=== PATIENT | female | born 1930 | race Caucasian/White ===

== ENCOUNTER 2018-07-26 16:47 | Emergency (ER) | payer MEDICARE ==
[2018-07-26 16:51] VITALS: BP 145/69; PULSE 66; RESP 18; TEMP 98.2
--- NOTE | 2018-07-26 17:13 | ED ---
General Adult HPI - General Chief complaint: ENT Stated complaint: Trouble Swallowing Time Seen by Provider: 07/26/18 16:50 Source: patient, RN notes reviewed Mode of arrival: ambulatory Limitations: no limitations - History of Present Illness Initial comments: This is an 88-year-old female presents emergency Department stating when she swallows she feels as though there is something in her throat however she is able to drink any without problem. Patient denies any pain. Patient states this is been ongoing a month. Patient states 2 days ago she did follow up with her doctor about this and he is looking into it. Patient states she came today because of continued to happen and she thought maybe we could do more of a workup. Patient denies any fever chills. Patient denies any chest pain difficulty breathing or shortness of breath. Patient denies any pain in the throat. Patient denies abdominal pain patient denies nausea vomiting diarrhea. Patient denies any back pain patient denies any recent injury or fall. Patient states that just seems a little harder to swallow maybe like it's dry. Patient states just sitting here and swallowing her saliva does not cause any discomfort. - Related Data Home Medications Medication Instructions Recorded Confirmed Atorvastatin [Lipitor] 20 mg PO DAILY 11/06/13 07/26/18 Levothyroxine Sodium [Synthroid] 50 mcg PO DAILY 07/26/18 07/26/18 Losartan [Cozaar] 50 mg PO DAILY 07/26/18 07/26/18 amLODIPine [Norvasc] 5 mg PO DAILY 07/26/18 07/26/18 Allergies Allergy/AdvReac Type Severity Reaction Status Date / Time Penicillins Allergy Rash/Hives Verified 07/26/18 16:56 Review of Systems ROS Statement: Those systems with pertinent positive or pertinent negative responses have been documented in the HPI. ROS Other: All systems not noted in ROS Statement are negative. Past Medical History Past Medical History: Diabetes Mellitus, Hyperlipidemia, Hypertension, Pulmonary Embolus (PE), Thyroid Disorder Additional Past Medical History / Comment(s): had a siezure in 2004, pt states her NA+ was to low History of Any Multi-Drug Resistant Organisms: MRSA Date of last positivie culture/infection: 02/21/2014 MDRO Source:: Face Past Surgical History: Bladder Surgery, Hysterectomy Past Anesthesia/Blood Transfusion Reactions: No Reported Reaction Past Psychological History: No Psychological Hx Reported Smoking Status: Never smoker Past Alcohol Use History: None Reported Past Drug Use History: None Reported General Exam - General Exam Comments Initial Comments: GENERAL: Patient is well-developed and well-nourished. Patient is nontoxic and well- hydrated and is in no acute distress. ENT: Neck is soft and supple. No significant lymphadenopathy is noted. Oropharynx is clear. Moist mucous membranes. Neck has full range of motion without eliciting any pain. EYES: The sclera were anicteric and conjunctiva were pink and moist. Extraocular movements were intact and pupils were equal round and reactive to light. Eyelids were unremarkable. PULMONARY: Unlabored respirations. Good breath sounds bilaterally. No audible rales rhonchi or wheezing was noted. CARDIOVASCULAR: There is a regular rate and rhythm without any murmurs gallops or rubs. ABDOMEN: Soft and nontender with normal bowel sounds. SKIN: Skin is clear with no lesions or rashes and otherwise unremarkable. NEUROLOGIC: Patient is alert and oriented x3. Cranial nerves II through XII are grossly intact. Motor and sensory are also intact. Normal speech, volume and content. Symmetrical smile. MUSCULOSKELETAL: Normal extremities with adequate strength and full range of motion. LYMPHATICS: No significant lymphadenopathy is noted PSYCHIATRIC: Normal psychiatric evaluation. Limitations: no limitations Course Vital Signs 07/26/18 16:48 Temperature 98.2 F Pulse Rate 66 Respiratory 18 Rate Blood Pressure 145/69 O2 Sat by Pulse 99 Oximetry Medical Decision Making - Medical Decision Making X-ray of the soft tissue show no acute abnormality. Strep was negative. Patient was drinking water when I went back into the room to give her her the results. - Lab Data Lab Results 07/26/18 Range/Units 17:10 Group A Strep Rapid Negative (Negative) Disposition Clinical Impression: Dysphagia Disposition: HOME SELF-CARE Condition: Good Instructions (If sedation given, give patient instructions): Dysphagia (ED) Is patient prescribed a controlled substance at d/c from ED?: No Referrals: Kamaljit Dalton MD [Primary Care Provider] - 1-2 days Time of Disposition: 18:23
--- NOTE | 2018-07-26 17:37 | XR ---
EXAMINATION TYPE: XR soft tissue neck DATE OF EXAM: 07/26/2018 COMPARISON: NONE HISTORY: Pain TECHNIQUE: 2 views of the soft tissues of the neck are submitted. FINDINGS: The airway is patent. Normal appearing epiglottis. Retropharyngeal soft tissues are withi n normal limits. No evidence for radiopaque foreign body. Degenerative changes cervical spine. IMPRESSION: Negative study
== END 2018-07-26 18:36 | disposition home or self-care (01) ==
LOC: EC 16:47
DX: R13.10 Dysphagia, unspecified (principal); E78.5 Hyperlipidemia, unspecified; I10 Essential (primary) hypertension; E07.9 Disorder of thyroid, unspecified; Z88.0 Allergy status to penicillin; Z79.890 Hormone replacement therapy; Z79.899 Other long term (current) drug therapy; Z86.14 Personal history of Methicillin resistant Staphylococcus aureus infection
CPT/HCPCS: 70360; 87081; 87430; 99284

== ENCOUNTER 2018-07-29 20:01 | Emergency (ER) | payer MEDICARE ==
--- NOTE | 2018-07-29 22:01 | ED ---
General Adult HPI - General Chief complaint: ENT Stated complaint: cannot swallow Time Seen by Provider: 07/29/18 21:06 Source: patient, family, RN notes reviewed, old records reviewed Mode of arrival: ambulatory Limitations: no limitations - History of Present Illness Initial comments: 88 female presented for evaluation of difficulty swallowing and concern for foreign body. Patient was seen emergency Department 3 days earlier with similar symptoms. She states she's had these symptoms for at least 3 weeks. She had PEs, ham, potatoes for dinner. She denies symptoms at the time my evaluation. She has been able to swallow liquids since the onset. She states a progressive worsening of symptoms with certain foods. Denies pain. Denies sore throat. Denies fever or chills. Denies chest pain or dyspnea. Denies abdominal pain. - Related Data Home Medications Medication Instructions Recorded Confirmed Atorvastatin [Lipitor] 20 mg PO DAILY 11/06/13 07/29/18 Levothyroxine Sodium [Synthroid] 50 mcg PO DAILY 07/26/18 07/29/18 Losartan [Cozaar] 50 mg PO DAILY 07/26/18 07/29/18 amLODIPine [Norvasc] 5 mg PO DAILY 07/26/18 07/29/18 Sertraline HCl [Zoloft] 25 mg PO DAILY 07/29/18 07/29/18 Allergies Allergy/AdvReac Type Severity Reaction Status Date / Time Penicillins Allergy Rash/Hives Verified 07/29/18 21:06 Review of Systems ROS Statement: Those systems with pertinent positive or pertinent negative responses have been documented in the HPI. ROS Other: All systems not noted in ROS Statement are negative. Past Medical History Past Medical History: Diabetes Mellitus, Hyperlipidemia, Hypertension, Pulmonary Embolus (PE), Thyroid Disorder Additional Past Medical History / Comment(s): had a siezure in 2004, pt states her NA+ was to low, dysphagia History of Any Multi-Drug Resistant Organisms: MRSA Date of last positivie culture/infection: 02/21/2014 MDRO Source:: Face Past Surgical History: Bladder Surgery, Hysterectomy Past Anesthesia/Blood Transfusion Reactions: No Reported Reaction Past Psychological History: No Psychological Hx Reported Smoking Status: Never smoker Past Alcohol Use History: None Reported Past Drug Use History: None Reported General Exam Limitations: no limitations General appearance: alert, in no apparent distress Head exam: Present: atraumatic, normocephalic Eye exam: Present: normal appearance, PERRL ENT exam: Present: normal oropharynx, mucous membranes moist Neck exam: Present: normal inspection. Absent: tenderness, thyromegaly Respiratory exam: Present: normal lung sounds bilaterally. Absent: respiratory distress, wheezes Cardiovascular Exam: Present: regular rate, normal rhythm GI/Abdominal exam: Present: soft. Absent: distended, tenderness, guarding Extremities exam: Present: normal inspection, normal capillary refill Neurological exam: Present: alert, oriented X3, CN II-XII intact. Absent: motor sensory deficit Psychiatric exam: Present: normal affect, normal mood Skin exam: Present: warm, dry, intact Course Vital Signs 07/29/18 20:42 Temperature 97.8 F Pulse Rate 69 Respiratory 18 Rate Blood Pressure 142/68 O2 Sat by Pulse 99 Oximetry Medical Decision Making - Medical Decision Making 88-year-old female presenting for evaluation of difficulty swallowing certain foods. Patient is tolerating oral liquids in the emergency Department. No complaints time my evaluation. Her symptoms have been progressive over several week. No associated symptoms. Patient appears well-hydrated. No other complaints. She is instructed on dysphagia diet, encouraged to maintain oral hydration, will follow-up with GI. Will return with worsening or changing symptoms Disposition Clinical Impression: Dysphagia Disposition: HOME SELF-CARE Condition: Good Instructions (If sedation given, give patient instructions): Dysphagia (ED) Is patient prescribed a controlled substance at d/c from ED?: No Referrals: Kamaljit Dalton MD [Primary Care Provider] - 1-2 days Kiki Corley MD [STAFF PHYSICIAN] - 1-2 days Time of Disposition: 22:00
[2018-07-29 22:15] VITALS: BP 131/75; PULSE 67; RESP 19; TEMP 98
== END 2018-07-29 22:09 | disposition home or self-care (01) ==
LOC: EC 20:01
DX: R13.10 Dysphagia, unspecified (principal); E78.5 Hyperlipidemia, unspecified; I10 Essential (primary) hypertension; E07.9 Disorder of thyroid, unspecified; Z88.0 Allergy status to penicillin; Z79.890 Hormone replacement therapy; Z79.899 Other long term (current) drug therapy; Z86.14 Personal history of Methicillin resistant Staphylococcus aureus infection; Z86.711 Personal history of pulmonary embolism
CPT/HCPCS: 99284

== ENCOUNTER 2018-08-12 08:36 | Inpatient (IN) | payer MEDICARE ==
--- NOTE | 2018-08-12 09:05 | ED ---
Psych HPI - General Chief Complaint: Psychiatric Symptoms Stated Complaint: throat problems/not eating Time Seen by Provider: 08/12/18 08:49 Source: patient, family, RN notes reviewed Mode of arrival: ambulatory Limitations: no limitations - History of Present Illness Initial Comments: This 88-year-old female presents emergency department with family concerned for her mental health. Patient's has been stating that she does not believe that she can keep living like this. Family states that her mental status is changing. That she has been declining, she's had altered mental status at this time. Patient states that she is constantly thirsty. Since March she's had worsening anxiety and depression. She was started on Zoloft which was making symptoms worse was discontinued she has not taken any medications the last week or so. Patient states that she is a dry mouth and throat and states that she has to drink water constant. She did have an EGD by Dr. García which shows evidence of gastritis and underlying infection was given multiple medications though she has not started these. Patient denies any chest pain or shortness of breath. Patient had no recent lab work. Patient is in no alcohol or drug abuse. She always has history of anxiety but is worsened and which daughter is very concerned of her symptoms at this time. - Related Data Home Medications Medication Instructions Recorded Confirmed Atorvastatin [Lipitor] 20 mg PO DAILY 11/06/13 08/12/18 Levothyroxine Sodium [Synthroid] 50 mcg PO DAILY 07/26/18 08/12/18 Losartan [Cozaar] 50 mg PO BID 07/26/18 08/12/18 amLODIPine [Norvasc] 5 mg PO DAILY 07/26/18 08/12/18 Aspirin EC [Ecotrin Low Dose] 81 mg PO DAILY 08/12/18 08/12/18 Famotidine [Pepcid] 20 mg PO BID 08/12/18 08/12/18 Mirtazapine [Remeron] 30 mg PO HS 08/12/18 08/12/18 Ranitidine HCl [Zantac] 150 mg PO BID 08/12/18 08/12/18 Tetracycline 250mg Cap 250 mg PO QID 08/12/18 08/12/18 metroNIDAZOLE [Flagyl] 250 mg PO QID 08/12/18 08/12/18 Allergies Allergy/AdvReac Type Severity Reaction Status Date / Time Penicillins Allergy Rash/Hives Verified 08/12/18 09:21 Review of Systems ROS Statement: Those systems with pertinent positive or pertinent negative responses have been documented in the HPI. ROS Other: All systems not noted in ROS Statement are negative. Past Medical History Past Medical History: Diabetes Mellitus, Hyperlipidemia, Hypertension, Pulmonary Embolus (PE), Thyroid Disorder Additional Past Medical History / Comment(s): had a siezure in 2004, pt states her NA+ was to low, dysphagia History of Any Multi-Drug Resistant Organisms: MRSA Date of last positivie culture/infection: 02/21/2014 MDRO Source:: Face Past Surgical History: Bladder Surgery, Hysterectomy Past Anesthesia/Blood Transfusion Reactions: No Reported Reaction Past Psychological History: Anxiety, Depression Smoking Status: Never smoker Past Alcohol Use History: None Reported Past Drug Use History: None Reported General Exam Limitations: no limitations General appearance: alert, in no apparent distress Head exam: Present: atraumatic, normocephalic, normal inspection Eye exam: Present: normal appearance, PERRL, EOMI. Absent: scleral icterus, conjunctival injection, periorbital swelling ENT exam: Present: normal exam, normal oropharynx, mucous membranes moist, TM's normal bilaterally Neck exam: Present: normal inspection, full ROM. Absent: tenderness, meningismus, lymphadenopathy Respiratory exam: Present: normal lung sounds bilaterally. Absent: respiratory distress, wheezes, rales, rhonchi, stridor Cardiovascular Exam: Present: regular rate, normal rhythm, normal heart sounds. Absent: systolic murmur, diastolic murmur, rubs, gallop, clicks GI/Abdominal exam: Present: soft, normal bowel sounds. Absent: distended, tende rness, guarding, rebound, rigid Neurological exam: Present: alert, oriented X3, CN II-XII intact Skin exam: Present: warm, dry, intact, normal color. Absent: rash Course Vital Signs 08/12/18 08:40 Temperature 98.7 F Pulse Rate 82 Respiratory 16 Rate Blood Pressure 118/70 O2 Sat by Pulse 97 Oximetry Medical Decision Making - Medical Decision Making A 8 show female presented for multiple complaints. She was medically evaluated, evaluate by EPS. They do not feel that she is to be inpatient for psychiatric needs though she has moderate hyponatremic, dehydrated, has underlying urinary tract infection with change in behavior. Patient will be admitted at this time. - Lab Data Result diagrams: 08/12/18 09:55 08/12/18 09:55 Lab Results 08/12/18 08/12/18 08/12/18 Range/Units 09:55 09:55 11:31 WBC 5.6 (3.8-10.6) k/uL RBC 4.68 (3.80-5.40) m/uL Hgb 13.6 (11.4-16.0) gm/dL Hct 39.2 (34.0-46.0) % MCV 83.8 (80.0-100.0) fL MCH 29.0 (25.0-35.0) pg MCHC 34.5 (31.0-37.0) g/dL RDW 12.9 (11.5-15.5) % Plt Count 278 (150-450) k/uL Neutrophils % 86 % Lymphocytes % 8 % Monocytes % 3 % Eosinophils % 1 % Basophils % 0 % Neutrophils # 4.9 (1.3-7.7) k/uL Lymphocytes # 0.4 L (1.0-4.8) k/uL Monocytes # 0.2 (0-1.0) k/uL Eosinophils # 0.1 (0-0.7) k/uL Basophils # 0.0 (0-0.2) k/uL Sodium 125 L (137-145) mmol/L Potassium 4.1 (3.5-5.1) mmol/L Chloride 88 L (98-107) mmol/L Carbon Dioxide 21 L (22-30) mmol/L Anion Gap 16 mmol/L BUN 12 (7-17) mg/dL Creatinine 0.60 (0.52-1.04) mg/dL Est GFR (CKD-EPI)AfAm >90 (>60 ml/min/1.73 sqM) Est GFR (CKD-EPI)NonAf 83 (>60 ml/min/1.73 sqM) Glucose 73 L (74-99) mg/dL POC Glucose (mg/dL) (75-99) mg/dL POC Glu [employer] Department Chair ID Calcium 9.7 (8.4-10.2) mg/dL Total Bilirubin 1.0 (0.2-1.3) mg/dL AST 31 (14-36) U/L ALT 27 (9-52) U/L Alkaline Phosphatase 78 (38-126) U/L Total Protein 7.1 (6.3-8.2) g/dL Albumin 4.5 (3.5-5.0) g/dL TSH 2.040 (0.465-4.680) mIU/L Urine Color Yellow Urine Appearance Clear (Clear) Urine pH 6.0 (5.0-8.0) Ur Specific [place] 1.008 (1.001-1.035) Urine Protein Trace H (Negative) Urine Glucose (UA) Negative (Negative) Urine Ketones 2+ H (Negative) Urine Blood Negative (Negative) Urine Nitrite Negative (Negative) Urine Bilirubin Negative (Negative) Urine Urobilinogen <2.0 (<2.0) mg/dL Ur Leukocyte Esterase Large H (Negative) Urine RBC 1 (0-5) /hpf Urine WBC 13 H (0-5) /hpf Ur Squamous Epith Cells 1 (0-4) /hpf Hyaline Casts 1 (0-2) /lpf Urine Mucus Rare H (None) /hpf Urine Opiates Screen Not Detected (NotDetected) Ur Oxycodone Screen Not Detected (NotDetected) Urine Methadone Screen Not Detected (NotDetected) Ur Propoxyphene Screen Not Detected (NotDetected) Ur Barbiturates Screen Not Detected (NotDetected) U Tricyclic Antidepress Not Detected (NotDetected) Ur Phencyclidine Scrn Not Detected (NotDetected) Ur Amphetamines Screen Not Detected (NotDetected) U Methamphetamines Scrn Not Detected (NotDetected) U Benzodiazepines Scrn Not Detected (NotDetected) Urine Cocaine Screen Not Detected (NotDetected) U Marijuana (THC) Screen Not Detected (NotDetected) Serum Alcohol <10 mg/dL 08/12/18 Range/Units 12:34 WBC (3.8-10.6) k/uL RBC (3.80-5.40) m/uL Hgb (11.4-16.0) gm/dL Hct (34.0-46.0) % MCV (80.0-100.0) fL MCH (25.0-35.0) pg MCHC (31.0-37.0) g/dL RDW (11.5-15.5) % Plt Count (150-450) k/uL Neutrophils % % Lymphocytes % % Monocytes % % Eosinophils % % Basophils % % Neutrophils # (1.3-7.7) k/uL Lymphocytes # (1.0-4.8) k/uL Monocytes # (0-1.0) k/uL Eosinophils # (0-0.7) k/uL Basophils # (0-0.2) k/uL Sodium (137-145) mmol/L Potassium (3.5-5.1) mmol/L Chloride (98-107) mmol/L Carbon Dioxide (22-30) mmol/L Anion Gap mmol/L BUN (7-17) mg/dL Creatinine (0.52-1.04) mg/dL Est GFR (CKD-EPI)AfAm (>60 ml/min/1.73 sqM) Est GFR (CKD-EPI)NonAf (>60 ml/min/1.73 sqM) Glucose (74-99) mg/dL POC Glucose (mg/dL) 136 H (75-99) mg/dL POC Glu [employer] Department Chair ID Nellie Regan Calcium (8.4-10.2) mg/dL Total Bilirubin (0.2-1.3) mg/dL AST (14-36) U/L ALT (9-52) U/L Alkaline Phosphatase (38-126) U/L Total Protein (6.3-8.2) g/dL Albumin (3.5-5.0) g/dL TSH (0.465-4.680) mIU/L Urine Color Urine Appearance (Clear) Urine pH (5.0-8.0) Ur Specific [place] (1.001-1.035) Urine Protein (Negative) Urine Glucose (UA) (Negative) Urine Ketones (Negative) Urine Blood (Negative) Urine Nitrite (Negative) Urine Bilirubin (Negative) Urine Urobilinogen (<2.0) mg/dL Ur Leukocyte Esterase (Negative) Urine RBC (0-5) /hpf Urine WBC (0-5) /hpf Ur Squamous Epith Cells (0-4) /hpf Hyaline Casts (0-2) /lpf Urine Mucus (None) /hpf Urine Opiates Screen (NotDetected) Ur Oxycodone Screen (NotDetected) Urine Methadone Screen (NotDetected) Ur Propoxyphene Screen (NotDetected) Ur Barbiturates Screen (NotDetected) U Tricyclic Antidepress (NotDetected) Ur Phencyclidine Scrn (NotDetected) Ur Amphetamines Screen (NotDetected) U Methamphetamines Scrn (NotDetected) U Benzodiazepines Scrn (NotDetected) Urine Cocaine Screen (NotDetected) U Marijuana (THC) Screen (NotDetected) Serum Alcohol mg/dL Disposition Clinical Impression: Acute anxiety, UTI (urinary tract infection), Mental status alteration, Hyponatremia, Dehydration Disposition: ADMITTED IP TO THIS HOSP Referrals: Kamaljit Dalton MD [Primary Care Provider] - 1-2 days
[2018-08-12 10:05] LABS: Basophils % (A) 0 %; Eosinophils # (A) 0.1 k/uL (0-0.7); Eosinophils % (A) 1 %; HCT 39.2 % (34.0-46.0); HGB 13.6 gm/dL (11.4-16.0); Lymphocytes # (A) 0.4 k/uL (1.0-4.8); Lymphocytes % (A) 8 %; MCHC 34.5 g/dL (31.0-37.0); MCV 83.8 fL (80.0-100.0); Mean Platelet Volume 6.2; Monocytes # (A) 0.2 k/uL (0-1.0); Monocytes % (A) 3 %; Neutrophils # (A) 4.9 k/uL (1.3-7.7); Neutrophils % (A) 86 %; Platelet Count 278 k/uL (150-450); RBC 4.68 m/uL (3.80-5.40); RDW 12.9 % (11.5-15.5); WBC 5.6 k/uL (3.8-10.6)
[2018-08-12 10:15] LABS: ALT 27 U/L (9-52); AST 31 U/L (14-36); Albumin 4.5 g/dL (3.5-5.0); Alcohol <10 mg/dL; Alkaline Phosphatase 78 U/L (38-126); Anion Gap 16 mmol/L; Blood Urea Nitrogen 12 mg/dL (7-17); Calcium 9.7 mg/dL (8.4-10.2); Carbon Dioxide 21 mmol/L (22-30); Chloride 88 mmol/L (98-107); Glucose 73 mg/dL (74-99); Potassium 4.1 mmol/L (3.5-5.1); Sodium 125 mmol/L (137-145); Total Protein 7.1 g/dL (6.3-8.2)
--- NOTE | 2018-08-12 10:33 | CT ---
EXAMINATION TYPE: CT brain wo con DATE OF EXAM: 08/12/2018 HISTORY: Change in behavior CT DLP: 1040.4 mGycm. Automated Exposure Control for Dose Reduction was Utilized. TECHNIQUE: CT scan of the head is performed without contrast. COMPARISON: CT brain 2006 FINDINGS: There is no acute intracranial hemorrhage or midline shift identified. There is diffuse v entricular and sulcal prominence consistent with diffuse age-related cerebral atrophy. There is low- attenuation in the periventricular white matter consistent with chronic small vessel ischemic change. The globes are intact and the visualized sinuses are clear. IMPRESSION: No acute intracranial hemorrhage or midline shift. There is [id number] diffuse ag e-related cerebral atrophy and mild chronic small vessel ischemic change redemonstrated.
[2018-08-12 11:42] LABS: Appearance,Urine Clear (Clear); Bilirubin,Urine Negative (Negative); Blood,Urine Negative (Negative); Color,Urine Yellow; Glucose,Urine (UA) Negative (Negative); Hyaline Casts,Urine 1 /lpf (0-2); Ketones,Urine 2+ (Negative); Leukocyte Esterase,Urine Large (Negative); Mucus,Urine Rare /hpf; Nitrite,Urine Negative (Negative); Protein,Urine Trace (Negative); RBC,Urine 1 /hpf (0-5); Specific Gravity,Urine 1.008 (1.001-1.035); Squamous Epithelial Cell,Urine 1 /hpf (0-4); Urobilinogen,Urine <2.0 mg/dL (<2.0)
[2018-08-12 11:50] LABS: Amphetamine Screen,Urine Not Detected (NotDetected); Barbiturate Screen,Urine Not Detected (NotDetected); Benzodiazepines Screen,Urine Not Detected (NotDetected); Cocaine Screen,Urine Not Detected (NotDetected); Methadone Screen, Urine Not Detected (NotDetected); Opiate Screen,Urine Not Detected (NotDetected); Oxycodone Screen, Urine Not Detected (NotDetected); Phencyclidine Screen,Urine Not Detected (NotDetected); Tricyclic Antidepressant,Urine Not Detected (NotDetected); Urn Cannabinoid Scrn Not Detected (NotDetected)
[2018-08-12] MEDS ORDERED: cefTRIAXone IN SWFI 1,000 MG/10 ML SYRINGE IVP STA (11:55)
[2018-08-12] MEDS ORDERED: SODIUM CHLORIDE 0.9% 1,000 ML IV ONE (11:55)
[2018-08-12 12:38] LABS: Glucose,Whole Blood 136 mg/dL (75-99)
[2018-08-12] MEDS ORDERED: LORazepam 2 MG/ML INJ IV PRN (14:09)
[2018-08-12] MEDS ORDERED: ONDANSETRON 4 MG/2 ML VIAL IVP PRN (14:09)
[2018-08-12] MEDS ORDERED: ACETAMINOPHEN TAB 325 MG TAB PO PRN (14:09)
[2018-08-12] MEDS ORDERED: NALOXONE 0.4 MG/ML 1 ML VIAL IV PRN (14:09)
[2018-08-12] MEDS: SODIUM CHLORIDE 0.9% 1,000 ML IV SCH (14:52)
[2018-08-12 16:03] VITALS: BMI 21.9
--- NOTE | 2018-08-12 18:25 | P.HPIM ---
History of Present Illness H&P Date: 08/12/18 This is 88 years old female patient of Dr. Ibrahim with past medical history of psychogenic polydipsia, multiple previous ER visit for difficulty swallowing. According to the daughter bedside patient had multiple ER visits for concern of not ABLE to swallow for the past few weeks. She has had a beta and swallow as well as endoscopy by Dr. John with no conclusive evidence of why patient has swallowing difficulties, CT soft tissue of the neck was negative for any abnormality. Patient was last seen on July 29 when she did have a hamburger without any difficulty for dinner. Patient is able to swallow liquid without any difficulty but has difficulty swallowing pills. According to the daughter bedside patient stopped eating since Sunday and is only drinking water. She started complaining of burning, frequent micturition with change in mental status yesterday. Patient was seen walking across the hallway acting agitated and anxious about how she will be the bills. She is unable to take care of herself including the daily functional activities likebathing or changing clothes. Since March vision or worsening anxiety and depression was started on Zoloft which patient stopped taking 2 weeks ago. She was also started on tetracycline, metronidazole and ranitidine for possible H. pylori infection but patient refuses to take these medication. Remeron was supposed to be started which patient refuses to take as she is concerned about swallowing difficulty. Right ovarian by ER suggestive temp of 98.7 pulse 82 respiratory rate 16 blood pressure 118/70. Labs evaluated suggested CBC with hemoglobin of 13.6, sodium 125, chloride 88, bicarbonate 21 glucose of 73 urinalysis suggest a WBC 13, leukocyte esterase large urine toxin was negative. CT head was negative for any stroke Review of Systems Constitutional: Denies chills, Denies fever, Denies lethargy, Denies malaise, endorses poor appetite, Denies weakness, Denies weight loss Eyes: denies decreased vision, denies diplopia, denies discharge, denies pain Ears: deny: decreased hearing Ears, nose, mouth and throat: Denies dental pain, Denies headache, Denies nasal discharge, Denies nose pain Cardiovascular: Denies chest pain, Denies decreased exercise tolerance, Denies edema, Denies high blood pressure, Denies irregular heart beat, Denies palpitations, Denies paroxysmal nocturnal dyspnea, Denies rapid heart beat, Denies shortness of breath Respiratory: Denies congestion, Denies cough, Denies cough with sputum, Denies dyspnea, Denies home oxygen, Denies wheezing Gastrointestinal: Denies abdominal pain, Denies change in bowel habits, Denies coffee ground emesis, Denies early satiety, Denies excessive gas, Denies heartburn, Denies hematemesis, Denies hematochezia, Denies loss of appetite, Denies nausea, Denies vomiting Genitourinary: Denies dysuria, Denies flank pain, Denies kidney stones, Denies menorrhagia, Denies urgency, Denies urinary frequency Musculoskeletal: Denies gait dysfunction, Denies limitation of motion, Denies morning stiffness, Denies muscle cramps Integumentary: Denies rash, Denies wounds, Denies brittle nails, Denies change in hair/nails, Denies darkening of skin Neurological: Denies balance difficulties, Denies change in speech, Denies double vision, Denies gait dysfunction, Denies loss of vision, Denies motor disturbance, Denies numbness, Denies paralysis, Denies paresthesias, Denies seizures Psychiatric: Endorses anxiety, endorses depression Endocrine: Denies excessive sweating, Denies excessive thirst, Denies high blood sugars, Denies palpitations Hematologic/Lymphatic: Denies easy bruising, Denies lymphadenopathy Past Medical History Past Medical History: Diabetes Mellitus, Hyperlipidemia, Hypertension, Pulmonary Embolus (PE), Thyroid Disorder Additional Past Medical History / Comment(s): had a siezure in 2004, pt states her NA+ was to low, dysphagia History of Any Multi-Drug Resistant Organisms: MRSA Date of last positivie culture/infection: 02/21/2014 MDRO Source:: Face Past Surgical History: Bladder Surgery, Hysterectomy Past Anesthesia/Blood Transfusion Reactions: No Reported Reaction Past Psychological History: Anxiety, Depression Smoking Status: Never smoker Past Alcohol Use History: None Reported Past Drug Use History: None Reported - Past Family History Father Family Medical History: CVA/TIA, Hypertension Additional Family Medical History / Comment(s): brain anyruisum Mother Family Medical History: Hypertension Medications and Allergies Home Medications Medication Instructions Recorded Confirmed Type Atorvastatin [Lipitor] 20 mg PO DAILY 11/06/13 08/12/18 History Levothyroxine Sodium [Synthroid] 50 mcg PO DAILY 07/26/18 08/12/18 History Losartan [Cozaar] 50 mg PO BID 07/26/18 08/12/18 History amLODIPine [Norvasc] 5 mg PO DAILY 07/26/18 08/12/18 History Aspirin EC [Ecotrin Low Dose] 81 mg PO DAILY 08/12/18 08/12/18 History Famotidine [Pepcid] 20 mg PO BID 08/12/18 08/12/18 History Mirtazapine [Remeron] 30 mg PO HS 08/12/18 08/12/18 History Ranitidine HCl [Zantac] 150 mg PO BID 08/12/18 08/12/18 History Tetracycline 250mg Cap 250 mg PO QID 08/12/18 08/12/18 History metroNIDAZOLE [Flagyl] 250 mg PO QID 08/12/18 08/12/18 History Allergies Allergy/AdvReac Type Severity Reaction Status Date / Time Penicillins Allergy Rash/Hives Verified 08/12/18 09:21 Physical Exam Vitals: Vital Signs Temp Pulse Pulse Resp BP BP Pulse Ox 08/12/18 15:17 98.5 F 65 12 143/67 99 08/12/18 14:58 97.8 F 08/12/18 14:21 60 18 152/58 98 08/12/18 08:40 98.7 F 82 16 118/70 97 Intake and Output 08/12/18 08/12/18 08/12/18 06:59 14:59 22:59 Other: Weight 47.627 kg - Constitutional General appearance: cooperative, in no acute distress, fragile cachectic appearing female - EENT Eyes: anicteric sclerae, PERRLA, normal appearance ENT: hearing grossly normal - Neck Neck: no lymphadenopathy, normal ROM, no other, no rigidity, no stridor, no thyromegaly - Respiratory Respiratory: bilateral: CTA, negative: diminished, dullness, rales, rhonchi - Cardiovascular Rhythm: regular Heart sounds: normal: S1, S2 Abnormal Heart Sounds: no systolic murmur, no diastolic murmur, no rub, no S3 Gallop, no S4 Gallop, no click, no other - Gastrointestinal General gastrointestinal: normal bowel sounds, soft - Integumentary Integumentary: no rash - Neurologic Neurologic: CNII-XII intact - Musculoskeletal Musculoskeletal: gait normal, strength equal bilaterally - Psychiatric Psychiatric: A&O x's 3, appropriate affect Results CBC & Chem 7: 08/12/18 09:55 08/12/18 09:55 Labs: Abnormal Lab Results - Last 24 Hours (Table) 08/12/18 08/12/18 08/12/18 Range/Units 09:55 09:55 11:31 Lymphocytes # 0.4 L (1.0-4.8) k/uL Sodium 125 L (137-145) mmol/L Chloride 88 L (98-107) mmol/L Carbon Dioxide 21 L (22-30) mmol/L Glucose 73 L (74-99) mg/dL POC Glucose (mg/dL) (75-99) mg/dL Urine Protein Trace H (Negative) Urine Ketones 2+ H (Negative) Ur Leukocyte Esterase Large H (Negative) Urine WBC 13 H (0-5) /hpf Urine Mucus Rare H (None) /hpf 08/12/18 Range/Units 12:34 Lymphocytes # (1.0-4.8) k/uL Sodium (137-145) mmol/L Chloride (98-107) mmol/L Carbon Dioxide (22-30) mmol/L Glucose (74-99) mg/dL POC Glucose (mg/dL) 136 H (75-99) mg/dL Urine Protein (Negative) Urine Ketones (Negative) Ur Leukocyte Esterase (Negative) Urine WBC (0-5) /hpf Urine Mucus (None) /hpf Thrombosis Risk Factor Assmnt - DVT/VTE Prophylaxis DVT/VTE Prophylaxis: Pharmacologic Prophylaxis ordered - Choose All That Apply Other Risk Factors: Yes Each Risk Factor Represents 3 Points: History of DVT/PE Other congenital or acquired thrombophilia - If yes, enter type in comment: No Thrombosis Risk Factor Assessment Total Risk Factor Score: 3 Thrombosis Risk Factor Assessment Level: Moderate Risk Assessment and Plan Plan: #1 altered mental status likely secondary to hyponatremia. Currently oriented 3. 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 Sodium, urine sodium, see Gray Terry, urine osmolarity ordered continue normal saline at 75 mL per hour #3Dysphagia with underlying workup negative. Modified barium swallow negative psych consult placed. It patient started on clear liquid diet if patient is unable to swallow will consult Dr. 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 Patient was initiated on metronidazole, ranitidine and tetracycline which patient refuses to take. #5 UTI continue Rocephin 1 g daily #6 anxiety Ativan 0.5 mg IV every 12 as needed #7 depression. Patient on Remeron 30 mg daily at bedtime as patient stopped taking Zoloft 2 weeks ago #8 hypothyroidism patient refuses Synthyroid 50 g by mouth daily currently on hold #9 history of hypertension continue Norvasc 5 mg by mouth daily #10 history of cardiac that is secondary to PE has IVC filter hold aspirin #11 hyperlipidemia Lipitor 20 mg by mouth daily on hold #12 history of carotid stenosis aspirin and hold CODE STATUS full code
[2018-08-12 19:16] LABS: ALT 20 U/L (9-52); AST 28 U/L (14-36); Albumin 3.5 g/dL (3.5-5.0); Alkaline Phosphatase 55 U/L (38-126); Anion Gap 10 mmol/L; Blood Urea Nitrogen 7 mg/dL (7-17); Carbon Dioxide 20 mmol/L (22-30); Chloride 97 mmol/L (98-107); Glucose 148 mg/dL (74-99); Potassium 3.6 mmol/L (3.5-5.1); Sodium 127 mmol/L (137-145); Total Bilirubin 0.7 mg/dL (0.2-1.3)
[2018-08-12] MEDS: FAMOTIDINE 20 MG TAB PO SCH (20:53)
[2018-08-12] MEDS: MIRTAZAPINE 15 MG TAB PO SCH (20:53)
[2018-08-13] MEDS: SODIUM CHLORIDE 0.9% 1,000 ML IV SCH ×2 (04:49→18:39)
[2018-08-13 08:45] LABS: Basophils % (A) 0 %; Eosinophils % (A) 0 %; HCT 36.3 % (34.0-46.0); HGB 12.1 gm/dL (11.4-16.0); Lymphocytes # (A) 0.5 k/uL (1.0-4.8); Lymphocytes % (A) 11 %; MCH 28.2 pg (25.0-35.0); MCHC 33.3 g/dL (31.0-37.0); MCV 84.8 fL (80.0-100.0); Mean Platelet Volume 6.2; Monocytes # (A) 0.2 k/uL (0-1.0); Monocytes % (A) 5 %; Neutrophils # (A) 3.7 k/uL (1.3-7.7); Neutrophils % (A) 82 %; Platelet Count 259 k/uL (150-450); RBC 4.28 m/uL (3.80-5.40); RDW 13.1 % (11.5-15.5); WBC 4.5 k/uL (3.8-10.6)
[2018-08-13 08:55] LABS: ALT 30 U/L (9-52); AST 29 U/L (14-36); Albumin 3.5 g/dL (3.5-5.0); Alkaline Phosphatase 60 U/L (38-126); Anion Gap 10 mmol/L; Blood Urea Nitrogen 3 mg/dL (7-17); Calcium 8.7 mg/dL (8.4-10.2); Carbon Dioxide 22 mmol/L (22-30); Chloride 98 mmol/L (98-107); Glucose 128 mg/dL (74-99); Sodium 130 mmol/L (137-145); Total Bilirubin 0.7 mg/dL (0.2-1.3)
[2018-08-13 09:06] LABS: Potassium 3.1 mmol/L (3.5-5.1)
[2018-08-13] MEDS: amLODIPine 5 MG TAB PO SCH (10:00)
[2018-08-13] MEDS: FAMOTIDINE 20 MG TAB PO SCH ×2 (10:00→21:27)
[2018-08-13] MEDS: POTASSIUM CHLORIDE ER 20 MEQ TAB.ER PO SCH ×2 (10:00→13:21)
--- NOTE | 2018-08-13 14:12 | P.PN ---
Subjective Progress Note Date: 08/13/18 This is 88 years old female patient of Dr. Dalton with past medical history of psychogenic polydipsia, multiple previous ER visit for difficulty swallowing. According to the daughter bedside patient had multiple ER visits for concern of not ABLE to swallow for the past few weeks. She has had a beta and swallow as well as endoscopy by Dr. John with no conclusive evidence of why patient has swallowing difficulties, CT soft tissue of the neck was negative for any abnormality. Patient was last seen on July 29 when she did have a hamburger without any difficulty for dinner. Patient is able to swallow liquid without any difficulty but has difficulty swallowing pills. According to the daughter bedside patient stopped eating since Sunday and is only drinking water. She started complaining of burning, frequent micturition with change in mental status yesterday. Patient was seen walking across the hallway acting agitated and anxious about how she will be the bills. She is unable to take care of herself including the daily functional activities likebathing or changing clothes. Since March vision or worsening anxiety and depression was started on Zoloft which patient stopped taking 2 weeks ago. She was also started on tetracycline, metronidazole and ranitidine for possible H. pylori infection but patient refuses to take these medication. Remeron was supposed to be started which patient refuses to take as she is concerned about swallowing difficulty. Right ovarian by ER suggestive temp of 98.7 pulse 82 respiratory rate 16 blood pressure 118/70. Labs evaluated suggested CBC with hemoglobin of 13.6, sodium 125, chloride 88, bicarbonate 21 glucose of 73 urinalysis suggest a WBC 13, leukocyte esterase large urine toxin was negative. CT head was negative for any stroke 08/13: Patient has been afebrile, heart rate in the 60s and 70s, blood pressure 155/74, pulse ox 90% on room air. Repeat lab work shows a normal CBC, sodium is up to 130, potassium 3.1, chloride 98, CO2 22, BUN 17 creatinine 0.37. Blood sugars 128. Urine osmolality is 247 and serum osmolality 269. Psychiatry is on consult. Urine culture is in progress. The patient refused to take Remeron last night. She did take her Norvasc and Pepcid this morning without any trouble. She did not eat any breakfast but she did drink orange juice and ensure. Last night she ate some ice cream, juice and soup. She complains of pain that started after she ate yesterday but it seems to be more hip related mo st likely secondary to osteoarthritis. Patient denies having any dizziness or lightheadedness. She has been up and ambulating. She states she sometimes has tinnitus. She denies any blurred vision. She states when she feels food getting caught it is in the throat area. His speech therapy and dietitian consults requested. Review of Systems Constitutional: Denies chills, Denies fever, Denies lethargy, Denies malaise, endorses poor appetite, Denies weakness, Denies weight loss Eyes: denies decreased vision, denies diplopia, denies discharge, denies pain Ears: deny: decreased hearing, reports tinnitus Ears, nose, mouth and throat: Denies dental pain, Denies headache, Denies nasal discharge, Denies nose pain Cardiovascular: Denies chest pain, Denies decreased exercise tolerance, Denies edema, Denies high blood pressure, Denies irregular heart beat, Denies pa lpitations, Denies paroxysmal nocturnal dyspnea, Denies rapid heart beat, Denies shortness of breath Respiratory: Denies congestion, Denies cough, Denies cough with sputum, Denies dyspnea, Denies home oxygen, Denies wheezing Gastrointestinal: Denies abdominal pain, Denies change in bowel habits, Denies coffee ground emesis, Denies early satiety, Denies excessive gas, Denies heartburn, Denies hematemesis, Denies hematochezia, Denies loss of appetite, Denies nausea, Denies vomiting Genitourinary: Denies dysuria, Denies flank pain, Denies kidney stones, Denies menorrhagia, Denies urgency, Denies urinary frequency Musculoskeletal: Denies gait dysfunction, Denies limitation of motion, Denies morning stiffness, Denies muscle cramps Integumentary: Denies rash, Denies wounds, Denies brittle nails, Denies change in hair/nails, Denies darkening of skin Neurological: Denies balance difficulties, Denies change in speech, Denies double vision, Denies gait dysfunction, Denies loss of vision, Denies motor disturbance, Denies numbness, Denies paralysis, Denies paresthesias, Denies seizures Psychiatric: Endorses anxiety, endorses depression Endocrine: Denies excessive sweating, Denies excessive thirst, Denies high blood sugars, Denies palpitations Hematologic/Lymphatic: Denies easy bruising, Denies lymphadenopathy Objective - Vital Signs Vital signs: Vital Signs Temp 98.8 F 08/13/18 07:22 Pulse 72 08/13/18 07:22 Resp 16 08/13/18 07:22 BP 155/74 08/13/18 07:22 Pulse Ox 98 08/13/18 07:22 Intake & Output 08/12/18 08/13/18 08/13/18 18:59 06:59 18:59 Weight 47.627 kg Other: Voiding Method Toilet Diaper # Voids 2 2 - Exam General appearance: cooperative, in no acute distress, fragile cachectic appearing female, daughter is at bedside. - EENT Eyes: anicteric sclerae, PERRLA, normal appearance ENT: hearing grossly normal - Neck Neck: no lymphadenopathy, normal ROM, no other, no rigidity, no stridor, no thyromegaly - Respiratory Respiratory: bilateral: CTA, negative: diminished, dullness, rales, rhonchi - Cardiovascular Rhythm: regular Heart sounds: normal: S1, S2 Abnormal Heart Sounds: no systolic murmur, no diastolic murmur, no rub, no S3 Gallop, no S4 Gallop, no click, no other - Gastrointestinal General gastrointestinal: normal bowel sounds, soft - Integumentary Integumentary: no rash - Neurologic Neurologic: CNII-XII intact - Musculoskeletal Musculoskeletal: gait normal, strength equal bilaterally - Psychiatric Psychiatric: A&O x's 3, appropriate affect - Labs CBC & Chem 7: 08/13/18 07:57 08/13/18 07:57 Labs: Abnormal Lab Results - Last 24 Hours (Table) 08/12/18 08/12/18 08/12/18 Range/Units 09:55 09:55 11:31 Lymphocytes # 0.4 L (1.0-4.8) k/uL Sodium 125 L (137-145) mmol/L Potassium (3.5-5.1) mmol/L Chloride 88 L (98-107) mmol/L Carbon Dioxide 21 L (22-30) mmol/L BUN (7-17) mg/dL Creatinine (0.52-1.04) mg/dL Glucose 73 L (74-99) mg/dL POC Glucose (mg/dL) (75-99) mg/dL Osmolality (280-301) mosm/kg Total Protein (6.3-8.2) g/dL Urine Protein Trace H (Negative) Urine Ketones 2+ H (Negative) Ur Leukocyte Esterase Large H (Negative) Urine WBC 13 H (0-5) /hpf Urine Mucus Rare H (None) /hpf 08/12/18 08/12/18 08/13/18 Range/Units 12:34 18:12 07:57 Lymphocytes # (1.0-4.8) k/uL Sodium 127 L 130 L (137-145) mmol/L Potassium 3.1 L (3.5-5.1) mmol/L Chloride 97 L (98-107) mmol/L Carbon Dioxide 20 L (22-30) mmol/L BUN 3 L (7-17) mg/dL Creatinine 0.40 L 0.37 L (0.52-1.04) mg/dL Glucose 148 H 128 H (74-99) mg/dL POC Glucose (mg/dL) 136 H (75-99) mg/dL Osmolality 269 L (280-301) mosm/kg Total Protein 6.0 L 6.0 L (6.3-8.2) g/dL Urine Protein (Negative) Urine Ketones (Negative) Ur Leukocyte Esterase (Negative) Urine WBC (0-5) /hpf Urine Mucus (None) /hpf 08/13/18 Range/Units 07:57 Lymphocytes # 0.5 L (1.0-4.8) k/uL Sodium (137-145) mmol/L Potassium (3.5-5.1) mmol/L Chloride (98-107) mmol/L Carbon Dioxide (22-30) mmol/L BUN (7-17) mg/dL Creatinine (0.52-1.04) mg/dL Glucose (74-99) mg/dL POC Glucose (mg/dL) (75-99) mg/dL Osmolality (280-301) mosm/kg Total Protein (6.3-8.2) g/dL Urine Protein (Negative) Urine Ketones (Negative) Ur Leukocyte Esterase (Negative) Urine WBC (0-5) /hpf Urine Mucus (None) /hpf Microbiology - Last 24 Hours (Table) 08/12/18 11:31 Urine Culture - Preliminary Urine,Voided Assessment and Plan Plan: #1 metabolic encephalopathy likely secondary to hyponatremia. Currently oriented 3. 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 Continue normal saline at 75 mL per hour. #3 Dysphagia with underlying workup negative. Modified barium swallow negative psych consult placed. It patient started on clear liquid diet if patient is unable to swallow will consult Dr. 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 Patient was initiated on metronidazole, ranitidine and tetracycline which patient refuses to take. These medications will be on hold. #5 UTI continue Rocephin 1 g daily #6 generalized anxiety disorder. Ativan 0.5 mg IV every 12 as needed #7 recurrent depression. 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 Samantha Griffith nurse practitioner acting as scribe for signing physician.
[2018-08-13] MEDS: MIRTAZAPINE 15 MG TAB PO SCH (21:27)
[2018-08-14] MEDS: FAMOTIDINE 20 MG TAB PO SCH ×2 (08:39→21:28)
[2018-08-14] MEDS: SODIUM CHLORIDE 0.9% 1,000 ML IV SCH (08:39)
[2018-08-14] MEDS: amLODIPine 5 MG TAB PO SCH (08:39)
[2018-08-14 09:53] LABS: Basophils % (A) 0 %; Eosinophils % (A) 1 %; HCT 37.3 % (34.0-46.0); HGB 12.6 gm/dL (11.4-16.0); Lymphocytes # (A) 0.6 k/uL (1.0-4.8); Lymphocytes % (A) 11 %; MCH 28.8 pg (25.0-35.0); MCHC 33.7 g/dL (31.0-37.0); MCV 85.5 fL (80.0-100.0); Mean Platelet Volume 6.3; Monocytes # (A) 0.3 k/uL (0-1.0); Monocytes % (A) 5 %; Neutrophils # (A) 4.4 k/uL (1.3-7.7); Neutrophils % (A) 82 %; Platelet Count 236 k/uL (150-450); RBC 4.37 m/uL (3.80-5.40); RDW 13.3 % (11.5-15.5); WBC 5.4 k/uL (3.8-10.6)
[2018-08-14 10:22] LABS: ALT 20 U/L (9-52); AST 30 U/L (14-36); Albumin 3.6 g/dL (3.5-5.0); Alkaline Phosphatase 71 U/L (38-126); Anion Gap 8 mmol/L; Blood Urea Nitrogen 2 mg/dL (7-17); Calcium 9.4 mg/dL (8.4-10.2); Carbon Dioxide 24 mmol/L (22-30); Chloride 95 mmol/L (98-107); Glucose 143 mg/dL (74-99); Potassium 3.2 mmol/L (3.5-5.1); Sodium 127 mmol/L (137-145); Total Bilirubin 0.6 mg/dL (0.2-1.3); Total Protein 6.1 g/dL (6.3-8.2)
[2018-08-14] MEDS ORDERED: FLUCONAZOLE 150 MG TAB PO STA (12:38)
[2018-08-14] MEDS: FUROSEMIDE 10 MG/ML 2 ML VIAL IV SCH (14:05)
--- NOTE | 2018-08-14 14:18 | P.CN ---
Psychiatric Consult - . Consult date: 08/14/18 Consult:: 08/14/18 10:08 Psychogenic dysphagia Assessment and Plan (1) Acute anxiety Narrative/Plan: This 88-year-old female presents emergency department with family concerned for her mental health. Patient's has been stating that she does not believe that she can keep living like this. Family states that her mental status is changing. That she has been declining, she's had altered mental status at this time. Patient states that she is constantly thirsty. Since March she's had worsening anxiety and depression. She was started on Zoloft which was making symptoms worse was discontinued she has not taken any medications the last week or so. Patient states that she is a dry mouth and throat and states that she has to drink water constant. She did have an EGD by Dr. García which shows evidence of gastritis and underlying infection was given multiple medications though she has not started these. Patient denies any chest pain or shortness of breath. Patient had no recent lab work. Patient is in no alcohol or drug abuse. She always has history of anxiety but is worsened and which daughter is very concerned of her symptoms at this time. - Related Data Home Medications Medication Instructions Recorded Confirmed Atorvastatin [Lipitor] 20 mg PO DAILY 11/06/13 08/12/18 Levothyroxine Sodium [Synthroid] 50 mcg PO DAILY 07/26/18 08/12/18 Losartan [Cozaar] 50 mg PO BID 07/26/18 08/12/18 amLODIPine [Norvasc] 5 mg PO DAILY 07/26/18 08/12/18 Aspirin EC [Ecotrin Low Dose] 81 mg PO DAILY 08/12/18 08/12/18 Famotidine [Pepcid] 20 mg PO BID 08/12/18 08/12/18 Mirtazapine [Remeron] 30 mg PO HS 08/12/18 08/12/18 Ranitidine HCl [Zantac] 150 mg PO BID 08/12/18 08/12/18 Tetracycline 250mg Cap 250 mg PO QID 08/12/18 08/12/18 metroNIDAZOLE [Flagyl] 250 mg PO QID 08/12/18 08/12/18 Allergies Allergy/AdvReac Type Severity Reaction Status Date / Time Penicillins Allergy Rash/Hives Verified 08/12/18 09:21 Past Medical History Past Medical History: Diabetes Mellitus, Hyperlipidemia, Hypertension, Pulmonary Embolus (PE), Thyroid Disorder Additional Past Medical History / Comment(s): had a siezure in 2004, pt states her NA+ was to low, dysphagia History of Any Multi-Drug Resistant Organisms: MRSA Date of last positivie culture/infection: 02/21/2014 MDRO Source:: Face Past Surgical History: Bladder Surgery, Hysterectomy Past Anesthesia/Blood Transfusion Reactions: No Reported Reaction Past Psychological History: Anxiety, Depression Smoking Status: Never smoker Past Alcohol Use History: None Reported Past Drug Use History: None Reported Mental Status Examination - General Appearance: casual, appears stated age Speech/Language: slow, mumbling, hesitant, halting, monotone, soft] Attitude/Behavior: [ guarded Mood: [euthymic, denies depressed,endorsees anxiety Affect: [full range mostly flat] Orientation: [not to time, person, place situation] Thought Content: [somatic delusions Risk Factors: [Denies suicidal (ideations, plan), and/or Homicidal (ideations, plan), other] Perception: [wnl, denies hallucinations (auditory, visual, tactile), other] Thought Processes: [ concrete Concentration/Attention Span: [ impaired] [Per observation and interview with the patient] Recent Memory: [impaired] [0 out of 3 in 3 minutes] Remote Memory: [ impaired] [past events, as related history] Intelligence: [below average] [based on history, based on vocabulary, syntax, grammar, and content] Judgement: [ poor] [per patient's behavior/history of present illness] Insight: [ poor] [understanding severity of illness/history of present illness] Psychiatric impression: 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 One-to-one observers her MRI she has at least 40% loss in cortical matter with collapse of the ventricles and temporoparietal region abnormality. 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 She is eating and swallowing now. When talking to the who had a recent emboli in his left eye is unable to drive and his right is completely open and nonfunctional this family is left with no unable to drive. This should be referral to social work to work with the daughter to assist her in placement other than their home. Thank you for this most interesting case and this is not a candidate for [address] [place] [address] Canelo Pichardo D.O. PhD Current Visit: Yes Status: Acute Priority: Low Code(s): F41.9 - ANXIETY DISORDER, UNSPECIFIED SNOMED Code(s): 23309515 Time with Patient: Greater than 30
--- NOTE | 2018-08-14 15:15 | P.PN ---
Subjective Progress Note Date: 08/14/18 This is 88 years old female patient of Dr. Dalton with past medical history of psychogenic polydipsia, multiple previous ER visit for difficulty swallowing. According to the daughter bedside patient had multiple ER visits for concern of not ABLE to swallow for the past few weeks. She has had a beta and swallow as well as endoscopy by Dr. John with no conclusive evidence of why patient has swallowing difficulties, CT soft tissue of the neck was negative for any abnormality. Patient was last seen on July 29 when she did have a hamburger without any difficulty for dinner. Patient is able to swallow liquid without any difficulty but has difficulty swallowing pills. According to the daughter bedside patient stopped eating since Sunday and is only drinking water. She started complaining of burning, frequent micturition with change in mental status yesterday. Patient was seen walking across the hallway acting agitated and anxious about how she will be the bills. She is unable to take care of herself including the daily functional activities likebathing or changing clothes. Since March vision or worsening anxiety and depression was started on Zoloft which patient stopped taking 2 weeks ago. She was also started on tetracycline, metronidazole and ranitidine for possible H. pylori infection but patient refuses to take these medication. Remeron was supposed to be started which patient refuses to take as she is concerned about swallowing difficulty. Right ovarian by ER suggestive temp of 98.7 pulse 82 respiratory rate 16 blood pressure 118/70. Labs evaluated suggested CBC with hemoglobin of 13.6, sodium 125, chloride 88, bicarbonate 21 glucose of 73 urinalysis suggest a WBC 13, leukocyte esterase large urine toxin was negative. CT head was negative for any stroke 08/13: Patient has been afebrile, heart rate in the 60s and 70s, blood pressure 155/74, pulse ox 90% on room air. Repeat lab work shows a normal CBC, sodium is up to 130, potassium 3.1, chloride 98, CO2 22, BUN 17 creatinine 0.37. Blood sugars 128. Urine osmolality is 247 and serum osmolality 269. Psychiatry is on consult. Urine culture is in progress. The patient refused to take Remeron last night. She did take her Norvasc and Pepcid this morning without any trouble. She did not eat any breakfast but she did drink orange juice and ensure. Last night she ate some ice cream, juice and soup. She complains of pain that started after she ate yesterday but it seems to be more hip related mo st likely secondary to osteoarthritis. Patient denies having any dizziness or lightheadedness. She has been up and ambulating. She states she sometimes has tinnitus. She denies any blurred vision. She states when she feels food getting caught it is in the throat area. His speech therapy and dietitian consults requested. 08/14: Urine culture was positive for contamination. We will plan to repeat urinalysis and urine culture. 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 Patient has been seen by psychiatry with recommendations for outpatient referral to [facility] psychology Department for neuropsych evaluation. plastics worker has provided information on assisted living. Patient has been very confused she does not understand her IV and IV fluid machine. She has been urinating frequently and complaining of burning. We will plan to monitor patient overnight and possible discharge by tomorrow. Review of Systems Constitutional: Denies chills, Denies fever, Denies lethargy, Denies malaise, endorses poor appetite, Denies weakness, Denies weight loss Eyes: denies decreased vision, denies diplopia, denies discharge, denies pain Ears: deny: decreased hearing, reports tinnitus Ears, nose, mouth and throat: Denies dental pain, Denies headache, Denies nasal discharge, Denies nose pain Cardiovascular: Denies chest pain, Denies decreased exercise tolerance, Denies edema, Denies high blood pressure, Denies irregular heart beat, Denies palpitations, Denies paroxysmal nocturnal dyspnea, Denies rapid heart beat, Denies shortness of breath Respiratory: Denies congestion, Denies cough, Denies cough with sputum, Denies dyspnea, Denies home oxygen, Denies wheezing Gastrointestinal: Denies abdominal pain, Denies change in bowel habits, Denies coffee ground emesis, Denies early satiety, Denies excessive gas, Denies heartburn, Denies hematemesis, Denies hematochezia, Denies loss of appetite, Denies nausea, Denies vomiting Genitourinary: Reports dysuria, Denies flank pain, Denies kidney stones, Denies menorrhagia, Denies urgency, reports urinary frequency Musculoskeletal: Denies gait dysfunction, Denies limitation of motion, Denies morning stiffness, Denies muscle cramps Integumentary: Denies rash, Denies wounds, Denies brittle nails, Denies change in hair/nails, Denies darkening of skin Neurological: Denies balance difficulties, Denies change in speech, Denies double vision, Denies gait dysfunction, Denies loss of vision, Denies motor disturbance, Denies numbness, Denies paralysis, Denies paresthesias, Denies seizures Psychiatric: Endorses anxiety, endorses depression. Patient is confused Endocrine: Denies excessive sweating, Denies excessive thirst, Denies high blood sugars, Denies palpitations Hematologic/Lymphatic: Denies easy bruising, Denies lymphadenopathy Objective - Vital Signs Vital signs: Vital Signs Temp 97.8 F 08/14/18 07:11 Pulse 68 08/14/18 08:41 Resp 16 08/14/18 08:41 BP 127/47 08/14/18 07:11 Pulse Ox 98 08/14/18 07:11 Intake & Output 08/13/18 08/14/18 08/14/18 18:59 06:59 18:59 Intake Total 540 1560 Balance 540 1560 Weight 47.627 kg Intake: Intake, IV Titration 600 Amount Sodium Chloride 0.9% 1, 600 000 ml @ 75 mls/hr IV . [id number] [facility] Rx#:[id number] Oral 540 960 Other: Voiding Method Diaper Toilet Toilet # Voids 6 1 - Exam General appearance: cooperative, in no acute distress, fragile cachectic appearing female, is at bedside. - EENT Eyes: anicteric sclerae, PERRLA, normal appearance ENT: hearing grossly normal - Neck Neck: no lymphadenopathy, normal ROM, no other, no rigidity, no stridor, no thyromegaly - Respiratory Respiratory: bilateral: CTA, negative: diminished, dullness, rales, rhonchi - Cardiovascular Rhythm: regular Heart sounds: normal: S1, S2 Abnormal Heart Sounds: no systolic murmur, no diastolic murmur, no rub, no S3 Gallop, no S4 Gallop, no click, no other - Gastrointestinal General gastrointestinal: normal bowel sounds, soft - Integumentary Integumentary: no rash - Neurologic Neurologic: CNII-XII intact - Musculoskeletal Musculoskeletal: gait normal, strength equal bilaterally - Psychiatric Psychiatric: A&O x's 1-2, appropriate affect - Labs CBC & Chem 7: 08/14/18 09:04 08/14/18 09:04 Labs: Abnormal Lab Results - Last 24 Hours (Table) 08/14/18 08/14/18 Range/Units 09:04 09:04 Lymphocytes # 0.6 L (1.0-4.8) k/uL Sodium 127 L (137-145) mmol/L Potassium 3.2 L (3.5-5.1) mmol/L Chloride 95 L (98-107) mmol/L BUN 2 L (7-17) mg/dL Creatinine 0.38 L (0.52-1.04) mg/dL Glucose 143 H (74-99) mg/dL Total Protein 6.1 L (6.3-8.2) g/dL Microbiology - Last 24 Hours (Table) 08/12/18 11:31 Urine Culture - Final Urine,Voided Strep agalactiae - (group b) Assessment and Plan Plan: #1 metabolic encephalopathy likely secondary to hyponatremia and underlying vascular dementia is suspected. 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 IV fluids discontinued and patient placed on Lasix 20 mg IV daily #3 Dysphagia with underlying workup negative. Modified barium swallow negative psych consult placed. It patient started on clear liquid diet if patient is unable to swallow will consult Dr. 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 Patient was initiated on metronidazole, ranitidine and tetracycline which patient refuses to take. These medications will be on hold. #5 UTI continue Rocephin 1 g daily #6 generalized anxiety disorder. Ativan 0.5 mg IV every 12 as needed #7 recurrent depression. 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 Impression and plan of care have been directed as dictated by the signing physician. Samantha Griffith nurse practitioner acting as scribe for signing physician.
[2018-08-14 19:10] LABS: Amorphous Sediment,Urine Rare /hpf; Appearance,Urine Clear (Clear); Bacteria,Urine Many /hpf; Bilirubin,Urine Negative (Negative); Blood,Urine Negative (Negative); Budding Yeast,Urine Rare /hpf; Color,Urine Light Yellow; Glucose,Urine (UA) Negative (Negative); Ketones,Urine Negative (Negative); Leukocyte Esterase,Urine Small (Negative); Mucus,Urine Occasional /hpf; Nitrite,Urine Negative (Negative); Protein,Urine Negative (Negative); RBC,Urine 1 /hpf (0-5); Specific Gravity,Urine 1.003 (1.001-1.035); Squamous Epithelial Cell,Urine 1 /hpf (0-4); Urobilinogen,Urine <2.0 mg/dL (<2.0)
[2018-08-14] MEDS: MIRTAZAPINE 15 MG TAB PO SCH (21:28)
[2018-08-15 09:20] LABS: Basophils % (A) 0 %; Eosinophils # (A) 0.1 k/uL (0-0.7); Eosinophils % (A) 1 %; HCT 41.5 % (34.0-46.0); HGB 14.1 gm/dL (11.4-16.0); Lymphocytes # (A) 0.7 k/uL (1.0-4.8); Lymphocytes % (A) 10 %; MCH 28.9 pg (25.0-35.0); Mean Platelet Volume 8.9; Monocytes # (A) 0.4 k/uL (0-1.0); Monocytes % (A) 6 %; Neutrophils # (A) 6.1 k/uL (1.3-7.7); Neutrophils % (A) 82 %; Platelet Count 131 k/uL (150-450); RBC 4.89 m/uL (3.80-5.40); RDW 14.2 % (11.5-15.5); WBC 7.5 k/uL (3.8-10.6)
[2018-08-15] MEDS: FUROSEMIDE 10 MG/ML 2 ML VIAL IV SCH (09:36)
[2018-08-15] MEDS: amLODIPine 5 MG TAB PO SCH (09:36)
[2018-08-15] MEDS: FAMOTIDINE 20 MG TAB PO SCH (09:36)
[2018-08-15 12:40] LABS: Calcium 9.9 mg/dL (8.4-10.2); Potassium 3.3 mmol/L (3.5-5.1); Total Bilirubin 0.6 mg/dL (0.2-1.3); Total Protein 6.6 g/dL (6.3-8.2)
[2018-08-15] MEDS ORDERED: POTASSIUM CHLORIDE ER 20 MEQ TAB.ER PO STA (13:57)
--- NOTE | 2018-08-15 13:59 | P.PN ---
Subjective Progress Note Date: 08/15/18 This is 88 years old female patient of Dr. Dalton with past medical history of psychogenic polydipsia, multiple previous ER visit for difficulty swallowing. According to the daughter bedside patient had multiple ER visits for concern of not ABLE to swallow for the past few weeks. She has had a beta and swallow as well as endoscopy by Dr. John with no conclusive evidence of why patient has swallowing difficulties, CT soft tissue of the neck was negative for any abnormality. Patient was last seen on July 29 when she did have a hamburger without any difficulty for dinner. Patient is able to swallow liquid without any difficulty but has difficulty swallowing pills. According to the daughter bedside patient stopped eating since Sunday and is only drinking water. She started complaining of burning, frequent micturition with change in mental status yesterday. Patient was seen walking across the hallway acting agitated and anxious about how she will be the bills. She is unable to take care of herself including the daily functional activities likebathing or changing clothes. Since March vision or worsening anxiety and depression was started on Zoloft which patient stopped taking 2 weeks ago. She was also started on tetracycline, metronidazole and ranitidine for possible H. pylori infection but patient refuses to take these medication. Remeron was supposed to be started which patient refuses to take as she is concerned about swallowing difficulty. Right ovarian by ER suggestive temp of 98.7 pulse 82 respiratory rate 16 blood pressure 118/70. Labs evaluated suggested CBC with hemoglobin of 13.6, sodium 125, chloride 88, bicarbonate 21 glucose of 73 urinalysis suggest a WBC 13, leukocyte esterase large urine toxin was negative. CT head was negative for any stroke 08/13: Patient has been afebrile, heart rate in the 60s and 70s, blood pressure 155/74, pulse ox 90% on room air. Repeat lab work shows a normal CBC, sodium is up to 130, potassium 3.1, chloride 98, CO2 22, BUN 17 creatinine 0.37. Blood sugars 128. Urine osmolality is 247 and serum osmolality 269. Psychiatry is on consult. Urine culture is in progress. The patient refused to take Remeron last night. She did take her Norvasc and Pepcid this morning without any trouble. She did not eat any breakfast but she did drink orange juice and ensure. Last night she ate some ice cream, juice and soup. She complains of pain that started after she ate yesterday but it seems to be more hip related mo st likely secondary to osteoarthritis. Patient denies having any dizziness or lightheadedness. She has been up and ambulating. She states she sometimes has tinnitus. She denies any blurred vision. She states when she feels food getting caught it is in the throat area. His speech therapy and dietitian consults requested. 08/14: Urine culture was positive for contamination. We will plan to repeat urinalysis and urine culture. 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 Patient has been seen by psychiatry with recommendations for outpatient referral to [facility] psychology Department for neuropsych evaluation. fat pressroom worker has provided information on assisted living. Patient has been very confused she does not understand her IV and IV fluid machine. She has been urinating frequently and complaining of burning. We will plan to monitor patient overnight and possible discharge by tomorrow. 08/15: Patient is seen eating lunch and has no difficulty swallowing or eating this meal. Her sister and her are at the bedside. Nursing sent a specimen for C. difficile toxin yesterday which came back negative. Repeat urinalysis showed leukoesterase small bacteria many. Repeat sodium is 133 and potassium 3.3, chloride 98 and CO2 24. Daughter has decided the patient will need to go to subacute rehab at [facility]. We will plan for discharge tomorrow. Potassium will be replaced. Review of Systems Constitutional: Denies chills, Denies fever, Denies lethargy, Denies malaise, denies poor appetite, Denies weakness, Denies weight loss Eyes: denies decreased vision, denies diplopia, denies discharge, denies pain Ears, nose, mouth and throat: Denies dental pain, Denies headache, Denies nasal discharge, Denies nose pain Cardiovascular: Denies chest pain, Denies decreased exercise tolerance, Denies edema, Denies rapid heart beat, Denies shortness of breath Respiratory: Denies congestion, Denies cough, Denies cough with sputum, Denies dyspnea, Denies home oxygen, Denies wheezing Gastrointestinal: Denies abdominal pain, Denies change in bowel habits, Denies coffee ground emesis, Denies early satiety, Denies excessive gas, Denies heartburn, Denies hematemesis, Denies hematochezia, Denies loss of appetite, Denies nausea, Denies vomiting Genitourinary: Reports dysuria, Denies flank pain, Denies kidney stones, Denies menorrhagia, Denies urgency, reports urinary frequency Musculoskeletal: Denies gait dysfunction, Denies limitation of motion, Denies morning stiffness, Denies muscle cramps Integumentary: Denies rash, Denies wounds, Denies brittle nails, Denies change in hair/nails, Denies darkening of skin Neurological: Denies balance difficulties, Denies change in speech, Denies double vision, Denies gait dysfunction, Denies loss of vision, Denies motor disturbance, Denies numbness, Denies paralysis, Denies paresthesias, Denies seizures Psychiatric: Endorses anxiety, endorses depression. Patient is confused Endocrine: Denies excessive sweating, Denies excessive thirst, Denies high blood sugars, Denies palpitations Hematologic/Lymphatic: Denies easy bruising, Denies lymphadenopathy Objective - Vital Signs Vital signs: Vital Signs Temp 97.7 F 08/15/18 07:00 Pulse 75 08/15/18 07:00 Resp 16 08/15/18 07:00 BP 122/75 08/15/18 07:00 Pulse Ox 99 08/15/18 07:00 Intake & Output 08/14/18 08/15/18 08/15/18 18:59 06:59 18:59 Intake Total 375 250 Output Total 300 Balance 375 -50 Intake: Intake, IV Titration 375 Amount Sodium Chloride 0.9% 1, 375 000 ml @ 75 mls/hr IV . [id number] [facility] Rx#:[id number] Oral 250 Output: Urine 300 Other: Voiding Method Toilet Toilet Incontinent Diaper # Voids 1 - Exam General appearance: cooperative, in no acute distress, fragile cachectic appearing female, is at bedside. Patient is eating lunch and has no difficulty swallowing. - EENT Eyes: anicteric sclerae, PERRLA, normal appearance ENT: hearing grossly normal - Neck Neck: no lymphadenopathy, normal ROM, no other, no rigidity, no stridor, no thyromegaly - Respiratory Respiratory: bilateral: CTA, negative: diminished, dullness, rales, rhonchi - Cardiovascular Rhythm: regular Heart sounds: normal: S1, S2 Abnormal Heart Sounds: no systolic murmur, no diastolic murmur, no rub, no S3 Gallop, no S4 Gallop, no click, no other - Gastrointestinal General gastrointestinal: normal bowel sounds, soft - Integumentary Integumentary: no rash - Neurologic Neurologic: CNII-XII intact - Musculoskeletal Musculoskeletal: gait normal, strength equal bilaterally - Psychiatric Psychiatric: A&O x's 1-2, appropriate affect - Labs CBC & Chem 7: 08/15/18 08:08 08/15/18 11:36 Labs: Abnormal Lab Results - Last 24 Hours (Table) 08/14/18 08/15/18 Range/Units 18:50 08:08 Plt Count 131 L (150-450) k/uL Lymphocytes # 0.7 L (1.0-4.8) k/uL Ur Leukocyte Esterase Small H (Negative) Amorphous Sediment Rare H (None) /hpf Urine Bacteria Many H (None) /hpf Urine Mucus Occasional H (None) /hpf Urine Yeast (Budding) Rare H (None) /hpf Assessment and Plan Plan: #1 metabolic encephalopathy likely secondary to hyponatremia and underlying vascular dementia is suspected. 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 IV fluids discontinued and patient placed on Lasix 20 mg IV daily #3 Dysphagia with underlying workup negative. Modified barium swallow negative psych consult placed. It patient started on clear liquid diet if patient is unable to swallow will consult Dr. 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 Patient was initiated on metronidazole, ranitidine and tetracycline which patient refuses to take. These medications will be on hold. #5 UTI continue Rocephin 1 g daily #6 generalized anxiety disorder. Ativan 0.5 mg IV every 12 as needed #7 recurrent depression. 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 tomorrow. Impression and plan of care have been directed as dictated by the signing physician. Samantha Griffith nurse practitioner acting as scribe for signing wilian lynch.
[2018-08-15] MEDS: MIRTAZAPINE 15 MG TAB PO SCH (20:32)
[2018-08-16] MEDS: amLODIPine 5 MG TAB PO SCH (07:40)
[2018-08-16] MEDS: FAMOTIDINE 20 MG TAB PO SCH (07:40)
[2018-08-16] MEDS: FUROSEMIDE 10 MG/ML 2 ML VIAL IV SCH (07:40)
[2018-08-16 09:27] LABS: Anion Gap 6 mmol/L; Blood Urea Nitrogen 18 mg/dL (7-17); Calcium 9.2 mg/dL (8.4-10.2); Carbon Dioxide 25 mmol/L (22-30); Chloride 102 mmol/L (98-107); Glucose 106 mg/dL (74-99); Potassium 3.4 mmol/L (3.5-5.1); Sodium 133 mmol/L (137-145)
--- NOTE | 2018-08-16 10:06 | P.DS ---
Providers Date of admission: 08/12/18 13:59 Expected date of discharge: 08/19/18 Attending physician: Nitza Priest MD Consults: 08/12/18 18:11 Consult Physician Routine Consulting Provider: Canelo Pichardo Consult Reason/Comments: functional dysphagia Do you want consulting provider notified?: Yes Primary care physician: [facility] Course: This is 88 years old female patient of Dr. Dalton with past medical history of psychogenic polydipsia, multiple previous ER visit for difficulty swallowing. According to the daughter bedside patient had multiple ER visits for concern of not ABLE to swallow for the past few weeks. She has had a beta and swallow as well as endoscopy by Dr. John with no conclusive evidence of why patient has swallowing difficulties, CT soft tissue of the neck was negative for any abnormality. Patient was last seen on July 29 when she did have a hamburger without any difficulty for dinner. Patient is able to swallow liquid without any difficulty but has difficulty swallowing pills. According to the daughter bedside patient stopped eating since Sunday and is only drinking water. She started complaining of burning, frequent micturition with change in mental status yesterday. Patient was seen walking across the hallway acting agitated and anxious about how she will be the bills. She is unable to take care of herself including the daily functional activities likebathing or changing clothes. Since March vision or worsening anxiety and depression was started on Zoloft which patient stopped taking 2 weeks ago. She was also started on tetracycline, metronidazole and ranitidine for possible H. pylori infection but patient refuses to take these medication. Remeron was supposed to be started which patient refuses to take as she is concerned about swallowing difficulty. Right ovarian by ER suggestive temp of 98.7 pulse 82 respiratory rate 16 blood pressure 118/70. Labs evaluated suggested CBC with hemoglobin of 13.6, sodium 125, chloride 88, bicarbonate 21 glucose of 73 urinalysis suggest a WBC 13, leukocyte esterase large urine toxin was negative. CT head was negative for any stroke 08/13: Patient has been afebrile, heart rate in the 60s and 70s, blood pressure 155/74, pulse ox 90% on room air. Repeat lab work shows a normal CBC, sodium is up to 130, potassium 3.1, chloride 98, CO2 22, BUN 17 creatinine 0.37. Blood sugars 128. Urine osmolality is 247 and serum osmolality 269. Psychiatry is on consult. Urine culture is in progress. The patient refused to take Remeron last night. She did take her Norvasc and Pepcid this morning without any trouble. She did not eat any breakfast but she did drink orange juice and ensure. Last night she ate some ice cream, juice and soup. She complains of pain that started after she ate yesterday but it seems to be more hip related most likely secondary to osteoarthritis. Patient denies having any dizziness or lightheadedness. She has been up and ambulating. She states she sometimes has tinnitus. She denies any blurred vision. She states when she feels food getting caught it is in the throat area. His speech therapy and dietitian consults requested. 08/14: Urine culture was positive for contamination. We will plan to repeat urinalysis and urine culture. 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 Patient has been seen by psychiatry with recommendations for outpatient referral to [facility] psychology Department for neuropsych evaluation. extrusion utility worker has provided information on assisted living. Patient has been very confused she does not understand her IV and IV fluid machine. She has been urinating frequently and complaining of burning. We will plan to monitor patient overnight and possible discharge by tomorrow. 08/15: Patient is seen eating lunch and has no difficulty swallowing or eating this meal. Her sister and her are at the bedside. Nursing sent a specimen for C. difficile toxin yesterday which came back negative. Repeat urinalysis showed leukoesterase small bacteria many. Repeat sodium is 133 and potassium 3.3, chloride 98 and CO2 24. Daughter has decided the patient will need to go to subacute rehab at [facility]. We will plan for discharge tomorrow. Potassium will be replaced. 08/16: Patient has been afebrile, blood pressure 136/74, pulse ox 96% on room air, heart rate in the 70s and 80s. Repeat lab work reveals sodium 133, potassium 3.4, chloride 102 and CO2 25. Potassium will be replaced. The patient apparently was active last night and would not stay in bed. A sitter was added in the evening which has been discontinued this morning. Her is at the bedside. Patient apparently was up in 8 breakfast this morn ing less than 50% but now is quite sleepy. We will discontinue Ativan which she received at 4 AM and Lasix will be discontinued. Family has made arrangements for patient to go to [facility] [place] and will plan for this to occur on Sunday. Patient will be monitored overnight and all arrangements will be made for tomorrow. She will be resumed back on Cozaar decreased to once daily, Flag yl, tetracycline. [facility] Outpatient psychiatric appointment can be made for neuropsychiatric evaluation through [phone] or toll free number of [phone]. 08/17: Patient is scheduled for EEG today. Patient continues to sleep and difficult to arouse. Patient was unable to answer questions due to sleepiness. Family is at the bedside and stated that she was awake this morning and was complaining of difficulty swallowing. She was able to drink an entire ensure and start on a second one. Patient also questioned where her was and if he is eating and of. We discontinued Remeron yesterday. Risperdal was started. Once the EEG is completed we will determine if the patient can be transferred to [facility]. 08/18: Patient is sitting up in bed alert and able to answer questions. Patient has unable to tolerate meals without any difficulty in swallowing. Patient did have a decrease in hemoglobin to 9.4. Gastroenterology consult was completed a nd was felt that the decrease is not related to GI. Occult stool ordered patient has not had a bowel movement to obtain. Patient is no history of falls of hip or back pain. Patient continues to be afebrile and hemodynamically stable. 08/19: Patient appears to be back to her baseline mental status. She states she did eat some of her breakfast this morning. She has been afebrile, blood pressure 103/63, pulse ox 96% on room air, heart rate 76. Patient is agreeable to go to subacute rehab today. Patient did have urinary retention for which a Best catheter replaced prior to her discharge. Patient will be discharged to [facility] today in stable condition. Discharge diagnoses: 1. metabolic encephalopathy likely secondary to hyponatremia and underlying vascular dementia is suspected. Suspects possible seizure activity. 2. Seizure-like activity. 3. hyponatremia likely SIADH. 4. Dysphagia with underlying workup negative. 5. H pylori gastritis with chronic duodenitis. 6. UTI 7. Possible blood loss. 8. recurrent depression. 9. hypothyroidism. 10. history of hypertension 11. 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 hyperlipidemia 13. history of carotid stenosis 14. generalized anxiety disorder. 15. Drop in hemoglobin most likely due to bone marrow suppression from malnutrition. 16. Severe protein calorie malnutrition due to lack of oral intake 17. Urinary retention requiring Best catheter placement Discharge plan: Subacute rehab at [facility] Impression and plan of care have been directed as dictated by the signing physician. Samantha Griffith nurse practitioner acting as scribe for signing physician. Patient Condition at Discharge: Good Plan - Discharge Summary Discharge Rx Participant: No New Discharge Prescriptions: New risperiDONE [RisperDAL] 0.25 mg PO HS #30 tab Continue amLODIPine [Norvasc] 5 mg PO DAILY Levothyroxine Sodium [Synthroid] 50 mcg PO DAILY metroNIDAZOLE [Flagyl] 250 mg PO QID Ranitidine HCl [Zantac] 150 mg PO BID Aspirin EC [Ecotrin Low Dose] 81 mg PO DAILY Tetracycline 250mg Cap 250 mg PO QID Discontinued Atorvastatin [Lipitor] 20 mg PO DAILY Losartan [Cozaar] 50 mg PO BID Mirtazapine [Remeron] 30 mg PO HS Famotidine [Pepcid] 20 mg PO BID Discharge Medication List Levothyroxine Sodium [Synthroid] 50 mcg PO DAILY 07/26/18 [History] amLODIPine [Norvasc] 5 mg PO DAILY 07/26/18 [History] Aspirin EC [Ecotrin Low Dose] 81 mg PO DAILY 08/12/18 [History] Ranitidine HCl [Zantac] 150 mg PO BID 08/12/18 [History] Tetracycline 250mg Cap 250 mg PO QID 08/12/18 [History] metroNIDAZOLE [Flagyl] 250 mg PO QID 08/12/18 [History] risperiDONE [RisperDAL] 0.25 mg PO HS #30 tab 08/19/18 [Rx] Follow up Appointment(s)/Referral(s): Kamaljit Dalton MD [Primary Care Provider] - 1 Week (after discharge from ECF) Discharge Disposition: TRANSFER TO SNF/ECF
[2018-08-16] MEDS: POTASSIUM CHLORIDE ER 20 MEQ TAB.ER PO STA ×2 (12:57→17:51)
[2018-08-16] MEDS: metroNIDAZOLE 250 MG TABLET PO SCH ×4 (12:58→22:43)
[2018-08-16 13:23] LABS: Glucose,Whole Blood 97 mg/dL (75-99)
--- NOTE | 2018-08-16 13:31 | P.PN ---
Subjective Progress Note Date: 08/16/18 This is 88 years old female patient of Dr. Dalton with past medical history of psychogenic polydipsia, multiple previous ER visit for difficulty swallowing. According to the daughter bedside patient had multiple ER visits for concern of not ABLE to swallow for the past few weeks. She has had a beta and swallow as well as endoscopy by Dr. John with no conclusive evidence of why patient has swallowing difficulties, CT soft tissue of the neck was negative for any abnormality. Patient was last seen on July 29 when she did have a hamburger without any difficulty for dinner. Patient is able to swallow liquid without any difficulty but has difficulty swallowing pills. According to the daughter bedside patient stopped eating since Sunday and is only drinking water. She started complaining of burning, frequent micturition with change in mental status yesterday. Patient was seen walking across the hallway acting agitated and anxious about how she will be the bills. She is unable to take care of herself including the daily functional activities likebathing or changing clothes. Since March vision or worsening anxiety and depression was started on Zoloft which patient stopped taking 2 weeks ago. She was also started on tetracycline, metronidazole and ranitidine for possible H. pylori infection but patient refuses to take these medication. Remeron was supposed to be started which patient refuses to take as she is concerned about swallowing difficulty. Right ovarian by ER suggestive temp of 98.7 pulse 82 respiratory rate 16 blood pressure 118/70. Labs evaluated suggested CBC with hemoglobin of 13.6, sodium 125, chloride 88, bicarbonate 21 glucose of 73 urinalysis suggest a WBC 13, leukocyte esterase large urine toxin was negative. CT head was negative for any stroke 08/13: Patient has been afebrile, heart rate in the 60s and 70s, blood pressure 155/74, pulse ox 90% on room air. Repeat lab work shows a normal CBC, sodium is up to 130, potassium 3.1, chloride 98, CO2 22, BUN 17 creatinine 0.37. Blood sugars 128. Urine osmolality is 247 and serum osmolality 269. Psychiatry is on consult. Urine culture is in progress. The patient refused to take Remeron last night. She did take her Norvasc and Pepcid this morning without any trouble. She did not eat any breakfast but she did drink orange juice and ensure. Last night she ate some ice cream, juice and soup. She complains of pain that started after she ate yesterday but it seems to be more hip related mo st likely secondary to osteoarthritis. Patient denies having any dizziness or lightheadedness. She has been up and ambulating. She states she sometimes has tinnitus. She denies any blurred vision. She states when she feels food getting caught it is in the throat area. His speech therapy and dietitian consults requested. 08/14: Urine culture was positive for contamination. We will plan to repeat urinalysis and urine culture. 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 Patient has been seen by psychiatry with recommendations for outpatient referral to [facility] psychology Department for neuropsych evaluation. harvest worker fruit has provided information on assisted living. Patient has been very confused she does not understand her IV and IV fluid machine. She has been urinating frequently and complaining of burning. We will plan to monitor patient overnight and possible discharge by tomorrow. 08/15: Patient is seen eating lunch and has no difficulty swallowing or eating this meal. Her sister and her are at the bedside. Nursing sent a specimen for C. difficile toxin yesterday which came back negative. Repeat urinalysis showed leukoesterase small bacteria many. Repeat sodium is 133 and potassium 3.3, chloride 98 and CO2 24. Daughter has decided the patient will need to go to subacute rehab at [facility]. We will plan for discharge tomorrow. Potassium will be replaced. 08/16: Patient has been afebrile, blood pressure 136/74, pulse ox 96% on room air, heart rate in the 70s and 80s. Repeat lab work reveals sodium 133, potassium 3.4, chloride 102 and CO2 25. Potassium will be replaced. The patient apparently was active last night and would not stay in bed. A sitter was added in the evening which has been discontinued this morning. Her is at the bedside. Patient apparently was up in 8 breakfast this morning less than 50% but now is quite sleepy. We will discontinue Ativan which she received at 4 AM and Lasix will be discontinued. Family has made arrangements for patient to go to [facility] and will plan for this to occur on Sunday. Patient will be monitored overnight and all arrangements will be made for tomorrow. She will be resumed back on Cozaar decreased to once daily, Flagyl, tetracycline. [facility] Outpatient psychiatric appointment can be made for neuropsychiatric evaluation through [phone] or toll free number of [phone]. Review of Systems Constitutional: Denies chills, Denies fever, reports lethargy, Denies malaise, denies poor appetite, Denies weakness Eyes: denies decreased vision, denies diplopia, denies discharge, denies pain Ears, nose, mouth and throat: Denies dental pain, Denies headache, Denies nasal discharge, Denies nose pain Cardiovascular: Denies chest pain, Denies decreased exercise tolerance, Denies edema, Denies rapid heart beat, Denies shortness of breath Respiratory: Denies congestion, Denies cough, Denies cough with sputum, Denies dyspnea, Denies home oxygen, Denies wheezing Gastrointestinal: Denies abdominal pain, Denies change in bowel habits, Denies coffee ground emesis, Denies early satiety, Denies excessive gas, Denies heartburn, Denies hematemesis, Denies hematochezia, Denies loss of appetite, Denies nausea, Denies vomiting Genitourinary: Reports dysuria, Denies flank pain, Denies kidney stones, Denies menorrhagia, Denies urgency, reports urinary frequency Musculoskeletal: Denies gait dysfunction, Denies limitation of motion, Denies morning stiffness, Denies muscle cramps Integumentary: Denies rash, Denies wounds, Denies brittle nails, Denies change in hair/nails, Denies darkening of skin Neurological: Denies balance difficulties, Denies change in speech, Denies double vision, Denies gait dysfunction, Denies loss of vision, Denies motor disturbance, Denies numbness, Denies paralysis, Denies paresthesias, Psychiatric: Endorses anxiety, endorses depression. Patient is confused Endocrine: Denies excessive sweating, Denies excessive thirst, Denies high blood sugars, Denies palpitations Hematologic/Lymphatic: Denies easy bruising, Denies lymphadenopathy Objective - Vital Signs Vital signs: Vital Signs Temp 98.5 F 08/16/18 07:42 Pulse 72 08/16/18 13:14 Resp 20 08/16/18 07:42 BP 131/75 08/16/18 13:14 Pulse Ox 96 08/16/18 13:14 Intake & Output 08/15/18 08/16/18 08/16/18 18:59 06:59 18:59 Intake Total 50 200 Balance 50 200 Weight 47.627 kg Intake: Intake, IV Titration 50 Amount cefTRIAXone 1 gm In 50 Sodium Chloride 0.9% 50 ml @ 100 mls/hr IVPB Q24H [facility] Rx#:[id number] Oral 200 Other: Voiding Method Toilet Toilet Diaper Diaper Incontinent Incontinent # Voids 3 3 - Exam General appearance: cooperative, in no acute distress, fragile cachectic appearing female, is at bedside. Patient is resting in bed and appears to be comfortable. - EENT Eyes: anicteric sclerae, PERRLA, normal appearance ENT: hearing grossly normal - Neck Neck: no lymphadenopathy, normal ROM, no other, no rigidity, no stridor, no thyromegaly - Respiratory Respiratory: bilateral: CTA, negative: diminished, dullness, rales, rhonchi - Cardiovascular Rhythm: regular Heart sounds: normal: S1, S2 Abnormal Heart Sounds: no systolic murmur, no diastolic murmur, no rub, no S3 Gallop, no S4 Gallop, no click, no other - Gastrointestinal General gastrointestinal: normal bowel sounds, soft - Integumentary Integumentary: no rash - Neurologic Neurologic: CNII-XII intact - Musculoskeletal Musculoskeletal: gait normal, strength equal bilaterally - Psychiatric Psychiatric: A&O x's 1 - Labs CBC & Chem 7: 08/15/18 08:08 08/16/18 07:59 Labs: Abnormal Lab Results - Last 24 Hours (Table) 08/16/18 Range/Units 07:59 Sodium 133 L (137-145) mmol/L Potassium 3.4 L (3.5-5.1) mmol/L BUN 18 H (7-17) mg/dL Glucose 106 H (74-99) mg/dL Assessment and Plan Plan: #1 metabolic encephalopathy likely secondary to hyponatremia and underlying vascular dementia is suspected. 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 IV fluids discontinued, Lasix discontinued #3 Dysphagia with underlying workup negative. Modified barium swallow negative psych consult appreciated. Patient is currently tolerating diet. #4 H pylori gastritis with chronic duodenitis. Patient will be started on metronidazole, ranitidine and tetracycline which patient refuses to take. #5 UTI continue Rocephin 1 g daily #6 generalized anxiety disorder. Ativan discontinued due to acute delirium. #7 recurrent depression. Patient on Remeron 30 mg daily at bedtime as patient stopped taking Zoloft 2 weeks ago #8 hypothyroidism. Continue levothyroxine 50 g daily. 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 Impression and plan of care have been directed as dictated by the signing physician. Samantha Griffith nurse practitioner acting as scribe for signing physician.
--- NOTE | 2018-08-16 14:09 | CT ---
EXAMINATION TYPE: CT brain wo con DATE OF EXAM: 08/16/2018 COMPARISON: 08/12/2018 HISTORY: Change in Mental Status CT DLP: 1090.4 mGycm Automated exposure control for dose reduction was used. FINDINGS: There is no acute intracranial hemorrhage or midline shift identified. There is diffuse ventricular a nd sulcal prominence consistent with diffuse age-related cerebral atrophy. There is low-attenuation i n the periventricular white matter consistent with chronic small vessel ischemic change. The globes a re intact and the visualized sinuses are clear. IMPRESSION: NO ACUTE HEMORRHAGE OR MASS EFFECT. NONSPECIFIC WHITE MATTER CHANGES ARE STABLE. IF THERE IS CONCERN FOR ACUTE ISCHEMIA CORRELATE WITH MRI CLINICALLY WARRANTED.
[2018-08-16 14:54] LABS: Basophils % (A) 0 %; Eosinophils # (A) 0.2 k/uL (0-0.7); Eosinophils % (A) 3 %; HCT 36.9 % (34.0-46.0); HGB 12.6 gm/dL (11.4-16.0); Lymphocytes % (A) 12 %; MCH 28.7 pg (25.0-35.0); MCHC 34.2 g/dL (31.0-37.0); MCV 83.9 fL (80.0-100.0); Mean Platelet Volume 7.3; Monocytes # (A) 0.5 k/uL (0-1.0); Monocytes % (A) 6 %; Neutrophils # (A) 5.9 k/uL (1.3-7.7); Neutrophils % (A) 76 %; Platelet Count 156 k/uL (150-450); RDW 14.4 % (11.5-15.5); WBC 7.8 k/uL (3.8-10.6)
[2018-08-16] MEDS: SODIUM CHLORIDE 0.9% 1,000 ML IV SCH (15:05)
[2018-08-16 15:14] LABS: ALT 33 U/L (9-52); AST 37 U/L (14-36); Albumin 3.6 g/dL (3.5-5.0); Alkaline Phosphatase 56 U/L (38-126); Anion Gap 5 mmol/L; Blood Urea Nitrogen 15 mg/dL (7-17); Calcium 9.3 mg/dL (8.4-10.2); Carbon Dioxide 26 mmol/L (22-30); Chloride 103 mmol/L (98-107); Glucose 89 mg/dL (74-99); Magnesium 1.8 mg/dL (1.6-2.3); Sodium 134 mmol/L (137-145); Total Bilirubin 0.9 mg/dL (0.2-1.3); Total Protein 6.3 g/dL (6.3-8.2)
[2018-08-16] MEDS: TETRACYCLINE 250 MG PO SCH ×3 (17:26→22:37)
--- NOTE | 2018-08-16 18:02 | P.CNNES ---
History of Present Illness Consult date: 08/16/18 Reason for Consult: Altered mental status History of Present Illness: Patient is an 88-year-old female with history of psychogenic polydipsia, mu ltiple ER visits for dysphagia. Patient was evaluated by hull line crew member and no conclusive evidence for dysphagia found. Modified barium swallow negative. Patient had upper endoscopy, which showed gastritis but no obvious cause of dysphagia. Patient was given antibiotics for gastritis. X-ray of the soft tissue of the neck was negative for any abnormality. At one point patient was noted to be eating hamburger without any difficulty for dinner. It was felt dysphagia may be psychogenic. Patient apparently did not sleep well last night. She was given Ativan 0.5 mg and slept for only very short while. This morning patient was fine, talking as usual. She took her morning pills. At 1 PM patient was noted to be unresponsive. Patient had a stat computed tomography scan of head which was normal. Patient's blood tests from 08/16/2018 showed normal CBC, sodium 134 potassium 4.0 renal functions are normal. Calcium magnesium normal. AST is borderline 37, AST normal 33. TSH normal. Her urine drug screen was negative on 08/12/2018. I spoke to patient's daughter on the phone, who also mentioned that patient was given Zoloft on 07/24/2018 for anxiety. 2 days later on the , patient was taken to ER for dysphagia. After that she started having series of testing as mentioned above. Patient dysphagia or not willing to swallow got worse and she was only drinking water. This got worse, which prompted her hospitalization on 08/12/2018. Patient otherwise walks without any device. Patient speaks normally, although patient has been obsessed, about "not paying bills", and was not very coherent last few days, as per report from her daughter. Patient was hallucinating, seeing "baby on the bed, or water in the room in the last few days which was not there. Patient had history of PE more than 20 years ago after her hysterectomy currently she is not on any anticoagulants. Patient also has history of seizure, years ago, which was felt to be related to low sodium. Review of Systems ROS unobtainable: due to mental status Past Medical History Past Medical History: Diabetes Mellitus, Hyperlipidemia, Hypertension, Pulmonary Embolus (PE), Thyroid Disorder Additional Past Medical History / Comment(s): had a siezure in 2004, pt states her NA+ was to low, dysphagia History of Any Multi-Drug Resistant Organisms: MRSA Date of last positivie culture/infection: 02/21/2014 MDRO Source:: Face Past Surgical History: Bladder Surgery, Hysterectomy Past Anesthesia/Blood Transfusion Reactions: No Reported Reaction Past Psychological History: Anxiety, Depression Smoking Status: Never smoker Past Alcohol Use History: None Reported Past Drug Use History: None Reported - Past Family History Father Family Medical History: CVA/TIA, Hypertension Additional Family Medical History / Comment(s): brain anyruisum Mother Family Medical History: Hypertension Medications and Allergies Home Medications Medication Instructions Recorded Confirmed Type Atorvastatin [Lipitor] 20 mg PO DAILY 11/06/13 08/12/18 History Levothyroxine Sodium [Synthroid] 50 mcg PO DAILY 07/26/18 08/12/18 History amLODIPine [Norvasc] 5 mg PO DAILY 07/26/18 08/12/18 History Aspirin EC [Ecotrin Low Dose] 81 mg PO DAILY 08/12/18 08/12/18 History Mirtazapine [Remeron] 30 mg PO HS 08/12/18 08/12/18 History Ranitidine HCl [Zantac] 150 mg PO BID 08/12/18 08/12/18 History Tetracycline 250mg Cap 250 mg PO QID 08/12/18 08/12/18 History metroNIDAZOLE [Flagyl] 250 mg PO QID 08/12/18 08/12/18 History Losartan [Cozaar] 50 mg PO DAILY #0 08/16/18 08/12/18 Rx Allergies Allergy/AdvReac Type Severity Reaction Status Date / Time Penicillins Allergy Rash/Hives Verified 08/12/18 09:21 Physical Examination - Vital Signs Vital Signs: Vital Signs Temp Pulse Resp BP BP Pulse Ox 08/16/18 14:30 98.3 F 69 16 135/82 96 08/16/18 13:34 78 149/76 95 08/16/18 13:14 72 131/75 96 08/16/18 13:05 78 148/77 99 08/16/18 07:42 98.5 F 89 20 136/74 96 08/16/18 07:37 98.0 F 20 104/61 96 08/16/18 00:58 98.5 F 78 16 119/63 96 08/15/18 19:31 98.5 F 71 16 104/67 96 Intake and Output 08/16/18 08/16/18 08/16/18 06:59 14:59 22:59 Intake Total 200 Balance 200 Intake: Oral 200 Other: # Voids 3 On examination patient is an elderly female, laying in the bed, almost like a deep sleep, or obtunded. Patient mumbles at times. Patient does not open eyes to calling her name. Patient's pupils are round and reacting to light. Patient's head was turned to the left. Her whole face and lips were sagging down from gravity to the left. However when the face was brought to neutral position, there was no obvious droopiness. After repeated attempts, patient did smile, and face appeared symmetric. No gaze preference. Patient was able to squeeze my hands, and hold arms up equally with no droop or drift or weakness. Patient strength appears normal in the arms and legs. Reflexes are 1+, except left knee is absent. Plantars are downgoing bilaterally. No obvious seizure activity noted. She has some tremor of her lip, which does not appear ictal. Results - Laboratory Findings CBC and BMP: 08/16/18 14:40 08/16/18 14:40 Abnormal Lab Findings: Abnormal Labs 08/12/18 08/12/18 08/12/18 09:55 09:55 11:31 Plt Count Lymphocytes # 0.4 L Sodium 125 L Potassium Chloride 88 L Carbon Dioxide 21 L BUN Creatinine Glucose 73 L POC Glucose (mg/dL) Osmolality AST Total Protein Urine Protein Trace H Urine Ketones 2+ H Ur Leukocyte Esterase Large H Urine WBC 13 H Amorphous Sediment Urine Bacteria Urine Mucus Rare H Urine Yeast (Budding) 08/12/18 08/12/18 08/13/18 12:34 18:12 07:57 Plt Count Lymphocytes # Sodium 127 L 130 L Potassium 3.1 L Chloride 97 L Carbon Dioxide 20 L BUN 3 L Creatinine 0.40 L 0.37 L Glucose 148 H 128 H POC Glucose (mg/dL) 136 H Osmolality 269 L AST Total Protein 6.0 L 6.0 L Urine Protein Urine Ketones Ur Leukocyte Esterase Urine WBC Amorphous Sediment Urine Bacteria Urine Mucus Urine Yeast (Budding) 08/13/18 08/14/18 08/14/18 07:57 09:04 09:04 Plt Count Lymphocytes # 0.5 L 0.6 L Sodium 127 L Potassium 3.2 L Chloride 95 L Carbon Dioxide BUN 2 L Creatinine 0.38 L Glucose 143 H POC Glucose (mg/dL) Osmolality AST Total Protein 6.1 L Urine Protein Urine Ketones Ur Leukocyte Esterase Urine WBC Amorphous Sediment Urine Bacteria Urine Mucus Urine Yeast (Budding) 08/14/18 08/15/18 08/15/18 18:50 08:08 11:36 Plt Count 131 L Lymphocytes # 0.7 L Sodium 133 L Potassium 3.3 L Chloride Carbon Dioxide BUN Creatinine Glucose POC Glucose (mg/dL) Osmolality AST 41 H Total Protein Urine Protein Urine Ketones Ur Leukocyte Esterase Small H Urine WBC Amorphous Sediment Rare H Urine Bacteria Many H Urine Mucus Occasional H Urine Yeast (Budding) Rare H 08/16/18 08/16/18 07:59 14:40 Plt Count Lymphocytes # Sodium 133 L 134 L Potassium 3.4 L Chloride Carbon Dioxide BUN 18 H Creatinine Glucose 106 H POC Glucose (mg/dL) Osmolality AST 37 H Total Protein Urine Protein Urine Ketones Ur Leukocyte Esterase Urine WBC Amorphous Sediment Urine Bacteria Urine Mucus Urine Yeast (Budding) Assessment and Plan Assessment: * Episode of unresponsiveness/altered mental status, unclear etiology. Rule out seizure, toxic metabolic encephalopathy. Patient's limited examination is nonfocal, with no definitive evidence of CVA. Her face is symmetric and tone and strength appears equal. Uncertain if patient had a ?unwitnessed seizure now with postictal state. * Dysphagia, unclear etiology. Workup negative * Hyponatremia, mild degree * Hypertension * Hypothyroidism, controlled * Anxiety and Depression * Status post treatment for UTI. Plan: Stat EEG in morning. Stat carotid Doppler. Neuro checks every 2 hours for next 4 hours. If any abnormality on examination, then may consider CTA of head and neck. At present no definitive focal findings on examination. May need to identify some other toxic metabolic causes of encephalopathy. We'll follow clinically.
--- NOTE | 2018-08-16 19:37 | US ---
EXAMINATION TYPE: US carotid duplex BILAT DATE OF EXAM: 08/16/2018 COMPARISON: NONE CLINICAL HISTORY: Unresponsive.. Mental status change, patient unresponsive EXAM MEASUREMENTS: RIGHT: Peak Systolic Velocity (PSV) cm/sec ----- Right CCA: 84.2 ----- Right ICA: 100.2 ----- Right ECA: 100.0 ICA/CCA ratio: 1.2 RIGHT: End Diastole cm/sec ----- Right CCA: 12.9 ----- Right ICA: 26.0 ----- Right ECA: 12.9 LEFT: Peak Systolic Velocity (PSV) cm/sec ----- Left CCA: 100.2 ----- Left ICA: 116.2 ----- Left ECA: 74.0 ICA/CCA ratio: 1.2 LEFT: End Diastole cm/sec ----- Left CCA: 10.0 ----- Left ICA: 24.6 ----- Left ECA: 11.5 VERTEBRALS (direction of flow): Right Vertebral: Antegrade Left Vertebral: Antegrade Rhythm: Normal Mild plaque bilateral bifurcations. No evidence of significant stenosis at this time IMPRESSION: There is antegrade flow in the vertebral arteries. The images and measurements suggest 3 0% stenosis in both internal carotid arteries. Criteria for Assigning % of Stenosis / Diameter reduction (Estimation based on the indirect measurements of the internal carotid artery velocities (ICA PSV). 1. Normal (no stenosis)=ICA PSV < 125 cm/s: ratio < 2.0: ICA EDV<40 cm/s. 2. Less than 50% stenosis=ICA PSV < 125 cm/s: ratio < 2.0: ICA EDV<40 cm/s. 3. 50 to 69% stenosis=ICA PSV of 125 to 230 cm/s: ration 2.0 ? 4.0: ICA EDV 40-100 cm/s. 4. Greater than 70% stenosis to near occlusion= ICA PSV > 230 cm/s: ratio > 4.0: ICA EDV > 100 cm/s. 5. Near occlusion= ICA PSV velocities may be low or undetectable: variable ratio and ICA EDV. 6. Total occlusion=unable to detect flow.
[2018-08-16] MEDS ORDERED: FAMOTIDINE 20 MG TAB PO SCH (21:00)
[2018-08-17] MEDS: MIRTAZAPINE 15 MG TAB PO SCH (01:25)
[2018-08-17] MEDS: SODIUM CHLORIDE 0.9% 1,000 ML IV SCH ×2 (04:25→17:51)
[2018-08-17] MEDS: LEVOTHYROXINE 50 MCG TAB PO SCH (05:32)
[2018-08-17] MEDS: TETRACYCLINE 250 MG PO SCH ×4 (07:44→23:24)
[2018-08-17] MEDS: metroNIDAZOLE 250 MG TABLET PO SCH ×4 (08:59→23:28)
[2018-08-17] MEDS: FAMOTIDINE 20 MG TAB PO SCH (09:00)
[2018-08-17] MEDS ORDERED: LOSARTAN 50 MG TAB PO SCH (09:00)
[2018-08-17] MEDS: amLODIPine 5 MG TAB PO SCH (09:00)
[2018-08-17] MEDS ORDERED: POTASSIUM CHLORIDE ER 20 MEQ TAB.ER PO SCH (09:00)
--- NOTE | 2018-08-17 10:52 | P.PN ---
Subjective Progress Note Date: 08/17/18 This is 88 years old female patient of Dr. Dalton with past medical history of psychogenic polydipsia, multiple previous ER visit for difficulty swallowing. According to the daughter bedside patient had multiple ER visits for concern of not ABLE to swallow for the past few weeks. She has had a beta and swallow as well as endoscopy by Dr. John with no conclusive evidence of why patient has swallowing difficulties, CT soft tissue of the neck was negative for any abnormality. Patient was last seen on July 29 when she did have a hamburger without any difficulty for dinner. Patient is able to swallow liquid without any difficulty but has difficulty swallowing pills. According to the daughter bedside patient stopped eating since Sunday and is only drinking water. She started complaining of burning, frequent micturition with change in mental status yesterday. Patient was seen walking across the hallway acting agitated and anxious about how she will be the bills. She is unable to take care of herself including the daily functional activities likebathing or changing clothes. Since March vision or worsening anxiety and depression was started on Zoloft which patient stopped taking 2 weeks ago. She was also started on tetracycline, metronidazole and ranitidine for possible H. pylori infection but patient refuses to take these medication. Remeron was supposed to be started which patient refuses to take as she is concerned about swallowing difficulty. Right ovarian by ER suggestive temp of 98.7 pulse 82 respiratory rate 16 blood pressure 118/70. Labs evaluated suggested CBC with hemoglobin of 13.6, sodium 125, chloride 88, bicarbonate 21 glucose of 73 urinalysis suggest a WBC 13, leukocyte esterase large urine toxin was negative. CT head was negative for any stroke 08/13: Patient has been afebrile, heart rate in the 60s and 70s, blood pressure 155/74, pulse ox 90% on room air. Repeat lab work shows a normal CBC, sodium is up to 130, potassium 3.1, chloride 98, CO2 22, BUN 17 creatinine 0.37. Blood sugars 128. Urine osmolality is 247 and serum osmolality 269. Psychiatry is on consult. Urine culture is in progress. The patient refused to take Remeron last night. She did take her Norvasc and Pepcid this morning without any trouble. She did not eat any breakfast but she did drink orange juice and ensure. Last night she ate some ice cream, juice and soup. She complains of pain that started after she ate yesterday but it seems to be more hip related most likely secondary to osteoarthritis. Patient denies having any dizziness or lightheadedness. She has been up and ambulating. She states she sometimes has tinnitus. She denies any blurred vision. She states when she feels food getting caught it is in the throat area. His speech therapy and dietitian consults requested. 08/14: Urine culture was positive for contamination. We will plan to repeat urinalysis and urine culture. 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 Patient has been seen by psychiatry with recommendations for outpatient referral to [facility] psychology Department for neuropsych evaluation. can intake worker has provided information on assisted living. Patient has been very confused she does not understand her IV and IV fluid machine. She has been urinating frequently and complaining of burning. We will plan to monitor patient overnight and possible discharge by tomorrow. 08/15: Patient is seen eating lunch and has no difficulty swallowing or eating this meal. Her sister and her are at the bedside. Nursing sent a specimen for C. difficile toxin yesterday which came back negative. Repeat urinalysis showed leukoesterase small bacteria many. Repeat sodium is 133 and potassium 3.3, chloride 98 and CO2 24. Daughter has decided the patient will need to go to subacute rehab at [facility]. We will plan for discharge tomorrow. Potassium will be replaced. 08/16: Patient has been afebrile, blood pressure 136/74, pulse ox 96% on room air, heart rate in the 70s and 80s. Repeat lab work reveals sodium 133, potassium 3.4, chloride 102 and CO2 25. Potassium will be replaced. The patient apparently was active last night and would not stay in bed. A sitter was added in the evening which has been discontinued this morning. Her is at the bedside. Patient apparently was up in 8 breakfast this morning less than 50% but now is quite sleepy. We will discontinue Ativan which she received at 4 AM and Lasix will be discontinued. Family has made arrangements for patient to go to [facility] and will plan for this to occur on Sunday. Patient will be monitored overnight and all arrangements will be made for tomorrow. She will be resumed back on Cozaar decreased to once daily, Flagyl, tetracycline. [facility] Outpatient psychiatric appointment can be made for neuropsychiatric evaluation through [phone] or toll free number of [phone]. 08/17: Patient is scheduled for EEG today. Patient continues to sleep and difficult to arouse. Patient was unable to answer questions due to sleepiness. Family is at the bedside and stated that she was awake this morning and was complaining of difficulty swallowing. She was able to drink an entire ensure and start on a second one. Patient also questioned where her was and if he is eating and of. We discontinued Remeron yesterday. And we'll utilize wrist are all as needed. Once the EEG is completed we will determine if the patient can be transferred to [facility]. Review of systems unable to obtain due to drowsiness. Objective - Vital Signs Vital signs: Vital Signs Temp 98.6 F 08/17/18 07:00 Pulse 65 08/17/18 07:00 Resp 15 08/17/18 07:00 BP 105/61 08/17/18 07:00 Pulse Ox 96 08/17/18 07:00 Intake & Output 08/16/18 08/17/18 08/17/18 18:59 06:59 18:59 Intake Total 200 975 Output Total 1900 Balance 200 -925 Intake: Intake, IV Titration 975 Amount Sodium Chloride 0.9% 1, 975 000 ml @ 75 mls/hr IV . [id number] [facility] Rx#:[id number] Oral 200 Output: Urine 1900 Straight 1900 Other: Voiding Method Diaper Diaper Incontinent Incontinent # Voids 1 1 - Exam General Appearance: Alert, cooperative, no distress, appears stated age. Neck HEENT: Supple, no lymphadenopathy, no thyroid enlargement, no carotid bruits. Lungs: Clear to auscultation without crackles or wheezes no rhonchi, no deformity. Heart: Regular rate and rhythm, S1, S2 normal, no murmur, rub or gallop. Abdomen: Soft, non-tender, no rebound or rigidity, no hepatosplenomegaly. Extremities: Extremities normal, atraumatic, no cyanosis or edema. Pulses: 2+ and symmetric. Skin: Skin color, texture, tugor normal, no rashes or lesions. Neurologic: Alert oriented x3 cranial nerves II through XII intact, no motor deficit, - Labs CBC & Chem 7: 08/16/18 14:40 08/16/18 14:40 Labs: Abnormal Lab Results - Last 24 Hours (Table) 08/16/18 Range/Units 14:40 Sodium 134 L (137-145) mmol/L AST 37 H (14-36) U/L Assessment and Plan Plan: 1. metabolic encephalopathy likely secondary to hyponatremia and underlying vascular dementia is suspected. Neurology consult appreciated. EEG ordered. Suspects possible seizure activity. Stopped Remeron. Start Risperdal 0.25 mg at bedtime as needed 2. Seizure-like activity. Seizure precautions in place. EEG ordered. 3. hyponatremia likely SIADH. IV fluids discontinued, Lasix discontinued 4. Dysphagia with underlying workup negative. Modified barium swallow negative psych consult appreciated. Patient is currently tolerating diet. 5. H pylori gastritis with chronic duodenitis. Patient will be started on metronidazole, ranitidine and tetracycline which patient refuses to take. 6. UTI Flagyl 250 mg 4 times a day 7 generalized anxiety disorder. Ativan discontinued due to acute delirium. 8. recurrent depression. Remeron stopped due to drowsiness. Risperdal 0.25 mg. 9. hypothyroidism. Continue levothyroxine 50 g daily. 10. history of hypertension continue Norvasc 5 mg by mouth daily. Stop Cozaar. 11. history of cardiac that is secondary to PE has IVC filter hold aspirin 12. hyperlipidemia Lipitor 20 mg by mouth daily on hold 13. history of carotid stenosis aspirin and hold CODE STATUS full code Discharge plan: Subacute rehab at [facility] Impression and plan of care have been directed as dictated by the signing physician. She Gill nurse practitioner acting as scribe for signing physician.
--- NOTE | 2018-08-17 16:04 | EEG ---
ELECTROENCEPHALOGRAM REPORT DATE OF SERVICE: 08/17/2018 PREAMBLE: This is an 88-year-old female, who has altered mental status with episode of unresponsiveness yesterday. This study is performed to evaluate for any epileptiform activity. EEG FINDINGS: A routine 21-channel awake digital EEG recording was accomplished utilizing the 10-20 international system with bipolar and referential montages. The awake background consists of well developed, well regulated, moderate amplitude activity in 8 Hz alpha. Background is posterior dominant and reactive to eye opening and closing. Patient was drowsy and in stage II sleep throughout most of the study with presence of diffuse theta and some delta activity with sleep spindles and vertex waves. Photic driving response was not seen. No focal or generalized epileptiform activity was seen. EKG rhythm lead revealed no obvious arrhythmia. IMPRESSION: This is a normal EEG in wakefulness, drowsiness and stage II sleep. No focal lateralized or epileptiform abnormalities were seen. MMODL / IJN: [id number] /
--- NOTE | 2018-08-17 16:14 | P.PN ---
Subjective Progress Note Date: 08/17/18 Since patient was last seen yesterday, she has woken up slightly more. Responding, and answering slightly more appropriately, but still keeps eyes closed. Patient's daughter was also present today. She informed me that patient continues to complain of dysphagia, although she was able to eat mashed potato, ground chicken with gravy, and Jell-O without any problem. She was complaining of inability to swallow but still able to swallow without any issue. Patient was also able to ingest a pill with applesauce without coughing. Patient has a very flat affect. Patient denies headache. Patient is not hallucinating anymore, like seeing a baby on the bed or room flooding with water. Patient had a carotid Doppler which is normal. EEG was also reviewed and is normal. Objective - Vital Signs Vital signs: Vital Signs Temp 98.6 F 08/17/18 07:00 Pulse 72 08/17/18 15:00 Resp 15 08/17/18 15:56 BP 100/61 08/17/18 15:00 Pulse Ox 97 08/17/18 15:00 Intake & Output 08/16/18 08/17/18 08/17/18 18:59 06:59 18:59 Intake Total 200 975 360 Output Total 1900 Balance 200 -925 360 Intake: Intake, IV Titration 975 Amount Sodium Chloride 0.9% 1, 975 000 ml @ 75 mls/hr IV . [id number] [facility] Rx#:[id number] Oral 200 360 Output: Urine 1900 Straight 1900 Other: Voiding Method Diaper Diaper Incontinent Incontinent # Voids 1 1 - Exam Patient keeps her eyes closed. Patient does open her eyes to calling her name. Patient follows commands. Her speech is clear with no aphasia or dysarthria. Patient has a very flat affect. Looks obviously depressed. Attention span, concentration is diminished. Denies headache. Pupils are round and reacting. Face is symmetric. Visual abrams are full. Muscle strength is completely normal in the arms and legs. Sensations are equal with no neglect. No ataxia for [id number] testing. Reflexes are symmetric. - Labs CBC & Chem 7: 08/16/18 14:40 08/16/18 14:40 Assessment and Plan Assessment: * Episode of unresponsiveness/altered mental status, unclear etiology. Possible depression with psychosis. Her current examination is also nonfocal, with no definitive evidence of CVA. * Dysphagia, unclear etiology. Workup negative, possible psychogenic. * Hyponatremia, mild degree, probably not symptomatic * Hypertension * Hypothyroidism, controlled * Anxiety and Depression * Status post treatment for UTI. Plan: EEG was performed, which was normal during wakefulness, drowsiness and stage II sleep. No epileptiform activity was seen. Carotid Doppler was normal. Patient has been started on Risperdal for possible psychosis, which I agree. May benefit from psych followup/inpatient psych. Discussed with patient's daughter in detail.
[2018-08-17] MEDS: risperiDONE 0.25 MG TAB PO SCH (23:28)
[2018-08-18] MEDS: LEVOTHYROXINE 50 MCG TAB PO SCH (05:57)
[2018-08-18 07:19] LABS: Basophils % (A) 0 %; Eosinophils # (A) 0.2 k/uL (0-0.7); Eosinophils % (A) 3 %; HCT 27.5 % (34.0-46.0); Lymphocytes # (A) 0.5 k/uL (1.0-4.8); Lymphocytes % (A) 10 %; MCH 29.6 pg (25.0-35.0); MCHC 34.1 g/dL (31.0-37.0); MCV 86.9 fL (80.0-100.0); Mean Platelet Volume 7.1; Monocytes # (A) 0.3 k/uL (0-1.0); Monocytes % (A) 6 %; Neutrophils # (A) 4.3 k/uL (1.3-7.7); Neutrophils % (A) 78 %; Platelet Count 114 k/uL (150-450); RBC 3.16 m/uL (3.80-5.40); RDW 14.2 % (11.5-15.5); WBC 5.5 k/uL (3.8-10.6)
[2018-08-18 07:32] LABS: HGB 9.4 gm/dL (11.4-16.0)
[2018-08-18] MEDS: metroNIDAZOLE 250 MG TABLET PO SCH ×4 (07:44→20:51)
[2018-08-18] MEDS: amLODIPine 5 MG TAB PO SCH (07:44)
[2018-08-18] MEDS: FAMOTIDINE 20 MG TAB PO SCH (07:44)
[2018-08-18] MEDS: TETRACYCLINE 250 MG PO SCH ×4 (07:45→19:28)
[2018-08-18] MEDS: SODIUM CHLORIDE 0.9% 1,000 ML IV SCH ×2 (07:45→19:27)
[2018-08-18 07:52] LABS: Anion Gap 7 mmol/L; Blood Urea Nitrogen 18 mg/dL (7-17); Calcium 8.5 mg/dL (8.4-10.2); Carbon Dioxide 22 mmol/L (22-30); Chloride 105 mmol/L (98-107); Glucose 87 mg/dL (74-99); Potassium 3.3 mmol/L (3.5-5.1); Sodium 134 mmol/L (137-145)
[2018-08-18] MEDS ORDERED: POTASSIUM CHLORIDE ER 20 MEQ TAB.ER PO STA (10:49)
[2018-08-18 10:53] LABS: Basophils % (A) 1 %; Eosinophils # (A) 0.1 k/uL (0-0.7); Eosinophils % (A) 2 %; HGB 9.6 gm/dL (11.4-16.0); Lymphocytes # (A) 0.5 k/uL (1.0-4.8); Lymphocytes % (A) 9 %; MCH 27.8 pg (25.0-35.0); MCHC 31.9 g/dL (31.0-37.0); MCV 87.1 fL (80.0-100.0); Mean Platelet Volume 7.3; Monocytes # (A) 0.3 k/uL (0-1.0); Monocytes % (A) 6 %; Neutrophils # (A) 4.8 k/uL (1.3-7.7); Neutrophils % (A) 81 %; Platelet Count 125 k/uL (150-450); RBC 3.44 m/uL (3.80-5.40); WBC 5.9 k/uL (3.8-10.6)
--- NOTE | 2018-08-18 12:43 | P.PN ---
Subjective Progress Note Date: 08/18/18 This is 88 years old female patient of Dr. Dalton with past medical history of psychogenic polydipsia, multiple previous ER visit for difficulty swallowing. According to the daughter bedside patient had multiple ER visits for concern of not ABLE to swallow for the past few weeks. She has had a beta and swallow as well as endoscopy by Dr. John with no conclusive evidence of why patient has swallowing difficulties, CT soft tissue of the neck was negative for any abnormality. Patient was last seen on July 29 when she did have a hamburger without any difficulty for dinner. Patient is able to swallow liquid without any difficulty but has difficulty swallowing pills. According to the daughter bedside patient stopped eating since Sunday and is only drinking water. She started complaining of burning, frequent micturition with change in mental status yesterday. Patient was seen walking across the hallway acting agitated and anxious about how she will be the bills. She is unable to take care of herself including the daily functional activities likebathing or changing clothes. Since March vision or worsening anxiety and depression was started on Zoloft which patient stopped taking 2 weeks ago. She was also started on tetracycline, metronidazole and ranitidine for possible H. pylori infection but patient refuses to take these medication. Remeron was supposed to be started which patient refuses to take as she is concerned about swallowing difficulty. Right ovarian by ER suggestive temp of 98.7 pulse 82 respiratory rate 16 blood pressure 118/70. Labs evaluated suggested CBC with hemoglobin of 13.6, sodium 125, chloride 88, bicarbonate 21 glucose of 73 urinalysis suggest a WBC 13, leukocyte esterase large urine toxin was negative. CT head was negative for any stroke 08/13: Patient has been afebrile, heart rate in the 60s and 70s, blood pressure 155/74, pulse ox 90% on room air. Repeat lab work shows a normal CBC, sodium is up to 130, potassium 3.1, chloride 98, CO2 22, BUN 17 creatinine 0.37. Blood sugars 128. Urine osmolality is 247 and serum osmolality 269. Psychiatry is on consult. Urine culture is in progress. The patient refused to take Remeron last night. She did take her Norvasc and Pepcid this morning without any trouble. She did not eat any breakfast but she did drink orange juice and ensure. Last night she ate some ice cream, juice and soup. She complains of pain that started after she ate yesterday but it seems to be more hip related most likely secondary to osteoarthritis. Patient denies having any dizziness or lightheadedness. She has been up and ambulating. She states she sometimes has tinnitus. She denies any blurred vision. She states when she feels food getting caught it is in the throat area. His speech therapy and dietitian consults requested. 08/14: Urine culture was positive for contamination. We will plan to repeat urinalysis and urine culture. 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 Patient has been seen by psychiatry with recommendations for outpatient referral to [facility] psychology Department for neuropsych evaluation. plant nursery worker has provided information on assisted living. Patient has been very confused she does not understand her IV and IV fluid machine. She has been urinating frequently and complaining of burning. We will plan to monitor patient overnight and possible discharge by tomorrow. 08/15: Patient is seen eating lunch and has no difficulty swallowing or eating this meal. Her sister and her are at the bedside. Nursing sent a specimen for C. difficile toxin yesterday which came back negative. Repeat urinalysis showed leukoesterase small bacteria many. Repeat sodium is 133 and potassium 3.3, chloride 98 and CO2 24. Daughter has decided the patient will need to go to subacute rehab at [facility]. We will plan for discharge tomorrow. Potassium will be replaced. 08/16: Patient has been afebrile, blood pressure 136/74, pulse ox 96% on room air, heart rate in the 70s and 80s. Repeat lab work reveals sodium 133, potassium 3.4, chloride 102 and CO2 25. Potassium will be replaced. The patient apparently was active last night and would not stay in bed. A sitter was added in the evening which has been discontinued this morning. Her is at the bedside. Patient apparently was up in 8 breakfast this morning less than 50% but now is quite sleepy. We will discontinue Ativan which she received at 4 AM and Lasix will be discontinued. Family has made arrangements for patient to go to [facility] and will plan for this to occur on Sunday. Patient will be monitored overnight and all arrangements will be made for tomorrow. She will be resumed back on Cozaar decreased to once daily, Flagyl, tetracycline. [facility] Outpatient psychiatric appointment can be made for neuropsychiatric evaluation through [phone] or toll free number of [phone]. 08/17: Patient is scheduled for EEG today. Patient continues to sleep and difficult to arouse. Patient was unable to answer questions due to sleepiness. Family is at the bedside and stated that she was awake this morning and was complaining of difficulty swallowing. She was able to drink an entire ensure and start on a second one. Patient also questioned where her was and if he is eating and of. We discontinued Remeron yesterday. And we'll utilize wrist are all as needed. Once the EEG is completed we will determine if the patient can be transferred to [facility]. 08/18: Patient is sitting up in bed alert and able to answer questions. Patient has unable to tolerate meals without any difficulty in swallowing. Patient did have a decrease in hemoglobin to 9.4. Gastroenterology consult was completed and was felt that the decrease is not related to GI. Occulat Blood ordered patient has not had a bowel movement to obtain. Patient is no history of falls of hip or back pain. Patient continues to be afebrile and hemodynamically stable. Review Of Systems: Constitutional: No fever, no chills, no night sweats. No weight change. No weakness, fatigue or lethargy. No daytime sleepiness. EENT: No headache. No blurred vision or double vision, no loss of vision. No loss of Hearing, no ringing in the ears, no dizziness. No nasal drainage or congestion. No epistaxis. No sore throat. Lungs: No shortness of breath, cough, no sputum production. No wheezing. Cardiovascular: No chest pain, no lower extremity edema. No palpitations. No paroxysmal nocturnal dyspnea. No orthopnea. No lightheadedness or dizziness. No syncopal episodes. Abdominal: no abdominal discomfort. No nausea, vomiting. no diarrhea. No constipation. No bloody or tarry stools. No loss of appetite. Genitourinary: No dysuria, increased frequency, urgency. No urinary retention. Musculoskeletal: No myalgias. No muscle weakness, no gait dysfunction, no frequent falls. No back pain. No neck pain. Integumentary: No wounds, no lesions. No rash or pruritus. No unusual bruisin g. No change in hair or nails. Neurologic: No aphasia. No facial droop. No change in mentation. No head injury. No headache. No paralysis. No paresthesia. Psychiatric: No depression. No anxiety. No mood swings. Endocrine: No abnormal blood sugars. No weight change. No excessive sweating or thirst. Objective - Vital Signs Vital signs: Vital Signs Temp 98.5 F 08/18/18 07:00 Pulse 69 08/18/18 07:00 Resp 15 08/18/18 07:49 BP 100/62 08/18/18 07:00 Pulse Ox 95 08/18/18 07:00 Intake & Output 08/17/18 08/18/18 08/18/18 18:59 06:59 18:59 Intake Total 420 825 420 Output Total 600 Balance -180 825 420 Intake: Intake, IV Titration 825 Amount Sodium Chloride 0.9% 1, 825 000 ml @ 75 mls/hr IV . [id number] [facility] Rx#:[id number] Oral 420 420 Output: Urine 600 Other: Voiding Method Diaper Diaper Diaper Incontinent Incontinent Incontinent - Exam General Appearance: Alert, cooperative, no distress, appears stated age. Neck HEENT: Supple, no lymphadenopathy, no thyroid enlargement, no carotid br uits. Lungs: Clear to auscultation without crackles or wheezes no rhonchi, no deformity. Heart: Regular rate and rhythm, S1, S2 normal, no murmur, rub or gallop. Abdomen: Soft, non-tender, no rebound or rigidity, no hepatosplenomegaly. Extremities: Extremities normal, atraumatic, no cyanosis or edema. Pulses: 2+ and symmetric. Skin: Skin color, texture, tugor normal, no rashes or lesions. Neurologic: Alert oriented x3 cranial nerves II through XII intact, no motor deficit, - Labs CBC & Chem 7: 08/18/18 10:06 08/18/18 06:53 Labs: Abnormal Lab Results - Last 24 Hours (Table) 08/18/18 08/18/18 08/18/18 Range/Units 06:53 06:53 10:06 RBC 3.16 L 3.44 L (3.80-5.40) m/uL Hgb 9.4 L D 9.6 L (11.4-16.0) gm/dL Hct 27.5 L 30.0 L (34.0-46.0) % Plt Count 114 L 125 L (150-450) k/uL Lymphocytes # 0.5 L 0.5 L (1.0-4.8) k/uL Sodium 134 L (137-145) mmol/L Potassium 3.3 L (3.5-5.1) mmol/L BUN 18 H (7-17) mg/dL Assessment and Plan Plan: 1. metabolic encephalopathy likely secondary to hyponatremia and underlying vascular dementia is suspected. Neurology consult appreciated. EEG ordered. Suspects possible seizure activity. Stopped Remeron. Start Risperdal 0.25 mg at bedtime as needed 2. Seizure-like activity. Seizure precautions in place. EEG ordered. 3. hyponatremia likely SIADH. IV fluids discontinued, Lasix discontinued 4. Dysphagia with underlying workup negative. Modified barium swallow negative psych consult appreciated. Patient is currently tolerating diet. 5. H pylori gastritis with chronic duodenitis. Patient will be started on metronidazole, ranitidine and tetracycline which patient refuses to take. 6. UTI Flagyl 250 mg 4 times a day 7. Possible blood loss. GI consult appreciated. Continue to monitor hemoglobin. 8. recurrent depression. Remeron stopped due to drowsiness. Risperdal 0.25 mg. 9. hypothyroidism. Continue levothyroxine 50 g daily. 10. history of hypertension continue Norvasc 5 mg by mouth daily. Stop Cozaar. 11. history of cardiac that is secondary to PE has IVC filter hold aspirin 12. hyperlipidemia Lipitor 20 mg by mouth daily on hold 13. history of carotid stenosis aspirin and hold 14. generalized anxiety disorder. Ativan discontinued due to acute delirium. CODE STATUS full code Discharge plan: Subacute rehab at [facility] on Sunday Impression and plan of care have been directed as dictated by the signing physician. She Gill nurse practitioner acting as scribe for signing physician.
--- NOTE | 2018-08-18 14:00 | CONS ---
CONSULTATION DATE OF SERVICE: 08/18/2018 REQUESTING PHYSICIAN: Dr. Priest. REASON FOR CONSULTATION: Drop in hemoglobin. HISTORY OF PRESENT ILLNESS: The patient is an 88-year-old pleasant white female admitted to the hospital with altered mental status and dysphagia for the last several weeks duration. The patient was in fact evaluated by Dr. García on an outpatient basis and as per the chart, she had an upper endoscopy done by Dr. García on July 30, which was unremarkable. Subsequently, a barium swallow was also performed on an outpatient basis, which was read as normal. In the meantime, because of history of psychiatric disorder in the past, Psychiatry was consulted and patient presently being treated for psychosis with multiple medications. Over the last 2 or 3 days, her appetite has improved and she started eating normally. The reason we are consulted is because of drop in hemoglobin from 11 g/dL to 9.2 g/dL. On questioning the patient, she denies any abdominal pain. She reports no nausea or vomiting. She denies any rectal bleeding or melena. In fact, she is complaining of some constipation and did not have any bowel movements for the last 3 days. As per her who is at the bedside, she was able to eat most of her breakfast this morning without any problems. She still complains of some dysphagia in her throat area. Denies any odynophagia. No prior history of peptic ulcer disease or recent NSAID use. Recent upper endoscopy done by Dr. García apparently was completely within normal limits as per the patient's who was at the bedside. PAST MEDICAL HISTORY: Significant for diabetes mellitus, hypertension, hyperlipidemia, history of pulmonary embolism in the past, hypothyroidism. PAST SURGICAL HISTORY: Bladder surgery, hysterectomy, EGD 3 weeks ago. MEDICATIONS: At home include Lipitor, Synthroid, Cozaar, Norvasc, Ecotrin, Pepcid, Remeron, Zantac, tetracycline and Flagyl on an outpatient basis. ALLERGIES: PENICILLIN. SOCIAL HISTORY: No smoking or alcohol use. FAMILY HISTORY: Father had CVA and hypertension. Mother had hypertension. REVIEW OF SYSTEMS: Cardiopulmonary: She denies any chest pain, shortness of breath. Genitourinary: No dysuria or hematuria. Musculoskeletal unremarkable. Skin unremarkable. Psychiatric: History of anxiety, depression, psychogenic polydipsia, multiple previous ER visits with some psychosis. Neurology: Unremarkable. Hematology unremarkable. Endocrine unremarkable. Constitutional: No recent weight loss. No fever, chills, night sweats. PHYSICAL EXAMINATION: She appears comfortable. No apparent distress. Vital signs stable. Blood pressure is 100/59, pulse is 75, temperature 98.4. HEENT examination unremarkable. Conjunctivae pink. Sclerae anicteric. Oral cavity no lesions. NECK: No JVD or lymph node enlargement. CHEST: Clear to auscultation. HEART: Regular rate and rhythm. ABDOMEN: Soft, it was nontender, nondistended. EXTREMITIES: No pedal edema. SKIN: No rashes. NEUROLOGICAL: She is awake and oriented x3. No focal deficits. LABS: From today WBC 5.9, hemoglobin 9.6, platelets are 125. Basic metabolic panel is within normal limits. Yesterday hemoglobin was 12.6 g/dL. IMPRESSION: Mild anemia with a drop in hemoglobin from 12-9.6 g/dL. Clinically patient does not have any evidence of active ongoing bleeding. At this point, cannot rule out occult gastrointestinal blood loss. The patient had an upper endoscopy as mentioned above about 2 or [address] García, which was unremarkable. Her last colonoscopy was about 5 years ago according to the who is at the bedside. RECOMMENDATIONS: 1. Obtain stool for occult blood. 2. Since there is no evidence of active bleeding, we have no plans on any endoscopy intervention at the present time. 3. Follow CBC on a daily basis. Thank you for this consultation. We will follow with you closely during her hospital stay. GOPAL / DOUGLAS: [id number] /
--- NOTE | 2018-08-18 14:44 | P.PN ---
Subjective Progress Note Date: 08/18/18 Since patient was last seen yesterday, she has woken up a lot more. She is much more awake, answering questions. Patient denies headache. She still complaining of dysphagia, although she ate for lunch. Appears more psychogenic in nature. Patient's was also present today. Patient has a very flat affect. Patient denies headache. Patient is not hallucinating anymore, like seeing a baby on the bed or room flooding with water. Patient had a carotid Doppler which is normal. EEG was also reviewed and is normal. Objective - Vital Signs Vital signs: Vital Signs Temp 98.6 F 08/18/18 14:29 Pulse 78 08/18/18 14:29 Resp 15 08/18/18 14:29 BP 112/65 08/18/18 14:29 Pulse Ox 95 08/18/18 14:29 Intake & Output 08/17/18 08/18/18 08/18/18 18:59 06:59 18:59 Intake Total 420 825 660 Output Total 600 Balance -180 825 660 Intake: Intake, IV Titration 825 Amount Sodium Chloride 0.9% 1, 825 000 ml @ 75 mls/hr IV . [id number] [facility] Rx#:[id number] Oral 420 660 Output: Urine 600 Other: Voiding Method Diaper Diaper Diaper Incontinent Incontinent Incontinent - Exam Patient keeps her eyes closed. However today patient opened her eyes and stayed awake. She is fully oriented. She knows it is made 2018 and that she is in [facility] and knows name of the town she lives in [facility]. Patient follows commands. Her speech is clear with no aphasia or dysarthria. Patient has a very flat affect. Looks obviously depressed. Pupils are round and reacting. Face is symmetric. Visual abrams are full. Muscle strength is completely normal in the arms and legs. Sensations are equal with no neglect. No ataxia for [id number] testing. Reflexes are symmetric. - Labs CBC & Chem 7: 08/18/18 10:06 08/18/18 06:53 Labs: Abnormal Lab Results - Last 24 Hours (Table) 08/18/18 08/18/18 08/18/18 Range/Units 06:53 06:53 10:06 RBC 3.16 L 3.44 L (3.80-5.40) m/uL Hgb 9.4 L D 9.6 L (11.4-16.0) gm/dL Hct 27.5 L 30.0 L (34.0-46.0) % Plt Count 114 L 125 L (150-450) k/uL Lymphocytes # 0.5 L 0.5 L (1.0-4.8) k/uL Sodium 134 L (137-145) mmol/L Potassium 3.3 L (3.5-5.1) mmol/L BUN 18 H (7-17) mg/dL Assessment and Plan Assessment: * Episode of unresponsiveness/altered mental status, unclear etiology. 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 Her current examination is also nonfocal, with no evidence of CVA. * Dysphagia, unclear etiology. Workup negative, probable psychogenic. * Hyponatremia, mild degree, probably not symptomatic * Hypertension * Hypothyroidism, controlled * Anxiety and Depression * Status post treatment for UTI. Plan: EEG was performed, which was normal during wakefulness, drowsiness and stage II sleep. No epileptiform activity was seen. Carotid Doppler was normal. Patient has been started on Risperdal for possible psychosis, which I agree. Patient is clinically much improved. May benefit from psych followup/inpatient psych. Discussed with patient's in detail. Neurology coverage not available from tomorrow. Will sign off.
[2018-08-18] MEDS: risperiDONE 0.25 MG TAB PO SCH (20:51)
[2018-08-19] MEDS: LEVOTHYROXINE 50 MCG TAB PO SCH (06:04)
[2018-08-19] MEDS: amLODIPine 5 MG TAB PO SCH (08:04)
[2018-08-19] MEDS: FAMOTIDINE 20 MG TAB PO SCH (08:04)
[2018-08-19] MEDS: SODIUM CHLORIDE 0.9% 1,000 ML IV SCH (11:43)
[2018-08-19] MEDS ORDERED: POLYETHYLENE GLYCOL 3350 17 GM POWD.PACK PO SCH (13:45)
[2018-08-19 13:51] VITALS: BP 109/69; PULSE 69; RESP 16; TEMP 99.3
--- NOTE | 2018-08-21 07:52 | CDI ---
Documentation Clarification Form Date: 08/21/18 From: Winston Chiang Phone: call to [phone] Admit Date: 08/12/2018 1:59:00 PM Patient Name: She Maloney Visit Number: [id number] Discharge Date: 08/19/2018 2:57:00 PM ATTENTION: The Clinical Documentation Specialists (CDI) and [facility] Coding Staff appreciate your assistance in clarifying documentation. Please respond to the clarification below the line at the bottom and electronically sign. The CDI & [facility] Coding staff will review the response and follow-up if needed. Please note: Queries are made part of the Legal Health Record. If you have any questions, please contact the author of this message via ITS. Dr. Nitza Priest Malnutrition has been documented in only Discharge summary as Svere protein calorie malnutrition due to lack of oral intake. History/Risk Factors: Dysphagia Clinical Indicators: BMI 21.9, Cachexia, Albumin 4.5 Weight Loss: no recurrent weight loss In your professional opinion, can you please clarify if these findings signify one of the following conditions? Mild Protein-Calorie Malnutrition ?Moderate Protein-Calorie Malnutrition ?Severe Protein-Calorie Malnutrition ?Malnutrition, unspecified ?Malnutrition following GI surgery ?Other condition, please specify ?Unable to determine Malnutrition, unspecified MTDD
== END 2018-08-19 14:57 | DRG 643 ==
LOC: EC 08:36 → 4SSUR 13:59 → 4MS4W 08-18 15:13
PROVIDERS: ADMIT Internal Medicine; ATTEND Internal Medicine
PROC: 05HB33Z Insertion of Infusion Device into Right Basilic Vein, Percutaneous Approach (ICD-10-PCS; principal; 2018-08-16 13:30)
DX: E22.2 Syndrome of inappropriate secretion of antidiuretic hormone (principal); G93.41 Metabolic encephalopathy; F01.51 Vascular dementia, unspecified severity, with behavioral disturbance; F33.3 Major depressive disorder, recurrent, severe with psychotic symptoms; R64 Cachexia; E46 Unspecified protein-calorie malnutrition; F41.9 Anxiety disorder, unspecified; E86.0 Dehydration; K29.80 Duodenitis without bleeding; R13.10 Dysphagia, unspecified; B96.81 Helicobacter pylori [H. pylori] as the cause of diseases classified elsewhere; K29.70 Gastritis, unspecified, without bleeding; R56.9 Unspecified convulsions; E03.9 Hypothyroidism, unspecified; I10 Essential (primary) hypertension; I65.29 Occlusion and stenosis of unspecified carotid artery; D64.9 Anemia, unspecified; E11.9 Type 2 diabetes mellitus without complications; E78.5 Hyperlipidemia, unspecified; M16.10 Unilateral primary osteoarthritis, unspecified hip; R33.9 Retention of urine, unspecified; F41.1 Generalized anxiety disorder; Z79.82 Long term (current) use of aspirin; Z79.890 Hormone replacement therapy; Z82.3 Family history of stroke; Z79.899 Other long term (current) drug therapy; Z82.49 Family history of ischemic heart disease and other diseases of the circulatory system; Z86.711 Personal history of pulmonary embolism; Z90.710 Acquired absence of both cervix and uterus; Z95.828 Presence of other vascular implants and grafts; Z88.0 Allergy status to penicillin; Z98.890 Other specified postprocedural states; Z86.14 Personal history of Methicillin resistant Staphylococcus aureus infection; Z68.21 Body mass index [BMI] 21.0-21.9, adult
CPT/HCPCS: 36410; 36415; 70450; 80048; 80053; 80306; 80320; 81001; 83605; 83735; 83930; 83935; 84300; 84443; 85025; 87086; 87324; 93005; 93880; 95819; 96361; 96374; 99285

== ENCOUNTER 2018-11-07 01:25 | Inpatient (IN) | payer MEDICARE ==
[2018-11-07] MEDS ORDERED: DIPH,PERTUS(ACELL)TETVAC-LF 0.5 ML VIAL IM ONE (01:48)
[2018-11-07 02:13] LABS: Basophils % (A) 0 %; Eosinophils # (A) 0.1 k/uL (0-0.7); Eosinophils % (A) 1 %; HCT 33.3 % (34.0-46.0); HGB 11.3 gm/dL (11.4-16.0); Lymphocytes # (A) 0.2 k/uL (1.0-4.8); Lymphocytes % (A) 3 %; MCH 27.4 pg (25.0-35.0); MCHC 33.9 g/dL (31.0-37.0); MCV 80.8 fL (80.0-100.0); Mean Platelet Volume 6.7; Monocytes # (A) 0.3 k/uL (0-1.0); Monocytes % (A) 4 %; Neutrophils # (A) 7.2 k/uL (1.3-7.7); Neutrophils % (A) 92 %; Platelet Count 214 k/uL (150-450); RBC 4.13 m/uL (3.80-5.40); WBC 7.9 k/uL (3.8-10.6)
[2018-11-07 02:26] LABS: ALT 21 U/L (9-52); AST 32 U/L (14-36); African American GFR (CKD) >90 (>60 ml/min/1.73 sqM); Albumin 4.4 g/dL (3.5-5.0); Alkaline Phosphatase 90 U/L (38-126); Anion Gap 14 mmol/L; Blood Urea Nitrogen 8 mg/dL (7-17); Calcium 8.6 mg/dL (8.4-10.2); Carbon Dioxide 22 mmol/L (22-30); Glucose 170 mg/dL (74-99); Potassium 3.5 mmol/L (3.5-5.1); Total Bilirubin 1.1 mg/dL (0.2-1.3); Total Protein 7.1 g/dL (6.3-8.2)
[2018-11-07 02:28] LABS: Chloride 74 mmol/L (98-107); Sodium 110 mmol/L (137-145)
[2018-11-07] MEDS ORDERED: SODIUM CHLORIDE 0.9% 1,000 ML IV ONE (03:06)
[2018-11-07] MEDS ORDERED: SODIUM CHLORIDE 0.9% 1,000 ML IV STA (03:06)
--- NOTE | 2018-11-07 03:16 | CT ---
EXAM: CT Head Without Intravenous Contrast CLINICAL HISTORY: ITS.REASON CT Reason: fall TECHNIQUE: Axial computed tomography images of the head/brain without intravenous contrast. CTDI is 45.2, 7.3 mGy and DLP is 1269.9 mGy-cm. This CT exam was performed using one or more of the following dose reduction techniques: automated exposure control, adjustment of the mA and/or kV according to patient size, and/or use of iterative reconstruction technique. COMPARISON: CT 08/16/18. FINDINGS: Brain: No hemorrhage. No acute cortical infarct. No mass effect or midline shift. Age-related changes. Ventricles: Unremarkable. Bones/joints: No acute fracture. Soft tissues: Scalp soft tissue swelling/gas. Sinuses: Minimal sinus disease. Mastoid air cells: Unremarkable as visualized. IMPRESSION: No intracranial hemorrhage or skull fracture. EXAM: CT Cervical Spine Without Intravenous Contrast CLINICAL HISTORY: ITS.REASON CT Reason: fall TECHNIQUE: Axial computed tomography images of the cervical spine without intravenous contrast. CTDI is 45.2, 7.3 mGy and DLP is 1269.9 mGy-cm. This CT exam was performed using one or more of the following dose reduction techniques: automated exposure control, adjustment of the mA and/or kV according to patient size, and/or use of iterative reconstruction technique. COMPARISON: No relevant prior studies available. FINDINGS: Vertebrae: No evidence of acute fracture. Discs/spinal canal/neural foramina: Multilevel degenerative changes. Soft tissues: Unremarkable. Lung apices: An 8 mm nodule in the superior segment of the right lower lobe. Patchy nonspecific groundglass lung densities. IMPRESSION: 1. No evidence of acute fracture. 2. An 8 mm nodule in the superior segment of the right lower lobe. Correlate with clinical history regarding malignancy. Consider PET/CT or additional workup as indicated.
[2018-11-07] MEDS ORDERED: NALOXONE 0.4 MG/ML 1 ML VIAL IV PRN (05:04)
[2018-11-07] MEDS ORDERED: LIDOCAINE 1%-EPI 1:100,000 20 ML VIAL SQ STA (05:21)
--- NOTE | 2018-11-07 05:23 | ED ---
Fall HPI - General Chief Complaint: Fall Stated Complaint: Fall/Head Injury Time Seen by Provider: 11/07/18 01:30 Source: EMS Mode of arrival: EMS Limitations: altered mental status - History of Present Illness Initial Comments: This patient is an 88 year old woman who is brought to the hospital by ambulance to be evaluated after a fall. The patient is not able to give much history she does appear to have moderate underlying dementia or delirium. The patient is able to answer that she is not having pain. Denies dyspnea. Per the patient's , he believes she had attempted to get out of bed and had fallen. He states that the floor is carpeted he does not believe she struck her head on the floor but perhaps on bedside furniture. He noted some bleeding and called EMS. MD Complaint: fall -: minutes(s) Fall From: out of bed When Fall Occurred: unsure Fall Witnessed: no Place Fall Occurred: home Loss of Consciousness: unsure Prolonged Down Time?: no - Related Data Home Medications Medication Instructions Recorded Confirmed Levothyroxine Sodium [Synthroid] 50 mcg PO DAILY 07/26/18 11/07/18 amLODIPine [Norvasc] 5 mg PO DAILY 07/26/18 11/07/18 Aspirin EC [Ecotrin Low Dose] 81 mg PO DAILY 08/12/18 11/07/18 Ranitidine HCl [Zantac] 150 mg PO BID 08/12/18 11/07/18 Apixaban [Eliquis] 5 mg PO BID 11/07/18 11/07/18 Allergies Allergy/AdvReac Type Severity Reaction Status Date / Time Penicillins Allergy Rash/Hives Verified 08/12/18 09:21 Review of Systems ROS Statement: Those systems with pertinent positive or pertinent negative responses have been documented in the HPI. ROS Other: All systems not noted in ROS Statement are negative. Limitations: ROS unobtainable due to patients medical condition Respiratory: Denies: dyspnea Neurological: Denies: headache Past Medical History Past Medical History: Diabetes Mellitus, Hyperlipidemia, Hypertension, Pulmonary Embolus (PE), Thyroid Disorder Additional Past Medical History / Comment(s): had a siezure in 2004, pt states her NA+ was to low, dysphagia History of Any Multi-Drug Resistant Organisms: MRSA Date of last positivie culture/infection: 02/21/2014 MDRO Source:: Face Past Surgical History: Bladder Surgery, Hysterectomy Past Anesthesia/Blood Transfusion Reactions: No Reported Reaction Past Psychological History: Anxiety, Depression Smoking Status: Never smoker Past Alcohol Use History: None Reported Past Drug Use History: None Reported - Past Family History Father Family Medical History: CVA/TIA, Hypertension Additional Family Medical History / Comment(s): brain anyruisum Mother Family Medical History: Hypertension General Exam Limitations: altered mental status General appearance: alert, anxious Head exam: Present: normocephalic, other (The patient has an approximately 3 cm laceration to the right parietal scalp. There is adjacent hematoma. There is no obvious bony deformity.). Absent: atraumatic Eye exam: Present: normal appearance, PERRL, EOMI. Absent: scleral icterus, conjunctival injection, periorbital swelling, periorbital tenderness ENT exam: Present: mucous membranes dry Neck exam: Present: other (Cervical collar). Absent: tenderness Respiratory exam: Present: normal lung sounds bilaterally. Absent: respiratory distress, wheezes, rales, rhonchi, stridor, chest wall tenderness Cardiovascular Exam: Present: regular rate, normal rhythm, systolic murmur. Absent: diastolic murmur, rubs, gallop GI/Abdominal exam: Present: soft. Absent: tenderness, guarding, rebound, mass Extremities exam: Present: normal inspection, full ROM, normal capillary refill. Absent: tenderness, pedal edema Back exam: Absent: vertebral tenderness Neurological exam: Present: alert, other (Patient is not able to cooperate with the neurologic exam. She appears to have some acute delirium versus dementia. She is able to give occasional one word responses to very simple questions. She appears to be moving all 4 extremities without deficit.) Skin exam: Present: warm, dry, normal color, other (Scalp laceration). Absent: rash Course Vital Signs 11/07/18 11/07/18 01:28 05:36 Temperature 97.6 F 98.3 F Pulse Rate 94 96 Respiratory 20 18 Rate Blood Pressure 134/96 135/60 O2 Sat by Pulse 99 96 Oximetry Procedures - [place] Protocol (Time Out) Nurse: Aundrea Melchor - Laceration Laceration #1 Consent Obtained: emergent situation Indication: laceration Site: scalp Size (cm): 4 Description: linear Depth: simple, single layer Anesthetic Used: lidocaine 1%, with epi Anesthesia Technique: local infiltration Type of Sutures: other (Staple) Number of Sutures: 5 Technique: simple, interrupted Complications: bleeding Medical Decision Making - Medical Decision Making Patient is an 88-year-old woman brought for evaluation after she had a fall at home. She is found to have moderately severe hyponatremia. She does have previous history of this. The patient is not having seizures and therefore will not replace with 3%. She is given saline bolus and replacement. Given the sodium level case is discussed with Dr. Andrew. Case discussed with Dr. Godwin, who will admit. The patient's computed tomography scan does not reveal intracranial injury or cervical spine injury. Scalp laceration repaired with gonzalo at the bedside, see the procedure note. - Lab Data Result diagrams: 11/07/18 02:05 11/07/18 05:58 Lab Results 11/07/18 11/07/18 11/07/18 Range/Units 02:05 02:05 02:05 WBC 7.9 (3.8-10.6) k/uL RBC 4.13 (3.80-5.40) m/uL Hgb 11.3 L (11.4-16.0) gm/dL Hct 33.3 L (34.0-46.0) % MCV 80.8 (80.0-100.0) fL MCH 27.4 (25.0-35.0) pg MCHC 33.9 (31.0-37.0) g/dL RDW 13.0 (11.5-15.5) % Plt Count 214 (150-450) k/uL Neutrophils % 92 % Lymphocytes % 3 % Monocytes % 4 % Eosinophils % 1 % Basophils % 0 % Neutrophils # 7.2 (1.3-7.7) k/uL Lymphocytes # 0.2 L (1.0-4.8) k/uL Monocytes # 0.3 (0-1.0) k/uL Eosinophils # 0.1 (0-0.7) k/uL Basophils # 0.0 (0-0.2) k/uL Sodium 110 L* (137-145) mmol/L Potassium 3.5 (3.5-5.1) mmol/L Chloride 74 L* (98-107) mmol/L Carbon Dioxide 22 (22-30) mmol/L Anion Gap 14 mmol/L BUN 8 (7-17) mg/dL Creatinine 0.35 L (0.52-1.04) mg/dL Est GFR (CKD-EPI)AfAm >90 (>60 ml/min/1.73 sqM) Est GFR (CKD-EPI)NonAf >90 (>60 ml/min/1.73 sqM) Glucose 170 H (74-99) mg/dL Lactic Ac Sepsis Rflx Plasma Lactic Acid Ronan 2.1 H* (0.7-2.0) mmol/L Calcium 8.6 (8.4-10.2) mg/dL Total Bilirubin 1.1 (0.2-1.3) mg/dL AST 32 (14-36) U/L ALT 21 (9-52) U/L Alkaline Phosphatase 90 (38-126) U/L Total Protein 7.1 (6.3-8.2) g/dL Albumin 4.4 (3.5-5.0) g/dL 11/07/18 Range/Units 02:28 WBC (3.8-10.6) k/uL RBC (3.80-5.40) m/uL Hgb (11.4-16.0) gm/dL Hct (34.0-46.0) % MCV (80.0-100.0) fL MCH (25.0-35.0) pg MCHC (31.0-37.0) g/dL RDW (11.5-15.5) % Plt Count (150-450) k/uL Neutrophils % % Lymphocytes % % Monocytes % % Eosinophils % % Basophils % % Neutrophils # (1.3-7.7) k/uL Lymphocytes # (1.0-4.8) k/uL Monocytes # (0-1.0) k/uL Eosinophils # (0-0.7) k/uL Basophils # (0-0.2) k/uL Sodium (137-145) mmol/L Potassium (3.5-5.1) mmol/L Chloride (98-107) mmol/L Carbon Dioxide (22-30) mmol/L Anion Gap mmol/L BUN (7-17) mg/dL Creatinine (0.52-1.04) mg/dL Est GFR (CKD-EPI)AfAm (>60 ml/min/1.73 sqM) Est GFR (CKD-EPI)NonAf (>60 ml/min/1.73 sqM) Glucose (74-99) mg/dL Lactic Ac Sepsis Rflx Y Plasma Lactic Acid Ronan (0.7-2.0) mmol/L Calcium (8.4-10.2) mg/dL Total Bilirubin (0.2-1.3) mg/dL AST (14-36) U/L ALT (9-52) U/L Alkaline Phosphatase (38-126) U/L Total Protein (6.3-8.2) g/dL Albumin (3.5-5.0) g/dL Critical Care Time Critical Care Time: Yes (30 minutes) Disposition Clinical Impression: Fall, Hyponatremia, Mental status alteration, Scalp laceration Disposition: ADMITTED IP TO THIS [facility] Condition: Serious Is patient prescribed a controlled substance at d/c from ED?: No
[2018-11-07 06:21] LABS: African American GFR (CKD) >90 (>60 ml/min/1.73 sqM); Anion Gap 12 mmol/L; Blood Urea Nitrogen 7 mg/dL (7-17); Calcium 8.1 mg/dL (8.4-10.2); Carbon Dioxide 20 mmol/L (22-30); Chloride 80 mmol/L (98-107); Glucose 121 mg/dL (74-99); Potassium 3.2 mmol/L (3.5-5.1)
[2018-11-07 06:23] LABS: Sodium 112 mmol/L (137-145)
[2018-11-07 07:51] LABS: Glucose,Whole Blood 129 mg/dL (75-99)
[2018-11-07] MEDS ORDERED: Potassium Replacement Protocol 1 EACH MISC MISCELLANE PRN ×2 (08:16→20:05)
[2018-11-07 08:43] LABS: Appearance,Urine Clear (Clear); Bilirubin,Urine Negative (Negative); Blood,Urine Trace (Negative); Color,Urine Light Yellow; Glucose,Urine (UA) 3+ (Negative); Ketones,Urine 1+ (Negative); Leukocyte Esterase,Urine Negative (Negative); Mucus,Urine Rare /hpf; Nitrite,Urine Negative (Negative); PH, Urine 7.5 (5.0-8.0); Protein,Urine Negative (Negative); RBC,Urine 1 /hpf (0-5); Urobilinogen,Urine <2.0 mg/dL (<2.0)
[2018-11-07 09:54] VITALS: BMI 16.9
[2018-11-07] MEDS: POTASSIUM CHLORIDE 10 MEQ in WATER FOR INJECTION 1 100ML.BAG IVPB SCH ×4 (10:10→15:20)
--- NOTE | 2018-11-07 11:42 | P.CNPUL ---
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 Workup for her fall included CT of the brain which came back negative. She also had a basic metabolic profile showing profound hyponatremia with sodium of 110. Serum osmolality was noted to be 221. Urine osmolality is 50. Urine sodium is pending. Patient is known to have history of psychogenic polydipsia, and she drinks over 10 bottles/8 ounces of water per day. Patient had previous presentations with hyponatremia, however considering her profound hyponatremia on this admission patient was admitted to the ICU, placed on 0.9 normal saline, and we were asked to see her on consultation. Patient is not a great historian, she seems to be a bit confused, extremely slow, and hard of hearing. Patient is presently on 0.9 normal saline at 1 25 mL per hour, and her urine output is over 200 mL per hour, seems to be quite dilute urine. Follow-up serum sodium since admission was noted to be 112. And the next serum sodium is pending in the next 2 hours. Review of Systems Constitutional: Denies fever chills and weight loss. Eyes: Denies blurred vision and diplopia. Ears: Hard of hearing. Ears, denies earache or discharge. Cardiovascular: Denies chest pain palpitations diaphoresis or syncope. Respiratory: Denies shortness of breath cough or wheezing. Denies hemoptysis. Gastrointestinal: Denies nausea vomiting abdominal pain melena or hematemesis. Genitourinary: Denies dysuria hematuria frequency urgency. Musculoskeletal: Patient uses a walker, sometimes she refuses to use the walker according to the . But normally ambulatory. Integumentary: Denies skin rashes or pruritus. Neurological: Denies headache blurred vision dizziness, not clear how she felt backwards. Psychiatric: Denies active depression symptoms Endocrine: Denies heat or cold intolerance, but she has excessive drinking of water although she is not thirsty. Hematologic/Lymphatic: Denies clotting bleeding or bruising Past Medical History Past Medical History: Diabetes Mellitus, Hyperlipidemia, Hypertension, Pulmonary Embolus (PE), Thyroid Disorder Additional Past Medical History / Comment(s): had a siezure in 2004, pt states h er NA+ was to low, dysphagia History of Any Multi-Drug Resistant Organisms: MRSA Date of last positivie culture/infection: 02/21/2014 MDRO Source:: Face Past Surgical History: Bladder Surgery, Hysterectomy Past Anesthesia/Blood Transfusion Reactions: No Reported Reaction Past Psychological History: Anxiety, Depression Smoking Status: Never smoker Past Alcohol Use History: None Reported Past Drug Use History: None Reported - Past Family History Father Family Medical History: CVA/TIA, Hypertension Additional Family Medical History / Comment(s): brain anyruisum Mother Family Medical History: Hypertension Medications and Allergies Home Medications Medication Instructions Recorded Confirmed Type Levothyroxine Sodium [Synthroid] 50 mcg PO DAILY 07/26/18 11/07/18 History amLODIPine [Norvasc] 5 mg PO DAILY 07/26/18 11/07/18 History Aspirin EC [Ecotrin Low Dose] 81 mg PO DAILY 08/12/18 11/07/18 History Ranitidine HCl [Zantac] 150 mg PO BID 08/12/18 11/07/18 History Apixaban [Eliquis] 5 mg PO BID 11/07/18 11/07/18 History Allergies Allergy/AdvReac Type Severity Reaction Status Date / Time Penicillins Allergy Rash/Hives Verified 11/07/18 07:04 Physical Exam Vitals: Vital Signs Temp Pulse Resp BP Pulse Ox 11/07/18 10:00 98.2 F 71 22 129/62 94 L 11/07/18 09:01 72 21 11/07/18 06:59 80 18 121/67 98 11/07/18 05:36 98.3 F 96 18 135/60 96 11/07/18 01:28 97.6 F 94 20 134/96 99 Intake and Output 11/06/18 11/07/18 11/07/18 22:59 06:59 14:59 Intake Total 495 Output Total 1975 Balance -1480 Intake: Intake, IV Titration 495 Amount Potassium Chloride 10 meq 100 In Water For Injection 1 100ml.bag @ 100 mls/hr IVPB Q1HR DYLAN Rx#: [id number] Sodium Chloride 0.9% 1, 395 000 ml @ 125 mls/hr IV . Q8H STA Rx#:[id number] Output: Urine 1975 Other: Weight 47.627 kg 47.627 kg General appearance: Revealed 88-year-old female in no acute distress. Quite frail, looks chronically ill. Eyes: anicteric sclerae, PERRLA, normal appearance ENT: Hard of hearing. Throat is clear. Dry mucous membranes. Neck: no lymphadenopathy, normal ROM, no other, no rigidity, no stridor, no thyromegaly Respiratory: Symmetrical chest expansion, clear breath sound bilaterally no crackles or rhonchi or wheezes. Cardiac: Normal S1 and S2, no S3 gallop, regular rate and rhythm. Abdomen: Soft, nontender, no megaly, no rebound, no guarding, positive bowel sounds. Integumentary: no rash Neurologic: CNII-XII intact no gross focal neurologic deficit, patient seems to be slow, gonzalo in the posterior scalp were noted. Patient did have 4 cm laceration of the scalp Musculoskeletal: Generally weak, no gross focal deficit otherwise. Psychiatric: Blunted affect, depressed mood, slightly confused Results - Laboratory Findings CBC and BMP: 11/07/18 02:05 11/07/18 05:58 Abnormal lab findings: Abnormal Labs 11/07/18 11/07/18 11/07/18 02:05 02:05 02:05 Hgb 11.3 L Hct 33.3 L Lymphocytes # 0.2 L Sodium 110 L* Potassium Chloride 74 L* Carbon Dioxide Creatinine 0.35 L Glucose 170 H POC Glucose (mg/dL) Osmolality Plasma Lactic Acid Ronan 2.1 H* Calcium Urine Glucose (UA) Urine Ketones Urine Blood Urine Mucus 11/07/18 11/07/18 11/07/18 05:58 05:58 07:40 Hgb Hct Lymphocytes # Sodium 112 L* Potassium 3.2 L Chloride 80 L Carbon Dioxide 20 L Creatinine 0.24 L Glucose 121 H POC Glucose (mg/dL) 129 H Osmolality 221 L* Plasma Lactic Acid Ronan Calcium 8.1 L Urine Glucose (UA) Urine Ketones Urine Blood Urine Mucus 11/07/18 08:20 Hgb Hct Lymphocytes # Sodium Potassium Chloride Carbon Dioxide Creatinine Glucose POC Glucose (mg/dL) Osmolality Plasma Lactic Acid Ronan Calcium Urine Glucose (UA) 3+ H Urine Ketones 1+ H Urine Blood Trace H Urine Mucus Rare H - Diagnostic Findings Chest x-ray: image reviewed (Chest x-ray showed no evidence of active disease.) Additional studies: CT of head and cervical spine showed no intracranial hemorrhage or skull fracture. Assessment and Plan Assessment: Impression: Acute severe hyponatremia secondary to psychogenic polydipsia. 4 cm scalp laceration, secondary to fall, secondary to hyponatremia. History of benign essential hypertension History of hypothyroidism, on replacement therapy. Psychogenic polydipsia Recommendation: Continue present treatment plan including IV fluid in the form of 0.9 normal saline at 1 25 mL per hour, continue to closely monitor the sodium, awaiting urine sodium which is expected to be low. Her urine osmolality was only 50. Serum osmolality was quite low. Once her serum sodium is over 120, patient could be transferred out of the ICU. We'll continue to follow closely. Patient was made aware that her excessive water drinking is causing her hyponatremia, and should avoid doing this in the future. Discussed her condition with at bedside. Time with Patient: Greater than 30
--- NOTE | 2018-11-07 12:28 | XR ---
EXAMINATION TYPE: XR chest 1V portable DATE OF EXAM: 11/07/2018 COMPARISON: NONE HISTORY: Hyponatremia TECHNIQUE: Single frontal view of the chest is obtained. FINDINGS: The patient is rotated. There are overlying cardiac leads. Aorta is dense. There is no foc al air space opacity, pleural effusion, or pneumothorax seen. The cardiac silhouette size is within normal limits. The osseous structures are intact. IMPRESSION: No acute process.
[2018-11-07 12:33] LABS: African American GFR (CKD) >90 (>60 ml/min/1.73 sqM); Anion Gap 10 mmol/L; Blood Urea Nitrogen 5 mg/dL (7-17); Calcium 8.5 mg/dL (8.4-10.2); Carbon Dioxide 22 mmol/L (22-30); Chloride 86 mmol/L (98-107); Glucose 91 mg/dL (74-99); Potassium 3.5 mmol/L (3.5-5.1)
[2018-11-07 12:34] LABS: Sodium 118 mmol/L (137-145)
[2018-11-07 13:24] LABS: Specific Gravity,Urine 1.006 (1.001-1.035)
--- NOTE | 2018-11-07 14:25 | P.HPIM ---
History of Present Illness H&P Date: 11/07/18 Chief Complaint: Fall This is a 88-year-old female patient of Dr. Dalton with past medical history of psychogenic polydipsia, multiple previous ER visits for difficulty swallowing, pulmonary embolism on eliquis, hypertension, hypothyroidism, gastroesophageal reflux disease. Patient really had a fall at home possibly when she was attempting to get out of bed. Patient apparently has experienced polyuria and polydipsia. relates that she has a walker at home but does not use it. She is not taking any [id number]-[id number] supplements that he is aware of. He denies any alcohol intake. No oxygen or belies her home. Apparently patient has been drinking up to 10 bottles of 8 ounces water daily. She has had no appetite. Patient is able to deny any headache. She was brought by EMS to [facility] emergency center for evaluation. Patient was found to have a 3 cm laceration of the right parietal scalp without has been stapled along with adjacent hematoma. She was afebrile, heart rate 94, blood pressure initially 134/96 and repeat 135/60. Pulse ox 99% on room air. She was found to have a sodium of 112, potassium 3.2, chloride 80, CO2 20, BUN 7, creatinine 0.24, blood sugar 170. WBC 7.9, hemoglobin 11.3, platelet count 214. Lactic acid 2.1. Chest x-ray showed no acute process. CAT scan of the brain showed no intracranial hemorrhage or skull fracture. CAT scan of the cervical spine revealed no evidence of acute fracture. 8 mm nodule in the superior segment of the right lower lobe of the lung noted. In the ER, patient was given 2 L of IV fluids, potassium replaced, T dab updated and patient was admitted to the [facility] care unit. Patient had consult in place with Dr. Andrew and consult with Dr. Franco has been added. Patient is unable to give medical history and is also a poor historian. Review of Systems ROS unobtainable: due to mental status Past Medical History Past Medical History: Diabetes Mellitus, Hyperlipidemia, Hypertension, Pulmonary Embolus (PE), Thyroid Disorder Additional Past Medical History / Comment(s): had a siezure in 2004, pt states her NA+ was to low, dysphagia History of Any Multi-Drug Resistant Organisms: MRSA Date of last positivie culture/infection: 02/21/2014 MDRO Source:: Face Past Surgical History: Bladder Surgery, Hysterectomy Past Anesthesia/Blood Transfusion Reactions: No Reported Reaction Past Psychological History: Anxiety, Depression Smoking Status: Never smoker Past Alcohol Use History: None Reported Past Drug Use History: None Reported - Past Family History Father Family Medical History: CVA/TIA, Hypertension Additional Family Medical History / Comment(s): brain anyruisum Mother Family Medical History: Hypertension Medications and Allergies Home Medications Medication Instructions Recorded Confirmed Type Levothyroxine Sodium [Synthroid] 50 mcg PO DAILY 07/26/18 11/07/18 History amLODIPine [Norvasc] 5 mg PO DAILY 07/26/18 11/07/18 History Aspirin EC [Ecotrin Low Dose] 81 mg PO DAILY 08/12/18 11/07/18 History Ranitidine HCl [Zantac] 150 mg PO BID 08/12/18 11/07/18 History Apixaban [Eliquis] 5 mg PO BID 11/07/18 11/07/18 History Allergies Allergy/AdvReac Type Severity Reaction Status Date / Time Penicillins Allergy Rash/Hives Verified 11/07/18 07:04 Physical Exam Vitals: Vital Signs Temp Pulse Resp BP Pulse Ox 11/07/18 12:00 98.9 F 59 L 19 108/76 95 11/07/18 11:00 60 23 133/58 11/07/18 10:00 98.2 F 71 22 129/62 94 L 11/07/18 09:01 72 21 11/07/18 06:59 80 18 121/67 98 11/07/18 05:36 98.3 F 96 18 135/60 96 11/07/18 01:28 97.6 F 94 20 134/96 99 Intake and Output 11/06/18 11/07/18 11/07/18 22:59 06:59 14:59 Intake Total 720 Output Total 2325 Balance -1605 Intake: Intake, IV Titration 720 Amount Potassium Chloride 10 meq 200 In Water For Injection 1 100ml.bag @ 100 mls/hr IVPB Q1HR DYLAN Rx#: [id number] Sodium Chloride 0.9% 1, 520 000 ml @ 125 mls/hr IV . Q8H STA Rx#:[id number] Output: Urine 2325 Other: Weight 47.627 kg 47.627 kg - Constitutional General appearance: cooperative, in no acute distress, fragile cachectic appearing female - EENT Eyes: anicteric sclerae, PERRLA, normal appearance ENT: hearing grossly normal - Neck Neck: no lymphadenopathy, normal ROM, no other, no rigidity, no stridor, no thyromegaly - Respiratory Respiratory: bilateral: CTA, negative: diminished, dullness, rales, rhonchi - Cardiovascular Rhythm: regular Heart sounds: normal: S1, S2 Abnormal Heart Sounds: no systolic murmur, no diastolic murmur, no rub, no S3 Gallop, no S4 Gallop, no click, no other front desk monitor sinus rhythm - Gastrointestinal General gastrointestinal: normal bowel sounds, soft, nontender Best catheter draining clear ciara urine - Integumentary Integumentary: no rash - Neurologic Neurologic: CNII-XII intact - Musculoskeletal Musculoskeletal: gait not tested, generalized weakness - Psychiatric Psychiatric: A&O x's 1, patient confused, generalized weakness noted. Results CBC & Chem 7: 11/07/18 02:05 11/07/18 12:03 Labs: Abnormal Lab Results - Last 24 Hours (Table) 11/07/18 11/07/18 11/07/18 Range/Units 02:05 02:05 02:05 Hgb 11.3 L (11.4-16.0) gm/dL Hct 33.3 L (34.0-46.0) % Lymphocytes # 0.2 L (1.0-4.8) k/uL Sodium 110 L* (137-145) mmol/L Potassium (3.5-5.1) mmol/L Chloride 74 L* (98-107) mmol/L Carbon Dioxide (22-30) mmol/L Creatinine 0.35 L (0.52-1.04) mg/dL Glucose 170 H (74-99) mg/dL POC Glucose (mg/dL) (75-99) mg/dL Osmolality (280-301) mosm/kg Plasma Lactic Acid Ronan 2.1 H* (0.7-2.0) mmol/L Calcium (8.4-10.2) mg/dL Urine Glucose (UA) (Negative) Urine Ketones (Negative) Urine Blood (Negative) Urine Mucus (None) /hpf 11/07/18 11/07/18 11/07/18 Range/Units 05:58 05:58 07:40 Hgb (11.4-16.0) gm/dL Hct (34.0-46.0) % Lymphocytes # (1.0-4.8) k/uL Sodium 112 L* (137-145) mmol/L Potassium 3.2 L (3.5-5.1) mmol/L Chloride 80 L (98-107) mmol/L Carbon Dioxide 20 L (22-30) mmol/L Creatinine 0.24 L (0.52-1.04) mg/dL Glucose 121 H (74-99) mg/dL POC Glucose (mg/dL) 129 H (75-99) mg/dL Osmolality 221 L* (280-301) mosm/kg Plasma Lactic Acid Ronan (0.7-2.0) mmol/L Calcium 8.1 L (8.4-10.2) mg/dL Urine Glucose (UA) (Negative) Urine Ketones (Negative) Urine Blood (Negative) Urine Mucus (None) /hpf 11/07/18 Range/Units 08:20 Hgb (11.4-16.0) gm/dL Hct (34.0-46.0) % Lymphocytes # (1.0-4.8) k/uL Sodium (137-145) mmol/L Potassium (3.5-5.1) mmol/L Chloride (98-107) mmol/L Carbon Dioxide (22-30) mmol/L Creatinine (0.52-1.04) mg/dL Glucose (74-99) mg/dL POC Glucose (mg/dL) (75-99) mg/dL Osmolality (280-301) mosm/kg Plasma Lactic Acid Ronan (0.7-2.0) mmol/L Calcium (8.4-10.2) mg/dL Urine Glucose (UA) 3+ H (Negative) Urine Ketones 1+ H (Negative) Urine Blood Trace H (Negative) Urine Mucus Rare H (None) /hpf Microbiology - Last 24 Hours (Table) 11/07/18 08:20 Urine Culture - Preliminary Urine,Catheterized Thrombosis Risk Factor Assmnt - DVT/VTE Prophylaxis DVT/VTE Prophylaxis: Pharmacologic Prophylaxis ordered - Choose All That Apply Each Factor Represents 1 point: Medical pt on bed rest Each Risk Factor Represents 2 Points: Patient confined to bed Each Risk Factor Represents 3 Points: Age 75 years or older Thrombosis Risk Factor Assessment Total Risk Factor Score: 6 Thrombosis Risk Factor Assessment Level: High Risk Assessment and Plan Plan: 1. Acute metabolic encephalopathy secondary to hyponatremia that is psychogenic polydipsia. Patient is status post 2 L of IV fluids. 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 Consult with Dr. Franco added. Fluid restriction 1500 mL. Serum osmolality, urine osmolality, urine sodium. Aldosterone and ADH ordered 2. Generalized weakness and fall with subsequent 4 cm scalp laceration, stapled. Keep area clean and dry. T dab was updated in the emergency center. 3. History of pulmonary embolism. Continue eliquis 5 mg twice daily. 4. Hypothyroidism. Continue levothyroxine. Check TSH and free T4. 5. Anemia, possibly of chronic disease/malnutrition. Iron studies ordered. 6. History of dysphagia with previous workup negative. 7. History of H. pylori gastritis and chronic duodenitis. Continue Pepcid twice daily 8. Hypertension. Continue Norvasc 5 mg daily. 9. History of generalized anxiety disorder and recurrent depression. Patient is off medication. 10. Severe protein calorie malnutrition due to lack of oral intake. Patient started on Glucerna. Dietitian consult. 11. History of hyperlipidemia. Off Lipitor. 12. History of carotid stenosis. 13. Probable underlying dementia. 14. DVT prophylaxis. Eliquis. 15. GI prophylaxis. Pepcid Patient will be admitted to the hospital for a minimum of 2 night stay. Discharge plan: To be determined. PT and OT Impression and plan of care have been directed as dictated by the signing physician. Samantha Griffith nurse practitioner acting as scribe for signing physician.
[2018-11-07] MEDS: ASPIRIN 81 MG PO SCH (15:19)
[2018-11-07] MEDS: amLODIPine 5 MG TAB PO SCH (15:19)
[2018-11-07] MEDS: APIXABAN 5 MG TAB PO SCH ×2 (15:19→21:07)
[2018-11-07] MEDS: FAMOTIDINE 20 MG TAB PO SCH ×2 (15:19→21:08)
[2018-11-07 19:06] LABS: Iron Saturation 13.59 (12.00-45.00)
[2018-11-07 19:26] LABS: African American GFR (CKD) >90 (>60 ml/min/1.73 sqM); Anion Gap 9 mmol/L; Blood Urea Nitrogen 6 mg/dL (7-17); Calcium 8.7 mg/dL (8.4-10.2); Carbon Dioxide 21 mmol/L (22-30); Chloride 91 mmol/L (98-107); Glucose 148 mg/dL (74-99); Potassium 3.4 mmol/L (3.5-5.1); Sodium 121 mmol/L (137-145)
[2018-11-07] MEDS: POTASSIUM CHLORIDE ER 20 MEQ TAB.ER PO SCH ×2 (21:08→22:05)
[2018-11-07] MEDS: DEXTROSE 5% IN WATER 1,000 ML IV SCH (21:08)
[2018-11-08 00:47] LABS: African American GFR (CKD) >90 (>60 ml/min/1.73 sqM); Anion Gap 8 mmol/L; Blood Urea Nitrogen 6 mg/dL (7-17); Calcium 8.4 mg/dL (8.4-10.2); Carbon Dioxide 19 mmol/L (22-30); Chloride 93 mmol/L (98-107); Glucose 105 mg/dL (74-99); Potassium 3.8 mmol/L (3.5-5.1); Sodium 120 mmol/L (137-145)
[2018-11-08 03:57] LABS: MCH 30.5 pg (25.0-35.0); MCHC 35.7 g/dL (31.0-37.0); MCV 85.5 fL (80.0-100.0); Mean Platelet Volume 6.9; Platelet Count 187 k/uL (150-450); RBC 3.62 m/uL (3.80-5.40); RDW 14.1 % (11.5-15.5); WBC 5.8 k/uL (3.8-10.6)
[2018-11-08 04:07] LABS: African American GFR (CKD) >90 (>60 ml/min/1.73 sqM); Anion Gap 7 mmol/L; Blood Urea Nitrogen 5 mg/dL (7-17); Calcium 8.7 mg/dL (8.4-10.2); Carbon Dioxide 20 mmol/L (22-30); Chloride 97 mmol/L (98-107); Glucose 101 mg/dL (74-99); Potassium 3.7 mmol/L (3.5-5.1); Sodium 124 mmol/L (137-145)
[2018-11-08] MEDS ORDERED: Potassium Replacement Protocol 1 EACH MISC MISCELLANE PRN (06:54)
[2018-11-08] MEDS ORDERED: POTASSIUM BICARBONATE/CIT AC 20 MEQ TABLET.EFF NG-TUBE ONE (07:00)
[2018-11-08 07:01] LABS: Glucose,Whole Blood 115 mg/dL (75-99)
[2018-11-08] MEDS: INSULIN ASPART (NovoLOG) 100 UNIT/ML VIAL SQ SCH ×4 (07:35→21:10)
[2018-11-08] MEDS: FAMOTIDINE 20 MG TAB PO SCH ×2 (08:29→21:34)
[2018-11-08] MEDS: amLODIPine 5 MG TAB PO SCH (08:29)
[2018-11-08] MEDS: DEXTROSE 5% IN WATER 1,000 ML IV SCH (08:29)
[2018-11-08] MEDS: APIXABAN 5 MG TAB PO SCH ×2 (08:29→21:33)
[2018-11-08] MEDS: LEVOTHYROXINE 50 MCG TAB PO SCH (08:29)
[2018-11-08] MEDS: ASPIRIN 81 MG PO SCH (08:29)
[2018-11-08] MEDS ORDERED: DESMOPRESSIN ACETATE 4 MCG/ML VIAL (MDV) IV SCH (09:00)
[2018-11-08 12:04] LABS: Glucose,Whole Blood 112 mg/dL (75-99)
--- NOTE | 2018-11-08 12:06 | P.PN ---
Subjective Progress Note Date: 11/08/18 Principal diagnosis: Severe hyponatremia This is an 88-year-old female with known history of multiple medical problems including psychogenic polydipsia and chronic hyponatremia, patient was brought in by ambulance after she fell while she was walking, and sustained a 4 cm scalp laceration requiring 5 gonzalo. Workup for her fall included CT of the brain which came back negative. She also had a basic metabolic profile showing profound hyponatremia with sodium of 110. Serum osmolality was noted to be 221. Urine osmolality is 50. Urine sodium is pending. Patient is known to have history of psychogenic polydipsia, and she drinks over 10 bottles/8 ounces of water per day. Patient had previous presentations with hyponatremia, however considering her profound hyponatremia on this admission patient was admitted to the ICU, placed on 0.9 normal saline, and we were asked to see her on consultation. Patient is not a great historian, she seems to be a bit confused, extremely slow, and hard of hearing. Patient is presently on 0.9 normal saline at 1 25 mL per hour, and her urine output is over 200 mL per hour, seems to be quite dilute urine. Follow-up serum sodium since admission was noted to be 112. And the next serum sodium is pending in the next 2 hours. Patient was reevaluated today on 11/08/2018, remains in the intensive care unit, and she was seen by nephrology in consultation. Apparently her sodium was correcting a bit too fast, hence her IV fluid was changed from 0.9 normal saline to D5W. Her sodium today is 125. Patient feels much better, denies any specific complaints, however she is ALLERGIC to even go home. No headache no blurred vision no dizziness no cough no wheezing no nausea no vomiting no abdominal pain. CBC is relatively normal sodium is 125 today, and her mentation seems to be intact Objective - Vital Signs Vital signs: Vital Signs Temp 98.1 F 11/08/18 08:00 Pulse 61 11/08/18 10:00 Resp 31 H 11/08/18 10:00 BP 118/46 11/08/18 10:00 Pulse Ox 99 11/08/18 10:00 Intake & Output 11/07/18 11/08/18 11/08/18 18:59 06:59 18:59 Intake Total 1300 835 300 Output Total 3195 1665 103 Balance -1895 -830 197 Weight 47.627 kg 47.8 kg Intake: IV 825 300 Dextrose 5% in Water 1, 825 300 000 ml @ 100 mls/hr IV . Q10H DYLAN Rx#:[id number] Intake, IV Titration 1210 10 Amount Potassium Chloride 10 meq 400 In Water For Injection 1 100ml.bag @ 100 mls/hr IVPB Q1HR DYLAN Rx#: [id number] Sodium Chloride 0.9% 1, 810 10 000 ml @ 125 mls/hr IV . Q8H STA Rx#:[id number] Oral 90 Output: Urine 2359 3821 103 Other: Voiding Method Indwelling Catheter Indwelling Catheter Indwelling Catheter # Bowel Movements 1 - Exam General appearance: Revealed 88-year-old female in no acute distress. Eyes: anicteric sclerae, PERRLA, normal appearance ENT: Hard of hearing. Throat is clear. Dry mucous membranes. Neck: no lymphadenopathy, normal ROM, no other, no rigidity, no stridor, no thyromegaly Respiratory: Symmetrical chest expansion, clear breath sound bilaterally no crackles or rhonchi or wheezes. Cardiac: Normal S1 and S2, no S3 gallop, regular rate and rhythm. Abdomen: Soft, nontender, no megaly, no rebound, no guarding, positive bowel sounds. Integumentary: no rash Neurologic: CNII-XII intact no gross focal neurologic deficit, patient seems to be slow, gonzalo in the posterior scalp were noted. Patient did have 4 cm laceration of the scalp Musculoskeletal: Generally weak, no gross focal deficit otherwise. Psychiatric: Blunted affect, depressed mood, normal mental status. - Labs CBC & Chem 7: 11/08/18 03:43 11/08/18 08:51 Labs: Abnormal Lab Results - Last 24 Hours (Table) 11/07/18 11/07/18 11/07/18 Range/Units 12:03 12:03 18:46 RBC (3.80-5.40) m/uL Hgb (11.4-16.0) gm/dL Hct (34.0-46.0) % Sodium 118 L* 121 L (137-145) mmol/L Potassium 3.4 L (3.5-5.1) mmol/L Chloride 86 L 91 L (98-107) mmol/L Carbon Dioxide 21 L (22-30) mmol/L BUN 5 L 6 L (7-17) mg/dL Creatinine 0.37 L 0.33 L (0.52-1.04) mg/dL Glucose 148 H (74-99) mg/dL POC Glucose (mg/dL) (75-99) mg/dL Iron 39 L (50-170) ug/dL 11/08/18 11/08/18 11/08/18 Range/Units 00:15 03:43 03:43 RBC 3.62 L (3.80-5.40) m/uL Hgb 11.0 L (11.4-16.0) gm/dL Hct 31.0 L (34.0-46.0) % Sodium 120 L 124 L (137-145) mmol/L Potassium (3.5-5.1) mmol/L Chloride 93 L 97 L (98-107) mmol/L Carbon Dioxide 19 L 20 L (22-30) mmol/L BUN 6 L 5 L (7-17) mg/dL Creatinine 0.30 L 0.38 L (0.52-1.04) mg/dL Glucose 105 H 101 H (74-99) mg/dL POC Glucose (mg/dL) (75-99) mg/dL Iron (50-170) ug/dL 11/08/18 11/08/18 Range/Units 06:49 08:51 RBC (3.80-5.40) m/uL Hgb (11.4-16.0) gm/dL Hct (34.0-46.0) % Sodium 125 L (137-145) mmol/L Potassium (3.5-5.1) mmol/L Chloride (98-107) mmol/L Carbon Dioxide (22-30) mmol/L BUN (7-17) mg/dL Creatinine (0.52-1.04) mg/dL Glucose (74-99) mg/dL POC Glucose (mg/dL) 115 H (75-99) mg/dL Iron (50-170) ug/dL Microbiology - Last 24 Hours (Table) 11/07/18 08:20 Urine Culture - Preliminary Urine,Catheterized Assessment and Plan Assessment: Impression: Acute severe hyponatremia secondary to psychogenic polydipsia. This is mostly based on the clinical history and based on the laboratory findings on admission. 4 cm scalp laceration, secondary to fall, secondary to hyponatremia. History of benign essential hypertension History of hypothyroidism, on replacement therapy. Psychogenic polydipsia, patient drinks significant amount of water on a daily basis. Recommendation: Continue D5W, continue to monitor sodium at least every 12 hours, presently the patient out of the ICU to a regular medical floor, consider discharge planning in the next 24 hours. We'll sign off and see the patient on when necessary basis. Time with Patient: Less than 30
--- NOTE | 2018-11-08 12:55 | P.PN ---
Subjective Progress Note Date: 11/08/18 This is a 88-year-old female patient of Dr. Dalton with past medical history of psychogenic polydipsia, multiple previous ER visits for difficulty swallowing, pulmonary embolism on eliquis, hypertension, hypothyroidism, gastroesophageal reflux disease. Patient really had a fall at home possibly when she was attempting to get out of bed. Patient apparently has experienced polyuria and polydipsia. relates that she has a walker at home but does not use it. She is not taking any ihhn-[id number] supplements that he is aware of. He denies any alcohol intake. No oxygen or belies her home. Apparently patient has been drinking up to 10 bottles of 8 ounces water daily. She has had no appetite. Patient is able to deny any headache. She was brought by EMS to [facility] emergency center for evaluation. Patient was found to have a 3 cm laceration of the right parietal scalp without has been stapled along with adjacent hematoma. She was afebrile, heart rate 94, blood pressure initially 134/96 and repeat 135/60. Pulse ox 99% on room air. She was found to have a sodium of 112, potassium 3.2, chloride 80, CO2 20, BUN 7, creatinine 0.24, blood sugar 170. WBC 7.9, hemoglobin 11.3, platelet count 214. Lactic acid 2.1. Chest x-ray showed no acute process. CAT scan of the brain showed no intracranial hemorrhage or skull fracture. CAT scan of the cervical spine revealed no evidence of acute fracture. 8 mm nodule in the superior segment of the right lower lobe of the lung noted. In the ER, patient was given 2 L of IV fluids, potassium replaced, T dab updated and patient was admitted to the intensive care unit. Patient had consult in place with Dr. Andrew and consult with Dr. Franco has been added. Patient is unable to give medical history and is also a poor historian. 11/08: Patient remains in the intensive care unit. Sodium this morning is 125. At 3 AM draw sodium was 124, potassium 3.7, chloride 97, CO2 20, BUN 5, creatinine 0.38. Blood sugars are running in the low 100s. Stool for occult blood was negative. Urine culture is in progress. Patient has been afebrile, heart rate 61, respirations 23, pulse ox 99% on room air, blood pressure 118/46. Patient is alert and oriented to person place and time but noted to have con fusion. Patient had 1 large liquid bowel movement this morning and 3 small ones during the night. She is eating well without any difficulty swallowing. She 75% of her breakfast. CA-125 and CA 199 ordered. Patient cleared for transfer to [facility] per Dr. Andrew. Dr. Franco has ordered desmopressin 1 g daily starting today and IV fluids at D5 and 100 mL per hour. Repeat sodium to be drawn at 2 PM. Objective - Vital Signs Vital signs: Vital Signs Temp 98.1 F 11/08/18 08:00 Pulse 61 11/08/18 10:00 Resp 31 H 11/08/18 10:00 BP 118/46 11/08/18 10:00 Pulse Ox 99 11/08/18 10:00 Intake & Output 11/07/18 11/08/18 11/08/18 18:59 06:59 18:59 Intake Total 1300 835 300 Output Total 3195 1665 103 Balance -1895 -830 197 Weight 47.627 kg 47.8 kg Intake: IV 825 300 Dextrose 5% in Water 1, 825 300 000 ml @ 100 mls/hr IV . Q10H DYLAN Rx#:[id number] Intake, IV Titration 1210 10 Amount Potassium Chloride 10 meq 400 In Water For Injection 1 100ml.bag @ 100 mls/hr IVPB Q1HR DYLAN Rx#: [id number] Sodium Chloride 0.9% 1, 810 10 000 ml @ 125 mls/hr IV . Q8H STA Rx#:[id number] Oral 90 Output: Urine 3195 1665 103 Other: Voiding Method Indwelling Catheter Indwelling Catheter Indwelling Catheter # Bowel Movements 1 - Exam Review Of Systems: Constitutional: No fever, no chills, no night sweats. No weight change. Reports weakness, fatigue or lethargy. No daytime sleepiness. EENT: No headache. No blurred vision or double vision, no loss of vision. No loss of Hearing, no ringing in the ears, no dizziness. No nasal drainage or congestion. No epistaxis. No sore throat. Lungs: No shortness of breath, cough, no sputum production. No wheezing. Cardiovascular: No chest pain, no lower extremity edema. No palpitations. No paroxysmal nocturnal dyspnea. No orthopnea. No lightheadedness or dizziness. No syncopal episodes. Abdominal: No abdominal pain. No nausea, vomiting. No diarrhea. No con stipation. No bloody or tarry stools. Reports loss of appetite. Genitourinary: No dysuria, increased frequency, urgency. No urinary retention. Musculoskeletal: No myalgias. No muscle weakness, no gait dysfunction, no frequent falls. No back pain. No neck pain. Integumentary: No wounds, no lesions. No rash or pruritus. No unusual bruising. No change in hair or nails. Neurologic: No aphasia. No facial droop. No change in mentation. No head injury. No headache. No paralysis. No paresthesia. Psychiatric: No depression. No anxiety. No mood swings. Endocrine: No abnormal blood sugars. No weight change. No excessive sweating or thirst. No cold intolerance. 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 - Labs CBC & Chem 7: 11/08/18 03:43 11/08/18 08:51 Labs: Abnormal Lab Results - Last 24 Hours (Table) 11/07/18 11/07/18 11/07/18 Range/Units 05:58 12:03 12:03 RBC (3.80-5.40) m/uL Hgb (11.4-16.0) gm/dL Hct (34.0-46.0) % Sodium 118 L* (137-145) mmol/L Potassium (3.5-5.1) mmol/L Chloride 86 L (98-107) mmol/L Carbon Dioxide (22-30) mmol/L BUN 5 L (7-17) mg/dL Creatinine 0.37 L (0.52-1.04) mg/dL Glucose (74-99) mg/dL POC Glucose (mg/dL) (75-99) mg/dL Osmolality 221 L* (280-301) mosm/kg Iron 39 L (50-170) ug/dL 11/07/18 11/08/18 11/08/18 Range/Units 18:46 00:15 03:43 RBC 3.62 L (3.80-5.40) m/uL Hgb 11.0 L (11.4-16.0) gm/dL Hct 31.0 L (34.0-46.0) % Sodium 121 L 120 L (137-145) mmol/L Potassium 3.4 L (3.5-5.1) mmol/L Chloride 91 L 93 L (98-107) mmol/L Carbon Dioxide 21 L 19 L (22-30) mmol/L BUN 6 L 6 L (7-17) mg/dL Creatinine 0.33 L 0.30 L (0.52-1.04) mg/dL Glucose 148 H 105 H (74-99) mg/dL POC Glucose (mg/dL) (75-99) mg/dL Osmolality (280-301) mosm/kg Iron (50-170) ug/dL 11/08/18 11/08/18 11/08/18 Range/Units 03:43 06:49 08:51 RBC (3.80-5.40) m/uL Hgb (11.4-16.0) gm/dL Hct (34.0-46.0) % Sodium 124 L 125 L (137-145) mmol/L Potassium (3.5-5.1) mmol/L Chloride 97 L (98-107) mmol/L Carbon Dioxide 20 L (22-30) mmol/L BUN 5 L (7-17) mg/dL Creatinine 0.38 L (0.52-1.04) mg/dL Glucose 101 H (74-99) mg/dL POC Glucose (mg/dL) 115 H (75-99) mg/dL Osmolality (280-301) mosm/kg Iron (50-170) ug/dL Microbiology - Last 24 Hours (Table) 11/07/18 08:20 Urine Culture - Preliminary Urine,Catheterized Assessment and Plan Plan: 1. Acute metabolic encephalopathy secondary to hyponatremia that is psychogenic polydipsia. Patient is status post 2 L of IV fluids. 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 Consult with Dr. Franco appreciated. Dr. Franco has ordered desmopressin 1 g daily starting today and IV fluids of D5 and 100 mL per hour. Fluid restriction 1500 mL. Serum osmolality, urine osm olality, urine sodium. Aldosterone and ADH ordered 2. Generalized weakness and fall with subsequent 4 cm scalp laceration, stapled. Keep area clean and dry. T dab was updated in the emergency center. 3. History of pulmonary embolism. Continue eliquis 5 mg twice daily. 4. Hypothyroidism. Continue levothyroxine. Check TSH and free T4. 5. Anemia, possibly of chronic disease/malnutrition. Iron studies ordered. 6. History of dysphagia with previous workup negative. 7. History of H. pylori gastritis and chronic duodenitis. Continue Pepcid twice daily 8. Hypertension. Continue Norvasc 5 mg daily. 9. History of generalized anxiety disorder and recurrent depression. Patient is off medication. 10. Severe protein calorie malnutrition due to lack of oral intake. Patient st arted on Glucerna. Dietitian consult. 11. History of hyperlipidemia. Off Lipitor. 12. History of carotid stenosis. 13. Probable underlying dementia. 14. DVT prophylaxis. Eliquis. 15. GI prophylaxis. Pepcid Discharge plan: Home Impression and plan of care have been directed as dictated by the signing physician. Samantha Griffith nurse practitioner acting as scribe for signing physician.
--- NOTE | 2018-11-08 14:22 | CONS ---
CONSULTATION REASON FOR CONSULT: Hyponatremia. HISTORY OF PRESENT ILLNESS: The patient is an 88-year-old female who was admitted to the hospital with a history of fall. Patient stated that she felt weak and she was found to have a sodium of 110 mEq/L. The patient states that she has had low sodium previously many years ago and had a seizure at that time. She denied any history of nausea, vomiting or diarrhea. Patient did admit to history of increased free water intake. She denied use of any new medications recently. Serum sodium increased from 110 to 118 and 120 mEq/L. The IV fluids were switched to D5W and she also received a dose of DDAVP early this morning. Serum sodium this morning was 125 from 124. Maintained on D5W at 100 mL an hour. Overall, patient states she is feeling better. Urine sodium was less than 10. Urine osmolality was at 50. PAST MEDICAL HISTORY: Significant for previous history of hyponatremia, history of hypertension, hyperlipidemia, PE, type 2 diabetes, hypothyroidism, previous history of seizure associated with hyponatremia. PAST SURGICAL HISTORY: Hysterectomy, bladder surgery. SOCIAL HISTORY: Negative for smoking, drug abuse or alcohol abuse. MEDICATIONS: Medications at home included Synthroid, Norvasc, aspirin, Zantac, Eliquis. ALLERGIES: Allergies include PENICILLIN, which causes rash and hives. PHYSICAL EXAMINATION: On examination, patient is currently comfortable, awake, not in any acute distress. Blood pressure this morning was 123/57, heart rate of 57 per minute. Patient is afebrile. EXAMINATION OF THE HEART: S1, S2. EXAMINATION OF THE LUNGS: Bilateral breath sounds are heard. Abdomen is soft, nontender. Examination of lower extremities shows no evidence of edema. [employer] exam is grossly intact. LABS: Labs show sodium of 125 this morning, potassium 3.7, BUN 5, serum creatinine 0.38. Urine osmolality 50. Urine sodium less than 10. ASSESSMENT: 1. Hyponatremia with very low urine osmolality, suggesting poor oral intake. The patient did respond to normal saline. However, serum sodium increased rapidly and therefore she is currently maintained on D5W which was increased this morning to 100 mL an hour. The patient also received a dose of DDAVP. I will continue with the D5W for now and repeat a sodium in about 4 to 5 hours. The patient is encouraged to increase her oral intake. 2. Type 2 diabetes. 3. Hypokalemia, status post replacement. 4. Hypothyroidism. 5. Status post fall with scalp laceration. PLAN: Encourage increased oral intake. Continue D5W for now. Check TSH if not done yet. Repeat labs in 4 to 5 hours. Thank you for this consultation. We will continue to follow the patient with you during her hospitalization. GOPAL / DOUGLAS: [id number] /
[2018-11-08 17:12] LABS: Glucose,Whole Blood 108 mg/dL (75-99)
[2018-11-08 19:07] LABS: Cancer Antigen 125 7.6 U/mL (0.0-30.1); Cancer Antigen 19-9 3.9 U/mL (0.0-34.9)
[2018-11-08 20:51] LABS: Glucose,Whole Blood 296 mg/dL (75-99)
[2018-11-08] MEDS: SODIUM CHLORIDE 0.9% 1,000 ML IV SCH (23:45)
[2018-11-09 04:01] LABS: African American GFR (CKD) >90 (>60 ml/min/1.73 sqM); Anion Gap 9 mmol/L; Blood Urea Nitrogen 11 mg/dL (7-17); Calcium 8.3 mg/dL (8.4-10.2); Carbon Dioxide 21 mmol/L (22-30); Chloride 93 mmol/L (98-107); Glucose 82 mg/dL (74-99); Potassium 3.3 mmol/L (3.5-5.1); Sodium 123 mmol/L (137-145)
[2018-11-09] MEDS: POTASSIUM CHLORIDE ER 20 MEQ TAB.ER PO SCH ×2 (04:43→05:31)
[2018-11-09] MEDS: LEVOTHYROXINE 50 MCG TAB PO SCH (05:31)
[2018-11-09 07:09] LABS: Glucose,Whole Blood 81 mg/dL (75-99)
[2018-11-09 07:17] LABS: African American GFR (CKD) >90 (>60 ml/min/1.73 sqM); Anion Gap 7 mmol/L; Blood Urea Nitrogen 8 mg/dL (7-17); Calcium 8.8 mg/dL (8.4-10.2); Carbon Dioxide 24 mmol/L (22-30); Chloride 94 mmol/L (98-107); Glucose 83 mg/dL (74-99); Potassium 3.8 mmol/L (3.5-5.1); Sodium 125 mmol/L (137-145)
[2018-11-09] MEDS: INSULIN ASPART (NovoLOG) 100 UNIT/ML VIAL SQ SCH ×4 (07:49→20:07)
[2018-11-09] MEDS: APIXABAN 5 MG TAB PO SCH ×2 (07:54→20:09)
[2018-11-09] MEDS: amLODIPine 5 MG TAB PO SCH (07:54)
[2018-11-09] MEDS: FAMOTIDINE 20 MG TAB PO SCH ×2 (07:54→20:09)
[2018-11-09] MEDS: ASPIRIN 81 MG PO SCH (07:54)
[2018-11-09 11:42] LABS: Glucose,Whole Blood 96 mg/dL (75-99)
--- NOTE | 2018-11-09 13:40 | P.PN ---
Subjective Progress Note Date: 11/09/18 This is a 88-year-old female patient of Dr. Dalton with past medical history of psychogenic polydipsia, multiple previous ER visits for difficulty swallowing, pulmonary embolism on eliquis, hypertension, hypothyroidism, gastroesophageal reflux disease. Patient really had a fall at home possibly when she was attempting to get out of bed. Patient apparently has experienced polyuria and polydipsia. relates that she has a walker at home but does not use it. She is not taking any efve-xpx-gpirvev supplements that he is aware of. He denies any alcohol intake. No oxygen or belies her home. Apparently patient has been drinking up to 10 bottles of 8 ounces water daily. She has had no appetite. Patient is able to deny any headache. She was brought by EMS to [facility] emergency center for evaluation. Patient was found to have a 3 cm laceration of the right parietal scalp without has been stapled along with adjacent hematoma. She was afebrile, heart rate 94, blood pressure initially 134/96 and repeat 135/60. Pulse ox 99% on room air. She was found to have a sodium of 112, potassium 3.2, chloride 80, CO2 20, BUN 7, creatinine 0.24, blood sugar 170. WBC 7.9, hemoglobin 11.3, platelet count 214. Lactic acid 2.1. Chest x-ray showed no acute process. CAT scan of the brain showed no intracranial hemorrhage or skull fracture. CAT scan of the cervical spine revealed no evidence of acute fracture. 8 mm nodule in the superior segment of the right lower lobe of the lung noted. In the ER, patient was given 2 L of IV fluids, potassium replaced, T dab updated and patient was admitted to the intensive care unit. Patient had consult in place with Dr. Andrew and consult with Dr. Franco has been added. Patient is unable to give medical history and is also a poor historian. 11/08: Patient remains in the intensive care unit. Sodium this morning is 125. At 3 AM draw sodium was 124, potassium 3.7, chloride 97, CO2 20, BUN 5, creatinine 0.38. Blood sugars are running in the low 100s. Stool for occult blood was negative. Urine culture is in progress. Patient has been afebrile, heart rate 61, respirations 23, pulse ox 99% on room air, blood pressure 118/46. Patient is alert and oriented to person place and time but noted to have con fusion. Patient had 1 large liquid bowel movement this morning and 3 small ones during the night. She is eating well without any difficulty swallowing. She 75% of her breakfast. CA-125 and CA 199 ordered. Patient cleared for transfer to [facility] per Dr. Andrew. Dr. Franco has ordered desmopressin 1 g daily starting today and IV fluids at D5 and 100 mL per hour. Repeat sodium to be drawn at 2 PM. 11/09: Sodium this morning at 3 AM was 123, at 6 AM 125 with chloride 94, potassium 3.8, BUN is 8 and creatinine 0.44. Blood sugars running in the 80s to 90s. Plan to encourage oral intake. IV fluids D5 W have been changed to normal saline at 70 mL per hour per Dr. Schmidt. The patient states that she did not have a good appetite. Unknown how much she ate this point for breakfast. She denies any nausea or vomiting. Best catheter to be removed today. She is on a fluid restriction and increase to 2000 mL. CA 199 normal at 3.9, CA-125 normal at 7.6, TSH 1.870. ADH and aldosterone levels pending. Objective - Vital Signs Vital signs: Vital Signs Temp 98.2 F 11/09/18 07:00 Pulse 70 11/09/18 07:00 Resp 16 11/09/18 07:00 BP 154/77 11/09/18 07:00 Pulse Ox 98 11/09/18 07:00 Intake & Output 11/08/18 11/09/18 11/09/18 18:59 06:59 18:59 Intake Total 1000 737 300 Output Total 243 2385 Balance 757 -1640 300 Intake: IV 1000 Dextrose 5% in Water 1, 1000 000 ml @ 100 mls/hr IV . Q10H [facility] Rx#:[id number] Oral 737 300 Output: Urine 243 2385 Other: Voiding Method Indwelling Catheter Indwelling Catheter # Bowel Movements 1 - Exam Review Of Systems: Constitutional: No fever, no chills, no night sweats. No weight change. Reports weakness, fatigue or lethargy. No daytime sleepiness. Reports loss of appetite. EENT: No headache. No blurred vision or double vision, no loss of vision. No loss of Hearing, no ringing in the ears, no dizziness. No nasal drainage or congestion. No epistaxis. No sore throat. Lungs: No shortness of breath, cough, no sputum production. No wheezing. Cardiovascular: No chest pain, no lower extremity edema. No palpitations. No paroxysmal nocturnal dyspnea. No orthopnea. No lightheadedness or dizziness. No syncopal episodes. Abdominal: No abdominal pain. No nausea, vomiting. No diarrhea. No constipation. No bloody or tarry stools. Reports loss of appetite. Genitourinary: No dysuria, increased frequency, urgency. No urinary retention. Musculoskeletal: No myalgias. No muscle weakness, no gait dysfunction, no frequent falls. No back pain. No neck pain. Integumentary: No wounds, no lesions. No rash or pruritus. No unusual bruising. No change in hair or nails. Neurologic: No aphasia. No facial droop. No change in mentation. No head injury. No headache. No paralysis. No paresthesia. Psychiatric: No depression. No anxiety. No mood swings. Endocrine: No abnormal blood sugars. No weight change. No excessive sweating or thirst. No cold intolerance. - Constitutional General appearance: cooperative, in no acute distress, fragile cachectic appearing female, at bedside. - EENT Eyes: anicteric sclerae, PERRLA, normal appearance ENT: hearing grossly normal - Neck Neck: no lymphadenopathy, normal ROM, no other, no rigidity, no stridor, no thyromegaly - Respiratory Respiratory: bilateral: CTA, negative: diminished, dullness, rales, rhonchi - Cardiovascular Rhythm: regular Heart sounds: normal: S1, S2 Abnormal Heart Sounds: no systolic murmur, no diastolic murmur, no rub, no S3 Gallop, no S4 Gallop, no click, no other security monitor sinus rhythm - Gastrointestinal General gastrointestinal: normal bowel sounds, soft, nontender Best catheter draining clear ciara urine - Integumentary Integumentary: no rash - Neurologic Neurologic: CNII-XII intact - Musculoskeletal Musculoskeletal: gait not tested, generalized weakness - Psychiatric Psychiatric: A&O x's 3, generalized weakness noted. - Labs CBC & Chem 7: 11/08/18 03:43 11/09/18 06:16 Labs: Abnormal Lab Results - Last 24 Hours (Table) 11/08/18 11/08/18 11/08/18 Range/Units 08:51 11:51 13:50 Sodium 125 L 123 L (137-145) mmol/L Potassium (3.5-5.1) mmol/L Chloride (98-107) mmol/L Carbon Dioxide (22-30) mmol/L Creatinine (0.52-1.04) mg/dL POC Glucose (mg/dL) 112 H (75-99) mg/dL Calcium (8.4-10.2) mg/dL 11/08/18 11/08/18 11/08/18 Range/Units 17:00 20:40 21:26 Sodium 120 L (137-145) mmol/L Potassium (3.5-5.1) mmol/L Chloride (98-107) mmol/L Carbon Dioxide (22-30) mmol/L Creatinine (0.52-1.04) mg/dL POC Glucose (mg/dL) 108 H 296 H (75-99) mg/dL Calcium (8.4-10.2) mg/dL 11/09/18 11/09/18 Range/Units 03:40 06:16 Sodium 123 L 125 L (137-145) mmol/L Potassium 3.3 L (3.5-5.1) mmol/L Chloride 93 L 94 L (98-107) mmol/L Carbon Dioxide 21 L (22-30) mmol/L Creatinine 0.36 L 0.44 L (0.52-1.04) mg/dL POC Glucose (mg/dL) (75-99) mg/dL Calcium 8.3 L (8.4-10.2) mg/dL Microbiology - Last 24 Hours (Table) 11/07/18 08:20 Urine Culture - Final Urine,Catheterized Assessment and Plan Plan: 1. Acute metabolic encephalopathy secondary to hyponatremia that is psychogenic polydipsia. Consult with Dr. Franco appreciated. Status post desmopressin, IV fluids currently at 0.9 normal saline at 75 mL per hour. Fluid restriction increased to 2000 mL. Aldosterone and ADH pending 2. Generalized weakness and fall with subsequent 4 cm scalp laceration, stapled. Keep area clean and dry. Tdap was updated in the emergency center. 3. History of pulmonary embolism. Continue eliquis 5 mg twice daily. 4. Hypothyroidism. Continue levothyroxine. Check TSH and free T4. 5. Anemia, possibly of chronic disease/malnutrition. Iron studies ordered. 6. History of dysphagia with previous workup negative. 7. History of H. pylori gastritis and chronic duodenitis. Continue Pepcid twice daily 8. Hypertension. Continue Norvasc 5 mg daily. 9. History of generalized anxiety disorder and recurrent depression. Patient is off medication. 10. Severe protein calorie malnutrition due to lack of oral intake. Patient started on Glucerna. Dietitian consult. 11. History of hyperlipidemia. Off Lipitor. 12. History of carotid stenosis. 13. Probable underlying dementia. 14. DVT prophylaxis. Eliquis. 15. GI prophylaxis. Pepcid Discharge plan: Home Impression and plan of care have been directed as dictated by the signing physician. Samantha Griffith nurse practitioner acting as scribe for signing physician.
[2018-11-09] MEDS: SODIUM CHLORIDE 0.9% 1,000 ML IV SCH (15:53)
--- NOTE | 2018-11-09 16:11 | PN ---
PROGRESS NOTE Patient is seen for followup for hyponatremia. Her sodium had started to increase rapidly. Therefore, she was started on D5W. Yesterday, serum sodium dropped from 125 to 120 and she was started on normal saline. Since then, serum sodium has been progressively increasing. Overall, patient denies any significant complaints. She states that she is trying to eat better. PHYSICAL EXAMINATION: On examination, blood pressure 154/77, heart rate 70 per minute. She is afebrile. Examination of the heart S1, S2. Examination of the lungs, bilateral breath sounds are heard. Abdomen is soft, nontender. Examination lower extremities shows no evidence of edema. [employer] exam grossly intact. LABS: Shows sodium 125 from today, potassium 3.8, serum creatinine 0.4. ASSESSMENT: 1. Hyponatremia which is hypovolemic and associated with decreased oral intake, status post D5W to prevent rapid increase in serum sodium, currently on normal saline with improving levels. I will continue with normal saline and patient is encouraged to increase her oral intake. 2. Hypothyroidism. TSH was within range. PLAN: Continue normal saline. Continue to encourage increased oral intake. MMODL / IJN: [id number] /
[2018-11-09 16:55] LABS: Glucose,Whole Blood 102 mg/dL (75-99)
[2018-11-09 20:05] LABS: Glucose,Whole Blood 120 mg/dL (75-99)
[2018-11-10] MEDS: SODIUM CHLORIDE 0.9% 1,000 ML IV SCH ×2 (03:08→16:54)
[2018-11-10] MEDS: LEVOTHYROXINE 50 MCG TAB PO SCH (06:27)
[2018-11-10 06:54] LABS: Glucose,Whole Blood 87 mg/dL (75-99)
[2018-11-10] MEDS: INSULIN ASPART (NovoLOG) 100 UNIT/ML VIAL SQ SCH ×4 (08:03→21:06)
[2018-11-10] MEDS: ASPIRIN 81 MG PO SCH (08:05)
[2018-11-10] MEDS: amLODIPine 5 MG TAB PO SCH (08:05)
[2018-11-10] MEDS: APIXABAN 5 MG TAB PO SCH ×2 (08:05→20:39)
[2018-11-10] MEDS: FAMOTIDINE 20 MG TAB PO SCH ×2 (08:05→20:38)
[2018-11-10] MEDS ORDERED: SODIUM CHLORIDE TAB 1 GM TAB PO SCH (10:00)
[2018-11-10 10:21] LABS: African American GFR (CKD) >90 (>60 ml/min/1.73 sqM); Anion Gap 8 mmol/L; Blood Urea Nitrogen 13 mg/dL (7-17); Carbon Dioxide 25 mmol/L (22-30); Chloride 100 mmol/L (98-107); Glucose 113 mg/dL (74-99); Potassium 3.9 mmol/L (3.5-5.1); Sodium 133 mmol/L (137-145)
[2018-11-10 11:44] LABS: Glucose,Whole Blood 106 mg/dL (75-99)
--- NOTE | 2018-11-10 12:02 | PN ---
PROGRESS NOTE Patient is seen for followup for hyponatremia. She is currently maintained on normal saline. I do not have labs from today yet. Sodium has been improving with the normal saline. Overall, patient states she is feeling better. PHYSICAL EXAMINATION: On examination today, blood pressure was 125/70, heart rate is 69 per minute. Patient is afebrile. Examination of the heart S1, S2. Examination of the lungs, bilateral breath sounds are heard. Abdomen is soft, nontender. Examination of the lower extremities shows no significant edema. Labs pending. ASSESSMENT: 1. Hypovolemic hyponatremia along with an element of tea and toast syndrome with decreased oral intake, currently improving with normal saline. Check labs today as well as in a.m. Continue with the normal saline for now. 2. Hypothyroidism. PLAN: Continue with normal saline. I would hold off on the sodium chloride tabs until the sodium is back from today as patient has had a rapid increase in her sodium level on initial admission. MMODL / IJN: [id number] /
--- NOTE | 2018-11-10 15:35 | P.PN ---
Subjective Progress Note Date: 11/10/18 This is a 88-year-old female patient of Dr. Dalton with past medical history of psychogenic polydipsia, multiple previous ER visits for difficulty swallowing, pulmonary embolism on eliquis, hypertension, hypothyroidism, gastroesophageal reflux disease. Patient really had a fall at home possibly when she was attempting to get out of bed. Patient apparently has experienced polyuria and polydipsia. relates that she has a walker at home but does not use it. She is not taking any ucus-kwx-yhqpawr supplements that he is aware of. He denies any alcohol intake. No oxygen or belies her home. Apparently patient has been drinking up to 10 bottles of 8 ounces water daily. She has had no appetite. Patient is able to deny any headache. She was brought by EMS to [facility] emergency center for evaluation. Patient was found to have a 3 cm laceration of the right parietal scalp without has been stapled along with adjacent hematoma. She was afebrile, heart rate 94, blood pressure initially 134/96 and repeat 135/60. Pulse ox 99% on room air. She was found to have a sodium of 112, potassium 3.2, chloride 80, CO2 20, BUN 7, creatinine 0.24, blood sugar 170. WBC 7.9, hemoglobin 11.3, platelet count 214. Lactic acid 2.1. Chest x-ray showed no acute process. CAT scan of the brain showed no intracranial hemorrhage or skull fracture. CAT scan of the cervical spine revealed no evidence of acute fracture. 8 mm nodule in the superior segment of the right lower lobe of the lung noted. In the ER, patient was given 2 L of IV fluids, potassium replaced, T dab updated and patient was admitted to the intensive care unit. Patient had consult in place with Dr. Andrew and consult with Dr. Franco has been added. Patient is unable to give medical history and is also a poor historian. 11/08: Patient remains in the intensive care unit. Sodium this morning is 125. At 3 AM draw sodium was 124, potassium 3.7, chloride 97, CO2 20, BUN 5, creatinine 0.38. Blood sugars are running in the low 100s. Stool for occult blood was negative. Urine culture is in progress. Patient has been afebrile, heart rate 61, respirations 23, pulse ox 99% on room air, blood pressure 118/46. Patient is alert and oriented to person place and time but noted to have con fusion. Patient had 1 large liquid bowel movement this morning and 3 small ones during the night. She is eating well without any difficulty swallowing. She 75% of her breakfast. CA-125 and CA 199 ordered. Patient cleared for transfer to [facility] per Dr. Andrew. Dr. Franco has ordered desmopressin 1 g daily starting today and IV fluids at D5 and 100 mL per hour. Repeat sodium to be drawn at 2 PM. 11/09: Sodium this morning at 3 AM was 123, at 6 AM 125 with chloride 94, potassium 3.8, BUN is 8 and creatinine 0.44. Blood sugars running in the 80s to 90s. Plan to encourage oral intake. IV fluids D5 W have been changed to normal saline at 70 mL per hour per Dr. Schmidt. The patient states that she did not have a good appetite. Unknown how much she ate this point for breakfast. She denies any nausea or vomiting. Best catheter to be removed today. She is on a fluid restriction and increase to 2000 mL. CA 199 normal at 3.9, CA-125 normal at 7.6, TSH 1.870. ADH and aldosterone levels pending. 11/10: Repeat sodium is 133, potassium 3.9, chloride 100, CO2 25, BUN 13 creatinine 2.5. Blood sugars running anywhere between [address] Schmidt has recommended continuing normal saline and hold on sodium chloride tablets. Patient is eating about 25% of her meals and drinking some in shore. She continues to state she does not have any appetite. Best catheter is been discontinued and patient is able to void. Plan is to increase activity today and possible discharge tomorrow. We will ask for case management to reassess home situation before discharge. Objective - Vital Signs Vital signs: Vital Signs Temp 99 F 11/10/18 02:00 Pulse 62 11/10/18 07:00 Resp 20 11/10/18 07:00 BP 139/70 11/10/18 02:00 Pulse Ox 99 11/10/18 02:00 Intake & Output 11/09/18 11/10/18 11/10/18 18:59 06:59 18:59 Intake Total 540 100 Output Total 1400 1600 Balance -860 -1500 Intake: Oral 540 100 Output: Urine 1400 1600 Uretheral (Best) 300 Other: Voiding Method Indwelling Catheter Indwelling Catheter # Bowel Movements 1 - Exam Review Of Systems: Constitutional: No fever, no chills, no night sweats. No weight change. Reports weakness, fatigue or lethargy. No daytime sleepiness. Reports loss of appetite. EENT: No headache. No blurred vision or double vision, no loss of vision. No loss of Hearing, no ringing in the ears, no dizziness. No nasal drainage or congestion. No epistaxis. No sore throat. Lungs: No shortness of breath, cough, no sputum production. No wheezing. Cardiovascular: No chest pain, no lower extremity edema. No palpitations. No paroxysmal nocturnal dyspnea. No orthopnea. No lightheadedness or dizziness. No syncopal episodes. Abdominal: No abdominal pain. No nausea, vomiting. No diarrhea. No constipation. No bloody or tarry stools. Reports loss of appetite. Genitourinary: No dysuria, increased frequency, urgency. No urinary retention. Musculoskeletal: No myalgias. No muscle weakness, no gait dysfunction, no frequent falls. No back pain. No neck pain. Integumentary: No wounds, no lesions. No rash or pruritus. No unusual bru ising. No change in hair or nails. Neurologic: No aphasia. No facial droop. No change in mentation. No head injury. No headache. No paralysis. No paresthesia. Psychiatric: No depression. No anxiety. No mood swings. Endocrine: No abnormal blood sugars. No weight change. No excessive sweating or thirst. No cold intolerance. - Constitutional General appearance: cooperative, in no acute distress, fragile cachectic appearing female, at bedside. - EENT Eyes: anicteric sclerae, PERRLA, normal appearance ENT: hearing grossly normal - Neck Neck: no lymphadenopathy, normal ROM, no other, no rigidity, no stridor, no thyromegaly - Respiratory Respiratory: bilateral: CTA, negative: diminished, dullness, rales, rhonchi - Cardiovascular Rhythm: regular Heart sounds: normal: S1, S2 Abnormal Heart Sounds: no systolic murmur, no diastolic murmur, no rub, no S3 Gallop, no S4 Gallop, no click, no other hall monitor sinus rhythm - Gastrointestinal General gastrointestinal: normal bowel sounds, soft, nontender Best catheter draining clear ciara urine - Integumentary Integumentary: no rash - Neurologic Neurologic: CNII-XII intact - Musculoskeletal Musculoskeletal: gait not tested, generalized weakness - Psychiatric Psychiatric: A&O x's 2-3, generalized weakness noted, confusion noted, poor historian. - Labs CBC & Chem 7: 11/08/18 03:43 11/10/18 09:55 Labs: Abnormal Lab Results - Last 24 Hours (Table) 11/09/18 11/09/18 Range/Units 16:53 20:02 POC Glucose (mg/dL) 102 H 120 H (75-99) mg/dL Assessment and Plan Plan: 1. Acute metabolic encephalopathy secondary to hyponatremia that is psychogenic polydipsia. Consult with Dr. Franco appreciated. Status post desmopressin, IV fluids currently at 0.9 normal saline at 70 mL per hour. Fluid restriction increased to 2000 mL. Aldosterone and ADH pending 2. Generalized weakness and fall with subsequent 4 cm scalp laceration, stapled. Keep area clean and dry. Tdap was updated in the emergency center. 3. History of pulmonary embolism. Continue eliquis 5 mg twice daily. 4. Hypothyroidism. Continue levothyroxine. Check TSH and free T4. 5. Anemia, possibly of chronic disease/malnutrition. Iron studies ordered. 6. History of dysphagia with previous workup negative. 7. History of H. pylori gastritis and chronic duodenitis. Continue Pepcid twic e daily 8. Hypertension. Continue Norvasc 5 mg daily. 9. History of generalized anxiety disorder and recurrent depression. Patient is off medication. 10. Severe protein calorie malnutrition due to lack of oral intake. Patient started on Glucerna. Dietitian consult. 11. History of hyperlipidemia. Off Lipitor. 12. History of carotid stenosis. 13. Probable underlying dementia. 14. DVT prophylaxis. Eliquis. 15. GI prophylaxis. Pepcid Discharge plan: Home on Sunday. We will ask case management to re-assess home situation. Impression and plan of care have been directed as dictated by the signing physician. Samantha Griffith nurse practitioner acting as scribe for signing phys ician.
[2018-11-10 16:54] LABS: Glucose,Whole Blood 80 mg/dL (75-99)
[2018-11-10 20:58] LABS: Glucose,Whole Blood 112 mg/dL (75-99)
[2018-11-11] MEDS: LEVOTHYROXINE 50 MCG TAB PO SCH (05:41)
[2018-11-11 07:01] LABS: Glucose,Whole Blood 88 mg/dL (75-99)
[2018-11-11 07:13] LABS: African American GFR (CKD) >90 (>60 ml/min/1.73 sqM); Anion Gap 9 mmol/L; Blood Urea Nitrogen 9 mg/dL (7-17); Calcium 9.3 mg/dL (8.4-10.2); Carbon Dioxide 25 mmol/L (22-30); Chloride 101 mmol/L (98-107); Glucose 84 mg/dL (74-99); Sodium 135 mmol/L (137-145)
[2018-11-11 07:58] VITALS: BP 147/68; PULSE 62; RESP 18; TEMP 98.1
[2018-11-11] MEDS: FAMOTIDINE 20 MG TAB PO SCH (07:58)
[2018-11-11] MEDS: ASPIRIN 81 MG PO SCH (07:59)
[2018-11-11] MEDS: APIXABAN 5 MG TAB PO SCH (07:59)
[2018-11-11] MEDS: amLODIPine 5 MG TAB PO SCH (07:59)
[2018-11-11] MEDS: INSULIN ASPART (NovoLOG) 100 UNIT/ML VIAL SQ SCH ×2 (07:59→12:07)
[2018-11-11] MEDS: SODIUM CHLORIDE 0.9% 1,000 ML IV SCH (10:23)
--- NOTE | 2018-11-11 10:48 | P.PN ---
Subjective Patient is seen in follow-up for hyponatremia. Sodium level today is 135. Patient's appetite is fair. Urine output is good. No vomiting or diarrhea. Vital signs are stable. General: The patient appeared well nourished and normally developed. HEENT: Head exam is unremarkable. Neck is without jugular venous distension. LUNGS: Lungs are clear to auscultation and percussion. Breath sounds decreased. HEART: Rate and Rhythm are regular. First and second heart sounds normal. No murmurs, rubs or gallops. ABDOMEN: Abdominal exam reveals normal bowel sounds. Non-tender and non- distended. No evidence of peritonitis. EXTREMITITES: No clubbing, cyanosis, or edema. Objective - Vital Signs Vital signs: Vital Signs Temp 98.1 F 11/11/18 06:30 Pulse 62 11/11/18 06:30 Resp 18 11/11/18 06:30 BP 147/68 11/11/18 06:30 Pulse Ox 95 11/11/18 06:30 Intake & Output 11/10/18 11/11/18 11/11/18 18:59 06:59 18:59 Intake Total 3144 1160 Output Total 1000 3100 150 Balance 2144 -1940 -150 Intake: Intake, IV Titration 490 Amount Sodium Chloride 0.9% 1, 490 000 ml @ 70 mls/hr IV . [id number] [facility] Rx#:[id number] Oral 2654 1160 Output: Urine 1000 3100 150 Other: Voiding Method Toilet Toilet # Voids 5 1 # Bowel Movements 1 - Labs CBC & Chem 7: 11/08/18 03:43 11/11/18 06:15 Labs: Abnormal Lab Results - Last 24 Hours (Table) 11/10/18 11/10/18 11/11/18 Range/Units 11:43 20:53 06:15 Sodium 135 L (137-145) mmol/L Creatinine 0.42 L (0.52-1.04) mg/dL POC Glucose (mg/dL) 106 H 112 H (75-99) mg/dL Assessment and Plan Plan: Assessment: 1. Hypovolemic hyponatremia improved with IV hydration. Sodium level 135 today. Also component of tea and toast syndrome as urine sodium was less than 10 and urine osmolality was low at 50. 2. Benign hypertension. Controlled. 3. Hypothyroidism maintained on Synthroid. Plan: Hep-Lock IV fluids. Encouraged oral intake, particularly protein. Maintain fluid restriction.
[2018-11-11 11:37] LABS: Glucose,Whole Blood 102 mg/dL (75-99)
--- NOTE | 2018-11-11 15:22 | P.DS ---
Providers Date of admission: 11/07/18 05:04 Attending physician: Cherrie Godwin Consults: 11/07/18 06:47 Consult Physician Stat Consulting Provider: Fabby Andrew Consult Reason/Comments: hyponatremia Do you want consulting provider notified?: Already Contacted 11/07/18 12:18 Consult Physician Routine Consulting Provider: Simone Franco Consult Reason/Comments: hyponatremia Do you want consulting provider notified?: Yes Primary care physician: Kamaljit [facility] Hospital Course: This is a 88-year-old female patient of Dr. Dalton with past medical history of psychogenic polydipsia, multiple previous ER visits for difficulty swallowing, pulmonary embolism on eliquis, hypertension, hypothyroidism, gastroesophageal reflux disease. Patient really had a fall at home possibly when she was attempting to get out of bed. Patient apparently has experienced polyuria and polydipsia. relates that she has a walker at home but does not use it. She is not taking any [id number] supplements that he is aware of. He denies any alcohol intake. No oxygen or belies her home. Apparently patient has been drinking up to 10 bottles of 8 ounces water daily. She has had no appetite. Patient is able to deny any headache. She was brought by EMS to [facility] for evaluation. Patient was found to have a 3 cm laceration of the right parietal scalp without has been stapled along with adjacent hematoma. She was afebrile, heart rate 94, blood pressure initially 134/96 and repeat 135/60. Pulse ox 99% on room air. She was found to have a sodium of 112, potassium 3.2, chloride 80, CO2 20, BUN 7, creatinine 0.24, blood sugar 170. WBC 7.9, hemoglobin 11.3, platelet count 214. Lactic acid 2.1. Chest x-ray showed no acute process. CAT scan of the brain showed no intracranial hemorrhage or skull fracture. CAT scan of the cervical spine revealed no evidence of acute fracture. 8 mm nodule in the superior segment of the right lower lobe of the lung noted. In the ER, patient was given 2 L of IV fluids, potassium replaced, T dab updated and patient was admitted to the intensive care unit. Patient had consult in place with Dr. Andrew and consult with Dr. Franco has been added. Patient is unable to give medical history and is also a poor historian. 11/08: Patient remains in the intensive care unit. Sodium this morning is 125. At 3 AM draw sodium was 124, potassium 3.7, chloride 97, CO2 20, BUN 5, creatinine 0.38. Blood sugars are running in the low 100s. Stool for occult blood was negative. Urine culture is in progress. Patient has been afebrile, heart rate 61, respirations 23, pulse ox 99% on room air, blood pressure 118/46. Patient is alert and oriented to person place and time but noted to have confusion. Patient had 1 large liquid bowel movement this morning and 3 small ones during the night. She is eating well without any difficulty swallowing. She 75% of her breakfast. CA-125 and CA 199 ordered. Patient cleared for transfer to [facility] per Dr. Andrew. Dr. Franco has ordered desmopressin 1 g daily starting today and IV fluids at D5 and 100 mL per hour. Repeat sodium to be drawn at 2 PM. 11/09: Sodium this morning at 3 AM was 123, at 6 AM 125 with chloride 94, potassium 3.8, BUN is 8 and creatinine 0.44. Blood sugars running in the 80s to 90s. Plan to encourage oral intake. IV fluids D5 W have been changed to normal saline at 70 mL per hour per Dr. Schmidt. The patient states that she did not have a good appetite. Unknown how much she ate this point for breakfast. She denies any nausea or vomiting. Best catheter to be removed today. She is on a fluid restriction and increase to 2000 mL. CA 199 normal at 3.9, CA-125 normal at 7.6, TSH 1.870. ADH and aldosterone levels pending. 11/10: Repeat sodium is 133, potassium 3.9, chloride 100, CO2 25, BUN 13 creatinine 2.5. Blood sugars running anywhere between [address] Schmidt has recommended continuing normal saline and hold on sodium chloride tablets. Patient is eating about 25% of her meals and drinking some in shore. She continues to state she does not have any appetite. Best catheter is been discontinued and patient is able to void. Plan is to increase activity today and possible discharge tomorrow. We will ask for case management to reassess home situation before discharge. 11/11 patient's sodium has improved to 135 patient is maintained on fluid restriction of 2 L but is noticed that patient does ask for more fluids as compared to solid intake. 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 It has been noted in the past, that patient endorses difficulty swallowing food but does swallow appropriately on encouragement. Patient needs a lot of encouragement at home. at bedside updated on the treatment plan Discharge diagnoses 1. 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 Generalized weakness and fall with subsequent 4 cm scalp laceration, stapled. 3. History of pulmonary embolism. 4. Hypothyroidism. 5. Anemia, possibly of chronic disease/malnutrition. 6. History of dysphagia with previous workup negative. 7. History of H. pylori gastritis and chronic duodenitis. 8. Hypertension. 9. History of generalized anxiety disorder and recurrent depression. 10. Severe protein calorie malnutrition due to lack of oral intake. 11. History of hyperlipidemia. 12. History of carotid stenosis. 13. Probable underlying dementia. Patient Condition at Discharge: Serious Plan - Discharge Summary Discharge Rx Participant: No New Discharge Prescriptions: New Sodium Chloride Tab 1 gm PO BID #60 tablet Continue amLODIPine [Norvasc] 5 mg PO DAILY Levothyroxine Sodium [Synthroid] 50 mcg PO DAILY Ranitidine HCl [Zantac] 150 mg PO BID Aspirin EC [Ecotrin Low Dose] 81 mg PO DAILY Apixaban [Eliquis] 5 mg PO BID Discharge Medication List Levothyroxine Sodium [Synthroid] 50 mcg PO DAILY 07/26/18 [History] amLODIPine [Norvasc] 5 mg PO DAILY 07/26/18 [History] Aspirin EC [Ecotrin Low Dose] 81 mg PO DAILY 08/12/18 [History] Ranitidine HCl [Zantac] 150 mg PO BID 08/12/18 [History] Apixaban [Eliquis] 5 mg PO BID 11/07/18 [History] Sodium Chloride Tab 1 gm PO BID #60 tablet 11/11/18 [Rx] Follow up Appointment(s)/Referral(s): Jairo Priest MD [REFERRING] - 12/05/18 10:00 am Kamaljit Dalton MD [Primary Care Provider] - 1-2 days (Staff unable to reach office at time of discharge, please call upon discharge to set up a follow up appointment) Simone Franco DO [STAFF PHYSICIAN] - 12/25/18 11:00 am Patient Instructions/Handouts: Hyponatremia (DC), Hyponatremia (GEN) Activity/Diet/Wound Care/Special Instructions: set up patient with home care , continue with fluid restrictions 2000 mls a day Discharge Disposition: HOME WITH HOME HEALTH SERVICES
== END 2018-11-11 12:53 | disposition home health service (06) | DRG 640 ==
LOC: EC 01:25 → 2SICU 05:04 → 4SSUR 11-09 02:42
PROVIDERS: ADMIT Family Medicine; ATTEND Family Medicine
PROC: 0HQ0XZZ Repair Scalp Skin, External Approach (ICD-10-PCS; principal; 2018-11-07)
DX: E87.1 Hypo-osmolality and hyponatremia (principal); E43 Unspecified severe protein-calorie malnutrition; G93.41 Metabolic encephalopathy; F33.9 Major depressive disorder, recurrent, unspecified; I95.9 Hypotension, unspecified; I65.29 Occlusion and stenosis of unspecified carotid artery; D63.8 Anemia in other chronic diseases classified elsewhere; D53.9 Nutritional anemia, unspecified; E11.9 Type 2 diabetes mellitus without complications; F03.90 Unspecified dementia, unspecified severity, without behavioral disturbance, psychotic disturbance, mood disturbance, and anxiety; E03.9 Hypothyroidism, unspecified; E78.5 Hyperlipidemia, unspecified; E87.6 Hypokalemia; F41.1 Generalized anxiety disorder; H91.90 Unspecified hearing loss, unspecified ear; I10 Essential (primary) hypertension; K21.9 Gastro-esophageal reflux disease without esophagitis; R63.1 Polydipsia; S01.01XA Laceration without foreign body of scalp, initial encounter; K29.80 Duodenitis without bleeding; Z79.01 Long term (current) use of anticoagulants; Z79.82 Long term (current) use of aspirin; Z79.890 Hormone replacement therapy; Z79.899 Other long term (current) drug therapy; Z86.19 Personal history of other infectious and parasitic diseases; Z86.711 Personal history of pulmonary embolism; Z90.710 Acquired absence of both cervix and uterus; Z88.0 Allergy status to penicillin; Z86.14 Personal history of Methicillin resistant Staphylococcus aureus infection; Z82.49 Family history of ischemic heart disease and other diseases of the circulatory system; Z82.3 Family history of stroke; W19.XXXA Unspecified fall, initial encounter; Y92.009 Unspecified place in unspecified non-institutional (private) residence as the place of occurrence of the external cause
CPT/HCPCS: 12002; 36415; 70450; 71045; 72125; 80048; 80053; 81001; 82088; 82272; 82728; 83540; 83550; 83605; 83930; 83935; 84295; 84300; 84443; 85025; 85027; 86301; 86304; 87086; 90471; 90715; 96360; 96361; 99285

== ENCOUNTER 2019-01-15 16:41 | Emergency (ER) | payer MEDICARE ==
[2019-01-15 17:22] VITALS: RESP 18
--- NOTE | 2019-01-15 17:40 | ED ---
ENT HPI - General Chief complaint: Recheck/Abnormal Lab/Rx Stated complaint: Sore Throat Time Seen by Provider: 01/15/19 17:17 Source: patient, family, RN notes reviewed, old records reviewed Limitations: no limitations - History of Present Illness Initial comments: This is a 8-year-old female presenting today with sore throat difficulty swallowing to constant dry mouth and inability to produce secretions. Patient does swallow or scrotal region appropriately but does chew gum coccyx as she feels like her mouth is always dry and if she is not chewing gum she has difficulty recently secretions. No other complaints no chest pain symptoms over a month and patient has no significant foreign bodies or inability to swallow or drink. MD complaint: sore throat, difficulty swallowing -: month(s) Location: throat Severity: moderate Severity scale (1-10): 5 Quality: aching Consistency: constant Improves with: none Worsens with: none Context-Epistaxis: recent surgery/procedure (history of endoscopy) Associated Symptoms: sore throat - Related Data Home Medications Medication Instructions Recorded Confirmed Levothyroxine Sodium [Synthroid] 50 mcg PO DAILY 07/26/18 01/15/19 amLODIPine [Norvasc] 5 mg PO DAILY 07/26/18 01/15/19 Ranitidine HCl [Zantac] 150 mg PO BID 08/12/18 01/15/19 Furosemide [Lasix] 20 mg PO DAILY 01/15/19 01/15/19 Previous Rx's Medication Instructions Recorded Sodium Chloride Tab 1 gm PO BID #60 tablet 11/11/18 Allergies Allergy/AdvReac Type Severity Reaction Status Date / Time Penicillins Allergy Rash/Hives Verified 01/15/19 18:21 Review of Systems ROS Statement: Those systems with pertinent positive or pertinent negative responses have been documented in the HPI. ROS Other: All systems not noted in ROS Statement are negative. Past Medical History Past Medical History: Diabetes Mellitus, Hyperlipidemia, Hypertension, Pulmonary Embolus (PE), Thyroid Disorder Additional Past Medical History / Comment(s): had a siezure in 2004, pt states her NA+ was to low, dysphagia History of Any Multi-Drug Resistant Organisms: MRSA Date of last positivie culture/infection: 02/21/2014 MDRO Source:: Face Past Surgical History: Bladder Surgery, Hysterectomy Past Anesthesia/Blood Transfusion Reactions: No Reported Reaction Past Psychological History: Anxiety, Depression Smoking Status: Never smoker Past Alcohol Use History: None Reported Past Drug Use History: None Reported - Past Family History Father Family Medical History: CVA/TIA, Hypertension Additional Family Medical History / Comment(s): brain anyruisum Mother Family Medical History: Hypertension General Exam Limitations: no limitations General appearance: alert, in no apparent distress, cachectic Head exam: Present: atraumatic, normocephalic, normal inspection Eye exam: Present: normal appearance, PERRL, EOMI. Absent: scleral icterus, conjunctival injection, periorbital swelling ENT exam: Present: normal exam, mucous membranes moist Neck exam: Present: normal inspection. Absent: tenderness, meningismus, lymphadenopathy Respiratory exam: Present: normal lung sounds bilaterally. Absent: respiratory distress, wheezes, rales, rhonchi, stridor Cardiovascular Exam: Present: regular rate, normal rhythm, normal heart sounds. Absent: systolic murmur, diastolic murmur, rubs, gallop, clicks GI/Abdominal exam: Present: soft, normal bowel sounds. Absent: distended, tenderness, guarding, rebound, rigid Extremities exam: Present: normal inspection, full ROM, normal capillary refill. Absent: tenderness, pedal edema, joint swelling, calf tenderness Back exam: Present: normal inspection Neurological exam: Present: alert, oriented X3, CN II-XII intact Psychiatric exam: Present: normal affect, normal mood Skin exam: Present: warm, dry, intact, normal color. Absent: rash Course Vital Signs 01/15/19 16:52 Temperature 98.7 F Pulse Rate 94 Respiratory 18 Rate Blood Pressure 142/79 O2 Sat by Pulse 99 Oximetry - Reevaluation(s) Reevaluation #1: 01/15/19 18:25 Medical record is reviewed and paperwork requested from [facility] Medical Decision Making - Medical Decision Making 88 female here to the ER for evaluation patient presents today for evaluation regards to difficulty swallowing pain with swallowing dry mouth. Patient will continue follow-up with primary care regarding issue, she has had upper GI as well as barium swallow with no abnormalities Disposition Clinical Impression: Dysphagia Disposition: HOME SELF-CARE Condition: Good Instructions (If sedation given, give patient instructions): Dysphagia (ED) Is patient prescribed a controlled substance at d/c from ED?: No Referrals: Kamaljit Dalton MD [Primary Care Provider] - 1-2 days
[2019-01-15 18:51] VITALS: BP 126/78; PULSE 79; TEMP 97.9
== END 2019-01-15 18:51 | disposition home or self-care (01) ==
LOC: EC 16:41
DX: R13.10 Dysphagia, unspecified (principal); R68.2 Dry mouth, unspecified; J02.9 Acute pharyngitis, unspecified; E11.9 Type 2 diabetes mellitus without complications; E78.5 Hyperlipidemia, unspecified; I10 Essential (primary) hypertension; E07.9 Disorder of thyroid, unspecified; Z79.890 Hormone replacement therapy; Z79.899 Other long term (current) drug therapy; Z88.0 Allergy status to penicillin; Z86.14 Personal history of Methicillin resistant Staphylococcus aureus infection
CPT/HCPCS: 99283

== ENCOUNTER 2019-01-29 00:57 | Inpatient (IN) | payer MEDICARE ==
[2019-01-29] MEDS ORDERED: SODIUM CHLORIDE 0.9% 500 ML 500 ML IV ONE (01:02)
[2019-01-29] MEDS ORDERED: LORazepam 2 MG/ML INJ IV STA (01:09)
[2019-01-29] MEDS ORDERED: SUCCINYLCHOLINE CHLORIDE VIAL 200 MG/10 ML VIAL IV STA (01:30)
[2019-01-29 01:31] LABS: Appearance,Urine Clear (Clear); Bilirubin,Urine Negative (Negative); Blood,Urine Negative (Negative); Color,Urine Colorless; Glucose,Urine (UA) 3+ (Negative); Ketones,Urine 1+ (Negative); Leukocyte Esterase,Urine Negative (Negative); Nitrite,Urine Negative (Negative); PH, Urine 6.5 (5.0-8.0); Protein,Urine Negative (Negative); Specific Gravity,Urine 1.005 (1.001-1.035); Urobilinogen,Urine <2.0 mg/dL (<2.0)
[2019-01-29] MEDS ORDERED: ETOMIDATE 2 MG/ML 10 ML VIAL IVP STA (01:31)
[2019-01-29 01:33] LABS: Basophils % (A) 0 %; Eosinophils % (A) 0 %; HCT 36.8 % (34.0-46.0); HGB 10.5 gm/dL (11.4-16.0); Lymphocytes # (A) 0.8 k/uL (1.0-4.8); Lymphocytes % (A) 8 %; MCH 24.2 pg (25.0-35.0); MCHC 28.5 g/dL (31.0-37.0); Mean Platelet Volume 6.2; Monocytes # (A) 0.4 k/uL (0-1.0); Monocytes % (A) 4 %; Neutrophils # (A) 8.6 k/uL (1.3-7.7); Neutrophils % (A) 87 %; Platelet Count 249 k/uL (150-450); RBC 4.33 m/uL (3.80-5.40); RDW 13.3 % (11.5-15.5)
[2019-01-29] MEDS ORDERED: PROPOFOL 1,000 MG in EMPTY BAG 1 BAG IV ONE (01:34)
[2019-01-29 01:38] LABS: ALT 31 U/L (9-52); AST 43 U/L (14-36); African American GFR (CKD) >90 (>60 ml/min/1.73 sqM); Albumin 4.7 g/dL (3.5-5.0); Alcohol <10 mg/dL; Alkaline Phosphatase 106 U/L (38-126); Anion Gap 20 mmol/L; Blood Urea Nitrogen 7 mg/dL (7-17); Calcium 8.5 mg/dL (8.4-10.2); Carbon Dioxide 14 mmol/L (22-30); Chloride 75 mmol/L (98-107); Glucose 213 mg/dL (74-99); Potassium 3.6 mmol/L (3.5-5.1); Total Bilirubin 1.1 mg/dL (0.2-1.3); Total Protein 7.8 g/dL (6.3-8.2)
[2019-01-29 01:41] LABS: Amphetamine Screen,Urine Not Detected (NotDetected); Barbiturate Screen,Urine Not Detected (NotDetected); Benzodiazepines Screen,Urine Not Detected (NotDetected); Cocaine Screen,Urine Not Detected (NotDetected); Methadone Screen, Urine Not Detected (NotDetected); Opiate Screen,Urine Not Detected (NotDetected); Oxycodone Screen, Urine Not Detected (NotDetected); Phencyclidine Screen,Urine Not Detected (NotDetected); Tricyclic Antidepressant,Urine Not Detected (NotDetected); Urn Cannabinoid Scrn Not Detected (NotDetected)
[2019-01-29 01:43] LABS: INR 0.9 (<1.2); Partial Thromboplastin Time 23.8 sec (22.0-30.0); Prothrombin Time 9.8 sec (9.0-12.0)
--- NOTE | 2019-01-29 01:44 | XR ---
EXAMINATION TYPE: XR chest 1V portable DATE OF EXAM: 01/29/2019 COMPARISON: 11/07/2018 HISTORY: Trauma. Check tube placement. TECHNIQUE: Single frontal view of the chest is obtained. FINDINGS: Endotracheal tube is 5 mm from the quynh. There is no pneumothorax. There is no heart namrata lure. There are chest leads. Nasogastric tube is in good position at the gastric fundus. IMPRESSION: Endotracheal tube is low. No active cardiopulmonary disease.
--- NOTE | 2019-01-29 01:45 | XR ---
EXAMINATION TYPE: XR pelvis AP view DATE OF EXAM: 01/29/2019 COMPARISON: NONE HISTORY: Trauma. Pain. TECHNIQUE: Single view FINDINGS: Pelvic ring is intact. Proximal femurs and hip joints are intact. There are some gas-filled distended loops of small bowel in the lower abdomen. IMPRESSION: No fracture. There is evidence for some small bowel ileus.
--- NOTE | 2019-01-29 01:48 | ED ---
General Adult HPI - General Chief complaint: Fall Stated complaint: Altered mental status, fall Time Seen by Provider: 01/29/19 01:02 Source: EMS Mode of arrival: EMS Limitations: altered mental status - History of Present Illness Initial comments: She is an 88-year-old female who is brought to the emergency department today via EMS for evaluation of altered mental status and a possible fall. Per patient's at bedside who is very hard of hearing and somewhat a poor historian and EMS. The patient was in her usual state of health yesterday, went to bed yesterday evening and woke to find her on the ground confused covered in her own stool. He did not hear her fall. - Related Data Home Medications Medication Instructions Recorded Confirmed Levothyroxine Sodium [Synthroid] 50 mcg PO DAILY 07/26/18 01/15/19 amLODIPine [Norvasc] 5 mg PO DAILY 07/26/18 01/15/19 Ranitidine HCl [Zantac] 150 mg PO BID 08/12/18 01/15/19 Furosemide [Lasix] 20 mg PO DAILY 01/15/19 01/15/19 Previous Rx's Medication Instructions Recorded Sodium Chloride Tab 1 gm PO BID #60 tablet 11/11/18 Allergies Allergy/AdvReac Type Severity Reaction Status Date / Time Penicillins Allergy Rash/Hives Verified 01/15/19 18:21 Review of Systems ROS Statement: Those systems with pertinent positive or pertinent negative responses have been documented in the HPI. ROS Other: All systems not noted in ROS Statement are negative. Past Medical History Past Medical History: Diabetes Mellitus, Hyperlipidemia, Hypertension, Pulmonary Embolus (PE), Thyroid Disorder Additional Past Medical History / Comment(s): had a siezure in 2004, pt states her NA+ was to low, dysphagia History of Any Multi-Drug Resistant Organisms: MRSA Date of last positivie culture/infection: 02/21/2014 MDRO Source:: Face Past Surgical History: Bladder Surgery, Hysterectomy Past Anesthesia/Blood Transfusion Reactions: No Reported Reaction Past Psychological History: Anxiety, Depression Smoking Status: Never smoker Past Alcohol Use History: None Reported Past Drug Use History: None Reported - Past Family History Father Family Medical History: CVA/TIA, Hypertension Additional Family Medical History / Comment(s): brain anyruisum Mother Family Medical History: Hypertension General Exam - General Exam Comments Initial Comments: Physical Exam GENERAL: Chronically ill-appearing Appears dehydrated Patient has stool over her back and legs HENT: Normocephalic, Atraumatic. EYES: PERRL, EOMI PULMONARY: Unlabored respirations CARDIOVASCULAR: Irregularly irregular Warm and well perfused extremities ABDOMEN: Soft and nontender with normal bowel sounds. SKIN: Skin is clear with no lesions or rashes and otherwise unremarkable. : Normal external genitalia NEUROLOGIC: Upon arrival patient is confused, states her name but is otherwise not oriented not following commands Patient noted to have a tonic-clonic seizure and then become unresponsive MUSCULOSKELETAL: No obvious injuries PSYCHIATRIC: Unable to assess secondary to patient's mental status changes Limitations: altered mental status Course Vital Signs 01/29/19 01/29/19 01/29/19 01:10 01:14 01:15 Temperature 98.0 F Pulse Rate 128 H 160 H 137 H Respiratory 16 16 21 Rate Blood Pressure 185/130 O2 Sat by Pulse 97 82 L 84 L Oximetry 01/29/19 01/29/19 01/29/19 01:30 02:00 02:15 Temperature Pulse Rate 93 99 83 Respiratory 12 14 14 Rate Blood Pressure 132/72 110/63 O2 Sat by Pulse 100 88 L Oximetry 01/29/19 01/29/19 02:30 02:45 Temperature Pulse Rate 86 81 Respiratory 12 9 L Rate Blood Pressure 113/61 O2 Sat by Pulse 93 L 99 Oximetry EKG Findings - EKG Comments: EKG Findings:: EKG was obtained at 2:12 AM, rate is 82 rhythm is narrow complex irregularly irregular consistent with atrial fibrillation, QRS is narrow 94, QTC [address] elevations or depressions no evidence of ischemia or infarction. Procedures - Intubation Sedative: Etomidate Paralytic: Succinylcholine Laryngoscope: Avelina Size: 4 ET Tube Size: 7 ET Tube Uncuffed: No Tube Secured Depth (cm): 23 Tube Secured Location: teeth Tube Placement Confirmation: visualized tube passing through cords, equal breath sounds bilaterally, no breath sounds over epigastrium, confirmation by capnometry Patient Tolerated Procedure: no complications Medical Decision Making - Medical Decision Making Patient was seen and evaluated immediately upon arrival emergency department patient is noted to be altered, she speaking but not making much sense, she is only minimally cooperative with exam, patient is covered in her own urine and feces. Vital signs are stable sugar was fine in route to the hospital. While cleaning up the patient patient was noted to begin seizing, Ativan was given. Patient then had snoring respirations, supplemental oxygen was given patient was observed she had no episodes of hypoxia but continued to be altered and have a prolonged postictal period. There is concern for recurrent seizure. At that time decision was made to intubate the patient for airway protection. RSI medications were given and patient was intubated Labs resulted with significant hyponatremia with a sodium of only 109, nephrology was consult it and Dr Franco advised no further normal saline infusion, recommend 3% at 25 per hour with repeat labs at 5 AM Urine electrolytes were ordered CT with no acute findings Patient care discussed with Dr. Villareal who agrees with plan for admission to ICU Patient care discussed with Dr Andrew who agrees with plan for admission to ICU Patient with no further seizures after Propofol infusion began - Lab Data Result diagrams: 01/29/19 01:18 01/29/19 01:18 Lab Results 01/29/19 01/29/19 01/29/19 Range/Units 01:18 01:18 01:18 WBC 10.0 (3.8-10.6) k/uL RBC 4.33 (3.80-5.40) m/uL Hgb 10.5 L (11.4-16.0) gm/dL Hct 36.8 (34.0-46.0) % MCV 85.0 (80.0-100.0) fL MCH 24.2 L (25.0-35.0) pg MCHC 28.5 L (31.0-37.0) g/dL RDW 13.3 (11.5-15.5) % Plt Count 249 (150-450) k/uL Neutrophils % 87 % Lymphocytes % 8 % Monocytes % 4 % Eosinophils % 0 % Basophils % 0 % Neutrophils # 8.6 H (1.3-7.7) k/uL Lymphocytes # 0.8 L (1.0-4.8) k/uL Monocytes # 0.4 (0-1.0) k/uL Eosinophils # 0.0 (0-0.7) k/uL Basophils # 0.0 (0-0.2) k/uL PT (9.0-12.0) sec INR (<1.2) APTT (22.0-30.0) sec Sodium 109 L* (137-145) mmol/L Potassium 3.6 (3.5-5.1) mmol/L Chloride 75 L (98-107) mmol/L Carbon Dioxide 14 L (22-30) mmol/L Anion Gap 20 mmol/L BUN 7 (7-17) mg/dL Creatinine 0.41 L (0.52-1.04) mg/dL Est GFR (CKD-EPI)AfAm >90 (>60 ml/min/1.73 sqM) Est GFR (CKD-EPI)NonAf >90 (>60 ml/min/1.73 sqM) Glucose 213 H (74-99) mg/dL Osmolality (280-301) mosm/kg Calcium 8.5 (8.4-10.2) mg/dL Total Bilirubin 1.1 (0.2-1.3) mg/dL AST 43 H (14-36) U/L ALT 31 (9-52) U/L Alkaline Phosphatase 106 (38-126) U/L Ammonia 69 H (<30) umol/L Troponin I (0.000-0.034) ng/mL Total Protein 7.8 (6.3-8.2) g/dL Albumin 4.7 (3.5-5.0) g/dL Urine Color Urine Appearance (Clear) Urine pH (5.0-8.0) Ur Specific [place] (1.001-1.035) Urine Protein (Negative) Urine Glucose (UA) (Negative) Urine Ketones (Negative) Urine Blood (Negative) Urine Nitrite (Negative) Urine Bilirubin (Negative) Urine Urobilinogen (<2.0) mg/dL Ur Leukocyte Esterase (Negative) Urine Osmolality (50-1400) mosm/kg Ur Random Creatinine mg/dL Urine Opiates Screen (NotDetected) Ur Oxycodone Screen (NotDetected) Urine Methadone Screen (NotDetected) Ur Propoxyphene Screen (NotDetected) Ur Barbiturates Screen (NotDetected) U Tricyclic Antidepress (NotDetected) Ur Phencyclidine Scrn (NotDetected) Ur Amphetamines Screen (NotDetected) U Methamphetamines Scrn (NotDetected) U Benzodiazepines Scrn (NotDetected) Urine Cocaine Screen (NotDetected) U Marijuana (THC) Screen (NotDetected) Serum Alcohol <10 mg/dL Blood Type Blood Type Confirm Blood Type Recheck Bld Type Recheck Status Antibody Screen Spec Expiration Date 01/29/19 01/29/19 01/29/19 Range/Units 01:18 01:18 01:18 WBC (3.8-10.6) k/uL RBC (3.80-5.40) m/uL Hgb (11.4-16.0) gm/dL Hct (34.0-46.0) % MCV (80.0-100.0) fL MCH (25.0-35.0) pg MCHC (31.0-37.0) g/dL RDW (11.5-15.5) % Plt Count (150-450) k/uL Neutrophils % % Lymphocytes % % Monocytes % % Eosinophils % % Basophils % % Neutrophils # (1.3-7.7) k/uL Lymphocytes # (1.0-4.8) k/uL Monocytes # (0-1.0) k/uL Eosinophils # (0-0.7) k/uL Basophils # (0-0.2) k/uL PT 9.8 (9.0-12.0) sec INR 0.9 (<1.2) APTT 23.8 (22.0-30.0) sec Sodium (137-145) mmol/L Potassium (3.5-5.1) mmol/L Chloride (98-107) mmol/L Carbon Dioxide (22-30) mmol/L Anion Gap mmol/L BUN (7-17) mg/dL Creatinine (0.52-1.04) mg/dL Est GFR (CKD-EPI)AfAm (>60 ml/min/1.73 sqM) Est GFR (CKD-EPI)NonAf (>60 ml/min/1.73 sqM) Glucose (74-99) mg/dL Osmolality (280-301) mosm/kg Calcium (8.4-10.2) mg/dL Total Bilirubin (0.2-1.3) mg/dL AST (14-36) U/L ALT (9-52) U/L Alkaline Phosphatase (38-126) U/L Ammonia (<30) umol/L Troponin I <0.012 (0.000-0.034) ng/mL Total Protein (6.3-8.2) g/dL Albumin (3.5-5.0) g/dL Urine Color Urine Appearance (Clear) Urine pH (5.0-8.0) Ur Specific Holloway (1.001-1.035) Urine Protein (Negative) Urine Glucose (UA) (Negative) Urine Ketones (Negative) Urine Blood (Negative) Urine Nitrite (Negative) Urine Bilirubin (Negative) Urine Urobilinogen (<2.0) mg/dL Ur Leukocyte Esterase (Negative) Urine Osmolality (50-1400) mosm/kg Ur Random Creatinine mg/dL Urine Opiates Screen (NotDetected) Ur Oxycodone Screen (NotDetected) Urine Methadone Screen (NotDetected) Ur Propoxyphene Screen (NotDetected) Ur Barbiturates Screen (NotDetected) U Tricyclic Antidepress (NotDetected) Ur Phencyclidine Scrn (NotDetected) Ur Amphetamines Screen (NotDetected) U Methamphetamines Scrn (NotDetected) U Benzodiazepines Scrn (NotDetected) Urine Cocaine Screen (NotDetected) U Marijuana (THC) Screen (NotDetected) Serum Alcohol mg/dL Blood Type O Positive Blood Type Confirm Blood Type Recheck No Previous Record Bld Type Recheck Status CABO Indicated Antibody Screen NEGATIVE Spec Expiration Date 02/01/2019 - 231701/29/19 01/29/19 01/29/19 Range/Units 01:18 01:25 01:25 WBC (3.8-10.6) k/uL RBC (3.80-5.40) m/uL Hgb (11.4-16.0) gm/dL Hct (34.0-46.0) % MCV (80.0-100.0) fL MCH (25.0-35.0) pg MCHC (31.0-37.0) g/dL RDW (11.5-15.5) % Plt Count (150-450) k/uL Neutrophils % % Lymphocytes % % Monocytes % % Eosinophils % % Basophils % % Neutrophils # (1.3-7.7) k/uL Lymphocytes # (1.0-4.8) k/uL Monocytes # (0-1.0) k/uL Eosinophils # (0-0.7) k/uL Basophils # (0-0.2) k/uL PT (9.0-12.0) sec INR (<1.2) APTT (22.0-30.0) sec Sodium (137-145) mmol/L Potassium (3.5-5.1) mmol/L Chloride (98-107) mmol/L Carbon Dioxide (22-30) mmol/L Anion Gap mmol/L BUN (7-17) mg/dL Creatinine (0.52-1.04) mg/dL Est GFR (CKD-EPI)AfAm (>60 ml/min/1.73 sqM) Est GFR (CKD-EPI)NonAf (>60 ml/min/1.73 sqM) Glucose (74-99) mg/dL Osmolality 231 L* (280-301) mosm/kg Calcium (8.4-10.2) mg/dL Total Bilirubin (0.2-1.3) mg/dL AST (14-36) U/L ALT (9-52) U/L Alkaline Phosphatase (38-126) U/L Ammonia (<30) umol/L Troponin I (0.000-0.034) ng/mL Total Protein (6.3-8.2) g/dL Albumin (3.5-5.0) g/dL Urine Color Colorless Urine Appearance Clear (Clear) Urine pH 6.5 (5.0-8.0) Ur Specific [place]ay 1.005 (1.001-1.035) Urine Protein Negative (Negative) Urine Glucose (UA) 3+ H (Negative) Urine Ketones 1+ H (Negative) Urine Blood Negative (Negative) Urine Nitrite Negative (Negative) Urine Bilirubin Negative (Negative) Urine Urobilinogen <2.0 (<2.0) mg/dL Ur Leukocyte Esterase Negative (Negative) Urine Osmolality 268 (50-1400) mosm/kg Ur Random Creatinine 8.3 mg/dL Urine Opiates Screen Not Detected (NotDetected) Ur Oxycodone Screen Not Detected (NotDetected) Urine Methadone Screen Not Detected (NotDetected) Ur Propoxyphene Screen Not Detected (NotDetected) Ur Barbiturates Screen Not Detected (NotDetected) U Tricyclic Antidepress Not Detected (NotDetected) Ur Phencyclidine Scrn Not Detected (NotDetected) Ur Amphetamines Screen Not Detected (NotDetected) U Methamphetamines Scrn Not Detected (NotDetected) U Benzodiazepines Scrn Not Detected (NotDetected) Urine Cocaine Screen Not Detected (NotDetected) U Marijuana (THC) Screen Not Detected (NotDetected) Serum Alcohol mg/dL Blood Type Blood Type Confirm Blood Type Recheck Bld Type Recheck Status Antibody Screen Spec Expiration Date 01/29/19 Range/Units 01:29 WBC (3.8-10.6) k/uL RBC (3.80-5.40) m/uL Hgb (11.4-16.0) gm/dL Hct (34.0-46.0) % MCV (80.0-100.0) fL MCH (25.0-35.0) pg MCHC (31.0-37.0) g/dL RDW (11.5-15.5) % Plt Count (150-450) k/uL Neutrophils % % Lymphocytes % % Monocytes % % Eosinophils % % Basophils % % Neutrophils # (1.3-7.7) k/uL Lymphocytes # (1.0-4.8) k/uL Monocytes # (0-1.0) k/uL Eosinophils # (0-0.7) k/uL Basophils # (0-0.2) k/uL PT (9.0-12.0) sec INR (<1.2) APTT (22.0-30.0) sec Sodium (137-145) mmol/L Potassium (3.5-5.1) mmol/L Chloride (98-107) mmol/L Carbon Dioxide (22-30) mmol/L Anion Gap mmol/L BUN (7-17) mg/dL Creatinine (0.52-1.04) mg/dL Est GFR (CKD-EPI)AfAm (>60 ml/min/1.73 sqM) Est GFR (CKD-EPI)NonAf (>60 ml/min/1.73 sqM) Glucose (74-99) mg/dL Osmolality (280-301) mosm/kg Calcium (8.4-10.2) mg/dL Total Bilirubin (0.2-1.3) mg/dL AST (14-36) U/L ALT (9-52) U/L Alkaline Phosphatase (38-126) U/L Ammonia (<30) umol/L Troponin I (0.000-0.034) ng/mL Total Protein (6.3-8.2) g/dL Albumin (3.5-5.0) g/dL Urine Color Urine Appearance (Clear) Urine pH (5.0-8.0) Ur Specific [place] (1.001-1.035) Urine Protein (Negative) Urine Glucose (UA) (Negative) Urine Ketones (Negative) Urine Blood (Negative) Urine Nitrite (Negative) Urine Bilirubin (Negative) Urine Urobilinogen (<2.0) mg/dL Ur Leukocyte Esterase (Negative) Urine Osmolality (50-1400) mosm/kg Ur Random Creatinine mg/dL Urine Opiates Screen (NotDetected) Ur Oxycodone Screen (NotDetected) Urine Methadone Screen (NotDetected) Ur Propoxyphene Screen (NotDetected) Ur Barbiturates Screen (NotDetected) U Tricyclic Antidepress (NotDetected) Ur Phencyclidine Scrn (NotDetected) Ur Amphetamines Screen (NotDetected) U Methamphetamines Scrn (NotDetected) U Benzodiazepines Scrn (NotDetected) Urine Cocaine Screen (NotDetected) U Marijuana (THC) Screen (NotDetected) Serum Alcohol mg/dL Blood Type Blood Type Confirm O Positive Blood Type Recheck Bld Type Recheck Status Antibody Screen Spec Expiration Date Critical Care Time Critical Care Time: Yes Total Critical Care Time: 45 Critical Care Time: Critical Care Time Critical care time was exclusive of separately billable procedures and treating other patients and teaching time. Critical care was necessary to treat or prevent imminent or life-threatening deterioration. Given the critical condition in which the patient arrived, the patient was immediately assessed by myself and the nurse, and cardiac monitoring initiated due to the potential for rapid decompensation of the patient's clinical condition. During the course of the patients stay, I spent a considerable amount of time at the bedside performing serial re-evaluations of the patient's hemodynamic and clinical status because of the recognized potential threat to life or limb in this condition. I then had a chance to review not only all of t he available current laboratory and radiographic studies obtained today, but I also reviewed old records available to me at the time. Additionally, any ancillary information available including bricklayer supervisor records were reviewed. Sequential vital signs were obtained. Disposition Clinical Impression: Hyponatremia, Seizure Disposition: ADMITTED IP TO THIS HOSP Condition: Critical Is patient prescribed a controlled substance at d/c from ED?: No Referrals: Kamaljit Dalton MD [Primary Care Provider] - 1-2 days
[2019-01-29 01:54] LABS: Sodium 109 mmol/L (137-145)
--- NOTE | 2019-01-29 02:08 | CT ---
EXAMINATION TYPE: CT brain purnima rodriguez DATE OF EXAM: 01/29/2019 COMPARISON: 11/07/2018 HISTORY: Altered mental status CT DLP: mGycm Automated exposure control for dose reduction was used. TECHNIQUE: CT scan of the head and cervical spine are performed without contrast. FINDINGS: Ventricles have normal size. There is no mass effect nor midline shift. There is no sign of intracranial hemorrhage. Ovarium is intact. There is no evidence of cerebral edema. There is mild cerebral atrophy. There is some straightening of the cervical spine. There is disc space narrowing at C5-6 C6-7 with sp urring of the endplates. Posterior elements are intact. Facet joints are intact. The skull base is in tact. There is no evidence of a fracture. There is endotracheal tube. There is nasogastric tube. IMPRESSION: Spondylotic changes in the lower cervical spine. Degenerative disc changes in the lower cervical spin e. No fracture seen. Mild cerebral atrophy. No acute intracranial abnormality.
[2019-01-29] MEDS ORDERED: SODIUM CHLORIDE 3%(HYPERTONIC) 500 ML IV SCH (02:15)
[2019-01-29 02:16] LABS: Creatinine,Urine Random 8.3 mg/dL
[2019-01-29] MEDS ORDERED: NALOXONE 0.4 MG/ML 1 ML VIAL IV PRN (02:25)
[2019-01-29 02:30] LABS: ABG Base Excess -4.4 mmol/L; ABG HCO3 20 mmol/L (21-25); ABG PCO2 30 mmHg (35-45); ABG PH 7.43 (7.35-7.45); ABG PO2 >400 mmHg (83-108); ABG TCO2 21 mmol/L (19-24); Allen Test Performed? Yes
[2019-01-29] MEDS ORDERED: MIDAZOLAM 1 MG/ML 5 ML VIAL IV PRN (02:46)
[2019-01-29 03:52] LABS: Glucose,Whole Blood 126 mg/dL (75-99)
[2019-01-29] MEDS: PROPOFOL 1,000 MG in EMPTY BAG 1 BAG IV SCH ×2 (04:00→21:36)
[2019-01-29 05:23] LABS: Basophils % (A) 0 %; Eosinophils % (A) 0 %; HCT 30.3 % (34.0-46.0); HGB 10.4 gm/dL (11.4-16.0); Lymphocytes # (A) 0.5 k/uL (1.0-4.8); Lymphocytes % (A) 6 %; MCH 29.1 pg (25.0-35.0); MCHC 34.3 g/dL (31.0-37.0); MCV 84.9 fL (80.0-100.0); Mean Platelet Volume 5.6; Monocytes # (A) 0.5 k/uL (0-1.0); Monocytes % (A) 6 %; Neutrophils # (A) 6.9 k/uL (1.3-7.7); Neutrophils % (A) 86 %; Platelet Count 178 k/uL (150-450); RBC 3.57 m/uL (3.80-5.40); RDW 13.2 % (11.5-15.5)
[2019-01-29 05:35] LABS: African American GFR (CKD) >90 (>60 ml/min/1.73 sqM); Anion Gap 9 mmol/L; Blood Urea Nitrogen 7 mg/dL (7-17); Calcium 7.7 mg/dL (8.4-10.2); Carbon Dioxide 19 mmol/L (22-30); Chloride 79 mmol/L (98-107); Glucose 110 mg/dL (74-99); Potassium 3.2 mmol/L (3.5-5.1)
[2019-01-29 05:37] LABS: Sodium 107 mmol/L (137-145)
[2019-01-29] MEDS ORDERED: Potassium Replacement Protocol 1 EACH MISC MISCELLANE PRN (05:40)
[2019-01-29] MEDS: POTASSIUM CHLORIDE 10 MEQ in WATER FOR INJECTION 1 100ML.BAG IVPB SCH ×4 (06:04→10:48)
[2019-01-29] MEDS: NOREPINEPHRINE 4 MG in SODIUM CHLORIDE 0.9% 250 ML IV SCH (06:16)
[2019-01-29 06:36] LABS: Glucose,Whole Blood 106 mg/dL (75-99)
[2019-01-29] MEDS: SODIUM CHLORIDE 3%(HYPERTONIC) 500 ML IV SCH ×2 (06:54→21:23)
--- NOTE | 2019-01-29 07:37 | XR ---
EXAMINATION TYPE: XR chest 1V portable DATE OF EXAM: 01/29/2019 COMPARISON: 01/29/2019 INDICATION: Tube placement TECHNIQUE: Single frontal view of the chest is obtained. FINDINGS: The heart size is normal. The pulmonary vasculature is normal. The lungs are clear. Endotracheal tube is been pulled back slightly and its tip currently located 1.4 cm above the quynh. Nasogastric tube transverses the thorax with the tip in the left upper quadrant of the abdomen. Larg e stomach bubble remains present. IMPRESSION: 1. Lines and catheters discussed above.
[2019-01-29] MEDS: LACTULOSE 20 GM/30 ML CUP PO SCH ×3 (08:28→23:51)
[2019-01-29] MEDS: CHLORHEXIDINE GLUCONATE 15 ML CUP MUCOUS MEM SCH ×2 (08:28→20:51)
[2019-01-29] MEDS: PANTOPRAZOLE 40 MG/10 ML VIAL IV SCH (08:28)
[2019-01-29] MEDS: HEPARIN SODIUM,PORCINE 5,000 UNIT/ML 1 ML VIAL SQ SCH ×3 (08:28→23:51)
[2019-01-29 09:24] LABS: Allen Test Performed? Yes
[2019-01-29 09:25] LABS: ABG Base Excess -1.8 mmol/L; ABG HCO3 22 mmol/L (21-25); ABG Oxygen Saturation 99.7 % (94-97); ABG PCO2 30 mmHg (35-45); ABG PH 7.47 (7.35-7.45); ABG PO2 204 mmHg (83-108); ABG TCO2 23 mmol/L (19-24)
--- NOTE | 2019-01-29 10:54 | P.NPCON ---
History of Present Illness - Reason for Consult hyponatremia - History of Present Illness Reason for consultation: Hyponatremia History of present illness: Patient is a 88-year-old female seen in renal consultation for hyponatremia. Patient's sodium level was 109 on admission the patient was given a normal saline bolus. She then received normal saline at 100 mL an hour for a few hours and was changed to 3% at 25 mL an hour. Repeat sodium level was 107. Rate of 3% was increased and most recent sodium level is now 111. Patient's currently intubated and sedated. Patient was brought to the hospital via EMS for altered mental status. There was also concern that she had fell. Patient was found on the ground colored and her own stool. There was concern for seizure activity as well. Unable to obtain history from the patient at this time. I do note that she was taking low-dose Lasix as sodium chloride tablet at home. Again I'm not sure if she was actually taking the medications as prescribed. I don't see any thiazide diuretics or nonsteroidals and her home medications. GFR is at basel ine. Patient was hypotensive on admission and did require low-dose Levophed initially. This morning it was discontinued and her blood pressure is well controlled. Vital signs are stable. General: The patient appeared well nourished and normally developed. Intubated. HEENT: Head exam is unremarkable. Neck is without jugular venous distension. LUNGS: Lungs are clear to auscultation and percussion. Breath sounds decreased. HEART: Rate and Rhythm are regular. First and second heart sounds normal. No murmurs, rubs or gallops. ABDOMEN: Abdominal exam reveals normal bowel sounds. Non-tender and non- distended. No evidence of peritonitis. EXTREMITITES: No clubbing, cyanosis, or edema. Past Medical History Past Medical History: Diabetes Mellitus, Hyperlipidemia, Hypertension, Pulmonary Embolus (PE), Thyroid Disorder Additional Past Medical History / Comment(s): had a siezure in 2004, pt states her NA+ was to low, dysphagia History of Any Multi-Drug Resistant Organisms: MRSA Date of last positivie culture/infection: 02/21/2014 MDRO Source:: Face Past Surgical History: Bladder Surgery, Hysterectomy Past Anesthesia/Blood Transfusion Reactions: No Reported Reaction Past Psychological History: Anxiety, Depression Smoking Status: Never smoker Past Alcohol Use History: None Reported Past Drug Use History: None Reported - Past Family History Father Family Medical History: CVA/TIA, Hypertension Additional Family Medical History / Comment(s): brain anyruisum Mother Family Medical History: Hypertension Medications and Allergies Home Medications Medication Instructions Recorded Confirmed Type Levothyroxine Sodium [Synthroid] 50 mcg PO DAILY 07/26/18 01/29/19 History amLODIPine [Norvasc] 5 mg PO DAILY 07/26/18 01/29/19 History Ranitidine HCl [Zantac] 150 mg PO BID 08/12/18 01/29/19 History Sodium Chloride Tab 1 gm PO BID #60 tablet 11/11/18 01/29/19 Rx Furosemide [Lasix] 20 mg PO DAILY 01/15/19 01/29/19 History Allergies Allergy/AdvReac Type Severity Reaction Status Date / Time Penicillins Allergy Rash/Hives Verified 01/29/19 07:40 Physical Exam Vitals: Vital Signs Temp Pulse Resp BP Pulse Ox 01/29/19 10:00 68 9 L 142/77 98 01/29/19 09:45 67 10 L 143/74 97 01/29/19 09:30 69 15 136/83 99 01/29/19 09:15 71 17 121/66 100 01/29/19 09:00 64 10 L 100/60 97 01/29/19 08:45 59 L 10 L 97/67 97 01/29/19 08:30 60 5 L 115/71 99 01/29/19 08:15 67 14 118/74 100 01/29/19 08:00 97.9 F 81 10 L 127/97 99 01/29/19 07:45 63 13 112/73 97 01/29/19 07:30 64 15 101/64 98 01/29/19 07:15 72 18 96/64 98 01/29/19 07:00 61 16 105/64 98 01/29/19 06:45 65 15 95/63 98 01/29/19 06:30 64 20 81/56 97 01/29/19 06:15 65 50 H 81/56 97 01/29/19 06:00 61 15 82/53 97 01/29/19 05:00 65 17 123/88 98 01/29/19 04:00 97 F L 88 12 123/88 100 01/29/19 03:25 98.0 F 87 18 115/70 100 01/29/19 03:15 82 13 116/71 100 01/29/19 03:00 87 12 109/67 99 01/29/19 02:45 81 9 L 113/61 99 01/29/19 02:30 86 12 93 L 01/29/19 02:15 83 14 110/63 01/29/19 02:00 99 14 88 L 01/29/19 01:30 93 12 132/72 100 01/29/19 01:15 137 H 21 84 L 01/29/19 01:14 160 H 16 82 L 01/29/19 01:10 98.0 F 128 H 16 185/130 97 Intake and Output 01/28/19 01/29/19 01/29/19 22:59 06:59 14:59 Intake Total 120.244 148.429 Output Total 1035 360 Balance -914.756 -211.571 Intake: IV 85 145 3% 35 145 Sodium Chloride 3%( 50 Hypertonic) 500 ml @ 50 mls/hr IV .Q10H [facility] Rx#: [id number] Intake, IV Titration 35.244 3.429 Amount Propofol 1,000 mg In 35.244 3.429 Empty Bag 1 bag @ Titrate IV .Q0M [facility] Rx#: [id number] Output: Urine 1035 360 Other: Voiding Method Indwelling Catheter Indwelling Catheter Weight 47.627 kg 47.627 kg Results - Lab Results Most recent lab results ABG pH 7.47 (7.35-7.45) H 01/29/19 09:22 ABG pCO2 30 mmHg (35-45) L 01/29/19 09:22 ABG pO2 204 mmHg (83-108) H 01/29/19 09:22 ABG HCO3 22 mmol/L (21-25) 01/29/19 09:22 ABG O2 Saturation 99.7 % (94-97) H 01/29/19 09:22 Calcium 7.7 mg/dL (8.4-10.2) L 01/29/19 05:01 01/29/19 05:04 01/29/19 09:12 Assessment and Plan Plan: Assessment: 1. Hyponatremia. Currently appears euvolemic. 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 Urine osmolality noted to be a little on the lower side at 268. 2. Fall and possible seizure due to hyponatremia. 3. Benign hypertension. Controlled. 4. Metabolic acidosis which is compensatory for the respiratory alkalosis. 5. Hypokalemia from poor oral intake. Rule out magnesium deficiency. Plan: Discontinue 3% saline. Recheck sodium level at 2 PM. Check TSH and uric acid level. Potassium being replaced. Tube feeding to be started. Wean FiO2. Avoid rapid correction of hyponatremia. Thank you for the consultation. I will continue to follow the patient with you during her hospital stay.
--- NOTE | 2019-01-29 11:00 | P.CNPUL ---
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 Patient had multiple admissions in the past for her hyponatremia, and she was seen by many consultants including nephrology for profound hyponatremia, last admission was about 2 months ago. noted that patient was confused, and unsteady on her feet. And at one point she was found to be extremely confused and covered with her own stool. EMS brought in the patient to the ER, and shortly after she arrived to the ER, patient was witnessed to have a grand mal seizure, given Ativan, and she was noted to be snoring and stuporous. Patient had a very prolonged postictal period, and the decision was made by the ER physician to intubate the patient for airways protection. Patient was intubated, placed on mechanical ventilation, and her sodium was noted to be as low as 109. Patient was placed on 3% saline, and she was admitted to the ICU. Hence I was asked to see her on consultation. Patient has been on propofol since admission to the ICU, and she is presently on assist control rate of 12 tidal volume of 350 FiO2 is 40% and PEEP is 5. ABG earlier this morning showed a pO2 of 204 pCO2 of 30 pH of 7.47. Patient required briefly norepinephrine for low blood pressure, but presently off norepinephrine, and she is maintained at 3% saline at 50 mL per hour. Repeat sodium this morning is 111. Patient had a sodium of 109 up on her initial presentation. Her serum osmolality was 231 and her urine osmolality was 268. Urine sodium was not done. Drug screen was negative. CT brain was unremarkable except for mild cerebral atrophy. Chest x-ray this morning showed no evidence of active disease. Review of Systems ROS unobtainable: due to endotracheal tube Past Medical History Past Medical History: Diabetes Mellitus, Hyperlipidemia, Hypertension, Pulmonary Embolus (PE), Thyroid Disorder Additional Past Medical History / Comment(s): had a siezure in 2004, pt states her NA+ was to low, dysphagia History of Any Multi-Drug Resistant Organisms: MRSA Date of last positivie culture/infection: 02/21/2014 MDRO Source:: Face Past Surgical History: Bladder Surgery, Hysterectomy Past Anesthesia/Blood Transfusion Reactions: No Reported Reaction Past Psychological History: Anxiety, Depression Smoking Status: Never smoker Past Alcohol Use History: None Reported Past Drug Use History: None Reported - Past Family History Father Family Medical History: CVA/TIA, Hypertension Additional Family Medical History / Comment(s): brain anyruisum Mother Family Medical History: Hypertension Medications and Allergies Home Medications Medication Instructions Recorded Confirmed Type Levothyroxine Sodium [Synthroid] 50 mcg PO DAILY 07/26/18 01/29/19 History amLODIPine [Norvasc] 5 mg PO DAILY 07/26/18 01/29/19 History Ranitidine HCl [Zantac] 150 mg PO BID 08/12/18 01/29/19 History Sodium Chloride Tab 1 gm PO BID #60 tablet 11/11/18 01/29/19 Rx Furosemide [Lasix] 20 mg PO DAILY 01/15/19 01/29/19 History Allergies Allergy/AdvReac Type Severity Reaction Status Date / Time Penicillins Allergy Rash/Hives Verified 01/29/19 07:40 Physical Exam Vitals: Vital Signs Temp Pulse Resp BP Pulse Ox 01/29/19 10:00 68 9 L 142/77 98 01/29/19 09:45 67 10 L 143/74 97 01/29/19 09:30 69 15 136/83 99 01/29/19 09:15 71 17 121/66 100 01/29/19 09:00 64 10 L 100/60 97 01/29/19 08:45 59 L 10 L 97/67 97 01/29/19 08:30 60 5 L 115/71 99 01/29/19 08:15 67 14 118/74 100 01/29/19 08:00 97.9 F 81 10 L 127/97 99 01/29/19 07:45 63 13 112/73 97 01/29/19 07:30 64 15 101/64 98 01/29/19 07:15 72 18 96/64 98 01/29/19 07:00 61 16 105/64 98 01/29/19 06:45 65 15 95/63 98 01/29/19 06:30 64 20 81/56 97 01/29/19 06:15 65 50 H 81/56 97 10/23/19 06:00 61 15 82/53 97 01/29/19 05:00 65 17 123/88 98 01/29/19 04:00 97 F L 88 12 123/88 100 01/29/19 03:25 98.0 F 87 18 115/70 100 01/29/19 03:15 82 13 116/71 100 01/29/19 03:00 87 12 109/67 99 01/29/19 02:45 81 9 L 113/61 99 01/29/19 02:30 86 12 93 L 01/29/19 02:15 83 14 110/63 01/29/19 02:00 99 14 88 L 01/29/19 01:30 93 12 132/72 100 01/29/19 01:15 137 H 21 84 L 01/29/19 01:14 160 H 16 82 L 01/29/19 01:10 98.0 F 128 H 16 185/130 97 Intake and Output 01/28/19 01/29/19 01/29/19 22:59 06:59 14:59 Intake Total 120.244 148.429 Output Total 1035 360 Balance -914.756 -211.571 Intake: IV 85 145 3% 35 145 Sodium Chloride 3%( 50 Hypertonic) 500 ml @ 50 mls/hr IV .Q10H DYLAN Rx#: [id number] Intake, IV Titration 35.244 3.429 Amount Propofol 1,000 mg In 35.244 3.429 Empty Bag 1 bag @ Titrate IV .Q0M DYLAN Rx#: [id number] Output: Urine 1035 360 Other: Voiding Method Indwelling Catheter Indwelling Catheter Weight 47.627 kg 47.627 kg Physical Exam: Revealed 88-year-old female, on mechanical ventilation, in no distress. Head: Atraumatic, normocephalic. Endotracheal tube and orogastric tube are intact. HEENT:[Neck is supple.] [No neck masses.] [No thyromegaly.] [No JVD.] Dry mucous membranes. Throat is clear, endotracheal tube is intact. Chest: [Clear throughout, no crackles, no rhonchi, no wheezes.] Cardiac Exam: [Normal S1 and S2, no S3 gallop, no murmur.] Abdomen: [Soft, nontender, no megaly, no rebound, no guarding, normal bowel sounds.] Extremities: [No clubbing, no edema, no cyanosis.] Good pulses bilaterally Neurological Exam: Difficult to assess, patient is on propofol, withdraws from pain. Psychiatric: Could not be assessed. Skin: Dry skin, poor skin turgor, no rashes. Lymphatics: No lymphadenopathy. Results - Laboratory Findings CBC and BMP: 01/29/19 05:04 01/29/19 09:12 ABG ABG pH 7.47 (7.35-7.45) H 01/29/19 09:22 ABG pCO2 30 mmHg (35-45) L 01/29/19 09:22 ABG pO2 204 mmHg (83-108) H 01/29/19 09:22 ABG O2 Saturation 99.7 % (94-97) H 01/29/19 09:22 PT/INR, D-dimer PT 9.8 sec (9.0-12.0) 01/29/19 01:18 INR 0.9 (<1.2) 01/29/19 01:18 Abnormal lab findings: Abnormal Labs 01/29/19 01/29/19 01/29/19 01:18 01:18 01:18 RBC Hgb 10.5 L Hct MCH 24.2 L MCHC 28.5 L Neutrophils # 8.6 H Lymphocytes # 0.8 L ABG pH ABG pCO2 ABG pO2 ABG HCO3 ABG O2 Saturation Sodium 109 L* Potassium Chloride 75 L Carbon Dioxide 14 L Creatinine 0.41 L Glucose 213 H POC Glucose (mg/dL) Osmolality Calcium AST 43 H Ammonia 69 H Urine Glucose (UA) Urine Ketones 01/29/19 01/29/19 01/29/19 01:18 01:25 02:26 RBC Hgb Hct MCH MCHC Neutrophils # Lymphocytes # ABG pH ABG pCO2 30 L ABG pO2 >400 H ABG HCO3 20 L ABG O2 Saturation 100.0 H Sodium Potassium Chloride Carbon Dioxide Creatinine Glucose POC Glucose (mg/dL) Osmolality 231 L* Calcium AST Ammonia Urine Glucose (UA) 3+ H Urine Ketones 1+ H 01/29/19 01/29/19 01/29/19 03:50 05:01 05:04 RBC 3.57 L Hgb 10.4 L Hct 30.3 L MCH MCHC Neutrophils # Lymphocytes # 0.5 L ABG pH ABG pCO2 ABG pO2 ABG HCO3 ABG O2 Saturation Sodium 107 L* Potassium 3.2 L Chloride 79 L Carbon Dioxide 19 L Creatinine 0.29 L Glucose 110 H POC Glucose (mg/dL) 126 H Osmolality Calcium 7.7 L AST Ammonia Urine Glucose (UA) Urine Ketones 01/29/19 01/29/19 01/29/19 06:25 09:12 09:22 RBC Hgb Hct MCH MCHC Neutrophils # Lymphocytes # ABG pH 7.47 H ABG pCO2 30 L ABG pO2 204 H ABG HCO3 ABG O2 Saturation 99.7 H Sodium 111 L* Potassium Chloride Carbon Dioxide Creatinine Glucose POC Glucose (mg/dL) 106 H Osmolality Calcium AST Ammonia Urine Glucose (UA) Urine Ketones - Diagnostic Findings Chest x-ray: image reviewed (As noted in HPI) Additional studies: CT of the brain and spine as noted in HPI. Assessment and Plan Assessment: Impression: 1 Severe hyponatremia, chronic and recurrent. exact etiology is not clear, patient is hypovolemic based on my clinical examination, however she had history of hyponatremia when she was euvolemic. The differential diagnoses includes hyponatremia secondary to diuretics, that is hypovolemic hyponatremia, although the possibility of chronic SIADH is not entirely ruled out. At one point the patient had hyponatremia secondary to psychogenic polydipsia With extremely low urine sodium and extremely low urine osmolality. 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 4 Multiple comorbidities including type 2 diabetes, dyslipidemia, hypertension, remote history of pulmonary embolism, hypothyroidism, on replacement therapy. previous history of seizure in 2004, not certain whether it was related to hyponatremia or not. Recommendation: Continue ventilatory support. Continue slow correction of hyponatremia with 3% saline, may consider switching to 0.9 or D5W depending on the rate of correction of the hyponatremia. GI and DVT prophylaxis. Continue propofol for now until patient sodium is improved, and will likely wean off propofol and consider weaning either later today or in a.m. Continue to monitor the sodium closely every 3-4 hours, and adjust treatment accordingly. Resume home meds including her thyroid replacement therapy. We'll continue to follow. Time with Patient: Greater than 30
[2019-01-29 11:51] LABS: Magnesium 1.6 mg/dL (1.6-2.3); Uric Acid 1.9 mg/dL (3.7-7.4)
[2019-01-29 14:27] LABS: Sodium 112 mmol/L (137-145)
--- NOTE | 2019-01-29 14:58 | P.HPIM ---
History of Present Illness H&P Date: 01/29/19 Chief Complaint: Vent dependent respiratory failure/severe hyponatremia/seizure This is an 88-year-old female one of Dr. 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 and while she was in the emergency department she was found to have a sodium of 107 shortly after that the patient developed to have a clonic tonic grand mal seizure she was given Ativan and the patient became less responsive with prolonged postictal state she was seen by Dr. Monae in the ER and the decision was made to intubate the patient in the yard for production of the airways and the patient was started initially on normal saline followed by 3% saline at 25 mL per hour that was increased to 15 per hour and she was admitted to intensive care unit with consultation to pulmonary/critical care as well as nephrology and the patient had computed tomography scan of brain that did show brain atrophy without evidence of acute abnormalities chest x-ray did not show any evidence of acute of normalities patient was admitted intensive care unit as a stated above for further evaluation and treatment. Review of Systems ROS unobtainable: due to endotracheal tube Past Medical History Past Medical History: Atrial Fibrillation, Diabetes Mellitus, Hyperlipidemia, Hypertension, Pulmonary Embolus (PE), Thyroid Disorder Additional Past Medical History / Comment(s): had a siezure in 2004, pt states her NA+ was to low, dysphagia History of Any Multi-Drug Resistant Organisms: MRSA Date of last positivie culture/infection: 02/21/2014 MDRO Source:: Face Past Surgical History: Bladder Surgery, Hysterectomy Past Anesthesia/Blood Transfusion Reactions: No Reported Reaction Past Psychological History: Anxiety, Depression Smoking Status: Never smoker Past Alcohol Use History: None Reported Past Drug Use History: None Reported - Past Family History Father Family Medical History: CVA/TIA, Hypertension Additional Family Medical History / Comment(s): brain anyruisum Mother Family Medical History: Hypertension Medications and Allergies Home Medications Medication Instructions Recorded Confirmed Type Levothyroxine Sodium [Synthroid] 50 mcg PO DAILY 07/26/18 01/29/19 History amLODIPine [Norvasc] 5 mg PO DAILY 07/26/18 01/29/19 History Ranitidine HCl [Zantac] 150 mg PO BID 08/12/18 01/29/19 History Sodium Chloride Tab 1 gm PO BID #60 tablet 11/11/18 01/29/19 Rx Furosemide [Lasix] 20 mg PO DAILY 01/15/19 01/29/19 History Allergies Allergy/AdvReac Type Severity Reaction Status Date / Time Penicillins Allergy Rash/Hives Verified 01/29/19 07:40 Physical Exam Vitals: Vital Signs Temp Pulse Resp BP Pulse Ox 01/29/19 12:30 72 20 134/88 99 01/29/19 12:15 69 9 L 145/74 99 01/29/19 12:00 97.5 F L 70 12 135/81 98 01/29/19 11:45 75 19 122/63 99 01/29/19 11:30 70 11 L 123/69 99 01/29/19 11:15 58 L 12 116/67 98 01/29/19 11:00 63 12 108/63 98 01/29/19 10:45 68 11 L 105/62 97 01/29/19 10:30 67 15 133/73 98 01/29/19 10:15 68 9 L 139/72 98 01/29/19 10:00 68 9 L 142/77 98 01/29/19 09:45 67 10 L 143/74 97 01/29/19 09:30 69 15 136/83 99 01/29/19 09:15 71 17 121/66 100 01/29/19 09:00 64 10 L 100/60 97 01/29/19 08:45 59 L 10 L 97/67 97 01/29/19 08:30 60 5 L 115/71 99 01/29/19 08:15 67 14 118/74 100 01/29/19 08:00 97.9 F 81 10 L 127/97 99 01/29/19 07:45 63 13 112/73 97 01/29/19 07:30 64 15 101/64 98 01/29/19 07:15 72 18 96/64 98 01/29/19 07:00 61 16 105/64 98 01/29/19 06:45 65 15 95/63 98 01/29/19 06:30 64 20 81/56 97 01/29/19 06:15 65 50 H 81/56 97 01/29/19 06:00 61 15 82/53 97 01/29/19 05:00 65 17 123/88 98 01/29/19 04:00 97 F L 88 12 123/88 100 01/29/19 03:25 98.0 F 87 18 115/70 100 01/29/19 03:15 82 13 116/71 100 01/29/19 03:00 87 12 109/67 99 01/29/19 02:45 81 9 L 113/61 99 01/29/19 02:30 86 12 93 L 01/29/19 02:15 83 14 110/63 01/29/19 02:00 99 14 88 L 01/29/19 01:30 93 12 132/72 100 01/29/19 01:15 137 H 21 84 L 01/29/19 01:14 160 H 16 82 L 01/29/19 01:10 98.0 F 128 H 16 185/130 97 Intake and Output 01/28/19 01/29/19 01/29/19 22:59 06:59 14:59 Intake Total 120.244 148.429 Output Total 1035 425 Balance -914.756 -276.571 Intake: IV 85 145 3% 35 145 Sodium Chloride 3%( 50 Hypertonic) 500 ml @ 50 mls/hr IV .Q10H DYLAN Rx#: [id number] Intake, IV Titration 35.244 3.429 Amount Propofol 1,000 mg In 35.244 3.429 Empty Bag 1 bag @ Titrate IV .Q0M DYLAN Rx#: [id number] Output: Urine 1035 425 Other: Voiding Method Indwelling Catheter Indwelling Catheter Weight 47.627 kg 47.627 kg HEENT: Head is atraumatic, nurse hepatic, pupils were small and sluggish reaction to light sclera nonicteric conjunctiva are pale there is oral gastric tube in place and ET tube in place. Neck: Supple, no JVP, decreased carotid upstroke bilaterally. Chest: Decreased breath sound at the bases, few rhonchi, next 30 wheezes, no chest wall tenderness, no intercostal retractions. Heart: First heart sound is depressed, second heart sound is normal, irregular irregular to date her fibrillation there is systolic ejection murmur 2/6 located in the lesser border. Abdomen: Soft, nontender, nondistended, depressed bowel sounds. Extremities: No edema 20 calf tenderness, dorsalis pedis +1 bilaterally. Neurologic examination: Patient is currently sedated on the ventilator. Results CBC & Chem 7: 01/29/19 05:04 01/29/19 14:01 Labs: Abnormal Lab Results - Last 24 Hours (Table) 01/29/19 01/29/19 01/29/19 Range/Units 01:18 01:18 01:18 RBC (3.80-5.40) m/uL Hgb 10.5 L (11.4-16.0) gm/dL Hct (34.0-46.0) % MCH 24.2 L (25.0-35.0) pg MCHC 28.5 L (31.0-37.0) g/dL Neutrophils # 8.6 H (1.3-7.7) k/uL Lymphocytes # 0.8 L (1.0-4.8) k/uL ABG pH (7.35-7.45) ABG pCO2 (35-45) mmHg ABG pO2 (83-108) mmHg ABG HCO3 (21-25) mmol/L ABG O2 Saturation (94-97) % Sodium 109 L* (137-145) mmol/L Potassium (3.5-5.1) mmol/L Chloride 75 L (98-107) mmol/L Carbon Dioxide 14 L (22-30) mmol/L Creatinine 0.41 L (0.52-1.04) mg/dL Glucose 213 H (74-99) mg/dL POC Glucose (mg/dL) (75-99) mg/dL Osmolality (280-301) mosm/kg Uric Acid (3.7-7.4) mg/dL Calcium (8.4-10.2) mg/dL AST 43 H (14-36) U/L Ammonia 69 H (<30) umol/L Urine Glucose (UA) (Negative) Urine Ketones (Negative) 01/29/19 01/29/19 01/29/19 Range/Units 01:18 01:25 02:26 RBC (3.80-5.40) m/uL Hgb (11.4-16.0) gm/dL Hct (34.0-46.0) % MCH (25.0-35.0) pg MCHC (31.0-37.0) g/dL Neutrophils # (1.3-7.7) k/uL Lymphocytes # (1.0-4.8) k/uL ABG pH (7.35-7.45) ABG pCO2 30 L (35-45) mmHg ABG pO2 >400 H (83-108) mmHg ABG HCO3 20 L (21-25) mmol/L ABG O2 Saturation 100.0 H (94-97) % Sodium (137-145) mmol/L Potassium (3.5-5.1) mmol/L Chloride (98-107) mmol/L Carbon Dioxide (22-30) mmol/L Creatinine (0.52-1.04) mg/dL Glucose (74-99) mg/dL POC Glucose (mg/dL) (75-99) mg/dL Osmolality 231 L* (280-301) mosm/kg Uric Acid (3.7-7.4) mg/dL Calcium (8.4-10.2) mg/dL AST (14-36) U/L Ammonia (<30) umol/L Urine Glucose (UA) 3+ H (Negative) Urine Ketones 1+ H (Negative) 01/29/19 01/29/19 01/29/19 Range/Units 03:50 05:01 05:04 RBC 3.57 L (3.80-5.40) m/uL Hgb 10.4 L (11.4-16.0) gm/dL Hct 30.3 L (34.0-46.0) % MCH (25.0-35.0) pg MCHC (31.0-37.0) g/dL Neutrophils # (1.3-7.7) k/uL Lymphocytes # 0.5 L (1.0-4.8) k/uL ABG pH (7.35-7.45) ABG pCO2 (35-45) mmHg ABG pO2 (83-108) mmHg ABG HCO3 (21-25) mmol/L ABG O2 Saturation (94-97) % Sodium 107 L* (137-145) mmol/L Potassium 3.2 L (3.5-5.1) mmol/L Chloride 79 L (98-107) mmol/L Carbon Dioxide 19 L (22-30) mmol/L Creatinine 0.29 L (0.52-1.04) mg/dL Glucose 110 H (74-99) mg/dL POC Glucose (mg/dL) 126 H (75-99) mg/dL Osmolality (280-301) mosm/kg Uric Acid (3.7-7.4) mg/dL Calcium 7.7 L (8.4-10.2) mg/dL AST (14-36) U/L Ammonia (<30) umol/L Urine Glucose (UA) (Negative) Urine Ketones (Negative) 01/29/19 01/29/19 01/29/19 Range/Units 06:25 09:12 09:12 RBC (3.80-5.40) m/uL Hgb (11.4-16.0) gm/dL Hct (34.0-46.0) % MCH (25.0-35.0) pg MCHC (31.0-37.0) g/dL Neutrophils # (1.3-7.7) k/uL Lymphocytes # (1.0-4.8) k/uL ABG pH (7.35-7.45) ABG pCO2 (35-45) mmHg ABG pO2 (83-108) mmHg ABG HCO3 (21-25) mmol/L ABG O2 Saturation (94-97) % Sodium 111 L* (137-145) mmol/L Potassium (3.5-5.1) mmol/L Chloride (98-107) mmol/L Carbon Dioxide (22-30) mmol/L Creatinine (0.52-1.04) mg/dL Glucose (74-99) mg/dL POC Glucose (mg/dL) 106 H (75-99) mg/dL Osmolality (280-301) mosm/kg Uric Acid 1.9 L (3.7-7.4) mg/dL Calcium (8.4-10.2) mg/dL AST (14-36) U/L Ammonia (<30) umol/L Urine Glucose (UA) (Negative) Urine Ketones (Negative) 01/29/19 01/29/19 Range/Units 09:22 14:01 RBC (3.80-5.40) m/uL Hgb (11.4-16.0) gm/dL Hct (34.0-46.0) % MCH (25.0-35.0) pg MCHC (31.0-37.0) g/dL Neutrophils # (1.3-7.7) k/uL Lymphocytes # (1.0-4.8) k/uL ABG pH 7.47 H (7.35-7.45) ABG pCO2 30 L (35-45) mmHg ABG pO2 204 H (83-108) mmHg ABG HCO3 (21-25) mmol/L ABG O2 Saturation 99.7 H (94-97) % Sodium 112 L* (137-145) mmol/L Potassium (3.5-5.1) mmol/L Chloride (98-107) mmol/L Carbon Dioxide (22-30) mmol/L Creatinine (0.52-1.04) mg/dL Glucose (74-99) mg/dL POC Glucose (mg/dL) (75-99) mg/dL Osmolality (280-301) mosm/kg Uric Acid (3.7-7.4) mg/dL Calcium (8.4-10.2) mg/dL AST (14-36) U/L Ammonia (<30) umol/L Urine Glucose (UA) (Negative) Urine Ketones (Negative) Microbiology - Last 24 Hours (Table) 01/29/19 03:55 Gram Stain - Preliminary Sputum Sputum Culture - Preliminary Thrombosis Risk Factor Assmnt - DVT/VTE Prophylaxis DVT/VTE Prophylaxis: Pharmacologic Prophylaxis ordered, Mechanical Prophylaxis ordered - Choose All That Apply Any of the Below Risk Factors Present?: Yes Each Factor Represents 1 point: Varicose veins Each Risk Factor Represents 3 Points: Age 75 years or older, History of DVT/PE Thrombosis Risk Factor Assessment Total Risk Factor Score: 7 Thrombosis Risk Factor Assessment Level: High Risk Assessment and Plan Assessment: Assessment and plan: 1. Severe hyponatremia likely related to the syndrome of inappropriate ADH secretion SIADH with a possibility of this chronic hyponatremia may be related t o a reset Osmostat. Patient is being maintained on 3% saline at 50 mL per hour and this was stopped and recheck her sodium again at 2:00 in the afternoon and base and that the decision would be made and how much sodium needs to be given to avoid rapid correction of her sodium to avoid central pontine myelinolysis. Nephrology consultation appreciated. Serum as well as was preloaded 231, urine sodium was 75 which fits the criteria for SIADH. 2. Grand mild chronic tonic seizure thought to be due to severe hyponatremia. Continue to correct her sodium level monitor the patient intensive care unit seizure precautions. 3. 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 Patient is currently on tidal volume 350 FiO2 of 40% and PEEP of 5 blood gases were reviewed, continue with current treatment as per pulmonary and critical care medicine. 4. Hypertension and hypertensive cardiovascular disease. Currently off her amlodipine. 5. Hyperlipidemia. Not on any statin. 6. Hypothyroidism. Resume Synthroid 50 g per orogastric tube once every day. 7. Chronic hyponatremia. Baseline sodium is at 128-29 8. GERD. Continue Protonix 40 mg IV push every 24 hours. 9. Atrial fibrillation. Seems to be chronic patient is not on any anticoagulation not clear of what is the reason may be recurrent falls. Monitor the patient very closely. 10. DVT prophylaxis. Continue heparin 5000 units subcu venously every 12 hours. 11. GI prophylaxis. Continue PPI. 12. Admit to inpatient. Estimate a length of stay 2 midnights. 13. Patient is full code.
[2019-01-29 17:04] LABS: African American GFR (CKD) >90 (>60 ml/min/1.73 sqM); Anion Gap 13 mmol/L; Blood Urea Nitrogen 7 mg/dL (7-17); Calcium 8.3 mg/dL (8.4-10.2); Carbon Dioxide 17 mmol/L (22-30); Chloride 82 mmol/L (98-107); Glucose 95 mg/dL (74-99)
[2019-01-29] MEDS ORDERED: TERBUTALINE 1 MG/ML VIAL SQ ONE (17:13)
[2019-01-29] MEDS ORDERED: TERBUTALINE 1 MG/ML VIAL SQ STA (17:43)
[2019-01-29 18:14] LABS: Glucose,Whole Blood 99 mg/dL (75-99)
[2019-01-29 19:47] LABS: ABG Base Excess -5.4 mmol/L; ABG HCO3 20 mmol/L (21-25); ABG Oxygen Saturation 99.3 % (94-97); ABG PCO2 33 mmHg (35-45); ABG PH 7.38 (7.35-7.45); ABG PO2 132 mmHg (83-108); ABG TCO2 21 mmol/L (19-24); Allen Test Performed? Yes
[2019-01-30 00:08] LABS: Glucose,Whole Blood 178 mg/dL (75-99)
[2019-01-30] MEDS: INSULIN ASPART (NovoLOG) 100 UNIT/ML VIAL SQ SCH ×5 (00:17→23:34)
[2019-01-30] MEDS: DEXTROSE 5% IN WATER 1,000 ML IV SCH ×2 (01:05→14:45)
[2019-01-30] MEDS: PROPOFOL 1,000 MG in EMPTY BAG 1 BAG IV SCH (04:08)
[2019-01-30] MEDS: NOREPINEPHRINE 4 MG in SODIUM CHLORIDE 0.9% 250 ML IV SCH (04:52)
[2019-01-30 06:09] LABS: ALT 18 U/L (9-52); AST 33 U/L (14-36); African American GFR (CKD) >90 (>60 ml/min/1.73 sqM); Albumin 3.3 g/dL (3.5-5.0); Alkaline Phosphatase 76 U/L (38-126); Anion Gap 10 mmol/L; Blood Urea Nitrogen 7 mg/dL (7-17); Calcium 8.5 mg/dL (8.4-10.2); Carbon Dioxide 17 mmol/L (22-30); Chloride 91 mmol/L (98-107); Glucose 180 mg/dL (74-99); Magnesium 1.8 mg/dL (1.6-2.3); Potassium 3.7 mmol/L (3.5-5.1); Total Bilirubin 0.6 mg/dL (0.2-1.3); Total Protein 5.9 g/dL (6.3-8.2)
[2019-01-30 06:12] LABS: Glucose,Whole Blood 150 mg/dL (75-99)
[2019-01-30 06:23] LABS: Sodium 118 mmol/L (137-145)
[2019-01-30] MEDS ORDERED: DESMOPRESSIN ACETATE 1 MCG in SODIUM CHLORIDE 0.9% 50 ML IVPB ONE (06:29)
[2019-01-30] MEDS ORDERED: POTASSIUM BICARBONATE/CIT AC 20 MEQ TABLET.EFF NG-TUBE SCH (07:00)
--- NOTE | 2019-01-30 07:17 | XR ---
EXAMINATION TYPE: XR chest 1V portable DATE OF EXAM: 01/30/2019 COMPARISON: 01/29/2019 HISTORY: SOB, Follow Up FINDINGS: Indwelling tubes and catheters are unchanged. No change in bibasilar opacities. Stable appearance of the cardio-mediastinal structures at this time. IMPRESSION: 1. Stable portable chest. Clinical correlation and follow up until resolution is recommended.
[2019-01-30] MEDS: HEPARIN SODIUM,PORCINE 5,000 UNIT/ML 1 ML VIAL SQ SCH ×3 (07:26→23:33)
[2019-01-30 07:56] LABS: ABG Base Excess -5.3 mmol/L; ABG HCO3 20 mmol/L (21-25); ABG Oxygen Saturation 99.5 % (94-97); ABG PCO2 34 mmHg (35-45); ABG PH 7.38 (7.35-7.45); ABG PO2 156 mmHg (83-108); ABG TCO2 21 mmol/L (19-24); Allen Test Performed? Yes
[2019-01-30] MEDS: CHLORHEXIDINE GLUCONATE 15 ML CUP MUCOUS MEM SCH (08:00)
[2019-01-30] MEDS: LACTULOSE 20 GM/30 ML CUP PO SCH ×3 (08:00→22:19)
[2019-01-30] MEDS: PANTOPRAZOLE 40 MG/10 ML VIAL IV SCH (08:00)
[2019-01-30 08:10] LABS: Basophils % (A) 0 %; Eosinophils % (A) 1 %; HCT 34.6 % (34.0-46.0); HGB 12.2 gm/dL (11.4-16.0); Lymphocytes # (A) 0.7 k/uL (1.0-4.8); Lymphocytes % (A) 7 %; MCH 29.6 pg (25.0-35.0); MCHC 35.4 g/dL (31.0-37.0); MCV 83.8 fL (80.0-100.0); Mean Platelet Volume 6.3; Monocytes # (A) 0.6 k/uL (0-1.0); Monocytes % (A) 6 %; Neutrophils # (A) 7.7 k/uL (1.3-7.7); Neutrophils % (A) 84 %; Platelet Count 185 k/uL (150-450); RBC 4.13 m/uL (3.80-5.40); RDW 13.7 % (11.5-15.5); WBC 9.2 k/uL (3.8-10.6)
[2019-01-30] MEDS: SODIUM BICARBONATE TAB 650 MG TAB PO SCH ×2 (09:44→22:19)
[2019-01-30 09:49] LABS: Potassium 3.1 mmol/L (3.5-5.1)
--- NOTE | 2019-01-30 09:59 | P.PN ---
Subjective Patient seen in follow-up for hyponatremia. Sodium level CXVIII this morning. She is currently maintained on D5W at 75 mL an hour and also received 1 g of DDAVP this morning. Patient is currently intubated and sedated. Family present at bedside. According to the daughter, patient drinks significant amount of water in her oral intake is fair. She is concerned that she is not able to care for her own and is trying to move her parents to a senior facility near her. Vital signs are stable. General: The patient appeared well nourished and normally developed. HEENT: Head exam is unremarkable. Neck is without jugular venous distension. I ntubated. LUNGS: Breath sounds decreased. HEART: Rate and Rhythm are regular. First and second heart sounds normal. No murmurs, rubs or gallops. ABDOMEN: Abdominal exam reveals normal bowel sounds. Non-tender and non- distended. No evidence of peritonitis. EXTREMITITES: No clubbing, cyanosis, or edema. Objective - Vital Signs Vital signs: Vital Signs Temp 97.3 F L 01/30/19 04:00 Pulse 65 01/30/19 07:15 Resp 20 01/30/19 07:15 BP 94/58 01/30/19 07:15 Pulse Ox 100 01/30/19 07:15 Intake & Output 01/29/19 01/30/19 01/30/19 18:59 06:59 18:59 Intake Total 634.789 9049.929 103.458 Output Total 1475 950 75 Balance -1326.571 137.929 28.458 Weight 49.1 kg 54.7 kg Intake: IV 145 450 75 3% 145 D5W 450 75 Intake, IV Titration 3.429 447.929 13.458 Amount Norepinephrine 4 mg In 286.602 13.458 Sodium Chloride 0.9% 250 ml @ 0.05 MCG/KG/MIN 9. 073 mls/hr IV .Q24H [facility] Rx#:[id number] Propofol 1,000 mg In 3.429 161.327 Empty Bag 1 bag @ Titrate IV .Q0M [facility] Rx#: [id number] Tube Feeding 100 15 Other 90 Output: Gastric Drainage 200 Urine 1275 950 75 Other: Voiding Method Indwelling Catheter Indwelling Catheter - Labs CBC & Chem 7: 01/30/19 07:35 01/30/19 05:46 Labs: Abnormal Lab Results - Last 24 Hours (Table) 01/29/19 01/29/19 01/29/19 Range/Units 09:12 09:12 14:01 Lymphocytes # (1.0-4.8) k/uL ABG pCO2 (35-45) mmHg ABG pO2 (83-108) mmHg ABG HCO3 (21-25) mmol/L ABG O2 Saturation (94-97) % Sodium 111 L* 112 L* (137-145) mmol/L Chloride 82 L (98-107) mmol/L Carbon Dioxide 17 L (22-30) mmol/L Creatinine 0.30 L (0.52-1.04) mg/dL Glucose (74-99) mg/dL POC Glucose (mg/dL) (75-99) mg/dL Uric Acid 1.9 L (3.7-7.4) mg/dL Calcium 8.3 L (8.4-10.2) mg/dL Total Protein (6.3-8.2) g/dL Albumin (3.5-5.0) g/dL 01/29/19 01/29/19 01/30/19 Range/Units 19:44 20:25 00:07 Lymphocytes # (1.0-4.8) k/uL ABG pCO2 33 L (35-45) mmHg ABG pO2 132 H (83-108) mmHg ABG HCO3 20 L (21-25) mmol/L ABG O2 Saturation 99.3 H (94-97) % Sodium 114 L* (137-145) mmol/L Chloride (98-107) mmol/L Carbon Dioxide (22-30) mmol/L Creatinine (0.52-1.04) mg/dL Glucose (74-99) mg/dL POC Glucose (mg/dL) 178 H (75-99) mg/dL Uric Acid (3.7-7.4) mg/dL Calcium (8.4-10.2) mg/dL Total Protein (6.3-8.2) g/dL Albumin (3.5-5.0) g/dL 01/30/19 01/30/19 01/30/19 Range/Units 00:36 05:46 06:00 Lymphocytes # (1.0-4.8) k/uL ABG pCO2 (35-45) mmHg ABG pO2 (83-108) mmHg ABG HCO3 (21-25) mmol/L ABG O2 Saturation (94-97) % Sodium 116 L* 118 L* (137-145) mmol/L Chloride 91 L (98-107) mmol/L Carbon Dioxide 17 L (22-30) mmol/L Creatinine 0.43 L (0.52-1.04) mg/dL Glucose 180 H (74-99) mg/dL POC Glucose (mg/dL) 150 H (75-99) mg/dL Uric Acid (3.7-7.4) mg/dL Calcium (8.4-10.2) mg/dL Total Protein 5.9 L (6.3-8.2) g/dL Albumin 3.3 L (3.5-5.0) g/dL 01/30/19 01/30/19 Range/Units 07:35 07:54 Lymphocytes # 0.7 L (1.0-4.8) k/uL ABG pCO2 34 L (35-45) mmHg ABG pO2 156 H (83-108) mmHg ABG HCO3 20 L (21-25) mmol/L ABG O2 Saturation 99.5 H (94-97) % Sodium (137-145) mmol/L Chloride (98-107) mmol/L Carbon Dioxide (22-30) mmol/L Creatinine (0.52-1.04) mg/dL Glucose (74-99) mg/dL POC Glucose (mg/dL) (75-99) mg/dL Uric Acid (3.7-7.4) mg/dL Calcium (8.4-10.2) mg/dL Total Protein (6.3-8.2) g/dL Albumin (3.5-5.0) g/dL Microbiology - Last 24 Hours (Table) 01/29/19 03:55 Gram Stain - Preliminary Sputum Sputum Culture - Preliminary Assessment and Plan Plan: Assessment: 1. Hyponatremia. Currently appears euvolemic. 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 Urine osmolality noted to be a little on the lower side at 268. 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 Most recent sodium level 120. 2. Fall and possible seizure due to hyponatremia. 3. Benign hypertension. Controlled. 4. Metabolic acidosis. 5. Hypokalemia from poor oral intake. Magnesium normal. Plan: Maintain tube feeding. Maintain D5W at 75 mL an hour; status post DDAVP this morning. Repeat sodium level at 3 PM. Wean FiO2. Avoid rapid correction of hyponatremia. Replace potassium. 60 mEq today. Follow-up brain CT. Neurology consulted as well.
[2019-01-30] MEDS ORDERED: POTASSIUM BICARBONATE/CIT AC 20 MEQ TABLET.EFF PO ONE ×2 (10:16→11:15)
--- NOTE | 2019-01-30 11:13 | P.PN ---
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 Patient had multiple admissions in the past for her hyponatremia, and she was seen by many consultants including nephrology for profound hyponatremia, last admission was about 2 months ago. noted that patient was confused, and unsteady on her feet. And at one point she was found to be extremely confused and covered with her own stool. EMS brought in the patient to the ER, and shortly after she arrived to the ER, patient was witnessed to have a grand mal seizure, given Ativan, and she was noted to be snoring and stuporous. Patient had a very prolonged postictal period, and the decision was made by the ER physician to intubate the patient for airways protection. Patient was intubated, placed on mechanical ventilation, and her sodium was noted to be as low as 109. Patient was placed on 3% saline, and she was admitted to the ICU. Hence I was asked to see her on consultation. Patient has been on propofol since admission to the ICU, and she is presently on assist control rate of 12 tidal volume of 350 FiO2 is 40% and PEEP is 5. ABG earlier this morning showed a pO2 of 204 pCO2 of 30 pH of 7.47. Patient required briefly norepinephrine for low blood pressure, but presently off norepinephrine, and she is maintained at 3% saline at 50 mL per hour. Repeat sodium this morning is 111. Patient had a sodium of 109 up on her initial presentation. Her serum osmolality was 231 and her urine osmolality was 268. Urine sodium was not done. Drug screen was negative. CT brain was unremarkable except for mild cerebral atrophy. Chest x-ray this morning showed no evidence of active disease. Patient was reevaluated today on 01/30/2019, remains on mechanical ventilation, presently on assist control rate of 10 tidal volume of 350 FiO2 of 30%, and PEEP of 5. ABG showed a pO2 of 156 pCO2 of 34 pH of 7.38. Sodium this morning was 118 and now it is 120. Patient is off 3% saline, received a liter of D5 45 yesterday followed by 500 mL of 0.9 ordered by nephrology. Patient was hypotensive and felt to be hypovolemic, responded well to volume replacement. Her sodium is in the 120 range this morning, patient is off the fall this morning, and I I am planning to wait until the patient wakes up, and possibly give the patient a weaning trial. Propofol has been off for almost half an hour, patient is difficult to arouse, hence I have recommended CT of the head to be done and considering the patient has no corneal reflex as noted earlier by nephrology, he recommended neurological evaluation. Patient will be going for a CT of the head in the next half hour. Family is at bedside, and they were updated on her condition. Chest x-ray was reviewed, seems to be fairly unremarkable. ABG seems to be fairly unremarkable. Patient was placed on IMV of 8 pressure support of 8 mode of mechanical ventilation, and once she is more awake and responsive, will likely give the patient a weaning trial assuming no neurological deficit. Objective - Vital Signs Vital signs: Vital Signs Temp 97.7 F 01/30/19 08:00 Pulse 75 01/30/19 10:15 Resp 13 01/30/19 10:15 BP 132/63 01/30/19 10:15 Pulse Ox 99 01/30/19 10:15 Intake & Output 01/29/19 01/30/19 01/30/19 18:59 06:59 18:59 Intake Total 031.527 2035.929 178.458 Output Total 1475 950 105 Balance -1326.571 137.929 73.458 Weight 49.1 kg 54.7 kg Intake: IV 145 450 150 3% 145 D5W 450 150 Intake, IV Titration 3.429 447.929 13.458 Amount Norepinephrine 4 mg In 286.602 13.458 Sodium Chloride 0.9% 250 ml @ 0.05 MCG/KG/MIN 9. 073 mls/hr IV .Q24H [facility] Rx#:[id number] Propofol 1,000 mg In 3.429 161.327 Empty Bag 1 bag @ Titrate IV .Q0M [facility] Rx#: [id number] Tube Feeding 100 15 Other 90 Output: Gastric Drainage 200 Urine 1275 950 105 Other: Voiding Method Indwelling Catheter Indwelling Catheter Indwelling Catheter - Exam Physical Exam: Revealed 88-year-old female, on mechanical ventilation, in no distress. Head: Atraumatic, normocephalic. Endotracheal tube and orogastric tube are intact. HEENT:[Neck is supple.] [No neck masses.] [No thyromegaly.] [No JVD.] Dry mucous membranes. Throat is clear, endotracheal tube is intact. Chest: [Clear throughout, no crackles, no rhonchi, no wheezes.] Cardiac Exam: [Normal S1 and S2, no S3 gallop, no murmur.] Abdomen: [Soft, nontender, no megaly, no rebound, no guarding, normal bowel sounds.] Extremities: [No clubbing, no edema, no cyanosis.] Good pulses bilaterally Neurological Exam: Difficult to assess, just discontinued propofol, no corneal reflex, patient is difficult to arouse, CT of the brain is pending. Psychiatric: Could not be assessed. Skin: Dry skin, poor skin turgor, no rashes. Lymphatics: No lymphadenopathy. - Labs CBC & Chem 7: 01/30/19 07:35 01/30/19 09:25 Labs: Abnormal Lab Results - Last 24 Hours (Table) 01/29/19 01/29/19 01/29/19 Range/Units 09:12 14:01 19:44 Lymphocytes # (1.0-4.8) k/uL ABG pCO2 33 L (35-45) mmHg ABG pO2 132 H (83-108) mmHg ABG HCO3 20 L (21-25) mmol/L ABG O2 Saturation 99.3 H (94-97) % Sodium 112 L* (137-145) mmol/L Potassium (3.5-5.1) mmol/L Chloride 82 L (98-107) mmol/L Carbon Dioxide 17 L (22-30) mmol/L Creatinine 0.30 L (0.52-1.04) mg/dL Glucose (74-99) mg/dL POC Glucose (mg/dL) (75-99) mg/dL Uric Acid 1.9 L (3.7-7.4) mg/dL Calcium 8.3 L (8.4-10.2) mg/dL Total Protein (6.3-8.2) g/dL Albumin (3.5-5.0) g/dL 01/29/19 01/30/19 01/30/19 Range/Units 20:25 00:07 00:36 Lymphocytes # (1.0-4.8) k/uL ABG pCO2 (35-45) mmHg ABG pO2 (83-108) mmHg ABG HCO3 (21-25) mmol/L ABG O2 Saturation (94-97) % Sodium 114 L* 116 L* (137-145) mmol/L Potassium (3.5-5.1) mmol/L Chloride (98-107) mmol/L Carbon Dioxide (22-30) mmol/L Creatinine (0.52-1.04) mg/dL Glucose (74-99) mg/dL POC Glucose (mg/dL) 178 H (75-99) mg/dL Uric Acid (3.7-7.4) mg/dL Calcium (8.4-10.2) mg/dL Total Protein (6.3-8.2) g/dL Albumin (3.5-5.0) g/dL 01/30/19 01/30/19 01/30/19 Range/Units 05:46 06:00 07:35 Lymphocytes # 0.7 L (1.0-4.8) k/uL ABG pCO2 (35-45) mmHg ABG pO2 (83-108) mmHg ABG HCO3 (21-25) mmol/L ABG O2 Saturation (94-97) % Sodium 118 L* (137-145) mmol/L Potassium (3.5-5.1) mmol/L Chloride 91 L (98-107) mmol/L Carbon Dioxide 17 L (22-30) mmol/L Creatinine 0.43 L (0.52-1.04) mg/dL Glucose 180 H (74-99) mg/dL POC Glucose (mg/dL) 150 H (75-99) mg/dL Uric Acid (3.7-7.4) mg/dL Calcium (8.4-10.2) mg/dL Total Protein 5.9 L (6.3-8.2) g/dL Albumin 3.3 L (3.5-5.0) g/dL 01/30/19 01/30/19 Range/Units 07:54 09:25 Lymphocytes # (1.0-4.8) k/uL ABG pCO2 34 L (35-45) mmHg ABG pO2 156 H (83-108) mmHg ABG HCO3 20 L (21-25) mmol/L ABG O2 Saturation 99.5 H (94-97) % Sodium 120 L (137-145) mmol/L Potassium 3.1 L (3.5-5.1) mmol/L Chloride (98-107) mmol/L Carbon Dioxide (22-30) mmol/L Creatinine (0.52-1.04) mg/dL Glucose (74-99) mg/dL POC Glucose (mg/dL) (75-99) mg/dL Uric Acid (3.7-7.4) mg/dL Calcium (8.4-10.2) mg/dL Total Protein (6.3-8.2) g/dL Albumin (3.5-5.0) g/dL Microbiology - Last 24 Hours (Table) 01/29/19 03:55 Gram Stain - Preliminary Sputum Sputum Culture - Preliminary Assessment and Plan Assessment: Impression: 1 Severe hyponatremia, chronic and recurrent. exact etiology is not clear, patient is hypovolemic based on my clinical examination, however she had history of hyponatremia when she was euvolemic. The differential diagnoses includes hyponatremia secondary to diuretics, that is hypovolemic hyponatremia, although the possibility of chronic SIADH is not entirely ruled out. At one point the patient had hyponatremia secondary to psychogenic polydipsia With extremely low urine sodium and extremely low urine osmolality. 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 4 Multiple comorbidities including type 2 diabetes, dyslipidemia, hypertension, remote history of pulmonary embolism, hypothyroidism, on replacement therapy. previous history of seizure in 2004, not certain whether it was related to hyponatremia or not. Recommendation: Continue ventilatory support. Patient was switched to D5W at 75 ML per hour at present, and was trying to avoid rapid correction of hyponatremia. GI and DVT prophylaxis. Discontinue all sedatives and narcotics and follow neurological status closely. May need a CT of the head. And neurologic evaluation. Continue to monitor the sodium closely avoid rapid correction as much as po ssible. Resume home meds including her thyroid replacement therapy. Family is all at bedside including her and daughter, as well as a sister, discussed her condition with all of them, I have recommended switching from assist-control mode of mechanical ventilation to IMV mode, along with pres sure support, I have instructed to continue holding cold narcotics and sedatives, I have instructed to have a CT of the head, and again depending on her neurological status, may give the patient a weaning trial later this afternoon. Patient remains critically ill, and critical care time is 37 minut es. Time with Patient: Greater than 30
[2019-01-30 11:46] LABS: Glucose,Whole Blood 132 mg/dL (75-99)
--- NOTE | 2019-01-30 14:01 | CT ---
EXAMINATION TYPE: CT brain wo con DATE OF EXAM: 01/30/2019 COMPARISON: 01/29/2019 INDICATION: Altered mental status changes DLP: 1252.4 mGycm, Automated exposure control for dose reduction was used. CONTRAST: None CT of the brain is performed utilizing 3 mm thick sections through the posterior fossa and 3 mm thick sections through the remaining calvarium. Study is performed within 24 hours of arrival to the hosp [facility]. No abnormal hyperdensity is present to suggest an acute intracranial hemorrhage. No mass lesion is evident. No acute infarcts are evident. Ventricles and sulci are a bit prominent for the patient age. The nasal sinuses and mastoid air cells within the field of view are clear. IMPRESSIONS: 1. Age-related atrophy
--- NOTE | 2019-01-30 14:19 | P.CNNES ---
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 According to electronic medical records, the evening prior to her arrival, she had gone to bed in usual state of health. woke up and found her on the ground, confused, word in her own stool. He did not hear any fall. Patient was brought to the hospital. Patient apparently had a seizure after which she was intubated. Patient had a computed tomography scan of head, which revealed mild cerebral atrophy with no acute process. CT of the cervical spine shows spondylotic changes in the lower cervical spine. Degenerative disc changes in the lower cervical spine. EKG showed atrial fibrillation with left axis deviation. Chest x-ray showed no acute cardiopulmonary disease. Patient's sodium was 109, which dropped down to 107, then 111. The most recent sodium is 120 today. Patient continues to very encephalopathic, intubated. Neurology consulted for altered mental status. No seizures have been observed by the nursing staff. Yesterday, when they were putting an IV line, patient was shivering, which possibly was performed being cold, did not appear seizure to the nurse. Patient has been on propofol 75 g, which was finally discontinued today at 9:30 AM. Patient is starting to show some response as per examination below. According to the family members, patient had history of a seizure in 2004, which was related to hyponatremia. She had other bouts of hyponatremia but was never associated with seizures, never as low as 107 as this time. Patient had a carotid Doppler on 08/16/2018, which showed 30% stenosis in both ICAs. Antegrade flow in both vertebral arteries. Patient also had an EEG on 08/16/2018 which was normal. Review of Systems ROS unobtainable: due to endotracheal tube, due to mental status Past Medical History Past Medical History: Atrial Fibrillation, Diabetes Mellitus, Hyperlipidemia, Hypertension, Pulmonary Embolus (PE), Thyroid Disorder Additional Past Medical History / Comment(s): had a siezure in 2004, pt states her NA+ was to low, dysphagia History of Any Multi-Drug Resistant Organisms: MRSA Date of last positivie culture/infection: 02/21/2014 MDRO Source:: Face Past Surgical History: Bladder Surgery, Hysterectomy Past Anesthesia/Blood Transfusion Reactions: No Reported Reaction Past Psychological History: Anxiety, Depression Smoking Status: Never smoker Past Alcohol Use History: None Reported Past Drug Use History: None Reported - Past Family History Father Family Medical History: CVA/TIA, Hypertension Additional Family Medical History / Comment(s): brain anyruisum Mother Family Medical History: Hypertension Medications and Allergies Home Medications Medication Instructions Recorded Confirmed Type Levothyroxine Sodium [Synthroid] 50 mcg PO DAILY 07/26/18 01/29/19 History amLODIPine [Norvasc] 5 mg PO DAILY 07/26/18 01/29/19 History Ranitidine HCl [Zantac] 150 mg PO BID 08/12/18 01/29/19 History Sodium Chloride Tab 1 gm PO BID #60 tablet 11/11/18 01/29/19 Rx Furosemide [Lasix] 20 mg PO DAILY 01/15/19 01/29/19 History Allergies Allergy/AdvReac Type Severity Reaction Status Date / Time Penicillins Allergy Rash/Hives Verified 01/29/19 07:40 Physical Examination - Vital Signs Vital Signs: Vital Signs Temp Pulse Resp BP Pulse Ox 01/30/19 13:45 90 11 L 132/76 99 01/30/19 13:30 93 14 135/68 99 01/30/19 13:00 121/88 01/30/19 12:45 121/88 01/30/19 12:30 133/88 99 01/30/19 12:15 89 18 134/89 99 01/30/19 12:01 98.2 F 71 13 127/69 100 01/30/19 11:45 73 14 134/80 99 01/30/19 11:30 75 22 126/74 99 01/30/19 11:15 87 16 134/80 100 01/30/19 11:00 75 11 L 139/76 100 01/30/19 10:45 71 13 135/78 100 01/30/19 10:30 76 13 141/76 100 01/30/19 10:15 75 13 132/63 99 01/30/19 10:00 75 13 121/83 99 01/30/19 09:45 70 17 118/62 99 01/30/19 09:30 63 14 125/74 99 01/30/19 09:15 73 12 125/69 99 01/30/19 09:00 72 12 113/60 99 01/30/19 08:45 67 15 97/59 99 01/30/19 08:30 71 23 108/61 99 01/30/19 08:15 68 14 108/61 100 01/30/19 08:00 97.7 F 68 12 116/66 100 01/30/19 07:45 65 15 104/61 100 01/30/19 07:30 63 20 100/58 100 01/30/19 07:15 65 20 94/58 100 01/30/19 07:00 70 21 96/59 99 01/30/19 06:45 71 16 103/55 100 01/30/19 06:30 73 17 105/67 99 01/30/19 06:15 71 20 147/73 99 01/30/19 06:00 68 19 127/61 100 01/30/19 05:45 62 21 112/61 100 01/30/19 05:30 71 20 91/74 100 01/30/19 05:15 63 17 90/64 100 01/30/19 05:00 68 19 98/54 99 01/30/19 04:45 72 18 110/57 99 01/30/19 04:30 64 20 107/52 99 01/30/19 04:00 97.3 F L 71 21 136/60 100 01/30/19 03:45 62 22 136/72 100 01/30/19 03:30 73 22 111/67 100 01/30/19 03:15 65 20 98/56 99 01/30/19 03:00 68 20 110/60 99 01/30/19 02:45 73 21 101/55 99 01/30/19 02:30 70 20 85/51 99 01/30/19 02:15 69 22 117/54 99 01/30/19 02:00 67 19 76/47 99 01/30/19 01:45 80 21 109/60 99 01/30/19 01:30 77 20 123/61 99 01/30/19 01:15 81 19 128/67 100 01/30/19 01:00 73 17 96/52 99 01/30/19 00:45 82 18 123/57 98 01/30/19 00:30 85 20 93/59 97 01/30/19 00:15 78 22 98/53 99 01/30/19 00:00 97.5 F L 71 15 119/56 99 01/29/19 23:45 80 16 111/60 99 01/29/19 23:30 75 14 101/56 99 01/29/19 23:15 74 15 94/54 99 01/29/19 23:00 74 16 80/46 99 01/29/19 22:45 81 17 86/49 99 01/29/19 22:30 75 15 87/53 99 01/29/19 22:15 89 20 116/54 99 01/29/19 22:00 79 23 126/62 99 01/29/19 21:45 96 17 69/37 99 01/29/19 21:30 89 14 105/61 99 01/29/19 21:15 81 17 76/55 99 01/29/19 21:00 84 16 95/52 99 01/29/19 20:45 82 17 101/55 90 L 01/29/19 20:30 93 15 102/60 99 01/29/19 20:15 93 17 104/61 99 01/29/19 20:00 97.3 F L 92 19 77/43 99 01/29/19 19:15 112 H 11 L 106/68 98 01/29/19 19:00 104 H 14 115/68 98 01/29/19 18:45 105 H 16 93/50 98 01/29/19 18:30 90 16 123/81 92 L 01/29/19 18:15 102 H 11 L 114/58 98 01/29/19 18:00 102 H 15 149/65 97 01/29/19 17:45 82 28 H 148/77 99 01/29/19 17:30 73 15 137/73 01/29/19 17:15 65 10 L 109/63 99 01/29/19 17:00 66 18 98/64 98 01/29/19 16:45 73 19 82/64 98 01/29/19 16:30 76 19 68/49 98 01/29/19 16:15 78 20 72/45 98 01/29/19 16:00 75 19 93/68 99 01/29/19 15:45 79 17 132/81 98 01/29/19 15:30 73 13 132/70 98 01/29/19 15:15 70 11 L 136/77 99 01/29/19 15:00 74 11 L 129/89 99 01/29/19 14:45 69 11 L 136/73 99 01/29/19 14:30 74 11 L 134/72 99 01/29/19 14:15 68 14 136/75 99 01/29/19 14:00 72 11 L 136/76 98 Intake and Output 01/29/19 01/30/19 01/30/19 22:59 06:59 14:59 Intake Total 299.580 788.349 568.458 Output Total 1020 580 180 Balance -720.420 208.349 388.458 Intake: IV 450 525 D5W 450 525 Intake, IV Titration 239.580 208.349 13.458 Amount Norepinephrine 4 mg In 178.253 108.349 13.458 Sodium Chloride 0.9% 250 ml @ 0.05 MCG/KG/MIN 9. 073 mls/hr IV .Q24H DYLAN Rx#:[id number] Propofol 1,000 mg In 61.327 100 Empty Bag 1 bag @ Titrate IV .Q0M DYLAN Rx#: [id number] Tube Feeding 30 70 30 Other 30 60 Output: Urine 1020 580 180 Other: Voiding Method Indwelling Catheter Indwelling Catheter Indwelling Catheter Weight 54.7 kg On examination patient is intubated. Sedation has been stopped since 9:30 AM today. Patient did not respond to calling her name. On opening her eyes manually, pupils are round and reacting. Oculocephalics are present. Patient did wake up slightly, tried to open her eyes, but then close it again. She tried to form some words by moving her lips, which was not comprehensible. Tone is equal bilaterally. Reflexes are 1+ and plantars are possible down versus withdrawal. Tone is equal bilaterally. Face is symmetric. No obvious seizure activity noticed. No obvious bruit or murmur. Results Patient's hemoglobin A1c is 5.8 on 08/22/2018. Troponin negative. TSH 3.38 he had free T4 normal. UA negative. - Laboratory Findings CBC and BMP: 01/30/19 07:35 01/30/19 09:25 Abnormal Lab Findings: Abnormal Labs 01/29/19 01/29/19 01/29/19 01:18 01:18 01:18 RBC Hgb 10.5 L Hct MCH 24.2 L MCHC 28.5 L Neutrophils # 8.6 H Lymphocytes # 0.8 L ABG pH ABG pCO2 ABG pO2 ABG HCO3 ABG O2 Saturation Sodium 109 L* Potassium Chloride 75 L Carbon Dioxide 14 L Creatinine 0.41 L Glucose 213 H POC Glucose (mg/dL) Osmolality Uric Acid Calcium AST 43 H Ammonia 69 H Total Protein Albumin Urine Glucose (UA) Urine Ketones 01/29/19 01/29/19 01/29/19 01:18 01:25 02:26 RBC Hgb Hct MCH MCHC Neutrophils # Lymphocytes # ABG pH ABG pCO2 30 L ABG pO2 >400 H ABG HCO3 20 L ABG O2 Saturation 100.0 H Sodium Potassium Chloride Carbon Dioxide Creatinine Glucose POC Glucose (mg/dL) Osmolality 231 L* Uric Acid Calcium AST Ammonia Total Protein Albumin Urine Glucose (UA) 3+ H Urine Ketones 1+ H 01/29/19 01/29/19 01/29/19 03:50 05:01 05:04 RBC 3.57 L Hgb 10.4 L Hct 30.3 L MCH MCHC Neutrophils # Lymphocytes # 0.5 L ABG pH ABG pCO2 ABG pO2 ABG HCO3 ABG O2 Saturation Sodium 107 L* Potassium 3.2 L Chloride 79 L Carbon Dioxide 19 L Creatinine 0.29 L Glucose 110 H POC Glucose (mg/dL) 126 H Osmolality Uric Acid Calcium 7.7 L AST Ammonia Total Protein Albumin Urine Glucose (UA) Urine Ketones 01/29/19 01/29/19 01/29/19 06:25 09:12 09:12 RBC Hgb Hct MCH MCHC Neutrophils # Lymphocytes # ABG pH ABG pCO2 ABG pO2 ABG HCO3 ABG O2 Saturation Sodium 111 L* Potassium Chloride Carbon Dioxide Creatinine Glucose POC Glucose (mg/dL) 106 H Osmolality Uric Acid 1.9 L Calcium AST Ammonia Total Protein Albumin Urine Glucose (UA) Urine Ketones 01/29/19 01/29/19 01/29/19 09:22 14:01 19:44 RBC Hgb Hct MCH MCHC Neutrophils # Lymphocytes # ABG pH 7.47 H ABG pCO2 30 L 33 L ABG pO2 204 H 132 H ABG HCO3 20 L ABG O2 Saturation 99.7 H 99.3 H Sodium 112 L* Potassium Chloride 82 L Carbon Dioxide 17 L Creatinine 0.30 L Glucose POC Glucose (mg/dL) Osmolality Uric Acid Calcium 8.3 L AST Ammonia Total Protein Albumin Urine Glucose (UA) Urine Ketones 01/29/19 01/30/19 01/30/19 20:25 00:07 00:36 RBC Hgb Hct MCH MCHC Neutrophils # Lymphocytes # ABG pH ABG pCO2 ABG pO2 ABG HCO3 ABG O2 Saturation Sodium 114 L* 116 L* Potassium Chloride Carbon Dioxide Creatinine Glucose POC Glucose (mg/dL) 178 H Osmolality Uric Acid Calcium AST Ammonia Total Protein Albumin Urine Glucose (UA) Urine Ketones 01/30/19 01/30/19 01/30/19 05:46 06:00 07:35 RBC Hgb Hct MCH MCHC Neutrophils # Lymphocytes # 0.7 L ABG pH ABG pCO2 ABG pO2 ABG HCO3 ABG O2 Saturation Sodium 118 L* Potassium Chloride 91 L Carbon Dioxide 17 L Creatinine 0.43 L Glucose 180 H POC Glucose (mg/dL) 150 H Osmolality Uric Acid Calcium AST Ammonia Total Protein 5.9 L Albumin 3.3 L Urine Glucose (UA) Urine Ketones 01/30/19 01/30/19 01/30/19 07:54 09:25 11:44 RBC Hgb Hct MCH MCHC Neutrophils # Lymphocytes # ABG pH ABG pCO2 34 L ABG pO2 156 H ABG HCO3 20 L ABG O2 Saturation 99.5 H Sodium 120 L Potassium 3.1 L Chloride Carbon Dioxide Creatinine Glucose POC Glucose (mg/dL) 132 H Osmolality Uric Acid Calcium AST Ammonia Total Protein Albumin Urine Glucose (UA) Urine Ketones Assessment and Plan Assessment: * Altered mental status, likely due to toxic metabolic encephalopathy. Patient has severe hyponatremia, which is the likely cause. * Seizure, likely due to severe hyponatremia with sodium 107. * Probable SIADH. * Acute hypoxic respiratory failure, due to above. Plan: * We will check EEG to evaluate for encephalopathy, rule out partial status. * Her computed tomography scan of head performed just now was negative for any acute process. * Patient's sedation has been turned off few hours ago. Her mentation will also improve with improvement in the sodium level. However I would avoid rapid correction to prevent neurologic complications like central pontine myelinolysis. * No indication for antiepileptic medication at this time, unless patient has recurrent seizures or EEG is epileptiform. * We will follow clinically. Discussed with family in detail. * Thank you very much for allowing me to participate in care of your patient.
--- NOTE | 2019-01-30 14:24 | CDI ---
Documentation Clarification Form Date: 01/30/2019 2:04:44 PM From: Itzel Kessler RN CDS Admit Date: 01/29/2019 2:38:00 AM Patient Name: She Maloney Visit Number: [id number] Discharge Date: ATTENTION: The Clinical Documentation Specialists (CDI) and [facility] Coding Staff appreciate your assistance in clarifying documentation. Please respond to the clarification below the line at the bottom and electronically sign. The CDI & [facility] Coding staff will review the response and follow-up if needed. Please note: Queries are made part of the Legal Health Record. If you have any questions, please contact the author of this message via ITS. Dr. Gucci Villareal brought to the Emergency Room department to day via EMS for evaluation of altered mental status and possible fall ED report 01/2319 apparently the patient was found confused by her making sense in your H & P 01/29/2019 History/Risk Factors: 88-year-old female presents to the ED via EMS for altered mental status and possible fall. Medical history DM Clinical Indicators: Noted in the ICU Digital Media Specialist PN 01/30/19 the patient has been admitted in the past for hyponatremia. Labs: Na 01/29 0118 - 109; 0501 -107; 0912 - 111; 1401 - 112; CT brain 01/29/19 mild cerebral atrophy no acute intracranial abnormality Treatment: 01/29/19 0.9 ns 500cc/bolus; Saline 3% 500cc @ 50cchr ; Saline 3% 35cchr; ICU admission In your professional opinion, please clarify the etiology of the Altered Mental Status / Confusion, if known. * Metabolic Encephalopathy due to Hyponatremia * Other condition (please specify) * Unable to determine (Last Revision: July 2017) Metabolic encephalopathy due to hyponatremia MTDD
--- NOTE | 2019-01-30 15:09 | P.PN ---
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 in the past was hospitalized multiple time into [facility] recently the past month for significant hyponatremia as well apparently the patient was found confused by her making sense and at certain point she was covered by her own stool she ended up the coming to the emergency department via EMS at [facility] and while she was in the emergency department she was found to have a sodium of 107 shortly after that the patient developed to have a clonic tonic grand mal seizure she was given Ativan and the patient became less responsive with prolonged postictal state she was seen by Dr. Monae in the ER and the decision was made to intubate the patient in the yard for production of the airways and the patient was started initially on normal saline followed by 3% saline at 25 mL per hour that was increased to 15 per hour and she was admitted to intensive care unit with consultation to pulmonary/critical care as well as nephrology and the patient had computed tomography scan of brain that did show brain atrophy without michael dence of acute abnormalities chest x-ray did not show any evidence of acute of normalities patient was admitted intensive care unit as a stated above for further evaluation and treatment. 01/30: Patient remains intubated and on mechanical ventilation in the intensive care unit. She is currently off sedation for the past 3 hours for weaning trial. Sodium this morning was 118 and repeat 120. Patient is off 3% saline, received a liter of D5 45 yesterday followed by 500 mL of 0.9 ordered by nephr ology. Patient was hypotensive. She had difficulty arousing and initially no corneal reflex which has returned. CT of the head has been ordered for today and patient has been seen by neurology with plan for EEG. Patient's family have been updated in the waiting room. Daughter is concerned that her parents need to live closer to her and in a more controlled setting. Patient's family will be meeting with social work at some point to make discharge plan. Review of Systems ROS unobtainable: due to endotracheal tube Objective - Vital Signs Vital signs: Vital Signs Temp 97.7 F 01/30/19 08:00 Pulse 75 01/30/19 10:15 Resp 13 01/30/19 10:15 BP 132/63 01/30/19 10:15 Pulse Ox 99 01/30/19 10:15 Intake & Output 01/29/19 01/30/19 01/30/19 18:59 06:59 18:59 Intake Total 452.067 0632.929 268.458 Output Total 1475 950 150 Balance -1326.571 137.929 118.458 Weight 49.1 kg 54.7 kg Intake: IV 145 450 225 3% 145 D5W 450 225 Intake, IV Titration 3.429 447.929 13.458 Amount Norepinephrine 4 mg In 286.602 13.458 Sodium Chloride 0.9% 250 ml @ 0.05 MCG/KG/MIN 9. 073 mls/hr IV .Q24H DYLAN Rx#:[id number] Propofol 1,000 mg In 3.429 161.327 Empty Bag 1 bag @ Titrate IV .Q0M DYLAN Rx#: [id number] Tube Feeding 100 30 Other 90 Output: Gastric Drainage 200 Urine 1275 950 150 Other: Voiding Method Indwelling Catheter Indwelling Catheter Indwelling Catheter - Exam HEENT: Head is atraumatic, nurse hepatic, pupils were small and sluggish reaction to light sclera nonicteric conjunctiva are pale there is oral gastric tube in place and ET tube in place. Neck: Supple, no JVP, decreased carotid upstroke bilaterally. Chest: Decreased breath sound at the bases, few rhonchi, next 30 wheezes, no chest wall tenderness, no intercostal retractions. Heart: First heart sound is depressed, second heart sound is normal, irregular irregular to date her fibrillation there is systolic ejection murmur 2/6 located in the lesser border. Abdomen: Soft, nontender, nondistended, depressed bowel sounds. Extremities: No edema no calf tenderness, dorsalis pedis +1 bilaterally. Neurologic examination: Patient is currently on the ventilator. - Labs CBC & Chem 7: 01/30/19 07:35 01/30/19 09:25 Labs: Abnormal Lab Results - Last 24 Hours (Table) 01/29/19 01/29/19 01/29/19 Range/Units 14:01 19:44 20:25 Lymphocytes # (1.0-4.8) k/uL ABG pCO2 33 L (35-45) mmHg ABG pO2 132 H (83-108) mmHg ABG HCO3 20 L (21-25) mmol/L ABG O2 Saturation 99.3 H (94-97) % Sodium 112 L* 114 L* (137-145) mmol/L Potassium (3.5-5.1) mmol/L Chloride 82 L (98-107) mmol/L Carbon Dioxide 17 L (22-30) mmol/L Creatinine 0.30 L (0.52-1.04) mg/dL Glucose (74-99) mg/dL POC Glucose (mg/dL) (75-99) mg/dL Calcium 8.3 L (8.4-10.2) mg/dL Total Protein (6.3-8.2) g/dL Albumin (3.5-5.0) g/dL 01/30/19 01/30/19 01/30/19 Range/Units 00:07 00:36 05:46 Lymphocytes # (1.0-4.8) k/uL ABG pCO2 (35-45) mmHg ABG pO2 (83-108) mmHg ABG HCO3 (21-25) mmol/L ABG O2 Saturation (94-97) % Sodium 116 L* 118 L* (137-145) mmol/L Potassium (3.5-5.1) mmol/L Chloride 91 L (98-107) mmol/L Carbon Dioxide 17 L (22-30) mmol/L Creatinine 0.43 L (0.52-1.04) mg/dL Glucose 180 H (74-99) mg/dL POC Glucose (mg/dL) 178 H (75-99) mg/dL Calcium (8.4-10.2) mg/dL Total Protein 5.9 L (6.3-8.2) g/dL Albumin 3.3 L (3.5-5.0) g/dL 01/30/19 01/30/19 01/30/19 Range/Units 06:00 07:35 07:54 Lymphocytes # 0.7 L (1.0-4.8) k/uL ABG pCO2 34 L (35-45) mmHg ABG pO2 156 H (83-108) mmHg ABG HCO3 20 L (21-25) mmol/L ABG O2 Saturation 99.5 H (94-97) % Sodium (137-145) mmol/L Potassium (3.5-5.1) mmol/L Chloride (98-107) mmol/L Carbon Dioxide (22-30) mmol/L Creatinine (0.52-1.04) mg/dL Glucose (74-99) mg/dL POC Glucose (mg/dL) 150 H (75-99) mg/dL Calcium (8.4-10.2) mg/dL Total Protein (6.3-8.2) g/dL Albumin (3.5-5.0) g/dL 01/30/19 01/30/19 Range/Units 09:25 11:44 Lymphocytes # (1.0-4.8) k/uL ABG pCO2 (35-45) mmHg ABG pO2 (83-108) mmHg ABG HCO3 (21-25) mmol/L ABG O2 Saturation (94-97) % Sodium 120 L (137-145) mmol/L Potassium 3.1 L (3.5-5.1) mmol/L Chloride (98-107) mmol/L Carbon Dioxide (22-30) mmol/L Creatinine (0.52-1.04) mg/dL Glucose (74-99) mg/dL POC Glucose (mg/dL) 132 H (75-99) mg/dL Calcium (8.4-10.2) mg/dL Total Protein (6.3-8.2) g/dL Albumin (3.5-5.0) g/dL Microbiology - Last 24 Hours (Table) 01/29/19 03:55 Gram Stain - Preliminary Sputum Sputum Culture - Preliminary Assessment and Plan Plan: 1. Severe hyponatremia likely related to the syndrome of inappropriate ADH secretion SIADH with a possibility of this chronic hyponatremia may be related to a reset Osmostat. Patient is off 3% saline. Currently on D5W at 75 mL per hour, status post desmopressin. Nephrology consultation appreciated. 2. Grand mild chronic tonic seizure thought to be due to severe hyponatremia. Continue to correct her sodium level monitor the patient intensive care unit seizure precautions. Neurology consult appreciated. Patient is scheduled for CAT scan of the brain today. 3. 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 Continue with current treatment as per pulmonary and critical care medicine. 4. Hypertension and hypertensive cardiovascular disease. Currently off her amlodipine. 5. Hyperlipidemia. Not on any statin. 6. Hypothyroidism. Resume Synthroid 50 g per orogastric tube once every day. 7. Chronic hyponatremia. Baseline sodium is at 128-29 8. GERD. Continue Protonix 40 mg IV push every 24 hours. 9. Atrial fibrillation. Seems to be chronic patient is not on any anticoagulation not clear of what is the reason may be recurrent falls. Monitor the patient very closely. 10. DVT prophylaxis. Continue heparin 5000 units subcu venously every 12 hours. 11. GI prophylaxis. Continue PPI. 12. Patient is full code. Impression and plan of care have been directed as dictated by the signing physician. Samantha Griffith nurse practitioner acting as scribe for signing physician.
[2019-01-30 18:19] LABS: ABG Base Excess -1.7 mmol/L; ABG HCO3 22 mmol/L (21-25); ABG Oxygen Saturation 99.7 % (94-97); ABG PCO2 28 mmHg (35-45); ABG PH 7.49 (7.35-7.45); ABG PO2 131 mmHg (83-108); ABG TCO2 23 mmol/L (19-24); Allen Test Performed? Yes
[2019-01-30] MEDS: SODIUM CHLORIDE 0.9% 1,000 ML IV SCH (22:20)
[2019-01-30 23:34] LABS: Glucose,Whole Blood 92 mg/dL (75-99)
[2019-01-31] MEDS: NOREPINEPHRINE 4 MG in SODIUM CHLORIDE 0.9% 250 ML IV SCH (05:37)
[2019-01-31 05:49] LABS: Basophils % (A) 0 %; Eosinophils % (A) 1 %; HCT 34.1 % (34.0-46.0); Lymphocytes # (A) 0.4 k/uL (1.0-4.8); Lymphocytes % (A) 9 %; MCH 29.3 pg (25.0-35.0); MCHC 35.3 g/dL (31.0-37.0); Mean Platelet Volume 5.9; Monocytes # (A) 0.2 k/uL (0-1.0); Monocytes % (A) 4 %; Neutrophils # (A) 4.2 k/uL (1.3-7.7); Neutrophils % (A) 84 %; Platelet Count 174 k/uL (150-450); RBC 4.11 m/uL (3.80-5.40); RDW 13.8 % (11.5-15.5)
[2019-01-31 06:01] LABS: African American GFR (CKD) >90 (>60 ml/min/1.73 sqM); Anion Gap 9 mmol/L; Blood Urea Nitrogen 3 mg/dL (7-17); Calcium 8.1 mg/dL (8.4-10.2); Carbon Dioxide 20 mmol/L (22-30); Chloride 90 mmol/L (98-107); Glucose 89 mg/dL (74-99); Potassium 3.7 mmol/L (3.5-5.1)
[2019-01-31 06:02] LABS: Sodium 119 mmol/L (137-145)
[2019-01-31 06:33] LABS: Glucose,Whole Blood 82 mg/dL (75-99)
[2019-01-31] MEDS: POTASSIUM CHLORIDE 10 MEQ in WATER FOR INJECTION 1 100ML.BAG IVPB SCH ×4 (06:39→12:33)
--- NOTE | 2019-01-31 07:14 | XR ---
EXAMINATION TYPE: XR chest 1V portable DATE OF EXAM: 01/31/2019 CLINICAL HISTORY: Difficulty breathing progress study. TECHNIQUE: Single AP portable upright view of the chest is obtained. COMPARISON: Chest x-ray from one day earlier and older studies. FINDINGS: Interval extubation with removal of endotracheal and orogastric tubes. Cardiac silhouette size is stable and enlarged with atherosclerotic aortic knob. Lungs are grossly clear without pleural effusion or pneumothorax. Osseous structures are intact. IMPRESSION: Interval extubation. Cardiomegaly without suspicious acute pulmonary process.
[2019-01-31] MEDS: INSULIN ASPART (NovoLOG) 100 UNIT/ML VIAL SQ SCH ×3 (07:28→19:30)
--- NOTE | 2019-01-31 08:12 | P.PN ---
Subjective Patient seen in follow-up for hyponatremia. Sodium level 119 this morning. She is currently maintained on 0.9 normal saline at 75 mL an hour. She was extubated on January 30. Currently on BiPAP. Remains quite lethargic. Vital signs are stable. General: The patient appeared well nourished and normally developed. HEENT: Head exam is unremarkable. Neck is without jugular venous distension. LUNGS: Breath sounds decreased. HEART: Rate and Rhythm are regular. First and second heart sounds normal. No murmurs, rubs or gallops. ABDOMEN: Abdominal exam reveals normal bowel sounds. Non-tender and non- distended. No evidence of peritonitis. EXTREMITITES: No clubbing, cyanosis, or edema. Objective - Vital Signs Vital signs: Vital Signs Temp 98.4 F 01/31/19 04:00 Pulse 86 01/31/19 07:00 Resp 20 01/31/19 07:00 BP 91/54 01/31/19 07:00 Pulse Ox 96 01/31/19 07:00 Intake & Output 01/30/19 01/31/19 01/31/19 18:59 06:59 18:59 Intake Total 763.458 675 75 Output Total 285 720 100 Balance 478.458 -45 -25 Weight 54.7 kg 51.8 kg Intake: IV 675 675 75 D5W 675 Sodium Chloride 0.9% 1, 675 75 000 ml @ 75 mls/hr IV . [id number] [facility] Rx#:[id number] Intake, IV Titration 13.458 Amount Norepinephrine 4 mg In 13.458 Sodium Chloride 0.9% 250 ml @ 0.05 MCG/KG/MIN 9. 073 mls/hr IV .Q24H DYLAN Rx#:[id number] Tube Feeding 75 Output: Urine 285 720 100 Other: Voiding Method Indwelling Catheter Indwelling Catheter - Labs CBC & Chem 7: 01/31/19 05:42 01/31/19 05:42 Labs: Abnormal Lab Results - Last 24 Hours (Table) 01/30/19 01/30/19 01/30/19 Range/Units 07:35 09:25 11:44 Lymphocytes # 0.7 L (1.0-4.8) k/uL ABG pH (7.35-7.45) ABG pCO2 (35-45) mmHg ABG pO2 (83-108) mmHg ABG O2 Saturation (94-97) % Sodium 120 L (137-145) mmol/L Potassium 3.1 L (3.5-5.1) mmol/L Chloride (98-107) mmol/L Carbon Dioxide (22-30) mmol/L BUN (7-17) mg/dL Creatinine (0.52-1.04) mg/dL POC Glucose (mg/dL) 132 H (75-99) mg/dL Calcium (8.4-10.2) mg/dL 01/30/19 01/30/19 01/30/19 Range/Units 14:37 18:20 20:15 Lymphocytes # (1.0-4.8) k/uL ABG pH 7.49 H (7.35-7.45) ABG pCO2 28 L (35-45) mmHg ABG pO2 131 H (83-108) mmHg ABG O2 Saturation 99.7 H (94-97) % Sodium 118 L* 117 L* (137-145) mmol/L Potassium (3.5-5.1) mmol/L Chloride (98-107) mmol/L Carbon Dioxide (22-30) mmol/L BUN (7-17) mg/dL Creatinine (0.52-1.04) mg/dL POC Glucose (mg/dL) (75-99) mg/dL Calcium (8.4-10.2) mg/dL 01/31/19 01/31/19 01/31/19 Range/Units 01:09 05:31 05:42 Lymphocytes # 0.4 L (1.0-4.8) k/uL ABG pH (7.35-7.45) ABG pCO2 (35-45) mmHg ABG pO2 (83-108) mmHg ABG O2 Saturation (94-97) % Sodium 119 L* 119 L* (137-145) mmol/L Potassium (3.5-5.1) mmol/L Chloride (98-107) mmol/L Carbon Dioxide (22-30) mmol/L BUN (7-17) mg/dL Creatinine (0.52-1.04) mg/dL POC Glucose (mg/dL) (75-99) mg/dL Calcium (8.4-10.2) mg/dL 01/31/19 Range/Units 05:42 Lymphocytes # (1.0-4.8) k/uL ABG pH (7.35-7.45) ABG pCO2 (35-45) mmHg ABG pO2 (83-108) mmHg ABG O2 Saturation (94-97) % Sodium 119 L* (137-145) mmol/L Potassium (3.5-5.1) mmol/L Chloride 90 L (98-107) mmol/L Carbon Dioxide 20 L (22-30) mmol/L BUN 3 L (7-17) mg/dL Creatinine 0.33 L (0.52-1.04) mg/dL POC Glucose (mg/dL) (75-99) mg/dL Calcium 8.1 L (8.4-10.2) mg/dL Assessment and Plan Plan: Assessment: 1. Hyponatremia. Currently appears euvolemic. 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 Urine osmolality noted to be a little on the lower side at 268. 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 Most recent sodium level 119. 2. Fall and possible seizure due to hyponatremia. 3. Benign hypertension. Controlled. 4. Metabolic acidosis. Unable to take oral bicarb at this time. 5. Hypokalemia from poor oral intake. Magnesium normal. Plan: Maintain normal saline at 75 mL an hour. Repeat sodium level at 10 AM. If no improvement, I will resume 3%. Avoid rapid correction of hyponatremia. Replace potassium. 40 mEq today.
[2019-01-31] MEDS: PANTOPRAZOLE 40 MG/10 ML VIAL IV SCH (09:54)
[2019-01-31] MEDS: HEPARIN SODIUM,PORCINE 5,000 UNIT/ML 1 ML VIAL SQ SCH ×2 (09:54→17:53)
--- NOTE | 2019-01-31 11:26 | P.PN ---
Subjective Progress Note Date: 01/31/19 Patient is a 88-year-old female, admitted for altered mental status, had a seizure related to low sodium of 107. Patient was intubated after the seizure. Since patient was last seen yesterday, now she has been extubated. Patient mentation has much improved. Still appears somewhat lethargic, but does follow commands and answers appropriately. EEG was canceled, as her mentation has remarkably improved, no evidence of status. She had an EEG performed on 08/17/2018 which was normal. Her sodium was 119 at 5:42 AM, and is now 121 at 8:51 AM. TSH is normal 3.380. Normal renal functions. Osmolality is 231. Hemoglobin A1c 5.8. Objective - Vital Signs Vital signs: Vital Signs Temp 98.4 F 01/31/19 04:00 Pulse 86 01/31/19 07:00 Resp 20 01/31/19 07:00 BP 91/54 01/31/19 07:00 Pulse Ox 96 01/31/19 07:00 Intake & Output 01/30/19 01/31/19 01/31/19 18:59 06:59 18:59 Intake Total 763.458 675 75 Output Total 285 720 100 Balance 478.458 -45 -25 Weight 54.7 kg 51.8 kg Intake: IV 675 675 75 D5W 675 Sodium Chloride 0.9% 1, 675 75 000 ml @ 75 mls/hr IV . [id number] [facility] Rx#:[id number] Intake, IV Titration 13.458 Amount Norepinephrine 4 mg In 13.458 Sodium Chloride 0.9% 250 ml @ 0.05 MCG/KG/MIN 9. 073 mls/hr IV .Q24H [facility] Rx#:[id number] Tube Feeding 75 Output: Urine 285 720 100 Other: Voiding Method Indwelling Catheter Indwelling Catheter - Exam Patient is somewhat lethargic, but does wake up, and answers appropriately. Patient states that the nasal cannula is bothering and wants it to be out. Speech is clear with no aphasia or dysarthria. Her face is symmetric. She squeezed both hands equally and moved both legs equally. - Labs CBC & Chem 7: 01/31/19 05:42 01/31/19 08:51 Labs: Abnormal Lab Results - Last 24 Hours (Table) 01/30/19 01/30/19 01/30/19 Range/Units 11:44 14:37 18:20 Lymphocytes # (1.0-4.8) k/uL ABG pH 7.49 H (7.35-7.45) ABG pCO2 28 L (35-45) mmHg ABG pO2 131 H (83-108) mmHg ABG O2 Saturation 99.7 H (94-97) % Sodium 118 L* (137-145) mmol/L Chloride (98-107) mmol/L Carbon Dioxide (22-30) mmol/L BUN (7-17) mg/dL Creatinine (0.52-1.04) mg/dL POC Glucose (mg/dL) 132 H (75-99) mg/dL Calcium (8.4-10.2) mg/dL 01/30/19 01/31/19 01/31/19 Range/Units 20:15 01:09 05:31 Lymphocytes # (1.0-4.8) k/uL ABG pH (7.35-7.45) ABG pCO2 (35-45) mmHg ABG pO2 (83-108) mmHg ABG O2 Saturation (94-97) % Sodium 117 L* 119 L* 119 L* (137-145) mmol/L Chloride (98-107) mmol/L Carbon Dioxide (22-30) mmol/L BUN (7-17) mg/dL Creatinine (0.52-1.04) mg/dL POC Glucose (mg/dL) (75-99) mg/dL Calcium (8.4-10.2) mg/dL 01/31/19 01/31/19 01/31/19 Range/Units 05:42 05:42 08:51 Lymphocytes # 0.4 L (1.0-4.8) k/uL ABG pH (7.35-7.45) ABG pCO2 (35-45) mmHg ABG pO2 (83-108) mmHg ABG O2 Saturation (94-97) % Sodium 119 L* 121 L (137-145) mmol/L Chloride 90 L (98-107) mmol/L Carbon Dioxide 20 L (22-30) mmol/L BUN 3 L (7-17) mg/dL Creatinine 0.33 L (0.52-1.04) mg/dL POC Glucose (mg/dL) (75-99) mg/dL Calcium 8.1 L (8.4-10.2) mg/dL Microbiology - Last 24 Hours (Table) 01/29/19 03:55 Gram Stain - Final Sputum Sputum Culture - Final Debbie albicans Assessment and Plan Assessment: * Altered mental status, likely due to toxic metabolic encephalopathy. Patient has severe hyponatremia, which is the likely cause. * Seizure, likely due to severe hyponatremia with sodium 107. * Probable SIADH. * Status post Acute hypoxic respiratory failure, due to above. Now extubated. Plan: * EEG canceled, as her mentation has much improved, and no signs of status. * Her computed tomography scan of head was negative for any acute process. * Limited neurological examination is nonfocal. * No other neurological workup indicated. * Treatment of hyponatremia as per ICU/internal medicine. * Neurology coverage not available on the weekend.
--- NOTE | 2019-01-31 11:57 | P.PN ---
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 Patient had multiple admissions in the past for her hyponatremia, and she was seen by many consultants including nephrology for profound hyponatremia, last admission was about 2 months ago. noted that patient was confused, and unsteady on her feet. And at one point she was found to be extremely confused and covered with her own stool. EMS brought in the patient to the ER, and shortly after she arrived to the ER, patient was witnessed to have a grand mal seizure, given Ativan, and she was noted to be snoring and stuporous. Patient had a very prolonged postictal period, and the decision was made by the ER physician to intubate the patient for airways protection. Patient was intubated, placed on mechanical ventilation, and her sodium was noted to be as low as 109. Patient was placed on 3% saline, and she was admitted to the ICU. Hence I was asked to see her on consultation. Patient has been on propofol since admission to the ICU, and she is presently on assist control rate of 12 tidal volume of 350 FiO2 is 40% and PEEP is 5. ABG earlier this morning showed a pO2 of 204 pCO2 of 30 pH of 7.47. Patient required briefly norepinephrine for low blood pressure, but presently off norepinephrine, and she is maintained at 3% saline at 50 mL per hour. Repeat sodium this morning is 111. Patient had a sodium of 109 up on her initial presentation. Her serum osmolality was 231 and her urine osmolality was 268. Urine sodium was not done. Drug screen was negative. CT brain was unremarkable except for mild cerebral atrophy. Chest x-ray this morning showed no evidence of active disease. Patient was reevaluated today on 01/30/2019, remains on mechanical ventilation, presently on assist control rate of 10 tidal volume of 350 FiO2 of 30%, and PEEP of 5. ABG showed a pO2 of 156 pCO2 of 34 pH of 7.38. Sodium this morning was 118 and now it is 120. Patient is off 3% saline, received a liter of D5 45 yesterday followed by 500 mL of 0.9 ordered by nephrology. Patient was hypotensive and felt to be hypovolemic, responded well to volume replacement. Her sodium is in the 120 range this morning, patient is off the fall this morning, and I I am planning to wait until the patient wakes up, and possibly give the patient a weaning trial. Propofol has been off for almost half an hour, patient is difficult to arouse, hence I have recommended CT of the head to be done and considering the patient has no corneal reflex as noted earlier by nephrology, he recommended neurological evaluation. Patient will be going for a CT of the head in the next half hour. Family is at bedside, and they were updated on her condition. Chest x-ray was reviewed, seems to be fairly unremarkable. ABG seems to be fairly unremarkable. Patient was placed on IMV of 8 pressure support of 8 mode of mechanical ventilation, and once she is more awake and responsive, will likely give the patient a weaning trial assuming no neurological deficit. Patient was reevaluated today on 01/31/2019, she was extubated yesterday however she had to be placed on BiPAP because she was noted to have slow and shallow breathing. Her mentation has been slowly improving. Her EEG was normal. Sodium is up to 121 this morning. Remains on 0.9 normal saline and we continue to monitor the sodium closely. Patient is on BiPAP which I plan to switch to a nasal cannula she is extremely slow, but follows simple instructions. Family is all at bedside. Patient is arousable, answers questions properly. Her speech is clear. Labs and chest x-ray were reviewed basically unremarkable except for the low sodium. Objective - Vital Signs Vital signs: Vital Signs Temp 98.4 F 01/31/19 04:00 Pulse 86 01/31/19 07:00 Resp 20 01/31/19 07:00 BP 91/54 01/31/19 07:00 Pulse Ox 96 01/31/19 07:00 Intake & Output 01/30/19 01/31/19 01/31/19 18:59 06:59 18:59 Intake Total 763.458 675 75 Output Total 285 720 100 Balance 478.458 -45 -25 Weight 54.7 kg 51.8 kg Intake: IV 675 675 75 D5W 675 Sodium Chloride 0.9% 1, 675 75 000 ml @ 75 mls/hr IV . [id number] [facility] Rx#:[id number] Intake, IV Titration 13.458 Amount Norepinephrine 4 mg In 13.458 Sodium Chloride 0.9% 250 ml @ 0.05 MCG/KG/MIN 9. 073 mls/hr IV .Q24H [facility] Rx#:[id number] Tube Feeding 75 Output: Urine 285 720 100 Other: Voiding Method Indwelling Catheter Indwelling Catheter - Exam Physical Exam: Revealed a 88-year-old female on BiPAP, slow, in no distress. Head: Atraumatic, normocephalic. HEENT:[Neck is supple.] [No neck masses.] [No thyromegaly.] [No JVD.] Dry mucous membranes, throat is clear. Chest: [Clear throughout, no crackles, no rhonchi, no wheezes.] Cardiac Exam: [Normal S1 and S2, no S3 gallop, no murmur.] Abdomen: [Soft, nontender, no megaly, no rebound, no guarding, normal bowel sounds.] Extremities: [No clubbing, no edema, no cyanosis.] Neurological Exam: [Lethargic but arousable, follows simple instructions, no gross focal neurologic deficit Skin: No rashes. Psychiatric: Blunted affect, depressed mood, otherwise normal mental status examination - Labs CBC & Chem 7: 01/31/19 05:42 01/31/19 08:51 Labs: Abnormal Lab Results - Last 24 Hours (Table) 01/30/19 01/30/19 01/30/19 Range/Units 14:37 18:20 20:15 Lymphocytes # (1.0-4.8) k/uL ABG pH 7.49 H (7.35-7.45) ABG pCO2 28 L (35-45) mmHg ABG pO2 131 H (83-108) mmHg ABG O2 Saturation 99.7 H (94-97) % Sodium 118 L* 117 L* (137-145) mmol/L Chloride (98-107) mmol/L Carbon Dioxide (22-30) mmol/L BUN (7-17) mg/dL Creatinine (0.52-1.04) mg/dL Calcium (8.4-10.2) mg/dL 01/31/19 01/31/19 01/31/19 Range/Units 01:09 05:31 05:42 Lymphocytes # 0.4 L (1.0-4.8) k/uL ABG pH (7.35-7.45) ABG pCO2 (35-45) mmHg ABG pO2 (83-108) mmHg ABG O2 Saturation (94-97) % Sodium 119 L* 119 L* (137-145) mmol/L Chloride (98-107) mmol/L Carbon Dioxide (22-30) mmol/L BUN (7-17) mg/dL Creatinine (0.52-1.04) mg/dL Calcium (8.4-10.2) mg/dL 01/31/19 01/31/19 Range/Units 05:42 08:51 Lymphocytes # (1.0-4.8) k/uL ABG pH (7.35-7.45) ABG pCO2 (35-45) mmHg ABG pO2 (83-108) mmHg ABG O2 Saturation (94-97) % Sodium 119 L* 121 L (137-145) mmol/L Chloride 90 L (98-107) mmol/L Carbon Dioxide 20 L (22-30) mmol/L BUN 3 L (7-17) mg/dL Creatinine 0.33 L (0.52-1.04) mg/dL Calcium 8.1 L (8.4-10.2) mg/dL Microbiology - Last 24 Hours (Table) 01/29/19 03:55 Gram Stain - Final Sputum Sputum Culture - Final Debbie albicans Assessment and Plan Assessment: Impression: 1 Severe hyponatremia, chronic and recurrent. 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 Presently improving. 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 4 Multiple comorbidities including type 2 diabetes, dyslipidemia, hypertension, remote history of pulmonary embolism, hypothyroidism, on replacement therapy. previous history of seizure in 2005, not certain whether it was related to hyponatremia or not. Recommendation: Switch BiPAP to nasal cannula. Continue IV fluid at 0.9 normal saline 75 mL per hour Continue GI and DVT prophylaxis. Continue to monitor the sodium closely avoid rapid correction as much as possible. Resume home meds including her thyroid replacement therapy. Discussed her condition with family members at bedside, I will continue to monitor the patient in the ICU for the next 24 hours, and we'll continue seizure precautions. Sodium is correcting nicely and slowly. Will follow. Time with Patient: Less than 30
[2019-01-31 12:02] LABS: Glucose,Whole Blood 88 mg/dL (75-99)
[2019-01-31] MEDS: SODIUM BICARBONATE TAB 650 MG TAB PO SCH ×2 (12:14→21:49)
[2019-01-31] MEDS: LACTULOSE 20 GM/30 ML CUP PO SCH (12:15)
--- NOTE | 2019-01-31 12:47 | P.PN ---
Subjective Progress Note Date: 01/31/19 This is an 88-year-old female one of Dr. 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 in the past was hospitalized multiple time into [facility] recently the past month for significant hyponatremia as well apparently the patient was found confused by her making sense and at certain point she was covered by her own stool she ended up the coming to the emergency department via EMS at [facility] and while she was in the emergency department she was found to have a sodium of 107 shortly after that the patient developed to have a clonic tonic grand mal seizure she was given Ativan and the patient became less responsive with prolonged postictal state she was seen by Dr. Monae in the ER and the decision was made to intubate the patient in the yard for production of the airways and the patient was started initially on normal saline followed by 3% saline at 25 mL per hour that was increased to 15 per hour and she was admitted to intensive care unit with consultation to pulmonary/critical care as well as nephrology and the patient had computed tomography scan of brain that did show brain atrophy without michael dence of acute abnormalities chest x-ray did not show any evidence of acute of normalities patient was admitted intensive care unit as a stated above for further evaluation and treatment. 01/30: Patient remains intubated and on mechanical ventilation in the intensive care unit. She is currently off sedation for the past 3 hours for weaning trial. Sodium this morning was 118 and repeat 120. Patient is off 3% saline, received a liter of D5 45 yesterday followed by 500 mL of 0.9 ordered by nephr ology. Patient was hypotensive. She had difficulty arousing and initially no corneal reflex which has returned. CT of the head has been ordered for today and patient has been seen by neurology with plan for EEG. Patient's family have been updated in the waiting room. Daughter is concerned that her parents need to live closer to her and in a more controlled setting. Patient's family will be meeting with social work at some point to make discharge plan. 01/31: Patient's and daughter at the bedside. Patient has been successfully extubated in now on BiPAP. She remained somewhat lethargic but able to follow simple commands. Sodium is at 121 today. She is currently on normal saline at 75 mL per hour. Patient received 1 dose of desmopressin yesterday ordered by Dr. Farnco. Patient has had good urine output. She has been afebrile, heart rate 86, blood pressure 91/54, pulse ox 96% on BiPAP. Medical social work working with the patient's family for discharge planning to subacute rehab. Objective - Vital Signs Vital signs: Vital Signs Temp 98.4 F 01/31/19 04:00 Pulse 86 01/31/19 07:00 Resp 20 01/31/19 07:00 BP 91/54 01/31/19 07:00 Pulse Ox 96 01/31/19 07:00 Intake & Output 01/30/19 01/31/19 01/31/19 18:59 06:59 18:59 Intake Total 763.458 675 75 Output Total 285 720 100 Balance 478.458 -45 -25 Weight 54.7 kg 51.8 kg Intake: IV 675 675 75 D5W 675 Sodium Chloride 0.9% 1, 675 75 000 ml @ 75 mls/hr IV . [id number] DYLAN Rx#:[id number] Intake, IV Titration 13.458 Amount Norepinephrine 4 mg In 13.458 Sodium Chloride 0.9% 250 ml @ 0.05 MCG/KG/MIN 9. 073 mls/hr IV .Q24H DYLAN Rx#:[id number] Tube Feeding 75 Output: Urine 285 720 100 Other: Voiding Method Indwelling Catheter Indwelling Catheter - Exam Review of Systems Review Of Systems: Constitutional: No fever, no chills, reports weakness, fatigue or lethargy. Reports daytime sleepiness. EENT: No headache. No nasal drainage or congestion. No epistaxis. Lungs: No shortness of breath, cough, no sputum production. No wheezing. Cardiovascular: No chest pain, no lower extremity edema. No palpitations. No orthopnea. No lightheadedness or dizziness. No syncopal episodes. Abdominal: No abdominal pain. No nausea, vomiting. No diarrhea. No constipation. No bloody or tarry stools. Reports loss of appetite. Genitourinary: No dysuria, increased frequency, urgency. No urinary retention. Best in place Musculoskeletal: Reports muscle weakness. Integumentary: No wounds, no lesions. No rash or pruritus. Neurologic: No aphasia. No facial droop. No head injury. No headache. No paralysis. No paresthesia. Psychiatric: No depression. No anxiety. Endocrine: No abnormal blood sugars. No cold intolerance. Physical exam: HEENT: Head is atraumatic, normocephalic, pupils reactive to light sclera nonicteric conjunctiva are pale, BiPAP in place, oral mucous membranes dry. Neck: Supple, no JVP, decreased carotid upstroke bilaterally. Chest: Decreased breath sound at the bases, few rhonchi, no chest wall tenderness, no intercostal retractions. Heart: First heart sound is depressed, second heart sound is normal, irregular irregular due to fibrillation there is systolic ejection murmur 2/6 located in the left border. Abdomen: Soft, nontender, nondistended, normal bowel sounds. Best catheter draining clear urine Extremities: No edema no calf tenderness, dorsalis pedis +1 bilaterally. Neurologic examination: Patient is awake, able to answer simple questions and follow simple directions. - Labs CBC & Chem 7: 01/31/19 05:42 01/31/19 11:43 Labs: Abnormal Lab Results - Last 24 Hours (Table) 01/30/19 01/30/19 01/30/19 Range/Units 14:37 18:20 20:15 Lymphocytes # (1.0-4.8) k/uL ABG pH 7.49 H (7.35-7.45) ABG pCO2 28 L (35-45) mmHg ABG pO2 131 H (83-108) mmHg ABG O2 Saturation 99.7 H (94-97) % Sodium 118 L* 117 L* (137-145) mmol/L Chloride (98-107) mmol/L Carbon Dioxide (22-30) mmol/L BUN (7-17) mg/dL Creatinine (0.52-1.04) mg/dL Calcium (8.4-10.2) mg/dL 01/31/19 01/31/19 01/31/19 Range/Units 01:09 05:31 05:42 Lymphocytes # 0.4 L (1.0-4.8) k/uL ABG pH (7.35-7.45) ABG pCO2 (35-45) mmHg ABG pO2 (83-108) mmHg ABG O2 Saturation (94-97) % Sodium 119 L* 119 L* (137-145) mmol/L Chloride (98-107) mmol/L Carbon Dioxide (22-30) mmol/L BUN (7-17) mg/dL Creatinine (0.52-1.04) mg/dL Calcium (8.4-10.2) mg/dL 01/31/19 01/31/19 01/31/19 Range/Units 05:42 08:51 11:43 Lymphocytes # (1.0-4.8) k/uL ABG pH (7.35-7.45) ABG pCO2 (35-45) mmHg ABG pO2 (83-108) mmHg ABG O2 Saturation (94-97) % Sodium 119 L* 121 L 122 L (137-145) mmol/L Chloride 90 L (98-107) mmol/L Carbon Dioxide 20 L (22-30) mmol/L BUN 3 L (7-17) mg/dL Creatinine 0.33 L (0.52-1.04) mg/dL Calcium 8.1 L (8.4-10.2) mg/dL Microbiology - Last 24 Hours (Table) 01/29/19 03:55 Gram Stain - Final Sputum Sputum Culture - Final Debbie albicans Assessment and Plan Plan: 1. Severe hyponatremia likely related to the syndrome of inappropriate ADH secretion SIADH with a possibility of this chronic hyponatremia may be related to a reset Osmostat. Patient is off 3% saline. Currently on 0.9 normal saline at 75 mL per hour, status post desmopressin. Nephrology consultation appreciated. 2. Grand mild chronic tonic seizure thought to be due to severe hyponatremia. Continue to correct her sodium level monitor the patient intensive care unit seizure precautions. Neurology consult appreciated. Patient is scheduled for CAT scan of the brain today. 3. 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 Continue with current treatment as per pulmonary and critical care medicine. 4. Metabolic encephalopathy secondary to hyponatremia and severe illness. Continue current treatment. 5. Hypertension and hypertensive cardiovascular disease. Currently off her am lodipine. 6. Hyperlipidemia. Not on any statin. 7. Hypothyroidism. Synthroid 50 g every day. 8. Chronic hyponatremia. Baseline sodium is at 128-29 8. GERD. Continue Protonix 40 mg IV push every 24 hours. 9. Atrial fibrillation, chronic. Seems to be chronic patient is not on any anticoagulation not clear of what is the reason may be recurrent falls. 10. DVT prophylaxis. Continue heparin 5000 units subcu venously every 12 hours. 11. GI prophylaxis. Continue PPI. 12. Patient is full code. Discharge plan: Subacute rehab next week Impression and plan of care have been directed as dictated by the signing physician. Samantha Griffith nurse practitioner acting as scribe for signing physician.
[2019-01-31] MEDS: SODIUM CHLORIDE 0.9% 1,000 ML IV SCH (17:43)
[2019-01-31] MEDS ORDERED: DEXTROSE 5% IN WATER 1,000 ML IV SCH (17:45)
[2019-01-31 17:50] LABS: Glucose,Whole Blood 73 mg/dL (75-99)
[2019-01-31] MEDS ORDERED: DESMOPRESSIN ACETATE 1 MCG in SODIUM CHLORIDE 0.9% 50 ML IVPB ONE (21:45)
[2019-02-01] LABS: Glucose,Whole Blood 88 mg/dL (75-99)
[2019-02-01] MEDS: INSULIN ASPART (NovoLOG) 100 UNIT/ML VIAL SQ SCH ×5 (00:01→20:44)
[2019-02-01] MEDS: HEPARIN SODIUM,PORCINE 5,000 UNIT/ML 1 ML VIAL SQ SCH ×3 (00:25→16:42)
[2019-02-01 05:07] LABS: Basophils % (A) 0 %; Eosinophils # (A) 0.1 k/uL (0-0.7); Eosinophils % (A) 1 %; HCT 31.3 % (34.0-46.0); HGB 10.5 gm/dL (11.4-16.0); Lymphocytes # (A) 0.5 k/uL (1.0-4.8); Lymphocytes % (A) 11 %; MCH 28.6 pg (25.0-35.0); MCHC 33.7 g/dL (31.0-37.0); MCV 85.1 fL (80.0-100.0); Mean Platelet Volume 6.5; Monocytes # (A) 0.2 k/uL (0-1.0); Monocytes % (A) 4 %; Neutrophils # (A) 3.7 k/uL (1.3-7.7); Neutrophils % (A) 81 %; Platelet Count 179 k/uL (150-450); RBC 3.68 m/uL (3.80-5.40); WBC 4.5 k/uL (3.8-10.6)
[2019-02-01 05:27] LABS: African American GFR (CKD) >90 (>60 ml/min/1.73 sqM); Anion Gap 6 mmol/L; Blood Urea Nitrogen 3 mg/dL (7-17); Calcium 8.2 mg/dL (8.4-10.2); Carbon Dioxide 21 mmol/L (22-30); Chloride 100 mmol/L (98-107); Glucose 73 mg/dL (74-99); Magnesium 1.9 mg/dL (1.6-2.3); Potassium 3.8 mmol/L (3.5-5.1); Sodium 127 mmol/L (137-145)
--- NOTE | 2019-02-01 06:02 | XR ---
EXAMINATION TYPE: XR chest 1V portable DATE OF EXAM: 02/01/2019 HISTORY: Tube placement. REFERENCE: Previous study dated 01/31/2019. FINDINGS: The heart is mildly enlarged. There is some silhouetting of the lateral aspect of left jo diaphragm. Early infiltrate cannot be excluded. The right lung is clear. There is blunting of the lef t CP angle and I could not exclude a small effusion. IMPRESSION: 1. QUESTIONABLE DEVELOPING LEFT BASILAR INFILTRATE. 2. I CANNOT EXCLUDE A SMALL LEFT EFFUSION.
[2019-02-01 06:04] LABS: Glucose,Whole Blood 73 mg/dL (75-99)
[2019-02-01] MEDS: SODIUM BICARBONATE TAB 650 MG TAB PO SCH ×2 (09:05→20:43)
[2019-02-01] MEDS: PANTOPRAZOLE 40 MG/10 ML VIAL IV SCH (09:06)
--- NOTE | 2019-02-01 11:07 | P.PN ---
Subjective Progress Note Date: 02/01/19 Principal diagnosis: Seizure and hyponatremia Patient continued to be confused alert and oriented times one to 2 according to the nursing staff and seems to be stable over the last 24 hours no further seizure reported by nursing staff patient is tolerating diet but have low appe tite Objective - Vital Signs Vital signs: Vital Signs Temp 98 F 02/01/19 04:00 Pulse 69 02/01/19 10:00 Resp 16 02/01/19 10:00 BP 114/63 02/01/19 10:00 Pulse Ox 97 02/01/19 10:00 Intake & Output 01/31/19 02/01/19 02/01/19 18:59 06:59 18:59 Intake Total 1275 250 0 Output Total 2520 470 85 Balance -1245 -220 -85 Weight 50.3 kg Intake: IV 1275 200 0 Dextrose 5% in Water 1, 200 200 0 000 ml @ 50 mls/hr IV . Q20H [facility] Rx#:[id number] Potassium Chloride 10 meq 400 In Water For Injection 1 100ml.bag @ 100 mls/hr IVPB Q1HR [facility] Rx#: [id number] Sodium Chloride 0.9% 1, 675 000 ml @ 75 mls/hr IV . [id number] [facility] Rx#:[id number] Intake, IV Titration 50 Amount Desmopressin Acetate 1 50 mcg In Sodium Chloride 0. 9% 50 ml @ 200 mls/hr IVPB ONCE ONE Rx#: [id number] Output: Urine 2520 470 85 Other: Voiding Method Indwelling Catheter Indwelling Catheter - Exam Gen.: in stated age, no acute distress, alert and oriented times one to 2 Heart: Normal S1-S2 Lungs: Clear to auscultation bilaterally Abdomen: Soft, no tenderness, positive bowel sounds in all 4 quadrant no guarding or rebound Skin: No new rash Lower extremity no edema Neuro: No focal deficit - Labs CBC & Chem 7: 02/01/19 04:19 02/01/19 09:07 Labs: Abnormal Lab Results - Last 24 Hours (Table) 01/31/19 01/31/19 01/31/19 Range/Units 11:43 15:20 17:49 RBC (3.80-5.40) m/uL Hgb (11.4-16.0) gm/dL Hct (34.0-46.0) % Lymphocytes # (1.0-4.8) k/uL Sodium 122 L 125 L (137-145) mmol/L Carbon Dioxide (22-30) mmol/L BUN (7-17) mg/dL Creatinine (0.52-1.04) mg/dL Glucose (74-99) mg/dL POC Glucose (mg/dL) 73 L (75-99) mg/dL Calcium (8.4-10.2) mg/dL 01/31/19 02/01/19 02/01/19 Range/Units 20:00 01:03 04:19 RBC 3.68 L (3.80-5.40) m/uL Hgb 10.5 L (11.4-16.0) gm/dL Hct 31.3 L (34.0-46.0) % Lymphocytes # 0.5 L (1.0-4.8) k/uL Sodium 127 L 127 L (137-145) mmol/L Carbon Dioxide (22-30) mmol/L BUN (7-17) mg/dL Creatinine (0.52-1.04) mg/dL Glucose (74-99) mg/dL POC Glucose (mg/dL) (75-99) mg/dL Calcium (8.4-10.2) mg/dL 02/01/19 02/01/19 02/01/19 Range/Units 04:19 06:03 09:07 RBC (3.80-5.40) m/uL Hgb (11.4-16.0) gm/dL Hct (34.0-46.0) % Lymphocytes # (1.0-4.8) k/uL Sodium 127 L 128 L (137-145) mmol/L Carbon Dioxide 21 L (22-30) mmol/L BUN 3 L (7-17) mg/dL Creatinine 0.34 L (0.52-1.04) mg/dL Glucose 73 L (74-99) mg/dL POC Glucose (mg/dL) 73 L (75-99) mg/dL Calcium 8.2 L (8.4-10.2) mg/dL Microbiology - Last 24 Hours (Table) 01/29/19 03:55 Gram Stain - Final Sputum Sputum Culture - Final Debbie albicans Assessment and Plan Assessment: 1. New onset seizure. 2. Acute hyponatremia. 3. Hypothyroidism. 4. Hypertension. 5. GERD. 6. Encephalopathy likely secondary to #1 and #2. Patient received Desmopressin her sodium has improved and this morning was 127 with repeated numbers showed 128. Patient with low oral intake still on fluid restriction 4 1200 mL per day, we'll continue monitoring vital signs closely consider transferring patient to general medical floor per critical care recommendation, nephrology is following, would resume home medication and check on TSH free T4, hold Lasix at this point, prognosis remained guarded
--- NOTE | 2019-02-01 11:40 | PN ---
PROGRESS NOTE Patient is seen for followup for hyponatremia which appears to be hypovolemic and was improving with normal saline. However, the sodium level had increased rapidly, therefore, the fluids were switched over to D5W and patient received a dose of DDAVP as well. Initial sodium was 109. Patient's mentation has improved. She is currently stable, resting comfortably. Sodium has been 127 for the last 2-3 readings. PHYSICAL EXAMINATION: This morning blood pressure 113/49, heart rate 75 per minute, she is afebrile. Examination of the heart S1, S2. Examination of the lungs, bilateral breath sounds are heard. Abdomen is soft, non-tender. Examination of lower extremities show no evidence of edema. 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 LABS: Show hemoglobin 10.5, sodium 127, potassium 3.8, BUN 3, creatinine 0.34. ASSESSMENT: 1. Hyponatremia, hypovolemic, improving with normal saline. Patient is status post D5W to prevent rapid increase. She also received a dose of DDAVP. Discontinue D5W and maintain patient on oral fluid restriction and encourage increased oral intake. We will repeat another serum sodium in about 3-4 hours. 2. Mental status changes secondary to electrolyte imbalance, now improved. 3. Grand mal seizure associated with hyponatremia. 4. Respiratory failure currently status post extubation. 5. Hypertension, controlled. 6. Hypothyroidism, maintained on supplementation. 7. Chronic atrial fibrillation. PLAN: Maintain off D5W and repeat sodium in 3 to 4 hours. It looks like patient has had hyponatremia for some time all the way back to August of 2018. She should be monitored frequently as outpatient. Urine osmolality has never been high. The highest osmolality was at 268, therefore, patient may have a component of decreased oral intake, particularly protein, contributing to the hyponatremia or a component of reset osmostat. She will benefit from continued oral free water restriction post discharge and frequent monitoring of labs as outpatient. MMODL / IJN: [id number] /
--- NOTE | 2019-02-01 13:22 | P.PN ---
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 Patient had multiple admissions in the past for her hyponatremia, and she was seen by many consultants including nephrology for profound hyponatremia, last admission was about 2 months ago. noted that patient was confused, and unsteady on her feet. And at one point she was found to be extremely confused and covered with her own stool. EMS brought in the patient to the ER, and shortly after she arrived to the ER, patient was witnessed to have a grand mal seizure, given Ativan, and she was noted to be snoring and stuporous. Patient had a very prolonged postictal period, and the decision was made by the ER physician to intubate the patient for airways protection. Patient was intubated, placed on mechanical ventilation, and her sodium was noted to be as low as 109. Patient was placed on 3% saline, and she was admitted to the ICU. Hence I was asked to see her on consultation. Patient has been on propofol since admission to the ICU, and she is presently on assist control rate of 12 tidal volume of 350 FiO2 is 40% and PEEP is 5. ABG earlier this morning showed a pO2 of 204 pCO2 of 30 pH of 7.47. Patient required briefly norepinephrine for low blood pressure, but presently off norepinephrine, and she is maintained at 3% saline at 50 mL per hour. Repeat sodium this morning is 111. Patient had a sodium of 109 up on her initial presentation. Her serum osmolality was 231 and her urine osmolality was 268. Urine sodium was not done. Drug screen was negative. CT brain was unremarkable except for mild cerebral atrophy. Chest x-ray this morning showed no evidence of active disease. Patient was reevaluated today on 01/30/2019, remains on mechanical ventilation, presently on assist control rate of 10 tidal volume of 350 FiO2 of 30%, and PEEP of 5. ABG showed a pO2 of 156 pCO2 of 34 pH of 7.38. Sodium this morning was 118 and now it is 120. Patient is off 3% saline, received a liter of D5 45 yesterday followed by 500 mL of 0.9 ordered by nephrology. Patient was hypotensive and felt to be hypovolemic, responded well to volume replacement. Her sodium is in the 120 range this morning, patient is off the fall this morning, and I I am planning to wait until the patient wakes up, and possibly give the patient a weaning trial. Propofol has been off for almost half an hour, patient is difficult to arouse, hence I have recommended CT of the head to be done and considering the patient has no corneal reflex as noted earlier by nephrology, he recommended neurological evaluation. Patient will be going for a CT of the head in the next half hour. Family is at bedside, and they were updated on her condition. Chest x-ray was reviewed, seems to be fairly unremarkable. ABG seems to be fairly unremarkable. Patient was placed on IMV of 8 pressure support of 8 mode of mechanical ventilation, and once she is more awake and responsive, will likely give the patient a weaning trial assuming no neurological deficit. Patient was reevaluated today on 01/31/2019, she was extubated yesterday however she had to be placed on BiPAP because she was noted to have slow and shallow breathing. Her mentation has been slowly improving. Her EEG was normal. Sodium is up to 121 this morning. Remains on 0.9 normal saline and we continue to monitor the sodium closely. Patient is on BiPAP which I plan to switch to a nasal cannula she is extremely slow, but follows simple instructions. Family is all at bedside. Patient is arousable, answers questions properly. Her speech is clear. Labs and chest x-ray were reviewed basically unremarkable except for the low sodium. Patient was reevaluated today on 02/01/2019, remains in the ICU, continues to tolerate extubation well, she is now on 3 L nasal cannula, in no form of respiratory distress. Remains alert but confused and oriented 1. Patient thinks she is at home. No family members at bedside today. Her labs were reviewed today and her sodium is up to 128. Electrolytes are basically otherwise normal renal profile is normal CBC is normal. Chest x-ray showed left basilar atelectasis, no evidence of pneumonia. Objective - Vital Signs Vital signs: Vital Signs Temp 97.7 F 02/01/19 13:00 Pulse 77 02/01/19 13:00 Resp 18 02/01/19 13:00 BP 101/63 02/01/19 13:00 Pulse Ox 98 02/01/19 13:00 Intake & Output 01/31/19 02/01/19 02/01/19 18:59 06:59 18:59 Intake Total 1275 250 0 Output Total 2520 470 260 Balance -1245 -220 -260 Weight 50.3 kg 50.3 kg Intake: IV 1275 200 0 Dextrose 5% in Water 1, 200 200 0 000 ml @ 50 mls/hr IV . Q20H [facility] Rx#:[id number] Potassium Chloride 10 meq 400 In Water For Injection 1 100ml.bag @ 100 mls/hr IVPB Q1HR [facility] Rx#: [id number] Sodium Chloride 0.9% 1, 675 000 ml @ 75 mls/hr IV . [id number] [facility] Rx#:[id number] Intake, IV Titration 50 Amount Desmopressin Acetate 1 50 mcg In Sodium Chloride 0. 9% 50 ml @ 200 mls/hr IVPB ONCE ONE Rx#: [id number] Output: Urine 2520 470 260 Other: Voiding Method Indwelling Catheter Indwelling Catheter - Exam Physical Exam: Revealed a 88-year-old female on BiPAP, confused, in no distress. Head: Atraumatic, normocephalic. HEENT:[Neck is supple.] [No neck masses.] [No thyromegaly.] [No JVD.] Dry mucous membranes, throat is clear. Chest: [Symmetrical chest expansion, diminished breath sounds at the bases., no crackles, no rhonchi, no wheezes.] Cardiac Exam: [Normal S1 and S2, no S3 gallop, no murmur.] Abdomen: [Soft, nontender, no megaly, no rebound, no guarding, normal bowel sounds.] Extremities: [No clubbing, no edema, no cyanosis.] Neurological Exam: Awake, confused, follows all instructions, otherwise no gross focal deficits. Skin: No rashes. Psychiatric: Blunted affect, depressed mood, oriented 1. - Labs CBC & Chem 7: 02/01/19 04:19 02/01/19 09:07 Labs: Abnormal Lab Results - Last 24 Hours (Table) 01/31/19 01/31/19 01/31/19 Range/Units 15:20 17:49 20:00 RBC (3.80-5.40) m/uL Hgb (11.4-16.0) gm/dL Hct (34.0-46.0) % Lymphocytes # (1.0-4.8) k/uL Sodium 125 L 127 L (137-145) mmol/L Carbon Dioxide (22-30) mmol/L BUN (7-17) mg/dL Creatinine (0.52-1.04) mg/dL Glucose (74-99) mg/dL POC Glucose (mg/dL) 73 L (75-99) mg/dL Calcium (8.4-10.2) mg/dL 02/01/19 02/01/19 02/01/19 Range/Units 01:03 04:19 04:19 RBC 3.68 L (3.80-5.40) m/uL Hgb 10.5 L (11.4-16.0) gm/dL Hct 31.3 L (34.0-46.0) % Lymphocytes # 0.5 L (1.0-4.8) k/uL Sodium 127 L 127 L (137-145) mmol/L Carbon Dioxide 21 L (22-30) mmol/L BUN 3 L (7-17) mg/dL Creatinine 0.34 L (0.52-1.04) mg/dL Glucose 73 L (74-99) mg/dL POC Glucose (mg/dL) (75-99) mg/dL Calcium 8.2 L (8.4-10.2) mg/dL 02/01/19 02/01/19 Range/Units 06:03 09:07 RBC (3.80-5.40) m/uL Hgb (11.4-16.0) gm/dL Hct (34.0-46.0) % Lymphocytes # (1.0-4.8) k/uL Sodium 128 L (137-145) mmol/L Carbon Dioxide (22-30) mmol/L BUN (7-17) mg/dL Creatinine (0.52-1.04) mg/dL Glucose (74-99) mg/dL POC Glucose (mg/dL) 73 L (75-99) mg/dL Calcium (8.4-10.2) mg/dL Microbiology - Last 24 Hours (Table) 01/29/19 03:55 Gram Stain - Final Sputum Sputum Culture - Final Debbie albicans Assessment and Plan Assessment: Impression: 1 Severe hyponatremia, chronic and recurrent. 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 Presently improving. 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 4 Multiple comorbidities including type 2 diabetes, dyslipidemia, hypertension, remote history of pulmonary embolism, hypothyroidism, on replacement therapy. previous history of seizure in 2004, not certain whether it was related to hyponatremia or not. Recommendation: Titrate FiO2 presently on 3 L nasal cannula. Continue IV fluid at 0.9 normal saline 75 mL per hour Continue GI and DVT prophylaxis. Continue to monitor the sodium closely avoid rapid correction as much as possible. Resume home meds including her thyroid replacement therapy. Transfer patient out of the ICU to a regular medical floor today. Will reevaluate the patient again in the next 24 hours. Time with Patient: Less than 30
[2019-02-01 16:57] LABS: Glucose,Whole Blood 76 mg/dL (75-99)
[2019-02-01 20:28] LABS: Glucose,Whole Blood 103 mg/dL (75-99)
[2019-02-02] MEDS: HEPARIN SODIUM,PORCINE 5,000 UNIT/ML 1 ML VIAL SQ SCH ×3 (00:39→17:40)
[2019-02-02 02:44] LABS: Glucose,Whole Blood 78 mg/dL (75-99)
[2019-02-02] MEDS: CHLORHEXIDINE GLUCONATE 15 ML CUP MUCOUS MEM SCH (06:50)
[2019-02-02 07:06] LABS: Glucose,Whole Blood 91 mg/dL (75-99)
[2019-02-02] MEDS: INSULIN ASPART (NovoLOG) 100 UNIT/ML VIAL SQ SCH ×4 (07:07→20:58)
--- NOTE | 2019-02-02 07:13 | XR ---
EXAMINATION TYPE: XR chest 1V portable DATE OF EXAM: 02/02/2019 HISTORY: Tube placement. REFERENCE: Previous study dated 02/01/2019. FINDINGS: Heart is mildly enlarged. The lungs are clear. Pleural spaces are clear. IMPRESSION: MILD CARDIOMEGALY.
[2019-02-02] MEDS: SODIUM BICARBONATE TAB 650 MG TAB PO SCH ×2 (08:06→20:57)
[2019-02-02] MEDS: PANTOPRAZOLE 40 MG TABLET PO SCH (08:06)
--- NOTE | 2019-02-02 10:59 | P.PN ---
Subjective Progress Note Date: 02/02/19 Principal diagnosis: Seizure and hyponatremia Patient is still alert and awake times one to 2, following commands and tolerating diet seems to be improved since yesterday Objective - Vital Signs Vital signs: Vital Signs Temp 99.4 F 02/02/19 04:20 Pulse 78 02/02/19 04:20 Resp 16 02/02/19 04:20 BP 100/53 02/02/19 04:20 Pulse Ox 97 02/02/19 04:20 Intake & Output 02/01/19 02/02/19 02/02/19 18:59 06:59 18:59 Intake Total 300 360 Output Total 390 150 Balance -90 210 Weight 50.3 kg 45.5 kg Intake: IV 0 Dextrose 5% in Water 1, 0 000 ml @ 50 mls/hr IV . Q20H [facility] Rx#:[id number] Oral 300 360 Output: Urine 390 150 Other: Voiding Method Indwelling Catheter Indwelling Catheter Indwelling Catheter # Bowel Movements 1 - Exam Gen.: in stated age, no acute distress, alert and oriented times one to 2 Heart: Normal S1-S2 Lungs: Clear to auscultation bilaterally Abdomen: Soft, no tenderness, positive bowel sounds in all 4 quadrant no guarding or rebound Skin: No new rash Lower extremity no edema Neuro: No focal deficit - Labs CBC & Chem 7: 02/01/19 04:19 02/02/19 07:01 Labs: Abnormal Lab Results - Last 24 Hours (Table) 02/01/19 02/01/19 02/01/19 Range/Units 13:01 20:22 20:27 Sodium 129 L 127 L (137-145) mmol/L POC Glucose (mg/dL) 103 H (75-99) mg/dL 02/02/19 Range/Units 07:01 Sodium 129 L (137-145) mmol/L POC Glucose (mg/dL) (75-99) mg/dL Assessment and Plan Assessment: 1. New onset seizure. 2. Acute hyponatremia. 3. Hypothyroidism. 4. Hypertension. 5. GERD. 6. Encephalopathy likely secondary to #1 and #2. Patient received Desmopressin her sodium has improved and this morning was 129 continue fluid restriction, continue monitoring mental status closely, follow-up with neurology recommendation regarding seizure medication, have physical therapy evaluated the patient and discharge planning in the morning based on clinical progress
--- NOTE | 2019-02-02 11:56 | PN ---
PROGRESS NOTE The patient is seen for followup for hyponatremia. She is currently off fluids. Serum sodium is fluctuating between 127 and 129. The patient was initially maintained on D5W which is now discontinued. She is maintained on free water restriction. PHYSICAL EXAMINATION: This morning, blood pressure 100/53, heart rate 78 per minute. She is afebrile. Examination of the heart S1, S2. Examination of the lungs, bilateral breath sounds are heard. ABDOMEN: Soft, nontender. Examination of lower extremities shows no evidence of edema. 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 LABS: Sodium 129. ASSESSMENT: 1. Hyponatremia, initially hypovolemic, was improving with normal saline, possibly component of reset Osmo stat versus hyponatremia associated with decreased solute intake, currently improving with free water restriction. The patient is not on any IV fluids. Mentation has improved. Repeat labs in a.m. Maintain high protein intake. 2. Mental status changes associated with hyponatremia, now improved. 3. Seizure associated electrolyte imbalance, maintained on Dilantin. PLAN: Repeat labs in a.m. MMODL / IJN: [id number] /
[2019-02-02 12:02] LABS: Glucose,Whole Blood 93 mg/dL (75-99)
--- NOTE | 2019-02-02 12:31 | P.PN ---
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 Patient had multiple admissions in the past for her hyponatremia, and she was seen by many consultants including nephrology for profound hyponatremia, last admission was about 2 months ago. noted that patient was confused, and unsteady on her feet. And at one point she was found to be extremely confused and covered with her own stool. EMS brought in the patient to the ER, and shortly after she arrived to the ER, patient was witnessed to have a grand mal seizure, given Ativan, and she was noted to be snoring and stuporous. Patient had a very prolonged postictal period, and the decision was made by the ER physician to intubate the patient for airways protection. Patient was intubated, placed on mechanical ventilation, and her sodium was noted to be as low as 109. Patient was placed on 3% saline, and she was admitted to the ICU. Hence I was asked to see her on consultation. Patient has been on propofol since admission to the ICU, and she is presently on assist control rate of 12 tidal volume of 350 FiO2 is 40% and PEEP is 5. ABG earlier this morning showed a pO2 of 204 pCO2 of 30 pH of 7.47. Patient required briefly norepinephrine for low blood pressure, but presently off norepinephrine, and she is maintained at 3% saline at 50 mL per hour. Repeat sodium this morning is 111. Patient had a sodium of 109 up on her initial presentation. Her serum osmolality was 231 and her urine osmolality was 268. Urine sodium was not done. Drug screen was negative. CT brain was unremarkable except for mild cerebral atrophy. Chest x-ray this morning showed no evidence of active disease. Patient was reevaluated today on 01/30/2019, remains on mechanical ventilation, presently on assist control rate of 10 tidal volume of 350 FiO2 of 30%, and PEEP of 5. ABG showed a pO2 of 156 pCO2 of 34 pH of 7.38. Sodium this morning was 118 and now it is 120. Patient is off 3% saline, received a liter of D5 45 yesterday followed by 500 mL of 0.9 ordered by nephrology. Patient was hypotensive and felt to be hypovolemic, responded well to volume replacement. Her sodium is in the 120 range this morning, patient is off the fall this morning, and I I am planning to wait until the patient wakes up, and possibly give the patient a weaning trial. Propofol has been off for almost half an hour, patient is difficult to arouse, hence I have recommended CT of the head to be done and considering the patient has no corneal reflex as noted earlier by nephrology, he recommended neurological evaluation. Patient will be going for a CT of the head in the next half hour. Family is at bedside, and they were updated on her condition. Chest x-ray was reviewed, seems to be fairly unremarkable. ABG seems to be fairly unremarkable. Patient was placed on IMV of 8 pressure support of 8 mode of mechanical ventilation, and once she is more awake and responsive, will likely give the patient a weaning trial assuming no neurological deficit. Patient was reevaluated today on 01/31/2019, she was extubated yesterday however she had to be placed on BiPAP because she was noted to have slow and shallow breathing. Her mentation has been slowly improving. Her EEG was normal. Sodium is up to 121 this morning. Remains on 0.9 normal saline and we continue to monitor the sodium closely. Patient is on BiPAP which I plan to switch to a nasal cannula she is extremely slow, but follows simple instructions. Family is all at bedside. Patient is arousable, answers questions properly. Her speech is clear. Labs and chest x-ray were reviewed basically unremarkable except for the low sodium. Patient was reevaluated today on 02/01/2019, remains in the ICU, continues to tolerate extubation well, she is now on 3 L nasal cannula, in no form of respiratory distress. Remains alert but confused and oriented 1. Patient thinks she is at home. No family members at bedside today. Her labs were reviewed today and her sodium is up to 128. Electrolytes are basically otherwise normal renal profile is normal CBC is normal. Chest x-ray showed left basilar atelectasis, no evidence of pneumonia. Reevaluated today on 02/02/2019, patient is now on the regular medical floor, doing well, relatively asymptomatic. She is more awake, appropriate, and her sodium is up to 129 this morning. Rest of the labs were unremarkable. Patient could possibly the considered for possible discharge planning in the next 24 hours Objective - Vital Signs Vital signs: Vital Signs Temp 99.4 F 02/02/19 04:20 Pulse 78 02/02/19 04:20 Resp 16 02/02/19 04:20 BP 100/53 02/02/19 04:20 Pulse Ox 97 02/02/19 04:20 Intake & Output 02/01/19 02/02/19 02/02/19 18:59 06:59 18:59 Intake Total 300 360 Output Total 390 150 Balance -90 210 Weight 50.3 kg 45.5 kg Intake: IV 0 Dextrose 5% in Water 1, 0 000 ml @ 50 mls/hr IV . Q20H [facility] Rx#:[id number] Oral 300 360 Output: Urine 390 150 Other: Voiding Method Indwelling Catheter Indwelling Catheter Indwelling Catheter # Bowel Movements 1 - Exam Physical Exam: Revealed a 88-year-old female on 2 L nasal cannula, in no distress. Head: Atraumatic, normocephalic. HEENT:[Neck is supple.] [No neck masses.] [No thyromegaly.] [No JVD.] Dry mucous membranes, throat is clear. Chest: [Symmetrical chest expansion, diminished breath sounds at the bases., no crackles, no rhonchi, no wheezes.] Cardiac Exam: [Normal S1 and S2, no S3 gallop, no murmur.] Abdomen: [Soft, nontender, no megaly, no rebound, no guarding, normal bowel sounds.] Extremities: [No clubbing, no edema, no cyanosis.] Neurological Exam: Alert and oriented 3, no gross focal deficits. Skin: No rashes. Psychiatric: Normal mood affect and normal mental status examination. 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 Presently improving. 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 4 Multiple comorbidities including type 2 diabetes, dyslipidemia, hypertension, remote history of pulmonary embolism, hypothyroidism, on replacement therapy. previous history of seizure in 2004, not certain whether it was related to hyponatremia or not. Recommendation: Continue present treatment plan as per the admitting physician, and as per nephrology regarding her hyponatremia which is chronic, we will sign off and see the patient on when necessary basis. Possibly discharge home in the next 24 hours. Time with Patient: Less than 30
[2019-02-02 16:52] LABS: Glucose,Whole Blood 97 mg/dL (75-99)
[2019-02-02 20:09] LABS: Glucose,Whole Blood 168 mg/dL (75-99)
[2019-02-03] MEDS: HEPARIN SODIUM,PORCINE 5,000 UNIT/ML 1 ML VIAL SQ SCH ×4 (00:08→23:17)
[2019-02-03 07:20] LABS: Glucose,Whole Blood 93 mg/dL (75-99)
[2019-02-03 09:07] LABS: African American GFR (CKD) >90 (>60 ml/min/1.73 sqM); Anion Gap 7 mmol/L; Blood Urea Nitrogen 6 mg/dL (7-17); Calcium 8.6 mg/dL (8.4-10.2); Carbon Dioxide 24 mmol/L (22-30); Chloride 99 mmol/L (98-107); Glucose 151 mg/dL (74-99); Potassium 3.6 mmol/L (3.5-5.1); Sodium 130 mmol/L (137-145)
[2019-02-03] MEDS: INSULIN ASPART (NovoLOG) 100 UNIT/ML VIAL SQ SCH ×4 (09:08→21:00)
[2019-02-03] MEDS: SODIUM BICARBONATE TAB 650 MG TAB PO SCH ×2 (10:16→21:09)
[2019-02-03] MEDS: PANTOPRAZOLE 40 MG TABLET PO SCH (10:16)
[2019-02-03 11:12] VITALS: BMI 21.3
--- NOTE | 2019-02-03 11:25 | P.PN ---
Subjective Patient seen in follow-up for hyponatremia. Sodium level 130 this morning. Currently off IV fluids. Oral intake is gradually improving. Vital signs are stable. General: The patient appeared well nourished and normally developed. HEENT: Head exam is unremarkable. Neck is without jugular venous distension. LUNGS: Breath sounds decreased. HEART: Rate and Rhythm are regular. First and second heart sounds normal. No murmurs, rubs or gallops. ABDOMEN: Abdominal exam reveals normal bowel sounds. Non-tender and non- distended. No evidence of peritonitis. EXTREMITITES: No clubbing, cyanosis, or edema. Objective - Vital Signs Vital signs: Vital Signs Temp 98.1 F 02/03/19 04:45 Pulse 81 02/03/19 04:45 Resp 20 02/03/19 04:45 BP 117/65 02/03/19 04:45 Pulse Ox 96 02/03/19 04:45 Intake & Output 02/02/19 02/03/19 02/03/19 18:59 06:59 18:59 Intake Total 720 200 Output Total 1375 400 Balance -655 -200 Weight 49.5 kg 49.5 kg Intake: Oral 720 200 Output: Urine 1375 400 Other: Voiding Method Indwelling Catheter Indwelling Catheter Indwelling Catheter # Voids 1 # Bowel Movements 1 - Labs CBC & Chem 7: 02/01/19 04:19 02/03/19 08:12 Labs: Abnormal Lab Results - Last 24 Hours (Table) 02/02/19 02/03/19 Range/Units 20:04 08:12 Sodium 130 L (137-145) mmol/L BUN 6 L (7-17) mg/dL Creatinine 0.36 L (0.52-1.04) mg/dL Glucose 151 H (74-99) mg/dL POC Glucose (mg/dL) 168 H (75-99) mg/dL Assessment and Plan Plan: Assessment: 1. Hyponatremia. Currently appears euvolemic. 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 Urine osmolality noted to be a little on the lower side at 268. 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 Sodium level 130 this morning. 2. Fall and possible seizure due to hyponatremia. 3. Benign hypertension. Controlled. 4. Metabolic acidosis. Better. Maintain on oral sodium bicarbonate. 5. Hypokalemia from poor oral intake. Better. Magnesium normal. Plan: Maintain 1200 mL fluid restriction. Encourage oral intake. Repeat electrolytes in the morning.
[2019-02-03 12:46] LABS: Glucose,Whole Blood 127 mg/dL (75-99)
--- NOTE | 2019-02-03 13:40 | P.PN ---
Subjective Progress Note Date: 02/03/19 This is an 88-year-old female one of Dr. 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 in the past was hospitalized multiple time into [facility] recently the past month for significant hyponatremia as well apparently the patient was found confused by her making sense and at certain point she was covered by her own stool she ended up the coming to the emergency department via EMS at [facility] and while she was in the emergency department she was found to have a sodium of 107 shortly after that the patient developed to have a clonic tonic grand mal seizure she was given Ativan and the patient became less responsive with prolonged postictal state she was seen by Dr. Monae in the ER and the decision was made to intubate the patient in the yard for production of the airways and the patient was started initially on normal saline followed by 3% saline at 25 mL per hour that was increased to 15 per hour and she was admitted to intensive care unit with consultation to pulmonary/critical care as well as nephrology and the patient had computed tomography scan of brain that did show brain atrophy without michael dence of acute abnormalities chest x-ray did not show any evidence of acute of normalities patient was admitted intensive care unit as a stated above for further evaluation and treatment. 01/30: Patient remains intubated and on mechanical ventilation in the intensive care unit. She is currently off sedation for the past 3 hours for weaning trial. Sodium this morning was 118 and repeat 120. Patient is off 3% saline, received a liter of D5 45 yesterday followed by 500 mL of 0.9 ordered by nephr ology. Patient was hypotensive. She had difficulty arousing and initially no corneal reflex which has returned. CT of the head has been ordered for today and patient has been seen by neurology with plan for EEG. Patient's family have been updated in the waiting room. Daughter is concerned that her parents need to live closer to her and in a more controlled setting. Patient's family will be meeting with social work at some point to make discharge plan. 01/31: Patient's and daughter at the bedside. Patient has been successfully extubated in now on BiPAP. She remained somewhat lethargic but able to follow simple commands. Sodium is at 121 today. She is currently on normal saline at 75 mL per hour. Patient received 1 dose of desmopressin yesterday ordered by Dr. Franco. Patient has had good urine output. She has been afebrile, heart rate 86, blood pressure 91/54, pulse ox 96% on BiPAP. Medical social work working with the patient's family for discharge planning to subacute rehab. 02/03: patient is now seen on the [facility] floor. Her sodium is up to 1:30 this morning. She is off IV fluids. Oral intake is gradually improving. She is complaining of sore in her mouth most likely from intubation. Patient will be started on cool solution.she is continued on a 1200 mL fluid restriction. She has been afebrile, heart rate 81, blood pressure 117/65, pulse ox 96% on room air. Family is looking for fdc for subacute rehab at [address] [place] [address] [address] [facility].patient is waiting for insurance authorization. Objective - Vital Signs Vital signs: Vital Signs Temp 98.1 F 02/03/19 04:45 Pulse 81 02/03/19 04:45 Resp 20 02/03/19 04:45 BP 117/65 02/03/19 04:45 Pulse Ox 96 02/03/19 04:45 Intake & Output 02/02/19 02/03/19 02/03/19 18:59 06:59 18:59 Intake Total 720 200 Output Total 1375 400 Balance -655 -200 Weight 49.5 kg 49.5 kg Intake: Oral 720 200 Output: Urine 1375 400 Other: Voiding Method Indwelling Catheter Indwelling Catheter Indwelling Catheter # Voids 1 # Bowel Movements 1 - Exam Review of Systems Review Of Systems: Constitutional: No fever, no chills, reports weakness, fatigue or lethargy. Reports daytime sleepiness. Reports decreased appetite. EENT: No headache. No nasal drainage or congestion. No epistaxis. reports sore in mouth. Lungs: No shortness of breath, cough, no sputum production. No wheezing. Cardiovascular: No chest pain, no lower extremity edema. No palpitations. No orthopnea. No lightheadedness or dizziness. No syncopal episodes. Abdominal: No abdominal pain. No nausea, vomiting. No diarrhea. No constipation. No bloody or tarry stools. Reports loss of appetite. Genitourinary: No dysuria, increased frequency, urgency. No urinary retention. Best in place Musculoskeletal: Reports muscle weakness. Integumentary: No wounds, no lesions. No rash or pruritus. Neurologic: No aphasia. No facial droop. No head injury. No headache. No paralysis. No paresthesia. Psychiatric: No depression. No anxiety. Endocrine: No abnormal blood sugars. No cold intolerance. Physical exam: HEENT: Head is atraumatic, normocephalic, pupils reactive to light sclera nonicteric conjunctiva are pale, oral mucous membranes lesion noted Neck: Supple, no JVP, decreased carotid upstroke bilaterally. Chest: Decreased breath sound at the bases, few rhonchi, no chest wall tenderness, no intercostal retractions. Heart: First heart sound is depressed, second heart sound is normal, irregular irregular due to fibrillation there is systolic ejection murmur 2/6 located in the left border. Abdomen: Soft, nontender, nondistended, normal bowel sounds. Best catheter draining clear urine Extremities: No edema no calf tenderness, dorsalis pedis +1 bilaterally. Neurologic examination: Patient is awake, oriented to person and place. No focal neuro deficit noted. - Labs CBC & Chem 7: 02/01/19 04:19 02/03/19 08:12 Labs: Abnormal Lab Results - Last 24 Hours (Table) 02/02/19 02/03/19 02/03/19 Range/Units 20:04 08:12 12:34 Sodium 130 L (137-145) mmol/L BUN 6 L (7-17) mg/dL Creatinine 0.36 L (0.52-1.04) mg/dL Glucose 151 H (74-99) mg/dL POC Glucose (mg/dL) 168 H 127 H (75-99) mg/dL Assessment and Plan Plan: 1. Severe hyponatremia likely related to the syndrome of inappropriate ADH secretion SIADH with a possibility of this chronic hyponatremia may be related to a reset Osmostat. patient is currently off IV fluids. Monitor electrolytes. Follow chest consult appreciated. 2. Grand mild chronic tonic seizure thought to be due to severe hyponatremia. Neurology consult appreciated. Patient is scheduled for CAT scan of the brain today. 3. Ventilator dependent respiratory failure due to seizure activity more for protection of the airways, 4. Metabolic encephalopathy secondary to hyponatremia and severe illness. Continue current treatment. 5. Hypertension and hypertensive cardiovascular disease. Currently off her amlodipine. 6. Hyperlipidemia. Not on any statin. 7. Hypothyroidism. Synthroid 50 g every day. 8. Chronic hyponatremia. Baseline sodium is at 128-29 8. GERD. Continue Protonix 40 mg every 24 hours. 9. Atrial fibrillation, chronic. Seems to be chronic patient is not on any anticoagulation not clear of what is the reason may be recurrent falls. 10. DVT prophylaxis. Continue heparin 5000 units subcu venously every 12 hours. 11. GI prophylaxis. Continue PPI. 12. Patient is full code. Discharge plan: Subacute rehab once insurance authorization is obtained and arrangements completed. Impression and plan of care have been directed as dictated by the signing physician. Samantha Griffith nurse practitioner acting as scribe for signing niharika caldera
--- NOTE | 2019-02-03 13:46 | P.DS ---
Providers Date of admission: 01/29/19 02:38 Expected date of discharge: 02/04/19 Attending physician: Gucci Villareal Consults: 01/29/19 02:25 Consult Physician Stat Consulting Provider: Simone Franco Consult Reason/Comments: hyponatremia Do you want consulting provider notified?: Already Contacted Consult Physician Stat Consulting Provider: Fabby Andrew Consult Reason/Comments: ICU Do you want consulting provider notified?: Already Contacted 01/30/19 11:19 Consult Physician Stat Consulting Provider: Nighat Mcnair Consult Reason/Comments: Mental Status changes Do you want consulting provider notified?: Yes Primary care physician: Kamaljit [facility] Course: This is an 88-year-old female one of Dr. 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 in the past was hospitalized multiple time into [facility] recently the past month for significant hyponatremia as well apparently the patient was found confused by her making sense and at certain point she was covered by her own stool she ended up the coming to the emergency department via EMS at [facility] and while she was in the emergency department she was found to have a sodium of 107 shortly after that the patient developed to have a clonic tonic grand mal seizure she was given Ativan and the patient became less responsive with prolonged postictal state she was seen by Dr. Monae in the ER and the decision was made to intubate the patient in the yard for production of the airways and the patient was started initially on normal saline followed by 3% saline at 25 mL per hour that was increased to 15 per hour and she was admitted to intensive care unit with consultation to pulmonary/critical care as well as nephrology and the patient had computed tomography scan of brain that did show brain atrophy without evide nce of acute abnormalities chest x-ray did not show any evidence of acute of normalities patient was admitted intensive care unit as a stated above for further evaluation and treatment. 01/30: Patient remains intubated and on mechanical ventilation in the intensive care unit. She is currently off sedation for the past 3 hours for weaning trial. Sodium this morning was 118 and repeat 120. Patient is off 3% saline, received a liter of D5 45 yesterday followed by 500 mL of 0.9 ordered by nephrology. Patient was hypotensive. She had difficulty arousing and initially no corneal reflex which has returned. CT of the head has been ordered for today and patient has been seen by neurology with plan for EEG. Patient's family have been updated in the waiting room. Daughter is concerned that her parents need to live closer to her and in a more controlled setting. Patient's family will be meeting with social work at some point to make discharge plan. 01/31: Patient's and daughter at the bedside. Patient has been successfully extubated in now on BiPAP. She remained somewhat lethargic but able to follow simple commands. Sodium is at 121 today. She is currently on normal saline at 75 mL per hour. Patient received 1 dose of desmopressin yesterday ordered by Dr. Franco. Patient has had good urine output. She has been afebrile, heart rate 86, blood pressure 91/54, pulse ox 96% on BiPAP. Medical social work working with the patient's family for discharge planning to subacute rehab. 02/03: patient is now seen on the [facility] floor. Her sodium is up to 130 this morning. She is off IV fluids. Oral intake is gradually improving. She is complaining of sore in her mouth most likely from intubation. Patient will be started on cool solution.she is continued on a 1200 mL fluid restriction. She has been afebrile, heart rate 81, blood pressure 117/65, pulse ox 96% on room air. Family is looking for senior living for subacute rehab at [address] [place] [address] [facility].patient is waiting for insurance authorization. 02/04: Insurance authorization has been obtained and accepting facility. Social work has made arrangements for patient be transferred to subacute rehab. Repeat sodium today is 133. Patient states that she is not eating well but this is normal for patient. She does have an oral lesion that has been bothering her. Medication started for this yesterday and she feels about the same from yesterday. Patient will be discharged today once arrangements are completed. Discharge diagnoses: 1. Severe hyponatremia likely related to the syndrome of inappropriate ADH secretion SIADH with a possibility of this chronic hyponatremia may be related to a reset Osmostat. 2. Grand mild chronic tonic seizure thought to be due to severe hyponatremia. 3. Ventilator dependent respiratory failure due to seizure activity more for protection of the airways, 4. Metabolic encephalopathy secondary to hyponatremia and severe illness. 5. Hypertension and hypertensive cardiovascular disease. 6. Hyperlipidemia. 7. Hypothyroidism. 8. Chronic hyponatremia. 8. GERD. 9. Atrial fibrillation, chronic. Seems to be chronic patient is not on any anticoagulation not clear of what is the reason may be recurrent falls. Discharge plan: Subacute rehab once insurance authorization is obtained and arrangements completed. Impression and plan of care have been directed as dictated by the signing physician. Samantha Griffith nurse practitioner acting as scribe for signing physician. Patient Condition at Discharge: Good Plan - Discharge Summary New Discharge Prescriptions: New diphenhydrAMINE ELIXIR [Benadryl Elixir] 75 mg PO TID cup Mag Hydrox/Al Hydrox/Simeth [Maalox] 30 ml PO TID cup Nystatin 100,000 Unit/ml Susp [Mycostatin Oral Susp] 3,000,000 unit PO TID cup Sodium Bicarbonate Tab 650 mg PO BID tab Lidocaine Viscous [Xylocaine Viscous 2%] 30 ml PO TID ml Continue Ranitidine HCl [Zantac] 150 mg PO BID Changed Levothyroxine Sodium [Synthroid] 25 mcg PO DAILY #0 Discontinued amLODIPine [Norvasc] 5 mg PO DAILY Sodium Chloride Tab 1 gm PO BID #60 tablet Furosemide [Lasix] 20 mg PO DAILY Discharge Medication List Ranitidine HCl [Zantac] 150 mg PO BID 08/12/18 [History] Levothyroxine Sodium [Synthroid] 25 mcg PO DAILY #0 02/03/19 [Rx] Lidocaine Viscous [Xylocaine Viscous 2%] 30 ml PO TID ml 02/03/19 [Rx] Mag Hydrox/Al Hydrox/Simeth [Maalox] 30 ml PO TID cup 02/03/19 [Rx] Nystatin 100,000 Unit/ml Susp [Mycostatin Oral Susp] 3,000,000 unit PO TID cup 02/03/19 [Rx] Sodium Bicarbonate Tab 650 mg PO BID tab 02/03/19 [Rx] diphenhydrAMINE ELIXIR [Benadryl Elixir] 75 mg PO TID cup 02/03/19 [Rx] Follow up Appointment(s)/Referral(s): Kamaljit Dalton MD [Primary Care Provider] - 1 Week (after dc from ecf ) Patient Instructions/Handouts: Hyponatremia (DC), Type 2 Diabetes in Adults: New Diagnosis (DC), Fall Prevention (DC) Discharge Disposition: TRANSFER TO SNF/ECF
[2019-02-03] MEDS: MAG HYDROX/AL HYDROX/SIMETH 30 ML, LIDOCAINE VISCOUS 30 ML, diphenhydrAMINE ELIXIR 75 M... PO SCH ×12 (14:06→21:11)
[2019-02-03 17:23] LABS: Glucose,Whole Blood 120 mg/dL (75-99)
[2019-02-03 19:27] LABS: Hemoglobin A1C 5.6 % (4.0-6.0)
[2019-02-03 20:41] LABS: Glucose,Whole Blood 117 mg/dL (75-99)
[2019-02-03 22:22] VITALS: RESP 20
[2019-02-04 05:04] VITALS: BP 124/74; PULSE 84; TEMP 97.9
[2019-02-04] MEDS ORDERED: LEVOTHYROXINE 25 MCG TAB PO SCH (06:30)
[2019-02-04 07:00] LABS: Glucose,Whole Blood 91 mg/dL (75-99)
[2019-02-04] MEDS: INSULIN ASPART (NovoLOG) 100 UNIT/ML VIAL SQ SCH ×2 (07:59→12:20)
[2019-02-04] MEDS: PANTOPRAZOLE 40 MG TABLET PO SCH (08:02)
[2019-02-04] MEDS: SODIUM BICARBONATE TAB 650 MG TAB PO SCH (08:02)
[2019-02-04] MEDS: HEPARIN SODIUM,PORCINE 5,000 UNIT/ML 1 ML VIAL SQ SCH (08:08)
[2019-02-04] MEDS: MAG HYDROX/AL HYDROX/SIMETH 30 ML, LIDOCAINE VISCOUS 30 ML, diphenhydrAMINE ELIXIR 75 M... PO SCH ×4 (08:14)
[2019-02-04 09:05] LABS: African American GFR (CKD) >90 (>60 ml/min/1.73 sqM); Anion Gap 4 mmol/L; Blood Urea Nitrogen 9 mg/dL (7-17); Calcium 8.6 mg/dL (8.4-10.2); Carbon Dioxide 32 mmol/L (22-30); Chloride 97 mmol/L (98-107); Glucose 106 mg/dL (74-99); Magnesium 1.6 mg/dL (1.6-2.3); Potassium 3.7 mmol/L (3.5-5.1); Sodium 133 mmol/L (137-145)
[2019-02-04 11:42] LABS: Glucose,Whole Blood 92 mg/dL (75-99)
--- NOTE | 2019-02-04 11:52 | P.PN ---
Subjective Patient seen in follow-up for hyponatremia. Sodium level 133 this morning. Currently off IV fluids. Oral intake is gradually improving. No active complaints. Vital signs are stable. General: The patient appeared well nourished and normally developed. HEENT: Head exam is unremarkable. Neck is without jugular venous distension. LUNGS: Breath sounds decreased. HEART: Rate and Rhythm are regular. First and second heart sounds normal. No murmurs, rubs or gallops. ABDOMEN: Abdominal exam reveals normal bowel sounds. Non-tender and non-diste nded. No evidence of peritonitis. EXTREMITITES: No clubbing, cyanosis, or edema. Objective - Vital Signs Vital signs: Vital Signs Temp 97.9 F 02/04/19 04:30 Pulse 84 02/04/19 04:30 Resp 20 02/04/19 04:30 BP 124/74 02/04/19 04:30 Pulse Ox 95 02/04/19 04:30 Intake & Output 02/03/19 02/04/19 02/04/19 18:59 06:59 18:59 Intake Total 150 120 Output Total 500 Balance -500 150 120 Weight 49.5 kg Intake: Oral 150 120 Output: Urine 500 Other: Voiding Method Indwelling Catheter Indwelling Catheter # Voids 2 - Labs CBC & Chem 7: 02/01/19 04:19 02/04/19 07:57 Labs: Abnormal Lab Results - Last 24 Hours (Table) 02/03/19 02/03/19 02/03/19 Range/Units 12:34 17:17 20:39 Sodium (137-145) mmol/L Chloride (98-107) mmol/L Carbon Dioxide (22-30) mmol/L Creatinine (0.52-1.04) mg/dL Glucose (74-99) mg/dL POC Glucose (mg/dL) 127 H 120 H 117 H (75-99) mg/dL 02/04/19 Range/Units 07:57 Sodium 133 L (137-145) mmol/L Chloride 97 L (98-107) mmol/L Carbon Dioxide 32 H (22-30) mmol/L Creatinine 0.42 L (0.52-1.04) mg/dL Glucose 106 H (74-99) mg/dL POC Glucose (mg/dL) (75-99) mg/dL Assessment and Plan Plan: Assessment: 1. Hyponatremia. Currently appears euvolemic. 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 Urine osmolality noted to be a little on the lower side at 268. 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 Sodium level 133 this morning. 2. Fall and possible seizure due to hyponatremia. 3. Benign hypertension. Controlled. 4. Metabolic acidosis. Better. Maintain on oral sodium bicarbonate. 5. Hypokalemia from poor oral intake. Better. Magnesium normal. Plan: Maintain 1200 mL fluid restriction. Encourage oral intake. Repeat electrolytes in the morning.
== END 2019-02-04 16:16 | DRG 643 ==
LOC: EC 00:57 → 2SICU 02:38 → 4MS4W 02-01 19:19
PROVIDERS: ADMIT Internal Medicine; ATTEND Internal Medicine
PROC: 5A1945Z Respiratory Ventilation, 24-96 Consecutive Hours (ICD-10-PCS; principal; 2019-01-29)
PROC: 0BH17EZ Insertion of Endotracheal Airway into Trachea, Via Natural or Artificial Opening (ICD-10-PCS; 2019-01-29)
PROC: 0D9670Z Drainage of Stomach with Drainage Device, Via Natural or Artificial Opening (ICD-10-PCS; 2019-01-29)
PROC: 5A09457 Assistance with Respiratory Ventilation, 24-96 Consecutive Hours, Continuous Positive Airway Pressure (ICD-10-PCS; 2019-01-30)
DX: E22.2 Syndrome of inappropriate secretion of antidiuretic hormone (principal); G93.41 Metabolic encephalopathy; J96.01 Acute respiratory failure with hypoxia; I48.20 Chronic atrial fibrillation, unspecified; E87.4 Mixed disorder of acid-base balance; J98.11 Atelectasis; I95.9 Hypotension, unspecified; E86.0 Dehydration; G40.409 Other generalized epilepsy and epileptic syndromes, not intractable, without status epilepticus; R13.10 Dysphagia, unspecified; E11.9 Type 2 diabetes mellitus without complications; E86.1 Hypovolemia; I65.23 Occlusion and stenosis of bilateral carotid arteries; I11.9 Hypertensive heart disease without heart failure; E03.9 Hypothyroidism, unspecified; E78.5 Hyperlipidemia, unspecified; E87.6 Hypokalemia; G31.9 Degenerative disease of nervous system, unspecified; R26.81 Unsteadiness on feet; R63.1 Polydipsia; M50.30 Other cervical disc degeneration, unspecified cervical region; K21.9 Gastro-esophageal reflux disease without esophagitis; H91.90 Unspecified hearing loss, unspecified ear; Z79.890 Hormone replacement therapy; Z79.899 Other long term (current) drug therapy; Z86.711 Personal history of pulmonary embolism; Z90.710 Acquired absence of both cervix and uterus; Z86.14 Personal history of Methicillin resistant Staphylococcus aureus infection; Z86.59 Personal history of other mental and behavioral disorders; Z88.0 Allergy status to penicillin; W19.XXXA Unspecified fall, initial encounter; Z82.49 Family history of ischemic heart disease and other diseases of the circulatory system; Z82.3 Family history of stroke
CPT/HCPCS: 31500; 36415; 36600; 70450; 71045; 72125; 72170; 80048; 80053; 80306; 80320; 81003; 82140; 82310; 82570; 82805; 83036; 83735; 83930; 83935; 84132; 84133; 84295; 84300; 84443; 84484; 84550; 84560; 85025; 85610; 85730; 86850; 86900; 86901; 87070; 87205; 87324; 93005; 94002; 94003; 94660; 94770; 96374; 99291

== ENCOUNTER 2019-09-25 15:48 | Emergency (ER) | payer MEDICARE ==
[2019-09-25 15:55] VITALS: BP 129/70; TEMP 98.1
--- NOTE | 2019-09-25 17:09 | XR ---
EXAMINATION TYPE: XR soft tissue neck DATE OF EXAM: 09/25/2019 COMPARISON: 07/26/2018 HISTORY: Difficulty swallowing TECHNIQUE: 2 views. FINDINGS: Epiglottis is normal. Subglottic trachea appears normal. Prevertebral soft tissues appear normal. The re is no evidence of upper esophageal foreign body. IMPRESSION: Negative cervical soft tissue exam.
[2019-09-25 17:13] LABS: Appearance,Urine Clear (Clear); Bilirubin,Urine Negative (Negative); Blood,Urine Negative (Negative); Color,Urine Light Yellow; Glucose,Urine (UA) Negative (Negative); Ketones,Urine Negative (Negative); Leukocyte Esterase,Urine Negative (Negative); Nitrite,Urine Negative (Negative); PH, Urine 5.5 (5.0-8.0); Protein,Urine Negative (Negative); Specific Gravity,Urine 1.012 (1.001-1.035); Urobilinogen,Urine <2.0 mg/dL (<2.0)
--- NOTE | 2019-09-25 17:51 | ED ---
ENT HPI - General Source: patient, RN notes reviewed, old records reviewed Mode of arrival: EMS Limitations: no limitations <Tyra Villalba - Last Filed: 09/26/19 16:05> <Gloria Crowder - Last Filed: 09/29/19 01:10> - General Chief complaint: ENT Stated complaint: Difficulty swallowing Time Seen by Provider: 09/25/19 16:06 - History of Present Illness Initial comments: PAtient is a 89 year old female with CC of difficulty swallowing for 1 week. She states she can swallow liquids and soft foods but has a hard time swallowing solids. She reports she had this happen last year. She reports she had a scope done last year by . She reports that she has no difficulty breathing. She denies fever, chills or cough. She reports no vomiting. (Tyra Villalba) - Related Data Home Medications Medication Instructions Recorded Confirmed Aspirin EC [Ecotrin Low Dose] 81 mg PO DAILY 09/28/19 09/28/19 Furosemide [Lasix] 20 mg PO DAILY 09/28/19 09/28/19 Levothyroxine Sodium [Synthroid] 50 mcg PO DAILY 09/28/19 09/28/19 Sodium Chloride Tab 2 gm PO BID 09/28/19 09/28/19 amLODIPine [Norvasc] 5 mg PO DAILY 09/28/19 09/28/19 Allergies Allergy/AdvReac Type Severity Reaction Status Date / Time Penicillins Allergy Rash/Hives Verified 09/28/19 20:33 Review of Systems ROS Other: All systems not noted in ROS Statement are negative. <Tyra Villalba - Last Filed: 09/26/19 16:05> ROS Other: All systems not noted in ROS Statement are negative. <Gloria Crowder - Last Filed: 09/29/19 01:10> ROS Statement: Those systems with pertinent positive or pertinent negative responses have been documented in the HPI. Past Medical History Past Medical History: Atrial Fibrillation, Diabetes Mellitus, Hyperlipidemia, Hypertension, Pulmonary Embolus (PE), Thyroid Disorder Additional Past Medical History / Comment(s): had a siezure in 2004, pt states her NA+ was to low, dysphagia History of Any Multi-Drug Resistant Organisms: MRSA Date of last positivie culture/infection: 02/21/2014 MDRO Source:: Face Past Surgical History: Bladder Surgery, Hysterectomy Past Anesthesia/Blood Transfusion Reactions: No Reported Reaction Past Psychological History: Anxiety, Depression Smoking Status: Never smoker Past Alcohol Use History: None Reported Past Drug Use History: None Reported - Past Family History Father Family Medical History: CVA/TIA, Hypertension Additional Family Medical History / Comment(s): brain anyruisum Mother Family Medical History: Hypertension <Tyra Villalba - Last Filed: 09/26/19 16:05> General Exam Limitations: no limitations General appearance: alert, in no apparent distress Head exam: Present: atraumatic, normocephalic, normal inspection Eye exam: Present: normal appearance, PERRL, EOMI. Absent: scleral icterus, conjunctival injection, periorbital swelling ENT exam: Present: normal exam, normal oropharynx, mucous membranes moist Neck exam: Present: normal inspection. Absent: tenderness, meningismus, lymphadenopathy Respiratory exam: Present: normal lung sounds bilaterally. Absent: respiratory distress, wheezes, rales, rhonchi, stridor Cardiovascular Exam: Present: regular rate, normal rhythm, normal heart sounds. Absent: systolic murmur, diastolic murmur, rubs, gallop, clicks GI/Abdominal exam: Present: soft, normal bowel sounds. Absent: distended, tenderness, guarding, rebound, rigid Neurological exam: Present: alert, oriented X3, CN II-XII intact Psychiatric exam: Present: normal affect, normal mood Skin exam: Present: warm, dry, intact, normal color. Absent: rash <Tyra Villalba - Last Filed: 09/26/19 16:05> - General Exam Comments Initial Comments: 89 year old female, no acute distress. Resting in bed and drinking water. No vomiting (Tyra Villalba) Course Vital Signs 09/25/19 09/25/19 15:49 17:59 Temperature 98.1 F Pulse Rate 98 80 Respiratory 17 16 Rate Blood Pressure 129/70 129/70 O2 Sat by Pulse 98 98 Oximetry Medical Decision Making - Radiology Data Radiology results: report reviewed <Tyra Villalba - Last Filed: 09/26/19 16:05> <Gloria Crowder - Last Filed: 09/29/19 01:10> - Medical Decision Making Patient is a 89 year old female who presents to ED with CC of dysphagia for one week. In ED patient is drinking water and appears in no distress. PAtient has no difficulty breathing and is tolerating soft foods at home. Discussed patient needs to follow up with PCP and GI for possible scope. She has no uvular swelling and no signs of pharyngitis. Discussed Return parameters and follow up. Patient and patient understands treatment plan. (Tyra Villalba) I was available for consultation in the emergency department. The history and physical exam were done by the midlevel provider. I was consulted for this patients care. I reviewed the case with the midlevel provider and based on their presentation of the patient, I agree with the assessment, medical decision making and plan of care as documented. Chart was dictated using [employer] dictation software. Attempts were made to correct any dictation errors however some typographical errors may persist. Patient was seen during a national state of emergency due to the Covid-19 pandemic. (Gloria Crowder) - Lab Data Lab Results 09/25/19 Range/Units 16:52 Urine Color Light Yellow Urine Appearance Clear (Clear) Urine pH 5.5 (5.0-8.0) Ur Specific [place] 1.012 (1.001-1.035) Urine Protein Negative (Negative) Urine Glucose (UA) Negative (Negative) Urine Ketones Negative (Negative) Urine Blood Negative (Negative) Urine Nitrite Negative (Negative) Urine Bilirubin Negative (Negative) Urine Urobilinogen <2.0 (<2.0) mg/dL Ur Leukocyte Esterase Negative (Negative) - Radiology Data Negative cervical soft tissue exam. (Tyra Villalba) Disposition Is patient prescribed a controlled substance at d/c from ED?: No Time of Disposition: 17:50 <Tyra Villalba - Last Filed: 09/26/19 16:05> <Gloria Crowder - Last Filed: 09/29/19 01:10> Clinical Impression: Sore throat Disposition: HOME SELF-CARE Condition: Good Instructions (If sedation given, give patient instructions): Dysphagia (ED) Additional Instructions: Patient advised to follow-up with your primary care physician tomorrow. Return to the emergency department if any alarming signs or symptoms occur. Patient should increase nutrition with Gatorade and fluids that contain electrolytes and sugar. Patient can have soft food. Referrals: Kamaljit Dalton MD [Primary Care Provider] - 1-2 days
[2019-09-25 18:03] VITALS: PULSE 80; RESP 16
== END 2019-09-25 18:03 | disposition home or self-care (01) ==
LOC: EC 15:48
DX: J02.9 Acute pharyngitis, unspecified (principal); I10 Essential (primary) hypertension; E07.9 Disorder of thyroid, unspecified; Z79.82 Long term (current) use of aspirin; Z79.890 Hormone replacement therapy; Z79.899 Other long term (current) drug therapy; Z88.0 Allergy status to penicillin; Z86.14 Personal history of Methicillin resistant Staphylococcus aureus infection
CPT/HCPCS: 70360; 81003; 99284

== ENCOUNTER 2019-09-28 18:21 | Inpatient (IN) | payer MEDICARE ==
[2019-09-28] MEDS ORDERED: SODIUM CHLORIDE 0.9% 1,000 ML IV STA (18:35)
--- NOTE | 2019-09-28 18:39 | ED ---
General Adult HPI - General Stated complaint: Sore throat Time Seen by Provider: 09/28/19 18:23 Source: patient, family, RN notes reviewed, old records reviewed (Patient does indeed have a history of atrial fibrillation) Limitations: no limitations - History of Present Illness Initial comments: Patient is a pleasant 89-year-old female presenting to the emergency department with sore throat. Patient and family are concerned that she has previously had low sodium levels associated with this. Onset of symptoms was today. Patient did not want to eat dinner. Patient states she is able to swallow however it is uncomfortable. No dyspnea. No generalized weakness or confusion. No chest pain. No known history of arrhythmia - Related Data Home Medications Medication Instructions Recorded Confirmed Ranitidine HCl [Zantac] 150 mg PO BID 08/12/18 01/29/19 Previous Rx's Medication Instructions Recorded Levothyroxine Sodium [Synthroid] 25 mcg PO DAILY #0 02/03/19 Lidocaine Viscous [Xylocaine 30 ml PO TID ml 02/03/19 Viscous 2%] Mag Hydrox/Al Hydrox/Simeth 30 ml PO TID cup 02/03/19 [Maalox] Nystatin 100,000 Unit/ml Susp 3,000,000 unit PO TID cup 02/03/19 [Mycostatin Oral Susp] Sodium Bicarbonate Tab 650 mg PO BID tab 02/03/19 diphenhydrAMINE ELIXIR [Benadryl 75 mg PO TID cup 02/03/19 Elixir] Allergies Allergy/AdvReac Type Severity Reaction Status Date / Time Penicillins Allergy Rash/Hives Verified 01/29/19 07:40 Review of Systems ROS Statement: Those systems with pertinent positive or pertinent negative responses have been documented in the HPI. ROS Other: All systems not noted in ROS Statement are negative. Constitutional: Denies: fever Eyes: Denies: eye pain ENT: Reports: throat pain Respiratory: Denies: cough, dyspnea Cardiovascular: Denies: chest pain Endocrine: Denies: fatigue Gastrointestinal: Denies: abdominal pain Genitourinary: Denies: dysuria Musculoskeletal: Denies: back pain Skin: Denies: rash Neurological: Denies: weakness Past Medical History Past Medical History: Atrial Fibrillation, Diabetes Mellitus, Hyperlipidemia, Hypertension, Pulmonary Embolus (PE), Thyroid Disorder Additional Past Medical History / Comment(s): had a siezure in 2004, pt states her NA+ was to low, dysphagia History of Any Multi-Drug Resistant Organisms: MRSA Date of last positivie culture/infection: 02/21/2014 MDRO Source:: Face Past Surgical History: Bladder Surgery, Hysterectomy Past Anesthesia/Blood Transfusion Reactions: No Reported Reaction Past Psychological History: Anxiety, Depression Smoking Status: Never smoker Past Alcohol Use History: None Reported Past Drug Use History: None Reported - Past Family History Father Family Medical History: CVA/TIA, Hypertension Additional Family Medical History / Comment(s): brain anyruisum Mother Family Medical History: Hypertension General Exam Limitations: no limitations General appearance: alert, in no apparent distress Head exam: Present: normocephalic Eye exam: Present: normal appearance, PERRL ENT exam: Present: other (Mild white discoloration of the tongue) Neck exam: Present: normal inspection, full ROM. Absent: tenderness, meningismus, lymphadenopathy Respiratory exam: Present: normal lung sounds bilaterally Cardiovascular Exam: Present: irregular rhythm GI/Abdominal exam: Present: soft. Absent: tenderness Extremities exam: Present: normal inspection. Absent: pedal edema, calf tenderness Neurological exam: Present: alert Expanded Neurological exam: Present: protecting the airway Patient oriented to: Present: person, place. Absent: time (Patient and states this is normal) Psychiatric exam: Present: normal affect, normal mood Skin exam: Present: normal color Course Vital Signs 09/28/19 18:41 Temperature 97.8 F Pulse Rate 102 H Respiratory 20 Rate Blood Pressure 154/94 O2 Sat by Pulse 92 L Oximetry EKG Findings - EKG Comments: EKG Findings:: A. fib with rate of 110. QRS 98. QT 352. QTC 476. Left axis. Left anterior fascicular block. Septal Q waves. LVH criteria. No acute ST malathi nge. Medical Decision Making - Medical Decision Making Patient reevaluated and updated. Case was discussed in detail with Dr. Pace, who will admit for Dr. Dalton. Consults have been placed and paged for Dr. Warner with critical care and Dr. Schmidt with nephrology. Case was discussed with Dr. Causey, who will consult. He recommends 3% sodium p rotocol with a rate of 25-30 mL per hour to a target of 1:15 in the first 24 hours. - Lab Data Result diagrams: 09/28/19 19:13 09/28/19 19:13 Lab Results 09/28/19 09/28/19 09/28/19 Range/Units 19:13 19:13 19:13 WBC 4.3 (3.8-10.6) k/uL RBC 4.30 (3.80-5.40) m/uL Hgb 13.0 (11.4-16.0) gm/dL Hct 36.7 (34.0-46.0) % MCV 85.4 (80.0-100.0) fL MCH 30.3 (25.0-35.0) pg MCHC 35.5 (31.0-37.0) g/dL RDW 13.1 (11.5-15.5) % Plt Count 183 (150-450) k/uL Neutrophils % 78 % Lymphocytes % 11 % Monocytes % 8 % Eosinophils % 1 % Basophils % 0 % Neutrophils # 3.4 (1.3-7.7) k/uL Lymphocytes # 0.5 L (1.0-4.8) k/uL Monocytes # 0.3 (0-1.0) k/uL Eosinophils # 0.1 (0-0.7) k/uL Basophils # 0.0 (0-0.2) k/uL PT 10.1 (9.0-12.0) sec INR 1.0 (<1.2) APTT 28.3 (22.0-30.0) sec Sodium 106 L* (137-145) mmol/L Potassium 4.1 (3.5-5.1) mmol/L Chloride 76 L (98-107) mmol/L Carbon Dioxide 19 L (22-30) mmol/L Anion Gap 11 mmol/L BUN 11 (7-17) mg/dL Creatinine 0.32 L (0.52-1.04) mg/dL Est GFR (CKD-EPI)AfAm >90 (>60 ml/min/1.73 sqM) Est GFR (CKD-EPI)NonAf >90 (>60 ml/min/1.73 sqM) Glucose 115 H (74-99) mg/dL Calcium 8.5 (8.4-10.2) mg/dL Magnesium 1.6 (1.6-2.3) mg/dL Total Bilirubin 0.8 (0.2-1.3) mg/dL AST 63 H (14-36) U/L ALT 109 H (4-34) U/L Alkaline Phosphatase 115 (38-126) U/L Troponin I (0.000-0.034) ng/mL Total Protein 7.2 (6.3-8.2) g/dL Albumin 4.1 (3.5-5.0) g/dL TSH 2.310 (0.465-4.680) mIU/L Free T4 1.64 (0.78-2.19) ng/dL Free T3 pg/mL 2.2 L (2.8-5.3) pg/ml 09/28/19 Range/Units 19:13 WBC (3.8-10.6) k/uL RBC (3.80-5.40) m/uL Hgb (11.4-16.0) gm/dL Hct (34.0-46.0) % MCV (80.0-100.0) fL MCH (25.0-35.0) pg MCHC (31.0-37.0) g/dL RDW (11.5-15.5) % Plt Count (150-450) k/uL Neutrophils % % Lymphocytes % % Monocytes % % Eosinophils % % Basophils % % Neutrophils # (1.3-7.7) k/uL Lymphocytes # (1.0-4.8) k/uL Monocytes # (0-1.0) k/uL Eosinophils # (0-0.7) k/uL Basophils # (0-0.2) k/uL PT (9.0-12.0) sec INR (<1.2) APTT (22.0-30.0) sec Sodium (137-145) mmol/L Potassium (3.5-5.1) mmol/L Chloride (98-107) mmol/L Carbon Dioxide (22-30) mmol/L Anion Gap mmol/L BUN (7-17) mg/dL Creatinine (0.52-1.04) mg/dL Est GFR (CKD-EPI)AfAm (>60 ml/min/1.73 sqM) Est GFR (CKD-EPI)NonAf (>60 ml/min/1.73 sqM) Glucose (74-99) mg/dL Calcium (8.4-10.2) mg/dL Magnesium (1.6-2.3) mg/dL Total Bilirubin (0.2-1.3) mg/dL AST (14-36) U/L ALT (4-34) U/L Alkaline Phosphatase (38-126) U/L Troponin I <0.012 (0.000-0.034) ng/mL Total Protein (6.3-8.2) g/dL Albumin (3.5-5.0) g/dL TSH (0.465-4.680) mIU/L Free T4 (0.78-2.19) ng/dL Free T3 pg/mL (2.8-5.3) pg/ml Critical Care Time Critical Care Time: Yes Total Critical Care Time: 33 Disposition Clinical Impression: Hyponatremia Disposition: ADMITTED IP TO THIS [facility] Condition: Critical Is patient prescribed a controlled substance at d/c from ED?: No Referrals: Kamaljit Dalton MD [Primary Care Provider] - 1-2 days Decision Time: 20:12
[2019-09-28 19:43] LABS: ALT 109 U/L (4-34); AST 63 U/L (14-36); African American GFR (CKD) >90 (>60 ml/min/1.73 sqM); Albumin 4.1 g/dL (3.5-5.0); Alkaline Phosphatase 115 U/L (38-126); Anion Gap 11 mmol/L; Blood Urea Nitrogen 11 mg/dL (7-17); Calcium 8.5 mg/dL (8.4-10.2); Carbon Dioxide 19 mmol/L (22-30); Chloride 76 mmol/L (98-107); Glucose 115 mg/dL (74-99); Magnesium 1.6 mg/dL (1.6-2.3); Non-African American GFR(CKD) >90 (>60 ml/min/1.73 sqM); Potassium 4.1 mmol/L (3.5-5.1); Total Bilirubin 0.8 mg/dL (0.2-1.3); Total Protein 7.2 g/dL (6.3-8.2)
[2019-09-28 19:47] LABS: Basophils % (A) 0 %; Eosinophils # (A) 0.1 k/uL (0-0.7); Eosinophils % (A) 1 %; HCT 36.7 % (34.0-46.0); Lymphocytes # (A) 0.5 k/uL (1.0-4.8); Lymphocytes % (A) 11 %; MCH 30.3 pg (25.0-35.0); MCHC 35.5 g/dL (31.0-37.0); MCV 85.4 fL (80.0-100.0); Mean Platelet Volume 7.4; Monocytes # (A) 0.3 k/uL (0-1.0); Monocytes % (A) 8 %; Neutrophils # (A) 3.4 k/uL (1.3-7.7); Neutrophils % (A) 78 %; Platelet Count 183 k/uL (150-450); RDW 13.1 % (11.5-15.5); WBC 4.3 k/uL (3.8-10.6)
[2019-09-28 19:50] LABS: Sodium 106 mmol/L (137-145)
[2019-09-28] MEDS ORDERED: SODIUM CHLORIDE 0.9% 500 ML 500 ML IV STA (19:53)
[2019-09-28 19:59] LABS: T4, Free (Free Thyroxine) 1.64 ng/dL (0.78-2.19)
[2019-09-28 20:01] LABS: Partial Thromboplastin Time 28.3 sec (22.0-30.0); Prothrombin Time 10.1 sec (9.0-12.0)
--- NOTE | 2019-09-28 20:06 | XR ---
EXAMINATION TYPE: XR chest 2V DATE OF EXAM: 09/28/2019 COMPARISON: Chest x-ray February 02, 2019 HISTORY: Dysrhythmia. TECHNIQUE: Frontal and lateral views of the chest are obtained. FINDINGS: There is chronic interstitial changes with increased interstitial markings bilaterally. N o suspicious focal airspace opacity, pleural effusion, or pneumothorax seen bilaterally. The cardiac silhouette size remains enlarged with atherosclerotic aorta. The osseous structures remain deminera lized. IMPRESSION: Possible CHF exacerbation or fluid overload status there is cardiomegaly with new mild i nterstitial edema on background chronic parenchymal change. Correlate clinically.
--- NOTE | 2019-09-28 20:08 | XR ---
EXAMINATION TYPE: XR soft tissue neck DATE OF EXAM: 09/28/2019 COMPARISON: Soft tissue neck x-ray 3 days ago. HISTORY: Persistent Sore throat TECHNIQUE: 2 views soft tissue neck. FINDINGS: Prevertebral soft tissue remains within normal limits. Region of epiglottis and vallecula r emains within normal limits. Persistent grade 1 retrolisthesis C5 on C6 with moderate spurring and di sc space narrowing. Hypopharyngeal airway is unremarkable on the frontal view without suspicious narr owing. Overlying clothing material is present. IMPRESSION: As above. No significant change from prior.
[2019-09-28] MEDS ORDERED: NALOXONE 0.4 MG/ML 1 ML VIAL IV PRN (20:13)
[2019-09-28 20:19] LABS: Appearance,Urine Clear (Clear); Bacteria,Urine Occasional /hpf; Color,Urine Yellow; Mucus,Urine Rare /hpf; RBC,Urine 1 /hpf (0-5); Squamous Epithelial Cell,Urine 1 /hpf (0-4); WBC,Urine 2 /hpf (0-5)
[2019-09-28 20:20] LABS: Bilirubin,Urine Negative (Negative); Blood,Urine Negative (Negative); Glucose,Urine (UA) Negative (Negative); Ketones,Urine 2+ (Negative); Leukocyte Esterase,Urine Small (Negative); Nitrite,Urine Negative (Negative); Protein,Urine Negative (Negative); Specific Gravity,Urine 1.005 (1.001-1.035); Urobilinogen,Urine <2.0 mg/dL (<2.0)
[2019-09-28] MEDS ORDERED: SODIUM CHLORIDE 3%(HYPERTONIC) 500 ML IV SCH (21:00)
[2019-09-28 22:14] LABS: Glucose,Whole Blood 101 mg/dL (75-99)
[2019-09-29] MEDS ORDERED: DEXTROSE 5% IN WATER 1,000 ML IV ONE (00:21)
[2019-09-29] MEDS: NYSTATIN 100,000 UNIT/ML SUSP 500,000 UNIT/5 ML CUP PO SCH ×5 (00:33→21:45)
[2019-09-29 03:49] LABS: Basophils % (A) 0 %; Eosinophils # (A) 0.1 k/uL (0-0.7); Eosinophils % (A) 2 %; HCT 37.1 % (34.0-46.0); Lymphocytes # (A) 0.8 k/uL (1.0-4.8); Lymphocytes % (A) 16 %; MCH 30.1 pg (25.0-35.0); MCV 86.1 fL (80.0-100.0); Mean Platelet Volume 6.8; Monocytes # (A) 0.4 k/uL (0-1.0); Monocytes % (A) 8 %; Neutrophils # (A) 3.3 k/uL (1.3-7.7); Neutrophils % (A) 71 %; Platelet Count 186 k/uL (150-450); RBC 4.31 m/uL (3.80-5.40); RDW 12.9 % (11.5-15.5); WBC 4.6 k/uL (3.8-10.6)
[2019-09-29 04:00] LABS: ALT 91 U/L (4-34); AST 51 U/L (14-36); African American GFR (CKD) >90 (>60 ml/min/1.73 sqM); Albumin 3.6 g/dL (3.5-5.0); Alkaline Phosphatase 86 U/L (38-126); Anion Gap 7 mmol/L; Blood Urea Nitrogen 6 mg/dL (7-17); Calcium 8.8 mg/dL (8.4-10.2); Carbon Dioxide 23 mmol/L (22-30); Chloride 92 mmol/L (98-107); Glucose 92 mg/dL (74-99); Non-African American GFR(CKD) >90 (>60 ml/min/1.73 sqM); Potassium 3.4 mmol/L (3.5-5.1); Sodium 122 mmol/L (137-145); Total Bilirubin 0.8 mg/dL (0.2-1.3); Total Protein 6.3 g/dL (6.3-8.2)
[2019-09-29] MEDS ORDERED: DESMOPRESSIN ACETATE 1 MCG in SODIUM CHLORIDE 0.9% 50 ML IVPB ONE (04:11)
[2019-09-29] MEDS ORDERED: Potassium Replacement Protocol 1 EACH MISC MISCELLANE PRN (04:14)
[2019-09-29] MEDS: POTASSIUM CHLORIDE 10 MEQ in WATER FOR INJECTION 1 100ML.BAG IVPB SCH ×3 (05:16→08:26)
[2019-09-29] MEDS: LEVOTHYROXINE 50 MCG TAB PO SCH (07:06)
[2019-09-29] MEDS ORDERED: POTASSIUM BICARBONATE/CIT AC 20 MEQ TABLET.EFF PO ONE (08:00)
[2019-09-29] MEDS: amLODIPine 5 MG TAB PO SCH (08:06)
[2019-09-29] MEDS: HEPARIN SODIUM,PORCINE 5,000 UNIT/ML 1 ML VIAL SQ SCH ×2 (08:06→21:45)
[2019-09-29] MEDS: FAMOTIDINE 20 MG TAB PO SCH (08:06)
[2019-09-29] MEDS: ASPIRIN 81 MG PO SCH (08:06)
--- NOTE | 2019-09-29 08:28 | P.NPCON ---
History of Present Illness - Reason for Consult hyponatremia - History of Present Illness Reason for consultation: Hyponatremia History of present illness: Patient is a 89-year-old female seen in renal consultation for hyponatremia. Patient presented to the hospital with a sore throat. It is noted that the family felt her sodium was low as she's had such episodes in the past. Patient is not a reliable historian and she is not completely alert and oriented. Her sodium level was 106 on admission. She did receive normal saline bolus on admission. She was then maintained on normal saline and subsequently changed over to 3% saline for a few hours. Patient's sodium level corrected quite rapidly and was up to 117 as of 11:50 PM yesterday. She was then started on D5 W and also received a dose of DDAVP. Sodium level at 3 AM was 122 and is now 123. Patient's urine output is documented is 4.8 L since admission. However it is now about 50-60 mL an hour. Her mentation is at baseline per the nurse. No vomiting or diarrhea but oral intake is poor. Hemodynamically she is stable. She was also taking sodium chloride tablets which are currently held. she was also on Lasix 20 mg orally daily at home. Currently held. I don't see any thiazide diuretics and her home medications. Vital signs are stable. General: The patient appeared well nourished and normally developed. HEENT: Head exam is unremarkable. Neck is without jugular venous distension. LUNGS: Breath sounds decreased. HEART: Rate and Rhythm are regular. First and second heart sounds normal. No murmurs, rubs or gallops. ABDOMEN: Abdominal exam reveals normal bowel sounds. Non-tender and non- distended. EXTREMITITES: No edema. Past Medical History Past Medical History: Atrial Fibrillation, Diabetes Mellitus, Hyperlipidemia, Hypertension, Pulmonary Embolus (PE), Thyroid Disorder Additional Past Medical History / Comment(s): had a siezure in 2004, pt states her NA+ was to low, dysphagia History of Any Multi-Drug Resistant Organisms: MRSA Date of last positivie culture/infection: 02/21/2014 MDRO Source:: Face Past Surgical History: Bladder Surgery, Hysterectomy Past Anesthesia/Blood Transfusion Reactions: No Reported Reaction Past Psychological History: Anxiety, Depression Smoking Status: Never smoker Past Alcohol Use History: None Reported Past Drug Use History: None Reported - Past Family History Father Family Medical History: CVA/TIA, Hypertension Additional Family Medical History / Comment(s): brain anyruisum Mother Family Medical History: Hypertension Medications and Allergies Home Medications Medication Instructions Recorded Confirmed Type Aspirin EC [Ecotrin Low Dose] 81 mg PO DAILY 09/28/19 09/28/19 History Furosemide [Lasix] 20 mg PO DAILY 09/28/19 09/28/19 History Levothyroxine Sodium [Synthroid] 50 mcg PO DAILY 09/28/19 09/28/19 History Sodium Chloride Tab 2 gm PO BID 09/28/19 09/28/19 History amLODIPine [Norvasc] 5 mg PO DAILY 09/28/19 09/28/19 History Allergies Allergy/AdvReac Type Severity Reaction Status Date / Time Penicillins Allergy Rash/Hives Verified 09/28/19 20:33 Physical Exam Vitals: Vital Signs Temp Pulse Resp BP Pulse Ox 09/29/19 07:44 16 09/29/19 07:00 98 F 62 16 120/68 99 09/29/19 06:00 73 27 H 111/60 99 09/29/19 05:00 73 26 H 109/59 99 09/29/19 04:00 98.1 F 63 20 106/61 100 09/29/19 03:00 64 115/69 99 09/29/19 02:00 65 11 L 125/59 99 09/29/19 01:00 68 20 118/63 98 09/29/19 00:13 84 144/75 99 09/29/19 00:00 98.6 F 67 14 144/75 99 09/28/19 23:00 87 7 L 144/75 99 09/28/19 22:11 31 H 09/28/19 22:00 98.0 F 87 16 130/77 99 09/28/19 21:42 98.2 F 91 17 128/75 100 09/28/19 21:00 95 16 112/65 99 09/28/19 20:30 97.9 F 92 19 141/67 99 09/28/19 20:00 118 H 19 143/95 100 09/28/19 19:30 106 H 18 156/86 99 09/28/19 18:41 97.8 F 102 H 20 154/94 92 L Intake and Output 09/28/19 09/29/19 09/29/19 22:59 06:59 14:59 Output Total 1999 2850 50 Balance -1999 -2850 -50 Output: Urine 1999 2850 50 Other: Voiding Method Indwelling Catheter Weight 45.359 kg 47.2 kg Results - Lab Results Most recent lab results Calcium 8.8 mg/dL (8.4-10.2) 09/29/19 03:33 Magnesium 1.6 mg/dL (1.6-2.3) 09/28/19 19:13 09/29/19 03:33 09/29/19 07:17 Assessment and Plan Plan: Assessment: 1. Hypovolemic hyponatremia improved rapidly with normal saline and 3%. Sodium level was 106 on September 27 at 7 PM. It is 123 this morning. TSH normal. Urine osmolality low at 195. 2. Hypokalemia from poor intake and diuretic. 3. Benign hypertension. Controlled. Plan: Increase D5W to 150 mL an hour. Status post IV DDAVP last night. Urine output decreased significantly. Repeat sodium level at 11 AM. Goal rate of sodium correction about 6-8/hour. Potassium being replaced. Thank you for the consultation. I will continue to follow patient with you during her hospital stay.
[2019-09-29] MEDS ORDERED: SODIUM CHLORIDE TAB 1 GM TAB PO SCH (09:00)
[2019-09-29] MEDS ORDERED: PANTOPRAZOLE 40 MG/10 ML VIAL IV SCH (09:00)
[2019-09-29] MEDS: DEXTROSE 5% IN WATER 1,000 ML IV SCH ×2 (09:34→15:21)
[2019-09-29 11:53] LABS: Potassium 5.1 mmol/L (3.5-5.1)
--- NOTE | 2019-09-29 12:31 | P.HPIM ---
History of Present Illness H&P Date: 09/29/19 Chief Complaint: Sore throat This is an 89-year-old female one of Dr. 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 She has had seizures secondary to hyponatremia requiring intubation and mechanical ventilation n her last hospitalization. Patient states that she came in the hospital due to difficulty swallowing and sore throat. She denies having any nausea vomiting, no abdominal pain. She denies having any blood in her stools. She does state she has some memory loss. She does not think she's had any recent weight loss. Patient was discharged on sodium chloride tablets in the past but she stopped taking them. She denies knowing why she stopped taking them. She states she drinks 5-6 glas ses of water per day. She denies any previous history of cancer. Patient presented to [facility] emergency center and found to have a sodium of 106. She did receive normal saline bolus in the emergency center as well as 1 dose of IV DDAVP was continued on normal saline changed over to 3% saline per Dr. Franco and current sodium is at 123. She has had good urine output at 50-60 mL per hour. No vomiting or diarrhea. CBC was found to be unremarkable. AST 51 and ALT 91. BUN 6 and creatinine 0.35. Urinalysis was clear with nitrate negative leukoesterase small. She has been afebrile, heart rate 67, blood pressure 122/71, pulse ox 97% on room air. 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 Review of symptoms Constitutional: No fever, no chills, no night sweats. No weight change. Reports weakness, fatigue. EENT: No headache. No blurred vision or double vision, no loss of vision. No dizziness. No nasal drainage or congestion. No epistaxis. Reports sore throat. Lungs: No shortness of breath, cough, no sputum production. No wheezing. Cardiovascular: No chest pain, no lower extremity edema. No palpitations. No paroxysmal nocturnal dyspnea. No orthopnea. No lightheadedness or dizziness. No syncopal episodes. Abdominal: No abdominal pain. No nausea, vomiting. No diarrhea. No constipation. No bloody or tarry stools.. No loss of appetite. Genitourinary: No dysuria, increased frequency, urgency. No urinary retention. Musculoskeletal: No myalgias. Reports muscle weakness, reports gait dysfunction, no frequent falls. No back pain. No neck pain. Integumentary: No wounds, no lesions. No rash or pruritus. No unusual bruising. No change in hair or nails. Neurologic: No aphasia. No facial droop. No change in mentation. No head injury. No headache. No paralysis. No paresthesia. Psychiatric: No depression. No anxiety. No mood swings. Endocrine: No abnormal blood sugars. No weight change. No excessive sweating or thirst. No cold intolerance. Physical examination Gen: This is an 89-year-old female. She is resting in ICU bed and appears to be comfortable and in no acute distress HEENT: Head is atraumatic, normocephalic. Pupils equal, round. Sclerae is anicteric. NECK: Supple. No JVD. No lymphadenopathy. No thyromegaly. LUNGS: Clear to auscultation. No wheezes or rhonchi. No intercostal retractions . HEART: Irregularly irregular rate and rhythm. 2/6 systolic ejection murmur. ABDOMEN: Soft. Bowel sounds are present. No masses. No tenderness. EXTREMITIES: No pedal edema. No calf tenderness. NEUROLOGICAL: Patient is awake, alert and oriented x3. Cranial nerves 2 through 12 are grossly intact. Assessment and plan 1. Severe hypovolemic hyponatremia. Patient is status post 1 dose of IV DDAVP. Patient is currently on D5W at 150 mL per hour. Nephrology consult appreciated. Monitor urine output. 2. Hypokalemia status post replacement 3. Sore throat with dysphagia. Consult with GI for EGD. 4. Mild elevation of liver function tests. Monitor. 5. Hypertension and hypertensive cardiovascular disease. Continue amlodipine 5 mg daily. 6. Hyperlipidemia. Not on any statin. 7. Hypothyroidism. Resume Synthroid 50 g daily. 8. Chronic hyponatremia. Baseline sodium is at 128-29 9. GERD. Continue Protonix 40 mg IV push every 24 hours. 10. Chronic atrial fibrillation. Patient is not on any anticoagulation not clear if reason may be recurrent falls. Monitor the patient very closely. 11. DVT prophylaxis. Continue heparin 5000 units subcu venously every 12 hours. 12. GI prophylaxis. Continue PPI. 13. Admit to inpatient. Estimate a length of stay 2 midnights. 14. Patient is full code. Discharge plan: To be determined. Patient has been discharged to [facility] on previous admission Impression and plan of care have been directed as dictated by the signing physician. Samantha Griffith nurse practitioner acting as scribe for signing physician. Past Medical History Past Medical History: Atrial Fibrillation, Diabetes Mellitus, Hyperlipidemia, Hypertension, Pulmonary Embolus (PE), Thyroid Disorder Additional Past Medical History / Comment(s): had a siezure in 2004, pt states her NA+ was to low, dysphagia History of Any Multi-Drug Resistant Organisms: MRSA Date of last positivie culture/infection: 02/21/2014 MDRO Source:: Face Past Surgical History: Bladder Surgery, Hysterectomy Past Anesthesia/Blood Transfusion Reactions: No Reported Reaction Past Psychological History: Anxiety, Depression Smoking Status: Never smoker Past Alcohol Use History: None Reported Past Drug Use History: None Reported - Past Family History Father Family Medical History: CVA/TIA, Hypertension Additional Family Medical History / Comment(s): brain anyruisum Mother Family Medical History: Hypertension Medications and Allergies Home Medications Medication Instructions Recorded Confirmed Type Aspirin EC [Ecotrin Low Dose] 81 mg PO DAILY 09/28/19 09/28/19 History Furosemide [Lasix] 20 mg PO DAILY 09/28/19 09/28/19 History Levothyroxine Sodium [Synthroid] 50 mcg PO DAILY 09/28/19 09/28/19 History Sodium Chloride Tab 2 gm PO BID 09/28/19 09/28/19 History amLODIPine [Norvasc] 5 mg PO DAILY 09/28/19 09/28/19 History Allergies Allergy/AdvReac Type Severity Reaction Status Date / Time Penicillins Allergy Rash/Hives Verified 09/28/19 20:33 Physical Exam Vitals: Vital Signs Temp Pulse Resp BP Pulse Ox 09/29/19 09:00 67 27 H 122/71 97 09/29/19 08:00 98 F 79 26 H 119/55 99 09/29/19 07:44 16 09/29/19 07:00 98 F 62 16 120/68 99 09/29/19 06:00 73 27 H 111/60 99 09/29/19 05:00 73 26 H 109/59 99 06/22/20 04:00 98.1 F 63 20 106/61 100 09/29/19 03:00 64 115/69 99 09/29/19 02:00 65 11 L 125/59 99 09/29/19 01:00 68 20 118/63 98 09/29/19 00:13 84 144/75 99 09/29/19 00:00 98.6 F 67 14 144/75 99 09/28/19 23:00 87 7 L 144/75 99 09/28/19 22:11 31 H 09/28/19 22:00 98.0 F 87 16 130/77 99 09/28/19 21:42 98.2 F 91 17 128/75 100 09/28/19 21:00 95 16 112/65 99 09/28/19 20:30 97.9 F 92 19 141/67 99 09/28/19 20:00 118 H 19 143/95 100 09/28/19 19:30 106 H 18 156/86 99 09/28/19 18:41 97.8 F 102 H 20 154/94 92 L Intake and Output 09/28/19 09/29/19 09/29/19 22:59 06:59 14:59 Intake Total 340 Output Total 1999 2850 170 Balance -1999 170 Intake: IV 300 Dextrose 5% in Water 1, 300 000 ml @ 150 mls/hr IV . Q6H40M ONE Rx#:[id number] Oral 40 Output: Urine 1999 2850 170 Other: Voiding Method Indwelling Catheter Weight 45.359 kg 47.2 kg Results CBC & Chem 7: 09/29/19 03:33 09/29/19 11:19 Labs: Abnormal Lab Results - Last 24 Hours (Table) 09/28/19 09/28/19 09/28/19 Range/Units 19:13 19:13 19:50 Lymphocytes # 0.5 L (1.0-4.8) k/uL Sodium 106 L* (137-145) mmol/L Potassium (3.5-5.1) mmol/L Chloride 76 L (98-107) mmol/L Carbon Dioxide 19 L (22-30) mmol/L BUN (7-17) mg/dL Creatinine 0.32 L (0.52-1.04) mg/dL Glucose 115 H (74-99) mg/dL POC Glucose (mg/dL) (75-99) mg/dL AST 63 H (14-36) U/L ALT 109 H (4-34) U/L Free T3 pg/mL 2.2 L (2.8-5.3) pg/ml Urine Bacteria Occasional H (None) /hpf Urine Mucus Rare H (None) /hpf 09/28/19 09/28/19 09/28/19 Range/Units 20:43 22:12 23:50 Lymphocytes # (1.0-4.8) k/uL Sodium 109 L* 117 L* (137-145) mmol/L Potassium (3.5-5.1) mmol/L Chloride (98-107) mmol/L Carbon Dioxide (22-30) mmol/L BUN (7-17) mg/dL Creatinine (0.52-1.04) mg/dL Glucose (74-99) mg/dL POC Glucose (mg/dL) 101 H (75-99) mg/dL AST (14-36) U/L ALT (4-34) U/L Free T3 pg/mL (2.8-5.3) pg/ml Urine Bacteria (None) /hpf Urine Mucus (None) /hpf 09/29/19 09/29/19 09/29/19 Range/Units 03:33 03:33 07:17 Lymphocytes # 0.8 L (1.0-4.8) k/uL Sodium 122 L 123 L (137-145) mmol/L Potassium 3.4 L (3.5-5.1) mmol/L Chloride 92 L (98-107) mmol/L Carbon Dioxide (22-30) mmol/L BUN 6 L (7-17) mg/dL Creatinine 0.35 L (0.52-1.04) mg/dL Glucose (74-99) mg/dL POC Glucose (mg/dL) (75-99) mg/dL AST 51 H (14-36) U/L ALT 91 H (4-34) U/L Free T3 pg/mL (2.8-5.3) pg/ml Urine Bacteria (None) /hpf Urine Mucus (None) /hpf Thrombosis Risk Factor Assmnt - Choose All That Apply Each Risk Factor Represents 3 Points: Age 75 years or older Thrombosis Risk Factor Assessment Total Risk Factor Score: 3 Thrombosis Risk Factor Assessment Level: Moderate Risk
--- NOTE | 2019-09-29 13:53 | P.CNPUL ---
History of Present Illness Consult date: 09/29/19 Chief complaint: Acute hyponatremia History of present illness: This is a 89-year-old female patient is well-known to us from previous hospital [facility]. The patient came in yesterday to the burst department because of some sore throat and ultimately the patient was found to have severe hyponatremia. Noted the patient was not a reliable historian. Nevertheless the patient did not have any major confusion or altered mentation or seizure activity. Contrary to her last admission, the patient had severe hyponatremia associated with seizure and the patient needed intubation mechanical ventilation and antiepileptic medication along with correction of her sodium levels. During this current admission, the sodium level was quite low at 106 on admission. 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 Underlying ascites cannot be completely ruled out. The patient received a bolus of normal saline. The patient subsequently was placed on 3 percent saline for a few hours. This brought up her sodium rapidly up to 117. At that point, the patient was started on D5 water and she was given a dose of DDAVP by nephrology. Sodium level subsequently ended up at 122 and now is 123. Urine output was quite adequate and the patient had 4.8 L since admission of urine output. This slowed down after the administration of DDAVP. Currently she is producing urine output in the order of 50 mL an hour. No nausea. No vomiting. No diarrhea. She takes Lasix on outpatient basis. No altered mentation. She is moving all 4 extremities without any limitation. She was on Lasix and was placed on hold. She was also taking sodium chloride tablets which were held for now. She doesn't take any Dyazide medication. 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 She claims to drink around 4-5 cups of water or glasses of water on a daily basis. Review of Systems Constitutional: No fever, no chills, no night sweats. No weight change. Reports weakness, fatigue. EENT: No headache. No blurred vision or double vision, no loss of vision. No dizziness. No nasal drainage or congestion. No epistaxis. Reports sore throat. Lungs: No shortness of breath, cough, no sputum production. No wheezing. Cardiovascular: No chest pain, no lower extremity edema. No palpitations. No paroxysmal nocturnal dyspnea. No orthopnea. No lightheadedness or dizziness. No syncopal episodes. Abdominal: No abdominal pain. No nausea, vomiting. No diarrhea. No constip ation. No bloody or tarry stools.. No loss of appetite. Genitourinary: No dysuria, increased frequency, urgency. No urinary retention. Musculoskeletal: No myalgias. Reports muscle weakness, reports gait dysfunction, no frequent falls. No back pain. No neck pain. Integumentary: No wounds, no lesions. No rash or pruritus. No unusual bruising. No change in hair or nails. Neurologic: No aphasia. No facial droop. No change in mentation. No head injury. No headache. No paralysis. No paresthesia. Psychiatric: No depression. No anxiety. No mood swings. Endocrine: No abnormal blood sugars. No weight change. No excessive sweating or thirst. No cold intolerance. Past Medical History Past Medical History: Atrial Fibrillation, Diabetes Mellitus, Hyperlipidemia, Hypertension, Pulmonary Embolus (PE), Thyroid Disorder Additional Past Medical History / Comment(s): had a siezure in 2004, pt states her NA+ was to low, dysphagia History of Any Multi-Drug Resistant Organisms: MRSA Date of last positivie culture/infection: 02/21/2014 MDRO Source:: Face Past Surgical History: Bladder Surgery, Hysterectomy Past Anesthesia/Blood Transfusion Reactions: No Reported Reaction Past Psychological History: Anxiety, Depression Smoking Status: Never smoker Past Alcohol Use History: None Reported Past Drug Use History: None Reported - Past Family History Father Family Medical History: CVA/TIA, Hypertension Additional Family Medical History / Comment(s): brain anyruisum Mother Family Medical History: Hypertension Medications and Allergies Home Medications Medication Instructions Recorded Confirmed Type Aspirin EC [Ecotrin Low Dose] 81 mg PO DAILY 09/28/19 09/28/19 History Furosemide [Lasix] 20 mg PO DAILY 09/28/19 09/28/19 History Levothyroxine Sodium [Synthroid] 50 mcg PO DAILY 09/28/19 09/28/19 History Sodium Chloride Tab 2 gm PO BID 09/28/19 09/28/19 History amLODIPine [Norvasc] 5 mg PO DAILY 09/28/19 09/28/19 History Allergies Allergy/AdvReac Type Severity Reaction Status Date / Time Penicillins Allergy Rash/Hives Verified 09/28/19 20:33 Physical Exam Vitals: Vital Signs Temp Pulse Resp BP Pulse Ox 09/29/19 13:00 63 21 131/80 99 09/29/19 12:00 98 F 82 13 125/77 98 09/29/19 11:22 14 09/29/19 11:00 73 14 116/70 98 09/29/19 10:00 53 L 16 122/73 97 09/29/19 09:00 67 27 H 122/71 97 09/29/19 08:00 98 F 79 26 H 119/55 99 09/29/19 07:44 16 09/29/19 07:00 98 F 62 16 120/68 99 09/29/19 06:00 73 27 H 111/60 99 09/29/19 05:00 73 26 H 109/59 99 09/29/19 04:00 98.1 F 63 20 106/61 100 09/29/19 03:00 64 115/69 99 09/29/19 02:00 65 11 L 125/59 99 09/29/19 01:00 68 20 118/63 98 09/29/19 00:13 84 144/75 99 09/29/19 00:00 98.6 F 67 14 144/75 99 09/28/19 23:00 87 7 L 144/75 99 09/28/19 22:11 31 H 09/28/19 22:00 98.0 F 87 16 130/77 99 09/28/19 21:42 98.2 F 91 17 128/75 100 09/28/19 21:00 95 16 112/65 99 09/28/19 20:30 97.9 F 92 19 141/67 99 09/28/19 20:00 118 H 19 143/95 100 09/28/19 19:30 106 H 18 156/86 99 09/28/19 18:41 97.8 F 102 H 20 154/94 92 L Intake and Output 09/28/19 09/29/19 09/29/19 22:59 06:59 14:59 Intake Total 1690 Output Total 1999 2850 590 Balance -1999285 1100 Intake: IV 1050 Dextrose 5% in Water 1, 1050 000 ml @ 150 mls/hr IV . Q6H40M ONE Rx#:[id number] Oral 640 Output: Urine 1999 2850 590 Other: Voiding Method Indwelling Catheter Weight 45.359 kg 47.2 kg 47.2 kg The patient appeared well nourished and normally developed. Vital signs as documented. Head exam is unremarkable. No scleral icterus or corneal arcus noted. Neck is without jugular venous distension, thyromegaly, or carotid bruit s. Carotid upstrokes are brisk bilaterally. Lungs are clear to auscultation and percussion. Cardiac exam reveals the PMI to be normally sized and situated. Rhythm is regular. First and second heart sounds normal. No murmurs, rubs or gallops. Abdominal exam reveals normal bowel sounds, no masses, no organomegaly and no aortic enlargement. Extremities are nonedematous and both femoral and pedal pulses are normal.Examination of the skin revealed no evidence of significant rashes, suspicious appearing nevi or other concerning lesions. Neurologically the patient is awake and alert and is no focal deficit. Results - Laboratory Findings CBC and BMP: 09/29/19 03:33 09/29/19 11:19 PT/INR, D-dimer PT 10.1 sec (9.0-12.0) 09/28/19 19:13 INR 1.0 (<1.2) 09/28/19 19:13 Abnormal lab findings: Abnormal Labs 09/28/19 09/28/19 09/28/19 19:13 19:13 19:50 Lymphocytes # 0.5 L Sodium 106 L* Potassium Chloride 76 L Carbon Dioxide 19 L BUN Creatinine 0.32 L Glucose 115 H POC Glucose (mg/dL) AST 63 H ALT 109 H Free T3 pg/mL 2.2 L Urine Bacteria Occasional H Urine Mucus Rare H 09/28/19 09/28/19 09/28/19 20:43 22:12 23:50 Lymphocytes # Sodium 109 L* 117 L* Potassium Chloride Carbon Dioxide BUN Creatinine Glucose POC Glucose (mg/dL) 101 H AST ALT Free T3 pg/mL Urine Bacteria Urine Mucus 09/29/19 09/29/19 09/29/19 03:33 03:33 07:17 Lymphocytes # 0.8 L Sodium 122 L 123 L Potassium 3.4 L Chloride 92 L Carbon Dioxide BUN 6 L Creatinine 0.35 L Glucose POC Glucose (mg/dL) AST 51 H ALT 91 H Free T3 pg/mL Urine Bacteria Urine Mucus 09/29/19 11:19 Lymphocytes # Sodium 120 L Potassium Chloride Carbon Dioxide BUN Creatinine Glucose POC Glucose (mg/dL) AST ALT Free T3 pg/mL Urine Bacteria Urine Mucus - Diagnostic Findings Chest x-ray: image reviewed Assessment and Plan Plan: 1 Severe hyponatremiarecurrent. exact etiology is not clear, patient is is not hypovolemic. 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 Hypertonic saline solution for now. The patient was given D5 water and a dose of DDAVP during the course of the treatment to prevent rapid correction of the sodium level. No altered mentation. No seizure activity. Neurologically the patient seems to be intact at this point in time. 2 previous history of hyponatremia requiring intubation mechanical ventilation due to altered mentation. The patient last admission was in January 2019. 3 diabetes mellitus type 2 4 Hypertension 5 hyperlipidemia 6 history of pulmonary embolism currently on no anticoagulants 7 hypothyroidism 8 previous history of seizures last one evening during her last admission related to hyponatremia. Plan Continue D5 water at the rate of 150 mL an hour Monitor urine output Monitor sodium level every 3 hours Avoid any rapid correction of the sodium level and the total correction be in the order of 10 mEq over the next 24 hours Replace potassium Keep the patient ICU and will continue to follow
[2019-09-29] MEDS: PANTOPRAZOLE 40 MG/10 ML VIAL IV SCH (21:44)
--- NOTE | 2019-09-29 22:19 | CONS ---
CONSULTATION DATE OF DICTATION: 09/29/2019 REASON FOR CONSULTATION: Dysphagia. HISTORY OF PRESENT ILLNESS: The patient is an 89-year-old pleasant white female who was admitted to the hospital because of severe hyponatremia. She presented to the hospital with altered mental status and was subsequently admitted to the intensive care unit. She is being monitored closely. The patient has been complaining of severe dysphagia and difficulty swallowing and has been on a soft diet lately. She feels like the food gets stuck in her throat area. She denies any odynophagia. She lost about 15-20 pounds in the last one year because of the ongoing symptoms. She denies any heartburn, reports no nausea, vomiting or abdominal pain. She did have an upper endoscopy by Dr. García about a year ago which was unremarkable. PAST MEDICAL HISTORY: Her past medical history is significant for hypertension, diabetes mellitus, hyperlipidemia, history of pulmonary embolism in the past, atrial fibrillation. PAST SURGICAL HISTORY: Bladder surgery, hysterectomy. MEDICATIONS: Medications at home include aspirin, Lasix, Synthroid, Norvasc. ALLERGIES: PENICILLIN. SOCIAL HISTORY: No smoking. No alcohol use. FAMILY HISTORY: Father had CVA and hypertension. Mother had hypertension. REVIEW OF SYSTEMS: CARDIOPULMONARY: She denies any chest pain or shortness of breath. GENITOURINARY: No dysuria or hematuria. MUSCULOSKELETAL: Unremarkable. SKIN: Unremarkable. ENDOCRINE: Unremarkable. PSYCHIATRIC: Unremarkable. NEUROLOGY: Unremarkable. ENT/VISION: Unremarkable. CONSTITUTIONAL: Weight loss of 20 pounds. No fever, chills, night sweats. PHYSICAL EXAMINATION: She appears comfortable. No apparent distress. Vital signs are stable. Blood pressure 131/80, pulse rate 63, temperature 98. HEENT examination unremarkable. Conjunctivae pink. Sclerae anicteric. Oral cavity no lesions. NECK: No JVD or lymph node enlargement. CHEST: Clear to auscultation. HEART: Regular rate and rhythm. ABDOMEN: Soft. It was non-tender, non-distended. Bowel sounds are positive. No organomegaly. EXTREMITIES: No pedal edema. NEUROLOGIC: She is awake, alert, oriented to name and place; not to time. LABS: WBC 4.3, hemoglobin 13, platelets normal. Basic metabolic panel showed a sodium of 117, BUN 11, creatinine 0.32, chloride 76. CO2 19. BUN and creatinine normal. AST and ALT are 63 and 109, respectively. Soft tissue x-rays of the neck showed degenerative disease in C5 and C6 levels. IMPRESSION: 1. Dysphagia to solids for the last 3 months' duration associated with progressive weight loss of 15-20 pounds. The patient has been having ongoing symptoms for the last 3 months. She did have an upper endoscopy done by Dr. García on July 30, 2018, that was unremarkable. Subsequently she also had a barium swallow done on an outpatient basis which was also read as normal. At this time it is unclear as to the cause of dysphagia. Rule out cricopharyngeal dysfunction versus esophageal pathology. 2. Hyponatremia. Sodium is gradually improving. Today it is 122. RECOMMENDATIONS: 1. Continue with soft diet. 2. Proceed with an upper endoscopy tomorrow. 3. Discussed with the patient risks, benefits and complications of the procedure, and she is agreeable to it. Thank you for this consultation. MMODL / IJN: [id number] /
[2019-09-30 05:11] LABS: Basophils % (A) 0 %; Eosinophils # (A) 0.1 k/uL (0-0.7); Eosinophils % (A) 1 %; HCT 37.1 % (34.0-46.0); HGB 13.1 gm/dL (11.4-16.0); Lymphocytes # (A) 0.8 k/uL (1.0-4.8); Lymphocytes % (A) 13 %; MCH 30.6 pg (25.0-35.0); MCHC 35.2 g/dL (31.0-37.0); Mean Platelet Volume 7.3; Monocytes # (A) 0.6 k/uL (0-1.0); Monocytes % (A) 9 %; Neutrophils # (A) 4.4 k/uL (1.3-7.7); Neutrophils % (A) 74 %; Platelet Count 204 k/uL (150-450); RBC 4.26 m/uL (3.80-5.40); RDW 13.1 % (11.5-15.5)
[2019-09-30 05:23] LABS: ALT 63 U/L (4-34); AST 43 U/L (14-36); African American GFR (CKD) >90 (>60 ml/min/1.73 sqM); Albumin 2.8 g/dL (3.5-5.0); Alkaline Phosphatase 67 U/L (38-126); Anion Gap 6 mmol/L; Blood Urea Nitrogen 6 mg/dL (7-17); Carbon Dioxide 20 mmol/L (22-30); Chloride 86 mmol/L (98-107); Glucose 82 mg/dL (74-99); Non-African American GFR(CKD) 86 (>60 ml/min/1.73 sqM); Potassium 3.8 mmol/L (3.5-5.1); Total Bilirubin 0.8 mg/dL (0.2-1.3); Total Protein 5.4 g/dL (6.3-8.2)
[2019-09-30 05:28] LABS: Sodium 112 mmol/L (137-145)
[2019-09-30] MEDS ORDERED: Potassium Replacement Protocol 1 EACH MISC MISCELLANE PRN (05:45)
[2019-09-30] MEDS: POTASSIUM CHLORIDE 10 MEQ in WATER FOR INJECTION 1 100ML.BAG IVPB SCH ×2 (06:03→07:44)
[2019-09-30] MEDS: LEVOTHYROXINE 50 MCG TAB PO SCH (06:03)
[2019-09-30] MEDS ORDERED: SODIUM CHLORIDE 0.9% 1,000 ML IV SCH (08:00)
--- NOTE | 2019-09-30 08:20 | P.PN ---
Subjective Patient is seen in follow-up for hyponatremia. Sodium level did correct rapidly but was appropriately reversed with D5W and IV DDAVP. Sodium level this morning is 112. Her mentation is at baseline. Hemodynamically stable. GFR at baseline. Nonoliguric. Vital signs are stable. General: The patient appeared well nourished and normally developed. HEENT: Head exam is unremarkable. Neck is without jugular venous distension. LUNGS: Lungs are clear to auscultation and percussion. Breath sounds decreased. HEART: Rate and Rhythm are regular. ABDOMEN: Soft, nontender. EXTREMITITES: No clubbing, cyanosis, or edema. Objective - Vital Signs Vital signs: Vital Signs Temp 98.7 F 09/30/19 04:00 Pulse 70 09/30/19 07:00 Resp 18 09/30/19 07:00 BP 139/94 09/30/19 07:00 Pulse Ox 96 09/30/19 07:00 Intake & Output 09/29/19 09/30/19 09/30/19 18:59 06:59 18:59 Intake Total 2770 925 10 Output Total 1365 1681 110 Balance 1405 -756 -100 Weight 47.2 kg 48.5 kg Intake: IV 1650 310 10 Dextrose 5% in Water 1, 1650 150 000 ml @ 150 mls/hr IV . Q6H40M [facility] Rx#:[id number] Potassium Chloride 10 meq 100 In Water For Injection 1 100ml.bag @ 100 mls/hr IVPB Q[facility]H [facility] Rx#: [id number] normal saline 60 10 Oral 1120 615 Output: Urine 1365 1681 110 Other: Voiding Method Indwelling Catheter Indwelling Catheter - Labs CBC & Chem 7: 09/30/19 04:37 09/30/19 04:37 Labs: Abnormal Lab Results - Last 24 Hours (Table) 09/29/19 09/29/19 09/29/19 Range/Units 11:19 15:05 19:01 Lymphocytes # (1.0-4.8) k/uL Sodium 120 L 116 L* 111 L* (137-145) mmol/L Chloride (98-107) mmol/L Carbon Dioxide (22-30) mmol/L BUN (7-17) mg/dL Calcium (8.4-10.2) mg/dL AST (14-36) U/L ALT (4-34) U/L Total Protein (6.3-8.2) g/dL Albumin (3.5-5.0) g/dL 09/29/19 09/30/19 09/30/19 Range/Units 23:59 04:37 04:37 Lymphocytes # 0.8 L (1.0-4.8) k/uL Sodium 110 L* 112 L* (137-145) mmol/L Chloride 86 L (98-107) mmol/L Carbon Dioxide 20 L (22-30) mmol/L BUN 6 L (7-17) mg/dL Calcium 8.0 L (8.4-10.2) mg/dL AST 43 H (14-36) U/L ALT 63 H (4-34) U/L Total Protein 5.4 L (6.3-8.2) g/dL Albumin 2.8 L (3.5-5.0) g/dL Assessment and Plan Plan: Assessment: 1. Hypovolemic hyponatremia improved rapidly with normal saline and 3% and was subsequently reversed with DDAVP and D5W. Sodium level 112 this morning. TSH normal. Urine osmolality low at 195. Urine sodium 25. 2. Hypokalemia from poor intake and diuretic. Better. 3. Benign hypertension. Controlled. Plan: Start normal saline at 75 mL an hour. Encouraged oral intake, particularly protein. 1200 mL fluid restriction. Repeat sodium level at 1 PM. Goal rate of sodium correction about 6-8/hour. Potential EGD this admission.
[2019-09-30] MEDS: ASPIRIN 81 MG PO SCH (08:42)
[2019-09-30] MEDS: amLODIPine 5 MG TAB PO SCH (08:42)
[2019-09-30] MEDS: HEPARIN SODIUM,PORCINE 5,000 UNIT/ML 1 ML VIAL SQ SCH ×2 (08:42→21:00)
[2019-09-30] MEDS: PANTOPRAZOLE 40 MG/10 ML VIAL IV SCH ×2 (08:42→21:00)
[2019-09-30] MEDS: FAMOTIDINE 20 MG TAB PO SCH (08:42)
[2019-09-30] MEDS: NYSTATIN 100,000 UNIT/ML SUSP 500,000 UNIT/5 ML CUP PO SCH ×4 (08:46→21:00)
--- NOTE | 2019-09-30 11:28 | P.PN ---
Subjective Progress Note Date: 09/30/19 On today's evaluation of 09/29/2019, the patient is resting comfortably in bed. She was also able to sit up on a chair. Nephrology essentially managing her hyponatremia. Note that the sodium level went up quite fast and the patient was given D5 water in addition to a dose of desmopressin. Morning sodium level is at 112. The patient on normal saline today at the rate of 75 mL an hour. Nephrology is on the case. She is on and off intermittently confused. No focal neurological deficits. No change in her speech. She is able to swallow. I was told that she was having some difficulty swallowing earlier and GI was contemplating an EGD on this patient. Objective - Vital Signs Vital signs: Vital Signs Temp 98.2 F 09/30/19 08:00 Pulse 64 09/30/19 09:00 Resp 22 09/30/19 09:00 BP 124/70 09/30/19 09:00 Pulse Ox 97 09/30/19 09:00 Intake & Output 09/29/19 09/30/19 09/30/19 18:59 06:59 18:59 Intake Total 2770 925 245 Output Total 1365 1681 225 Balance 1405 -756 20 Weight 47.2 kg 48.5 kg Intake: IV 1650 310 245 Dextrose 5% in Water 1, 1650 150 000 ml @ 150 mls/hr IV . Q6H40M [facility] Rx#:[id number] Potassium Chloride 10 meq 100 In Water For Injection 1 100ml.bag @ 100 mls/hr IVPB Q1H [facility] Rx#: [id number] normal saline 60 245 Oral 1120 615 Output: Urine 1365 1681 225 Other: Voiding Method Indwelling Catheter Indwelling Catheter Indwelling Catheter - Exam The patient appeared well nourished and normally developed. Vital signs as documented. Head exam is unremarkable. No scleral icterus or corneal arcus noted. Neck is without jugular venous distension, thyromegaly, or carotid bruits. Carotid upstrokes are brisk bilaterally. Lungs are clear to auscultation and percussion. Cardiac exam reveals the PMI to be normally sized and situated. Rhythm is regular. First and second heart sounds normal. No murmurs, rubs or gallops. Abdominal exam reveals normal bowel sounds, no masses, no organomegaly and no aortic enlargement. Extremities are nonedematous and both femoral and pedal pulses are normal.Examination of the skin revealed no evidence of signif icant rashes, suspicious appearing nevi or other concerning lesions. Neurologically the patient is awake and alert and is no focal deficit. - Labs CBC & Chem 7: 09/30/19 04:37 09/30/19 04:37 Labs: Abnormal Lab Results - Last 24 Hours (Table) 09/29/19 09/29/19 09/29/19 Range/Units 11:19 15:05 19:01 Lymphocytes # (1.0-4.8) k/uL Sodium 120 L 116 L* 111 L* (137-145) mmol/L Chloride (98-107) mmol/L Carbon Dioxide (22-30) mmol/L BUN (7-17) mg/dL Calcium (8.4-10.2) mg/dL AST (14-36) U/L ALT (4-34) U/L Total Protein (6.3-8.2) g/dL Albumin (3.5-5.0) g/dL 09/29/19 09/30/19 09/30/19 Range/Units 23:59 04:37 04:37 Lymphocytes # 0.8 L (1.0-4.8) k/uL Sodium 110 L* 112 L* (137-145) mmol/L Chloride 86 L (98-107) mmol/L Carbon Dioxide 20 L (22-30) mmol/L BUN 6 L (7-17) mg/dL Calcium 8.0 L (8.4-10.2) mg/dL AST 43 H (14-36) U/L ALT 63 H (4-34) U/L Total Protein 5.4 L (6.3-8.2) g/dL Albumin 2.8 L (3.5-5.0) g/dL Assessment and Plan Plan: 1 Severe hyponatremiarecurrent. exact etiology is not clear, patient is is not hypovolemic. 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 Hypertonic saline solution for now. The patient was given D5 water and a dose of DDAVP during the course of the treatment to prevent rapid correction of the sodium level. No altered mentation. No seizure activity. Neurologically the patient seems to be intact at this point in time. Meanwhile, the patient's sodium level is at home and today's evaluation the patient is currently back on normal saline today to 75 mL an hour. Sodium level is being monitored very closely. 2 previous history of hyponatremia requiring intubation mechanical ventilation due to altered mentation. The patient last admission was in January 2019. 3 diabetes mellitus type 2 4 Hypertension 5 hyperlipidemia 6 history of pulmonary embolism currently on no anticoagulants 7 hypothyroidism 8 previous history of seizures last one evening during her last admission related to hyponatremia. 9 dysphagia, awaiting an EGD Plan Continue normal saline Check the sodium level every 3 hours Avoid any rapid correction of the sodium level and the total correction be in the order of 10 mEq over the next 24 hours I would suggest postponing the procedure to the patient's sodium was corrected. Current sodium level is at 112. Potassium level has been replaced and the potassium level is up to 3.8 Keep the patient ICU and will continue to follow
--- NOTE | 2019-09-30 13:31 | P.PN ---
Subjective Progress Note Date: 09/30/19 This is an 89-year-old female one of Dr. 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 She has had seizures secondary to hyponatremia requiring intubation and mechanical ventilation n her last hospitalization. Patient states that she came in the hospital due to difficulty swallowing and sore throat. She denies having any nausea vomiting, no abdominal pain. She denies having any blood in her stools. She does state she has some memory loss. She does not think she's had any recent weight loss. Patient was discharged on sodium chloride tablets in the past but she stopped taking them. She denies knowing why she stopped taking them. She states she drinks 5-6 glasses of water per day. She denies any previous history of cancer. Patient presented to [facility] emergency center and found to have a sodium of 106. She did receive normal saline bolus in the emergency center as well as 1 dose of IV DDAVP was continued on normal saline changed over to 3% saline per Dr. Franco and current sodium is at 123. She has had good urine output at 50-60 mL per hour. No vomiting or diarrhea. CBC was found to be unremarkable. AST 51 and ALT 91. BUN 6 and creatinine 0.35. Urinalysis was clear with nitrate negative leukoesterase small. She has been afebrile, heart rate 67, blood pressure 122/71, pulse ox 97% on room air. The patient was admitted into the intensive care unit, consult in place with nephrology, siene maker, TOM. 09/29: Patient remains in intensive care unit. His sodium dropped down to 110 has been monitored closely and corrected by nephrology. Patient has been seen by GI with plan for EGD held until tomorrow due to hyponatremia. She is currently on IV fluids normal saline at 75 mL per hour. Patient has been afebrile, heart rate 61, blood pressure 118/84, pulse ox 97% on room air. Other lab work reveals potassium of 3.8, chloride 86, CO2 20, BUN 6 and creatinine 0.53. Total bilirubin 0.8, AST 43, ALT 63, alkaline phosphatase 67. Review of symptoms Constitutional: No fever, no chills, no night sweats. No weight change. Reports weakness, fatigue. EENT: No headache. No blurred vision or double vision, no loss of vision. No dizziness. No nasal drainage or congestion. No epistaxis. Reports sore throat. Lungs: No shortness of breath, cough, no sputum production. No wheezing. Cardiovascular: No chest pain, no lower extremity edema. No palpitations. No paroxysmal nocturnal dyspnea. No orthopnea. No lightheadedness or dizziness. No syncopal episodes. Abdominal: No abdominal pain. No nausea, vomiting. No diarrhea. No constipation. No bloody or tarry stools.. No loss of appetite. Denies thirst. Genitourinary: No dysuria, increased frequency, urgency. No urinary retention. Musculoskeletal: No myalgias. Reports muscle weakness, reports gait dysfunction, no frequent falls. No back pain. No neck pain. Integumentary: No wounds, no lesions. No rash or pruritus. No unusual bruising. No change in hair or nails. Neurologic: No aphasia. No facial droop. No change in mentation. No head injury. No headache. No paralysis. No paresthesia. Psychiatric: No depression. No anxiety. No mood swings. Endocrine: No abnormal blood sugars. No weight change. No excessive sweating or thirst. No cold intolerance. Physical examination Gen: This is an 89-year-old female. She is resting in ICU room in recliner and appears to be comfortable and in no acute distress HEENT: Head is atraumatic, normocephalic. Pupils equal, round. Sclerae is anicteric. NECK: Supple. No JVD. No lymphadenopathy. No thyromegaly. LUNGS: Clear to auscultation. No wheezes or rhonchi. No intercostal retraction s. HEART: Irregularly irregular rate and rhythm. 2/6 systolic ejection murmur. ABDOMEN: Soft. Bowel sounds are present. No masses. No tenderness. EXTREMITIES: No pedal edema. No calf tenderness. NEUROLOGICAL: Patient is awake, alert and oriented x3. Cranial nerves 2 through 12 are grossly intact. Assessment and plan 1. Severe hypovolemic hyponatremia. Patient is status post 1 dose of IV DDAVP. Patient is currently on 0.9 normal saline at 75 mL per hour. Nephrology consult appreciated. Monitor urine output. 2. Hypokalemia status post replacement 3. Sore throat with dysphagia. Consult with GI for EGD. 4. Mild elevation of liver function tests. Monitor. 5. Hypertension and hypertensive cardiovascular disease. Continue amlodipine 5 mg daily. 6. Hyperlipidemia. Not on any statin. 7. Hypothyroidism. Resume Synthroid 50 g daily. 8. Chronic hyponatremia. Baseline sodium is at 128-29 9. GERD. Continue Protonix 40 mg IV push every 24 hours. 10. Chronic atrial fibrillation. Patient is not on any anticoagulation not clear if reason may be recurrent falls. Monitor the patient very closely. 11. DVT prophylaxis. Continue heparin 5000 units subcu venously every 12 hours. 12. GI prophylaxis. Continue PPI. Patient is full code. Discharge plan: Home. Patient has been discharged to [facility] on previous admission Impression and plan of care have been directed as dictated by the signing physician. Samantha Griffith nurse practitioner acting as scribe for signing physician. Objective - Vital Signs Vital signs: Vital Signs Temp 98.7 F 09/30/19 04:00 Pulse 70 09/30/19 07:00 Resp 18 09/30/19 07:00 BP 139/94 09/30/19 07:00 Pulse Ox 96 09/30/19 07:00 Intake & Output 09/29/19 09/30/19 09/30/19 18:59 06:59 18:59 Intake Total 2770 925 10 Output Total 1365 1681 110 Balance 1405 -756 -100 Weight 47.2 kg 48.5 kg Intake: IV 1650 310 10 Dextrose 5% in Water 1, 1650 150 000 ml @ 150 mls/hr IV . Q6H40M [facility] Rx#:[id number] Potassium Chloride 10 meq 100 In Water For Injection 1 100ml.bag @ 100 mls/hr IVPB Q1H [facility] Rx#: [id number] normal saline 60 10 Oral 1120 615 Output: Urine 1365 1681 110 Other: Voiding Method Indwelling Catheter Indwelling Catheter - Labs CBC & Chem 7: 09/30/19 04:37 09/30/19 04:37 Labs: Abnormal Lab Results - Last 24 Hours (Table) 09/29/19 09/29/19 09/29/19 Range/Units 11:19 15:05 19:01 Lymphocytes # (1.0-4.8) k/uL Sodium 120 L 116 L* 111 L* (137-145) mmol/L Chloride (98-107) mmol/L Carbon Dioxide (22-30) mmol/L BUN (7-17) mg/dL Calcium (8.4-10.2) mg/dL AST (14-36) U/L ALT (4-34) U/L Total Protein (6.3-8.2) g/dL Albumin (3.5-5.0) g/dL 09/29/19 09/30/19 09/30/19 Range/Units 23:59 04:37 04:37 Lymphocytes # 0.8 L (1.0-4.8) k/uL Sodium 110 L* 112 L* (137-145) mmol/L Chloride 86 L (98-107) mmol/L Carbon Dioxide 20 L (22-30) mmol/L BUN 6 L (7-17) mg/dL Calcium 8.0 L (8.4-10.2) mg/dL AST 43 H (14-36) U/L ALT 63 H (4-34) U/L Total Protein 5.4 L (6.3-8.2) g/dL Albumin 2.8 L (3.5-5.0) g/dL
--- NOTE | 2019-09-30 15:43 | PN ---
PROGRESS NOTE DATE OF DICTATION: 09/30/2019 This patient is an 89-year-old pleasant white female admitted to the hospital with severe hyponatremia. She remains in the intensive care unit. She was having dysphagia to solids and hence was scheduled for an upper endoscopy today; however, her sodium level was 112, and hence the procedure has been canceled. The patient continues to remain the same. She has been on a clear liquid diet, as she cannot handle any solid foods. She denies any abdominal pain. No nausea or vomiting. PHYSICAL EXAMINATION: Blood pressure is 113/71, pulse rate 59, temperature 98.1. HEENT examination unremarkable. Conjunctivae pink. Sclerae anicteric. Oral cavity no lesions. NECK: No JVD or lymph node enlargement. CHEST: Clear to auscultation. HEART: Regular rate and rhythm. ABDOMEN: Soft. Bowel sounds are positive. No organomegaly. EXTREMITIES: No pedal edema. SKIN: No rashes. NEUROLOGIC: She is alert and oriented x3. No focal deficits. LABS: Labs from today show WBC 6, hemoglobin 13, platelets normal. Sodium 112, potassium 3.8, BUN 6, creatinine 0.53. IMPRESSION: 1. Severe hyponatremia. Remains in the intensive care unit, being managed with close monitoring of the sodium levels. 2. Dysphagia to solids. 3. Weight loss. 4. History of diabetes mellitus and hypertension. RECOMMENDATIONS: 1. Continue symptomatic and supportive care. 2. Once the sodium levels are reasonable, we will proceed with an upper endoscopy in the next 1-2 days. 3. Monitor labs closely. 4. Will follow with you. Thank you for this consultation. MMODL / IJN: [id number] /
[2019-09-30] MEDS ORDERED: SODIUM CHLORIDE 3%(HYPERTONIC) 500 ML IV SCH (19:00)
[2019-10-01] MEDS ORDERED: DEXTROSE 5% IN WATER 1,000 ML IV ONE ×2 (03:29→06:54)
[2019-10-01] MEDS ORDERED: DESMOPRESSIN ACETATE 4 MCG/ML VIAL (MDV) IV SCH (04:00)
[2019-10-01 06:28] LABS: HGB 13.4 gm/dL (11.4-16.0); MCH 28.8 pg (25.0-35.0); MCHC 32.6 g/dL (31.0-37.0); MCV 88.2 fL (80.0-100.0); Mean Platelet Volume 6.8; Platelet Count 191 k/uL (150-450); RBC 4.64 m/uL (3.80-5.40); RDW 13.5 % (11.5-15.5); WBC 5.3 k/uL (3.8-10.6)
[2019-10-01 06:41] LABS: Albumin 3.1 g/dL (3.5-5.0); Calcium 8.8 mg/dL (8.4-10.2); Potassium 4.2 mmol/L (3.5-5.1); Total Bilirubin 0.7 mg/dL (0.2-1.3); Total Protein 5.8 g/dL (6.3-8.2)
[2019-10-01] MEDS ORDERED: DESMOPRESSIN ACETATE 4 MCG/ML VIAL (MDV) IV ONE ×2 (06:53→09:00)
[2019-10-01] MEDS: LEVOTHYROXINE 50 MCG TAB PO SCH (07:09)
[2019-10-01] MEDS: NYSTATIN 100,000 UNIT/ML SUSP 500,000 UNIT/5 ML CUP PO SCH ×4 (08:28→23:06)
[2019-10-01] MEDS: amLODIPine 5 MG TAB PO SCH (08:28)
[2019-10-01] MEDS: FAMOTIDINE 20 MG TAB PO SCH (08:28)
[2019-10-01] MEDS: ASPIRIN 81 MG PO SCH (08:28)
[2019-10-01] MEDS: PANTOPRAZOLE 40 MG/10 ML VIAL IV SCH ×2 (08:28→20:33)
[2019-10-01] MEDS: HEPARIN SODIUM,PORCINE 5,000 UNIT/ML 1 ML VIAL SQ SCH ×2 (08:28→20:33)
--- NOTE | 2019-10-01 12:10 | P.PN ---
Subjective Progress Note Date: 10/01/19 This is an 89-year-old female one of Dr. 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 She has had seizures secondary to hyponatremia requiring intubation and mechanical ventilation n her last hospitalization. Patient states that she came in the hospital due to difficulty swallowing and sore throat. She denies having any nausea vomiting, no abdominal pain. She denies having any blood in her stools. She does state she has some memory loss. She does not think she's had any recent weight loss. Patient was discharged on sodium chloride tablets in the past but she stopped taking them. She denies knowing why she stopped taking them. She states she drinks 5-6 glasses of water per day. She denies any previous history of cancer. Patient presented to [facility] emergency center and found to have a sodium of 106. She did receive normal saline bolus in the emergency center as well as 1 dose of IV DDAVP was continued on normal saline changed over to 3% saline per Dr. Franco and current sodium is at 123. She has had good urine output at 50-60 mL per hour. No vomiting or diarrhea. CBC was found to be unremarkable. AST 51 and ALT 91. BUN 6 and creatinine 0.35. Urinalysis was clear with nitrate negative leukoesterase small. She has been afebrile, heart rate 67, blood pressure 122/71, pulse ox 97% on room air. The patient was admitted into the intensive care unit, consult in place with nephrology, filler machine operator, TOM. 09/29: Patient remains in intensive care unit. His sodium dropped down to 110 has been monitored closely and corrected by nephrology. Patient has been seen by GI with plan for EGD held until tomorrow due to hyponatremia. She is currently on IV fluids normal saline at 75 mL per hour. Patient has been afebrile, heart rate 61, blood pressure 118/84, pulse ox 97% on room air. Other lab work reveals potassium of 3.8, chloride 86, CO2 20, BUN 6 and creatinine 0.53. Total bilirubin 0.8, AST 43, ALT 63, alkaline phosphatase 67. 09/30: Patient remains in the intensive care unit. This morning sodium is 126. Plan is for repeat sodium and if stable, patient will undergo EGD today. She is currently on D5W at 70 mL/h and fluid restriction of 1200 ML's. CBC is unremarkable, AST 40 and ALT 64. She has been afebrile, heart rate 71, blood pressure 128/73, pulse ox 97% on room air. Review of symptoms Constitutional: No fever, no chills, no night sweats. No weight change. Reports weakness, fatigue. EENT: No headache. No blurred vision or double vision, no loss of vision. No dizziness. No nasal drainage or congestion. No epistaxis. Reports sore throat. Lungs: No shortness of breath, cough, no sputum production. No wheezing. Cardiovascular: No chest pain, no lower extremity edema. No palpitations. No paroxysmal nocturnal dyspnea. No orthopnea. No lightheadedness or dizziness. No syncopal episodes. Abdominal: No abdominal pain. No nausea, vomiting. No diarrhea. No constipation. No bloody or tarry stools.. No loss of appetite. Reports thirst. Genitourinary: No dysuria, increased frequency, urgency. No urinary retention. Musculoskeletal: No myalgias. Reports muscle weakness, reports gait dysfunction, no frequent falls. No back pain. No neck pain. Integumentary: No wounds, no lesions. No rash or pruritus. No unusual bruising. No change in hair or nails. Neurologic: No aphasia. No facial droop. No change in mentation. No head injury. No headache. No paralysis. No paresthesia. Psychiatric: No depression. No anxiety. No mood swings. Endocrine: No abnormal blood sugars. No weight change. No excessive sweating or thirst. No cold intolerance. Physical examination Gen: This is an 89-year-old female. She is resting in ICU room in bed and appears to be comfortable and in no acute distress HEENT: Head is atraumatic, normocephalic. Pupils equal, round. Sclerae is anicteric. NECK: Supple. No JVD. No lymphadenopathy. No thyromegaly. LUNGS: Clear to auscultation. No wheezes or rhonchi. No intercostal retractions. HEART: Irregularly irregular rate and rhythm. 2/6 systolic ejection murmur. ABDOMEN: Soft. Bowel sounds are present. No masses. No tenderness. EXTREMITIES: No pedal edema. No calf tenderness. NEUROLOGICAL: Patient is awake, alert and oriented x3. Cranial nerves 2 through 12 are grossly intact. Assessment and plan 1. Severe hypovolemic hyponatremia. Nephrology consult appreciated. Monitor urine output. 2. Hypokalemia status post replacement 3. Sore throat with dysphagia. Consult with GI for EGD tentatively scheduled for today. 4. Mild elevation of liver function tests. Monitor. 5. Hypertension and hypertensive cardiovascular disease. Continue amlodipine 5 mg daily. 6. Hyperlipidemia. Not on any statin. 7. Hypothyroidism. Resume Synthroid 50 g daily. 8. Chronic hyponatremia. Baseline sodium is at 128-29 9. GERD. Continue Protonix 40 mg IV push twice daily. 10. Chronic atrial fibrillation. Patient is not on any anticoagulation not clear if reason may be recurrent falls. Monitor the patient very closely. 11. DVT prophylaxis. Continue heparin 5000 units subcu venously every 12 hours. 12. GI prophylaxis. Continue PPI. Patient is full code. Discharge plan: Home. Patient has been discharged to [facility] on previous admission Impression and plan of care have been directed as dictated by the signing physician. Samantha Griffith nurse practitioner acting as scribe for signing physician. Objective - Vital Signs Vital signs: Vital Signs Temp 97.6 F 10/01/19 04:00 Pulse 67 10/01/19 06:00 Resp 18 10/01/19 06:00 BP 127/68 10/01/19 06:00 Pulse Ox 97 10/01/19 06:00 Intake & Output 09/30/19 10/01/19 10/01/19 18:59 06:59 18:59 Intake Total 845 225 140 Output Total 920 2410 225 Balance -75 -2185 -85 Weight 46.2 kg Intake: IV 845 225 140 Dextrose 5% in Water 1, 150 140 000 ml @ 50 mls/hr IV . Q20H [facility] Rx#:[id number] Sodium Chloride 3%( 75 Hypertonic) 500 ml @ 25 mls/hr IV .Q20H [facility] Rx#: [id number] normal saline 845 Output: Urine 920 2410 225 Other: Voiding Method Indwelling Catheter Indwelling Catheter - Labs CBC & Chem 7: 10/01/19 06:06 10/01/19 09:06 Labs: Abnormal Lab Results - Last 24 Hours (Table) 09/30/19 09/30/19 09/30/19 Range/Units 13:02 17:36 22:14 Sodium 115 L* 114 L* 119 L* (137-145) mmol/L Carbon Dioxide (22-30) mmol/L AST (14-36) U/L ALT (4-34) U/L Total Protein (6.3-8.2) g/dL Albumin (3.5-5.0) g/dL 10/01/19 10/01/19 10/01/19 Range/Units 00:42 02:37 06:06 Sodium 120 L 124 L 126 L (137-145) mmol/L Carbon Dioxide 21 L (22-30) mmol/L AST 40 H (14-36) U/L ALT 64 H (4-34) U/L Total Protein 5.8 L (6.3-8.2) g/dL Albumin 3.1 L (3.5-5.0) g/dL
[2019-10-01] MEDS ORDERED: PROPOFOL 10 MG/ML 20 ML VIAL IV ONE (12:48)
[2019-10-01] MEDS ORDERED: IV FLUID CONTINUATION 1,000 ML IV ONE (12:51)
--- NOTE | 2019-10-01 13:05 | P.PCN ---
Date of Procedure: 10/01/19 Procedure(s) Performed: BRIEF HISTORY: Patient is a 89-year-old, pleasant, female admitted hospital with severe hyperglycemia. Having difficulty swallowing for the last several weeks and weight loss of 20 pounds and hence scheduled for an upper endoscopy to evaluate. PROCEDURE PERFORMED: Esophagogastroduodenoscopy with biopsy. PREOPERATIVE DIAGNOSIS: Progressive dysphagia to solids and weight loss. IV sedation per anesthesia. PROCEDURE: After informed consent was obtained, the patient was brought into the endoscopy unit. IV sedation was administered by Anesthesia under continuous monitoring. Initially the Olympus GIF-140 video endoscope was inserted into the mouth. Esophagus intubated with some difficulty. It was gradually advanced into the stomach and duodenum and carefully examined. The bulb and the second part of the duodenum appeared normal. The scope at this time was withdrawn to the stomach, adequately insufflated with air, and upon careful examination, mucosa of the antrum had mild gastritis. The, body, cardia and the fundus appeared normal. The scope was then withdrawn into the esophagus. The GE junction was located at 39 cm from the incisors. The esophagus appeared normal. Abscesses were done from the mid and distal esophagus There were no erosions or ulcerations seen, the proximal cervical esophagus was carefully examined and appeared normal. 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 No obvious masses identified. The patient tolerated the procedure well. IMPRESSION: 1. Tightness at the upper esophageal sphincter to just above cricopharyngeal dysfunction. No Zenker's diverticulum seen 2. No evidence of esophageal stricture, esophagitis or esophageal. RECOMMENDATIONS: The findings of this examination were discussed with the patient . Await biopsy results. Recommend a soft diet.. If she continues to have persistent dysphagia and his oral intake she may be a candidate for a PEG tube placement in the future.
--- NOTE | 2019-10-01 13:20 | P.PN ---
Subjective Progress Note Date: 10/01/19 On today's evaluation of 10/01/2019, the patient is going to proceed with an EGD regarding her chronic dysphagia and weight loss. The patient had issues with hyponatremia and for that reason the procedure was postponed till today. Nephrology was very much concerned of the rapid correction of the sodium level and the patient as such was placed on D5 water at the rate of 70 mL an hour. Her pulse ox 96% on room air. She is awake and alert. She is in atrial fibrillation and the patient's rate is in the mid 70s. She has no other complaints otherwise. No altered mentation. No confusion. She is a bit lethargic at for the most part she is hemodynamically stable without any focal neurological deficits or any seizure activity. Objective - Vital Signs Vital signs: Vital Signs Temp 97.6 F 10/01/19 08:00 Pulse 78 10/01/19 11:00 Resp 18 10/01/19 11:00 BP 125/75 10/01/19 11:00 Pulse Ox 96 10/01/19 11:00 Intake & Output 09/30/19 10/01/19 10/01/19 18:59 06:59 18:59 Intake Total 845 225 640 Output Total 920 2410 755 Balance -75 -2185 -115 Weight 46.2 kg Intake: IV 845 225 640 Dextrose 5% in Water 1, 150 540 000 ml @ 50 mls/hr IV . Q20H [facility] Rx#:[id number] Sodium Chloride 3%( 75 Hypertonic) 500 ml @ 25 mls/hr IV .Q[facility]H [facility] Rx#: [id number] normal saline 845 Output: Urine 920 2410 755 Other: Voiding Method Indwelling Catheter Indwelling Catheter Indwelling Catheter - Exam The patient appeared well nourished and normally developed. Vital signs as documented. Head exam is unremarkable. No scleral icterus or corneal arcus noted. Neck is without jugular venous distension, thyromegaly, or carotid bruits. Carotid upstrokes are brisk bilaterally. Lungs are clear to auscultation and percussion. Cardiac exam reveals the PMI to be normally sized and situated. Rhythm is regular. First and second heart sounds normal. No murmurs, rubs or gallops. Abdominal exam reveals normal bowel sounds, no masses, no organomegaly and no aortic enlargement. Extremities are nonedematous and both femoral and pedal pulses are normal.Examination of the skin revealed no evidence of significant rashes, suspicious appearing nevi or other concerning lesions. Neurologically the patient is awake and alert and is no focal deficit. - Labs CBC & Chem 7: 10/01/19 06:06 10/01/19 09:06 Labs: Abnormal Lab Results - Last 24 Hours (Table) 09/30/19 09/30/19 09/30/19 Range/Units 13:02 17:36 22:14 Sodium 115 L* 114 L* 119 L* (137-145) mmol/L Carbon Dioxide (22-30) mmol/L AST (14-36) U/L ALT (4-34) U/L Total Protein (6.3-8.2) g/dL Albumin (3.5-5.0) g/dL 10/01/19 10/01/19 10/01/19 Range/Units 00:42 02:37 06:06 Sodium 120 L 124 L 126 L (137-145) mmol/L Carbon Dioxide 21 L (22-30) mmol/L AST 40 H (14-36) U/L ALT 64 H (4-34) U/L Total Protein 5.8 L (6.3-8.2) g/dL Albumin 3.1 L (3.5-5.0) g/dL 10/01/19 Range/Units 09:06 Sodium 127 L (137-145) mmol/L Carbon Dioxide (22-30) mmol/L AST (14-36) U/L ALT (4-34) U/L Total Protein (6.3-8.2) g/dL Albumin (3.5-5.0) g/dL Assessment and Plan Plan: 1 Severe hyponatremia, concern of rapid sodium correction, the patient was placed on D5 water by nephrology and this is currently running at 110 mL an hour. Sodium level is being monitored very closely. Nephrology is on the case and handling the fluids. 2 previous history of hyponatremia requiring intubation mechanical ventilation due to altered mentation. The patient last admission was in January 2019. 3 diabetes mellitus type 2 4 Hypertension 5 hyperlipidemia 6 history of pulmonary embolism currently on no anticoagulants 7 hypothyroidism 8 previous history of seizures last one evening during her last admission related to hyponatremia. 9 dysphagia, awaiting an EGD, this is going to be done today. Plan Continue monitoring the sodium level and make adjustments on the fluid and the sodium is up to 127. Check the sodium level periodically Avoid any rapid correction of the sodium level and the total correction be in the order of 10 mEq over the next 24 hours EGD today Potassium level has been replaced and the potassium level is up to 4.2 Keep the patient ICU and will continue to follow
--- NOTE | 2019-10-01 16:28 | P.PN ---
Subjective Patient is seen in follow-up for hyponatremia. Sodium level did correct rapidly but was appropriately reversed with D5W and IV DDAVP. Most recent sodium level 122 from 1:53 PM today. Her mentation is at baseline. Hemodynamically stable. GFR at baseline. Nonoliguric. She underwent EGD this morning which revealed tightness at the upper esophageal sphincter. Vital signs are stable. General: The patient appeared well nourished and normally developed. HEENT: Head exam is unremarkable. Neck is without jugular venous distension. LUNGS: Lungs are clear to auscultation and percussion. Breath sounds decreased. HEART: Rate and Rhythm are regular. ABDOMEN: Soft, nontender. EXTREMITITES: No clubbing, cyanosis, or edema. Objective - Vital Signs Vital signs: Vital Signs Temp 97.6 F 10/01/19 16:00 Pulse 71 10/01/19 16:00 Resp 18 10/01/19 16:00 BP 132/72 10/01/19 16:00 Pulse Ox 95 10/01/19 16:00 Intake & Output 09/30/19 10/01/19 10/01/19 18:59 06:59 18:59 Intake Total 845 225 860 Output Total 920 2410 1180 Balance -75 -2185 -320 Weight 46.2 kg Intake: IV 845 225 860 Dextrose 5% in Water 1, 150 760 000 ml @ 50 mls/hr IV . Q20H [facility] Rx#:[id number] Sodium Chloride 3%( 75 Hypertonic) 500 ml @ 25 mls/hr IV .Q20H [facility] Rx#: [id number] normal saline 845 Output: Urine 920 2410 1180 Other: Voiding Method Indwelling Catheter Indwelling Catheter Indwelling Catheter - Labs CBC & Chem 7: 10/01/19 06:06 10/01/19 13:53 Labs: Abnormal Lab Results - Last 24 Hours (Table) 09/30/19 09/30/19 10/01/19 Range/Units 17:36 22:14 00:42 Sodium 114 L* 119 L* 120 L (137-145) mmol/L Carbon Dioxide (22-30) mmol/L AST (14-36) U/L ALT (4-34) U/L Total Protein (6.3-8.2) g/dL Albumin (3.5-5.0) g/dL 10/01/19 10/01/19 10/01/19 Range/Units 02:37 06:06 09:06 Sodium 124 L 126 L 127 L (137-145) mmol/L Carbon Dioxide 21 L (22-30) mmol/L AST 40 H (14-36) U/L ALT 64 H (4-34) U/L Total Protein 5.8 L (6.3-8.2) g/dL Albumin 3.1 L (3.5-5.0) g/dL 10/01/19 Range/Units 13:53 Sodium 122 L (137-145) mmol/L Carbon Dioxide (22-30) mmol/L AST (14-36) U/L ALT (4-34) U/L Total Protein (6.3-8.2) g/dL Albumin (3.5-5.0) g/dL Assessment and Plan Plan: Assessment: 1. Hypovolemic hyponatremia improved rapidly with normal saline and 3% and was subsequently reversed with DDAVP and D5W. Sodium level 122 as of 1:53 PM today. TSH normal. Urine osmolality low at 195. Urine sodium 25. 2. Hypokalemia from poor intake and diuretic. Better. 3. Benign hypertension. Controlled. 4. Dysphagia status post EGD which revealed tightness at the esophageal sphincter. Plan: I will decrease rate of D5W to 60 mL an hour. Goal rate of sodium correction about 6-8 milliequivalents per 24 hours. Repeat sodium level at 6 PM today.
[2019-10-02 05:46] LABS: African American GFR (CKD) >90 (>60 ml/min/1.73 sqM); Anion Gap 8 mmol/L; Blood Urea Nitrogen 7 mg/dL (7-17); Calcium 8.7 mg/dL (8.4-10.2); Carbon Dioxide 23 mmol/L (22-30); Chloride 91 mmol/L (98-107); Glucose 80 mg/dL (74-99); Non-African American GFR(CKD) 79 (>60 ml/min/1.73 sqM); Potassium 3.4 mmol/L (3.5-5.1); Sodium 122 mmol/L (137-145)
[2019-10-02] MEDS: LEVOTHYROXINE 50 MCG TAB PO SCH (06:20)
[2019-10-02] MEDS: POTASSIUM BICARBONATE/CIT AC 20 MEQ TABLET.EFF PO SCH ×2 (06:30→18:14)
--- NOTE | 2019-10-02 09:16 | P.PN ---
Subjective Patient is seen in follow-up for hyponatremia. Sodium level did correct rapidly but was appropriately reversed with D5W and IV DDAVP. Most recent sodium level 122 from this morning. Her mentation is at baseline. Hemodynamically stable. GFR at baseline. Nonoliguric. She underwent EGD on September 30 which revealed tightness at the upper esophageal sphincter. Vital signs are stable. General: The patient appeared well nourished and normally developed. HEENT: Head exam is unremarkable. Neck is without jugular venous distension. LUNGS: Lungs are clear to auscultation and percussion. Breath sounds decreased. HEART: Rate and Rhythm are regular. ABDOMEN: Soft, nontender. EXTREMITITES: No clubbing, cyanosis, or edema. Objective - Vital Signs Vital signs: Vital Signs Temp 97.6 F 10/02/19 08:00 Pulse 64 10/02/19 08:00 Resp 19 10/02/19 08:00 BP 112/66 10/02/19 08:00 Pulse Ox 100 10/02/19 08:00 Intake & Output 10/01/19 10/02/19 10/02/19 18:59 06:59 18:59 Intake Total 980 Output Total 1355 467 55 Balance -375 -467 -55 Intake: IV 980 Dextrose 5% in Water 1, 880 000 ml @ 50 mls/hr IV . Q20H [facility] Rx#:[id number] Output: Urine 1355 467 55 Other: Voiding Method Indwelling Catheter Indwelling Catheter - Labs CBC & Chem 7: 10/01/19 06:06 10/02/19 04:29 Labs: Abnormal Lab Results - Last 24 Hours (Table) 10/01/19 10/01/19 10/01/19 Range/Units 09:06 13:53 18:10 Sodium 127 L 122 L 122 L (137-145) mmol/L Potassium (3.5-5.1) mmol/L Chloride (98-107) mmol/L 10/02/19 10/02/19 Range/Units 01:00 04:29 Sodium 120 L 122 L (137-145) mmol/L Potassium 3.4 L (3.5-5.1) mmol/L Chloride 91 L (98-107) mmol/L Assessment and Plan Plan: Assessment: 1. Hypovolemic hyponatremia improved rapidly with normal saline and 3% and was subsequently reversed with DDAVP and D5W. Sodium level stable at 122 this morning. TSH normal. Urine osmolality low at 195. Urine sodium 25. 2. Hypokalemia from poor intake and diuretic. 3. Benign hypertension. Controlled. 4. Dysphagia status post EGD which revealed tightness at the esophageal sphincter. Plan: Start normal saline at 50 mL an hour. Recheck sodium level at 5 PM today. Potassium was replaced. Okay to transfer out of intensive care unit.
[2019-10-02] MEDS: FAMOTIDINE 20 MG TAB PO SCH (10:19)
[2019-10-02] MEDS: NYSTATIN 100,000 UNIT/ML SUSP 500,000 UNIT/5 ML CUP PO SCH ×3 (10:19→23:10)
[2019-10-02] MEDS: ASPIRIN 81 MG PO SCH (10:19)
[2019-10-02] MEDS: amLODIPine 5 MG TAB PO SCH (10:19)
[2019-10-02] MEDS: HEPARIN SODIUM,PORCINE 5,000 UNIT/ML 1 ML VIAL SQ SCH ×2 (10:19→20:19)
[2019-10-02] MEDS: PANTOPRAZOLE 40 MG/10 ML VIAL IV SCH ×2 (10:19→20:19)
[2019-10-02] MEDS: SODIUM CHLORIDE 0.9% 1,000 ML IV SCH (10:20)
--- NOTE | 2019-10-02 11:45 | P.PN ---
Subjective Progress Note Date: 10/02/19 This is an 89-year-old female one of Dr. 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 She has had seizures secondary to hyponatremia requiring intubation and mechanical ventilation n her last hospitalization. Patient states that she came in the hospital due to difficulty swallowing and sore throat. She denies having any nausea vomiting, no abdominal pain. She denies having any blood in her stools. She does state she has some memory loss. She does not think she's had any recent weight loss. Patient was discharged on sodium chloride tablets in the past but she stopped taking them. She denies knowing why she stopped taking them. She states she drinks 5-6 glasses of water per day. She denies any previous history of cancer. Patient presented to [facility] emergency center and found to have a sodium of 106. She did receive normal saline bolus in the emergency center as well as 1 dose of IV DDAVP was continued on normal saline changed over to 3% saline per Dr. Franco and current sodium is at 123. She has had good urine output at 50-60 mL per hour. No vomiting or diarrhea. CBC was found to be unremarkable. AST 51 and ALT 91. BUN 6 and creatinine 0.35. Urinalysis was clear with nitrate negative leukoesterase small. She has been afebrile, heart rate 67, blood pressure 122/71, pulse ox 97% on room air. The patient was admitted into the intensive care unit, consult in place with nephrology, production posting clerk, TOM. 09/29: Patient remains in intensive care unit. His sodium dropped down to 110 has been monitored closely and corrected by nephrology. Patient has been seen by GI with plan for EGD held until tomorrow due to hyponatremia. She is currently on IV fluids normal saline at 75 mL per hour. Patient has been afebrile, heart rate 61, blood pressure 118/84, pulse ox 97% on room air. Other lab work reveals potassium of 3.8, chloride 86, CO2 20, BUN 6 and creatinine 0.53. Total bilirubin 0.8, AST 43, ALT 63, alkaline phosphatase 67. 09/30: Patient remains in the intensive care unit. This morning sodium is 126. Plan is for repeat sodium and if stable, patient will undergo EGD today. She is currently on D5W at 70 mL/h and fluid restriction of 1200 ML's. CBC is unremarkable, AST 40 and ALT 64. She has been afebrile, heart rate 71, blood pressure 128/73, pulse ox 97% on room air. 10/01: Patient has been transferred to the [facility] floor. She has been afebrile, heart rate 64, blood pressure 112/66, pulse ox 100% on room air. Sodium at 4 AM was 122, potassium 3.4, chloride 91, CO2 23, BUN 7 creatinine 3.67. Nephrology recommends normal saline at 50 MLS per hour at this time. Sodium to be rechecked at 5 PM and potassium has been replaced. EGD completed yesterday with Dr. Corley revealed tightness at the upper esophageal sphincter. Patient may require PEG tube placement if she continues to have dysphagia. Contact the patient's daughter and discussed in detail findings and recommendations. Also recommend the patient have blood work obtained twice weekly after discharge. Patient may benefit from subacute rehab but no physical therapy is recommended home with homecare.. Review of symptoms Constitutional: No fever, no chills, no night sweats. No weight change. Reports weakness, reports fatigue. EENT: No headache. No blurred vision or double vision, no loss of vision. No dizziness. No nasal drainage or congestion. No epistaxis. Reports sore throat. Lungs: No shortness of breath, cough, no sputum production. No wheezing. Cardiovascular: No chest pain, no lower extremity edema. No palpitations. No paroxysmal nocturnal dyspnea. No orthopnea. No lightheadedness or dizziness. No syncopal episodes. Abdominal: No abdominal pain. No nausea, vomiting. No diarrhea. No constipation. No bloody or tarry stools.. No loss of appetite. Reports thirst. Genitourinary: No dysuria, increased frequency, urgency. No urinary retention. Musculoskeletal: No myalgias. Reports muscle weakness, reports gait dysfunction, no frequent falls. No back pain. No neck pain. Integumentary: No wounds, no lesions. No rash or pruritus. No unusual bruising. No change in hair or nails. Neurologic: No aphasia. No facial droop. No change in mentation. No head injury. No headache. Generalized weakness. Psychiatric: No depression. No anxiety. No mood swings. Endocrine: No abnormal blood sugars. No weight change. No excessive sweating or thirst. No cold intolerance. Physical examination Gen: This is an 89-year-old female. She is resting in bed and appears to be comfortable and in no acute distress HEENT: Head is atraumatic, normocephalic. Pupils equal, round. Sclerae is anict filomena. NECK: Supple. No JVD. No lymphadenopathy. No thyromegaly. LUNGS: Clear to auscultation. No wheezes or rhonchi. No intercostal retractions. HEART: Irregularly irregular rate and rhythm. 2/6 systolic ejection murmur. ABDOMEN: Soft. Bowel sounds are present. No masses. No tenderness. EXTREMITIES: No pedal edema. No calf tenderness. NEUROLOGICAL: Patient is awake, alert and oriented x3. Cranial nerves 2 through 12 are grossly intact. Assessment and plan 1. Severe hypovolemic hyponatremia. Nephrology consult appreciated. Monitor urine output. 2. Hypokalemia status post replacement 3. Sore throat with dysphagia. Consult with GI appreciated. EGD as above. Discussed findings and anticipating need for PEG tube with patient's daughter. 4. Mild elevation of liver function tests. Monitor. 5. Hypertension and hypertensive cardiovascular disease. Continue amlodipine 5 mg daily. 6. Hyperlipidemia. Not on any statin. 7. Hypothyroidism. Resume Synthroid 50 g daily. 8. Chronic hyponatremia. Baseline sodium is at 128-29 9. GERD. Continue Protonix 40 mg IV push twice daily. 10. Chronic atrial fibrillation. Patient is not on any anticoagulation not clear if reason may be recurrent falls. Monitor the patient very closely. 11. DVT prophylaxis. Continue heparin 5000 units subcu venously every 12 hours. 12. GI prophylaxis. Continue PPI. Patient is full code. Discharge plan: Home with home care. Patient has been discharged to [facility] on previous admission Impression and plan of care have been directed as dictated by the signing physician. Samantha Griffith nurse practitioner acting as scribe for signing physician. Objective - Vital Signs Vital signs: Vital Signs Temp 97.6 F 10/02/19 08:00 Pulse 64 10/02/19 08:00 Resp 19 10/02/19 08:00 BP 112/66 10/02/19 08:00 Pulse Ox 100 10/02/19 08:00 Intake & Output 10/01/19 10/02/19 10/02/19 18:59 06:59 18:59 Intake Total 980 Output Total 1355 467 55 Balance -375 -467 -55 Intake: IV 980 Dextrose 5% in Water 1, 880 000 ml @ 50 mls/hr IV . Q20H [facility] Rx#:[id number] Output: Urine 1355 467 55 Other: Voiding Method Indwelling Catheter Indwelling Catheter - Labs CBC & Chem 7: 10/01/19 06:06 10/02/19 04:29 Labs: Abnormal Lab Results - Last 24 Hours (Table) 10/01/19 10/01/19 10/01/19 Range/Units 09:06 13:53 18:10 Sodium 127 L 122 L 122 L (137-145) mmol/L Potassium (3.5-5.1) mmol/L Chloride (98-107) mmol/L 10/02/19 10/02/19 Range/Units 01:00 04:29 Sodium 120 L 122 L (137-145) mmol/L Potassium 3.4 L (3.5-5.1) mmol/L Chloride 91 L (98-107) mmol/L
--- NOTE | 2019-10-02 15:10 | P.PN ---
Subjective Progress Note Date: 10/02/19 On 10/02/2019 the patient is essentially the same condition pH is still having some difficulties with swallowing as the patient was found to have a tight esophageal sphincter. She is having issues with hyponatremia and oral intake mainly with solids and the patient is being considered for a PEG tube insertion. In any rate, the sodium level is up to 122. The patient is currently on normal saline at the rate of 50 mL an hour. She is not having any major difficulties hemodynamically. She has an adequate urine output. She remains in atrial fibrillation. No altered mentation. No seizure activity. Objective - Vital Signs Vital signs: Vital Signs Temp 98.2 F 10/02/19 14:49 Pulse 60 10/02/19 14:49 Resp 18 10/02/19 14:49 BP 107/61 10/02/19 14:49 Pulse Ox 94 L 10/02/19 14:49 Intake & Output 10/01/19 10/02/19 10/02/19 18:59 06:59 18:59 Intake Total 980 Output Total 1355 467 55 Balance -375 -467 -55 Intake: IV 980 Dextrose 5% in Water 1, 880 000 ml @ 50 mls/hr IV . Q20H [facility] Rx#:[id number] Output: Urine 1355 467 55 Other: Voiding Method Indwelling Catheter Indwelling Catheter - Exam The patient appeared well nourished and normally developed. Vital signs as documented. Head exam is unremarkable. No scleral icterus or corneal arcus noted. Neck is without jugular venous distension, thyromegaly, or carotid bruits. Carotid upstrokes are brisk bilaterally. Lungs are clear to auscultation and percussion. Cardiac exam reveals the PMI to be normally sized and situated. Rhythm is regular. First and second heart sounds normal. No murmurs, rubs or gallops. Abdominal exam reveals normal bowel sounds, no masses, no organomegaly and no aortic enlargement. Extremities are nonedematous and both femoral and pedal pulses are normal.Examination of the skin revealed no evidence of significant rashes, suspicious appearing nevi or other concerning lesions. Neurologically the patient is awake and alert and is no focal deficit. - Labs CBC & Chem 7: 10/01/19 06:06 10/02/19 04:29 Labs: Abnormal Lab Results - Last 24 Hours (Table) 10/01/19 10/02/19 10/02/19 Range/Units 18:10 01:00 04:29 Sodium 122 L 120 L 122 L (137-145) mmol/L Potassium 3.4 L (3.5-5.1) mmol/L Chloride 91 L (98-107) mmol/L Assessment and Plan Plan: 1 Severe hyponatremia, improving slowly and the patient's son level is up to 122. Currently on normal saline at rate of 50 mL's an hour. This is mainly due to her increased fluid intake in the absence of any regular food material and solids as the patient is having chronic dysphagia. 2 previous history of hyponatremia requiring intubation mechanical ventilation due to altered mentation. The patient last admission was in January 2019. 3 diabetes mellitus type 2 4 Hypertension 5 hyperlipidemia 6 history of pulmonary embolism currently on no anticoagulants 7 hypothyroidism 8 previous history of seizures last one evening during her last admission related to hyponatremia. 9 dysphagia, and EGD showed significant tightening of the esophageal sphincter. He is to be further investigated. Biopsies were taken and they're still pending for now. Consider PEG tube insertion for nutritional support as the patient is quite cachectic and she cares a BMI of 17.5 and she will be having probably this long-term swallowing problems. Plan Continue normal saline at the rate of 50 mL an hour Monitor sodium level Consult with GI regarding possibility of a PEG tube insertion for nutritional support Replace potassium The patient can be transferred out of the intensive care unit.
[2019-10-02 16:00] VITALS: BMI 17.4
[2019-10-02 17:41] LABS: Calcium 8.5 mg/dL (8.4-10.2); Potassium 3.5 mmol/L (3.5-5.1)
[2019-10-02] MEDS: SODIUM CHLORIDE TAB 1 GM TAB PO SCH (20:19)
[2019-10-03] MEDS: SODIUM CHLORIDE 0.9% 1,000 ML IV SCH (04:32)
--- NOTE | 2019-10-03 04:54 | P.PN ---
Subjective Progress Note Date: 10/02/19 Principal diagnosis: Esophageal dysphagia Patient is seen lying in bed today, she was started on a chopped diet but partners concern that she eats food which is eaten softer in consistency. No nausea or vomiting. No abdominal pain reported. Objective - Vital Signs Vital signs: Vital Signs Temp 97.6 F 10/02/19 08:00 Pulse 64 10/02/19 08:00 Resp 19 10/02/19 08:00 BP 112/66 10/02/19 08:00 Pulse Ox 100 10/02/19 08:00 Intake & Output 10/01/19 10/02/19 10/02/19 18:59 06:59 18:59 Intake Total 980 Output Total 1355 467 55 Balance -375 -467 -55 Intake: IV 980 Dextrose 5% in Water 1, 880 000 ml @ 50 mls/hr IV . Q20H ONE Rx#:[id number] Output: Urine 1355 467 55 Other: Voiding Method Indwelling Catheter Indwelling Catheter - Exam On physical examination, patient appears comfortable in no apparent distress. HEAD: Normocephalic, atraumatic. EYES: No scleral icterus. No conjunctival injection. MOUTH: No lesions, tongue midline. NECK: Trachea midline, no gross abnormalities. ABDOMEN: Soft, thin. Bowel sounds are positive. No organomegaly. No guarding or rigidity. EXTREMITIES: No pedal edema. SKIN: No rashes, no jaundice. NEUROLOGIC: Alert and oriented to person and place. - Labs CBC & Chem 7: 10/01/19 06:06 10/02/19 16:38 Labs: Abnormal Lab Results - Last 24 Hours (Table) 10/01/19 10/01/19 10/02/19 Range/Units 13:53 18:10 01:00 Sodium 122 L 122 L 120 L (137-145) mmol/L Potassium (3.5-5.1) mmol/L Chloride (98-107) mmol/L 10/02/19 Range/Units 04:29 Sodium 122 L (137-145) mmol/L Potassium 3.4 L (3.5-5.1) mmol/L Chloride 91 L (98-107) mmol/L Assessment and Plan (1) Esophageal dysphagia Narrative/Plan: 89-year-old female currently receiving treatment for hyponatremia with complaints of esophageal dysphagia. 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 Plan is for modified diet is however this symptoms progress patient may be a candidate for PEG tube placement in the future. Current Visit: Yes Status: Acute Code(s): R13.10 - DYSPHAGIA, UNSPECIFIED SNOMED Code(s): 47530797 (2) Hyponatremia Current Visit: Yes Status: Acute Code(s): E87.1 - HYPO-OSMOLALITY AND HYPONATREMIA SNOMED Code(s): 15503605 Plan: Supportive care Continue medical management Patient had been started on a chopped diet will be changed to ground diet that she had some difficulty with meals today No plans for further endoscopic evaluation at this time, however if patient has progressive symptoms of esophageal dysphagia consideration is for PEG tube placement in the future Thank you for allowing us to participate in the care of the patient
[2019-10-03] MEDS: LEVOTHYROXINE 50 MCG TAB PO SCH (06:03)
[2019-10-03] MEDS: SODIUM CHLORIDE TAB 1 GM TAB PO SCH ×2 (08:36→19:43)
[2019-10-03] MEDS: NYSTATIN 100,000 UNIT/ML SUSP 500,000 UNIT/5 ML CUP PO SCH ×4 (08:36→19:44)
[2019-10-03] MEDS: PANTOPRAZOLE 40 MG/10 ML VIAL IV SCH ×2 (08:36→19:42)
[2019-10-03] MEDS: amLODIPine 5 MG TAB PO SCH (08:36)
[2019-10-03] MEDS: ASPIRIN 81 MG PO SCH (08:36)
[2019-10-03] MEDS: HEPARIN SODIUM,PORCINE 5,000 UNIT/ML 1 ML VIAL SQ SCH ×2 (08:36→19:42)
[2019-10-03] MEDS: FAMOTIDINE 20 MG TAB PO SCH (08:36)
--- NOTE | 2019-10-03 10:46 | P.PN ---
Subjective Patient is seen in follow-up for hyponatremia. Sodium level did correct rapidly but was appropriately reversed with D5W and IV DDAVP. Most recent sodium level 121 from yesterday evening. Her mentation is at baseline. Hemodynamically stable. GFR at baseline. Nonoliguric. She underwent EGD on September 30 which revealed tightness at the upper esophageal sphincter. Oral intake remains poor. Vital signs are stable. General: The patient appeared well nourished and normally developed. HEENT: Head exam is unremarkable. Neck is without jugular venous distension. LUNGS: Lungs are clear to auscultation and percussion. Breath sounds decreased. HEART: Rate and Rhythm are regular. ABDOMEN: Soft, nontender. EXTREMITITES: No clubbing, cyanosis, or edema. Objective - Vital Signs Vital signs: Vital Signs Temp 98.0 F 10/03/19 07:00 Pulse 73 10/03/19 07:00 Resp 16 10/03/19 07:00 BP 113/70 10/03/19 07:00 Pulse Ox 98 10/03/19 07:00 Intake & Output 10/02/19 10/03/19 10/03/19 18:59 06:59 18:59 Intake Total 100 100 Output Total 55 55 1800 Balance -55 45 -1700 Weight 46.2 kg Intake: Oral 100 100 Output: Urine 55 55 1800 Uretheral (Best) 1800 Other: Voiding Method Indwelling Catheter Indwelling Catheter - Labs CBC & Chem 7: 10/01/19 06:06 10/02/19 16:38 Labs: Abnormal Lab Results - Last 24 Hours (Table) 10/02/19 Range/Units 16:38 Sodium 121 L (137-145) mmol/L Chloride 92 L (98-107) mmol/L Carbon Dioxide 21 L (22-30) mmol/L Assessment and Plan Plan: Assessment: 1. Hypovolemic hyponatremia improved rapidly with normal saline and 3% and was subsequently reversed with DDAVP and D5W. Sodium level stable at 121 yesterday evening. TSH normal. Urine osmolality low at 195. Urine sodium 25. 2. Hypokalemia from poor intake and diuretic. 3. Benign hypertension. Controlled. 4. Dysphagia status post EGD which revealed tightness at the esophageal s phincter. Plan: Maintain normal saline at 50 mL an hour. Maintain sodium chloride tablets. Follow up morning labs.
[2019-10-03 12:09] LABS: African American GFR (CKD) >90 (>60 ml/min/1.73 sqM); Anion Gap 8 mmol/L; Blood Urea Nitrogen 11 mg/dL (7-17); Calcium 8.4 mg/dL (8.4-10.2); Carbon Dioxide 21 mmol/L (22-30); Chloride 99 mmol/L (98-107); Glucose 83 mg/dL (74-99); Magnesium 1.8 mg/dL (1.6-2.3); Non-African American GFR(CKD) 79 (>60 ml/min/1.73 sqM); Potassium 3.6 mmol/L (3.5-5.1); Sodium 128 mmol/L (137-145)
--- NOTE | 2019-10-03 13:05 | P.PN ---
Subjective Progress Note Date: 10/03/19 This is an 89-year-old female one of Dr. 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 She has had seizures secondary to hyponatremia requiring intubation and mechanical ventilation n her last hospitalization. Patient states that she came in the hospital due to difficulty swallowing and sore throat. She denies having any nausea vomiting, no abdominal pain. She denies having any blood in her stools. She does state she has some memory loss. She does not think she's had any recent weight loss. Patient was discharged on sodium chloride tablets in the past but she stopped taking them. She denies knowing why she stopped taking them. She states she drinks 5-6 glasses of water per day. She denies any previous history of cancer. Patient presented to [facility] emergency center and found to have a sodium of 106. She did receive normal saline bolus in the emergency center as well as 1 dose of IV DDAVP was continued on normal saline changed over to 3% saline per Dr. Franco and current sodium is at 123. She has had good urine output at 50-60 mL per hour. No vomiting or diarrhea. CBC was found to be unremarkable. AST 51 and ALT 91. BUN 6 and creatinine 0.35. Urinalysis was clear with nitrate negative leukoesterase small. She has been afebrile, heart rate 67, blood pressure 122/71, pulse ox 97% on room air. The patient was admitted into the intensive care unit, consult in place with nephrology, separations scientist, TOM. 09/29: Patient remains in intensive care unit. His sodium dropped down to 110 has been monitored closely and corrected by nephrology. Patient has been seen by GI with plan for EGD held until tomorrow due to hyponatremia. She is currently on IV fluids normal saline at 75 mL per hour. Patient has been afebrile, heart rate 61, blood pressure 118/84, pulse ox 97% on room air. Other lab work reveals potassium of 3.8, chloride 86, CO2 20, BUN 6 and creatinine 0.53. Total bilirubin 0.8, AST 43, ALT 63, alkaline phosphatase 67. 09/30: Patient remains in the intensive care unit. This morning sodium is 126. Plan is for repeat sodium and if stable, patient will undergo EGD today. She is currently on D5W at 70 mL/h and fluid restriction of 1200 ML's. CBC is unremarkable, AST 40 and ALT 64. She has been afebrile, heart rate 71, blood pressure 128/73, pulse ox 97% on room air. 10/01: Patient has been transferred to the [facility] floor. She has been afebrile, heart rate 64, blood pressure 112/66, pulse ox 100% on room air. Sodium at 4 AM was 122, potassium 3.4, chloride 91, CO2 23, BUN 7 creatinine 3.67. Nephrology recommends normal saline at 50 MLS per hour at this time. Sodium to be rechecked at 5 PM and potassium has been replaced. EGD completed yesterday with Dr. Corley revealed tightness at the upper esophageal sphincter. Patient may require PEG tube placement if she continues to have dysphagia. Contact the patient's daughter and discussed in detail findings and recommendations. Also recommend the patient have blood work obtained twice weekly after discharge. Patient may benefit from subacute rehab but no physical therapy is recommended home with homecare.. 10/02: Last evening sodium 121. Morning lab work reveals sodium of 128, potassium 3.6, chloride 99, CO2 21, BUN 11 and creatinine 0.68. Magnesium 1.8. Dr. Franco has ordered continuing normal saline at 50 mL per hour, sodium chloride tablets. Patient has been hemodynamically stable. Patient continues to complain of sore throat and GI his change diet to ground diet. She is raji nued on fluid restriction 1200 ML's. Patient states that she does not want to undergo PEG tube placement. Pathology report reveals acute and chronic esophagitis. Repeat lab work is ordered for the morning. Review of symptoms Constitutional: No fever, no chills, no night sweats. No weight change. Reports weakness, reports fatigue. EENT: No headache. No blurred vision or double vision, no loss of vision. No dizziness. No nasal drainage or congestion. No epistaxis. Reports sore throat. Lungs: No shortness of breath, cough, no sputum production. No wheezing. Cardiovascular: No chest pain, no lower extremity edema. No palpitations. No paroxysmal nocturnal dyspnea. No orthopnea. No lightheadedness or dizziness. No syncopal episodes. Abdominal: No abdominal pain. No nausea, vomiting. No diarrhea. No constipation. No bloody or tarry stools. Reports loss of appetite. Reports thirst. Genitourinary: No dysuria, increased frequency, urgency. No urinary retention. Musculoskeletal: No myalgias. Reports muscle weakness, reports gait dysfunction, no frequent falls. No back pain. No neck pain. Integumentary: No wounds, no lesions. No rash or pruritus. No unusual bruising. No change in hair or nails. Neurologic: No aphasia. No facial droop. No change in mentation. No head injury. No headache. Generalized weakness. Psychiatric: No depression. No anxiety. No mood swings. Endocrine: No abnormal blood sugars. No weight change. No excessive sweating or thirst. No cold intolerance. Physical examination Gen: This is an 89-year-old female. She is resting in bed, appears to be comfortable and in no acute distress HEENT: Head is atraumatic, normocephalic. Pupils equal, round. Sclerae is anicteric. NECK: Supple. No JVD. No lymphadenopathy. No thyromegaly. LUNGS: Clear to auscultation. No wheezes or rhonchi. No intercostal retractions. HEART: Irregularly irregular rate and rhythm. 2/6 systolic ejection murmur. ABDOMEN: Soft. Bowel sounds are present. No masses. No tenderness. EXTREMITIES: No pedal edema. No calf tenderness. NEUROLOGICAL: Patient is awake, alert and oriented x3. Cranial nerves 2 through 12 are grossly intact. Assessment and plan 1. Severe hypovolemic hyponatremia. Nephrology consult appreciated. Monitor urine output. Continue fluid restriction, IV fluids at 50 mL per hour. Sodium tablets 2. Hypokalemia status post replacement. Continue to monitor 3. Sore throat with dysphagia. Consult with GI appreciated. EGD as above. Discussed findings and anticipating need for PEG tube with patient's daughter. Patient states she does not want a PEG tube placement. 4. Mild elevation of liver function tests. Monitor. 5. Hypertension and hypertensive cardiovascular disease. Continue amlodipine 5 mg daily. 6. Hyperlipidemia. Not on any statin. 7. Hypothyroidism. Resume Synthroid 50 g daily. 8. Chronic hyponatremia. Baseline sodium is at 128-29 9. GERD. Continue Protonix 40 mg IV push twice daily. 10. Chronic atrial fibrillation. Patient is not on any anticoagulation not clear if reason may be recurrent falls. Monitor the patient very closely. 11. DVT prophylaxis. Continue heparin 5000 units subcu venously every 12 hours. 12. GI prophylaxis. Continue PPI. Patient is full code. Discharge plan: Home with home care. Patient has been discharged to [facility] on previous admission Impression and plan of care have been directed as dictated by the signing physician. Samantha Griffith nurse practitioner acting as scribe for signing physician. Objective - Vital Signs Vital signs: Vital Signs Temp 98.0 F 10/03/19 07:00 Pulse 73 10/03/19 07:00 Resp 16 10/03/19 07:00 BP 113/70 10/03/19 07:00 Pulse Ox 98 10/03/19 07:00 Intake & Output 10/02/19 10/03/19 10/03/19 18:59 06:59 18:59 Intake Total 100 Output Total 55 55 1800 Balance -55 45 -1800 Weight 46.2 kg Intake: Oral 100 Output: Urine 55 55 1800 Uretheral (Best) 1800 Other: Voiding Method Indwelling Catheter Indwelling Catheter - Labs CBC & Chem 7: 10/01/19 06:06 10/03/19 10:47 Labs: Abnormal Lab Results - Last 24 Hours (Table) 10/02/19 Range/Units 16:38 Sodium 121 L (137-145) mmol/L Chloride 92 L (98-107) mmol/L Carbon Dioxide 21 L (22-30) mmol/L
--- NOTE | 2019-10-03 13:49 | P.PN ---
Subjective Progress Note Date: 10/03/19 Principal diagnosis: Severe hyponatremia improving On 10/02/2019 the patient is essentially the same condition pH is still having some difficulties with swallowing as the patient was found to have a tight esophageal sphincter. She is having issues with hyponatremia and oral intake mainly with solids and the patient is being considered for a PEG tube insertion. In any rate, the sodium level is up to 122. The patient is currently on normal saline at the rate of 50 mL an hour. She is not having any major difficulties hemodynamically. She has an adequate urine output. She remains in atrial fibrillation. No altered mentation. No seizure activity. On 10/03/2019 patient seen in follow-up on general medical floor, she is resting comfortably in bed, denies any acute distress, room air pulse ox is 98%, blood pressure stable, patient is afebrile, respirations are nonlabored, lung sounds are clear. No altered mentation, patient is answering questions appropriately, and she has had no seizure activity, today's labs have been reviewed and her serum sodium is 128 on today's labs, currently on 0.9 normal saline at a rate of 50 ML per hour, nephrology is following, patient has produced 1800 mL in urine output, no nausea vomiting or diarrhea, she is on fluid restriction at 1200 mL in 24 hour period. Sodium tablets have been added. Objective - Vital Signs Vital signs: Vital Signs Temp 98.0 F 10/03/19 07:00 Pulse 73 10/03/19 07:00 Resp 16 10/03/19 07:00 BP 113/70 10/03/19 07:00 Pulse Ox 98 10/03/19 07:00 Intake & Output 10/02/19 10/03/19 10/03/19 18:59 06:59 18:59 Intake Total 100 100 Output Total 55 55 1800 Balance -55 45 -1700 Weight 46.2 kg Intake: Oral 100 100 Output: Urine 55 55 1800 Uretheral (Best) 1800 Other: Voiding Method Indwelling Catheter Indwelling Catheter - Exam GENERAL EXAM: Alert, 89-year-old flat affected Freilich and chronically ill- looking white female on room air, with a pulse ox of 98% comfortable in no apparent distress. HEAD: Normocephalic/atraumatic. EYES: Normal reaction of pupils, equal size. Conjunctiva pink, sclera white. NOSE: Clear with pink turbinates. THROAT: No erythema or exudates. NECK: No masses, no JVD, no thyroid enlargement, no adenopathy. CHEST: No chest wall deformity. Symmetrical expansion. LUNGS: Equal air entry with no crackles, wheeze, rhonchi or dullness. CVS: Irregular rate and rhythm, normal S1 and S2, no gallops, no murmurs, no rubs ABDOMEN: Soft, nontender. No hepatosplenomegaly, normal bowel sounds, no g uarding or rigidity. EXTREMITIES: No clubbing, no edema, no cyanosis, 2+ pulses and upper and lower extremities. MUSCULOSKELETAL: Muscle strength and tone normal. SPINE: No scoliosis or deformity SKIN: No rashes CENTRAL NERVOUS SYSTEM: Alert and oriented -3. No focal deficits, tone is normal in all 4 extremities. PSYCHIATRIC: Alert and oriented -3. Appropriate affect. Intact judgment and insight. - Labs CBC & Chem 7: 10/01/19 06:06 10/03/19 10:47 Labs: Abnormal Lab Results - Last 24 Hours (Table) 10/02/19 10/03/19 Range/Units 16:38 10:47 Sodium 121 L 128 L (137-145) mmol/L Chloride 92 L (98-107) mmol/L Carbon Dioxide 21 L 21 L (22-30) mmol/L Assessment and Plan Plan: Assessment: 1 Severe hyponatremia, improving slowly and the patient's son level is up to 122. Currently on normal saline at rate of 50 mL's an hour. This is mainly due to her increased fluid intake in the absence of any regular food material and solids as the patient is having chronic dysphagia. 2 previous history of hyponatremia requiring intubation mechanical ventilation due to altered mentation. The patient last admission was in January 2019. 3 diabetes mellitus type 2 4 Hypertension 5 hyperlipidemia 6 history of pulmonary embolism currently on no anticoagulants 7 hypothyroidism 8 previous history of seizures last one evening during her last admission related to hyponatremia. 9 dysphagia, and EGD showed significant tightening of the esophageal sphincter. He is to be further investigated. Biopsies were taken and they're still pending for now. Consider PEG tube insertion for nutritional support as the patient is quite cachectic and she cares a BMI of 17.5 and she will be having probably this long-term swallowing problems. Plan: Sodium management per nephrology, clinically patient is asymptomatic, no neurological deficits, no seizures, she is awake and alert, answered questions appropriately, room air pulse ox 98%, hemodynamically stable, remains on fluid restriction and has been started on sodium tablets, no pulmonary complaints. From pulmonary/critical care perspective patient stable, we will follow on as- needed basis. GI service is following, and we will defer to them regarding the possibility of PEG tube placement for ongoing dysphagia I performed a history & physical examination of the patient and discussed their management with my nurse practitioner, Mariely White. I reviewed the nurse practitioner's note and agree with the documented findings and plan of care. Lung sounds are positive for clear breath sounds. The findings and the impression was discussed with the patient. I attest to the documentation by the nurse practitioner. Time with Patient: Less than 30
--- NOTE | 2019-10-03 14:35 | CDI ---
Documentation Clarification Form Date: 10/03/2019 02:18:58 PM From: Tara Harrison CCS, CCDS Admit Date: 09/28/2019 08:14:00 PM Patient Name: She Maloney Visit Number: [id number] Discharge Date: ATTENTION: The Clinical Documentation Specialists (CDI) and [facility] Coding Staff appreciate your assistance in clarifying documentation. Please respond to the clarification below the line at the bottom and electronically sign. The CDI & [facility] Coding staff will review the response and follow-up if needed. Please note: Queries are made part of the Legal Health Record. If you have any questions, please contact the author of this message via ITS. Dr. Jorge Rayo: Per the 10/01 & 10/02 Pulmonary Consult Progress Notes: "Consider PEG tube insertion for nutritional support as the patient is quite cachectic and she cares a BMI of 17.5 and she will be having probably this long-term swallowing problems." Per the 10/02 Attending PN: The patient is not interested in having a PEG tube placed. History/Risk Factors: 89 yo female. 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 She has had seizures secondary to Hyponatremia requiring intubation and mechanical ventilation on her last hospitalization. Clinical Indicators: Presented to the ED on 09/27 complaining of a sore throat. Diagnosed with severe Hypovolemic Hyponatremia & Hypokalemia. 10/01 EGD w/biopsy: Tightness at the upper esophageal sphincter to just above cricopharyngeal dysfunction. No Zenker's diverticulum seen. No evidence of esophageal stricture, esophagitis or esophageal 09/30 Pathology Report: Acute and chronic esophagitis. Labs 09/27: Na 106, Gluc 115^, AST 63^, AT 109^, Total Prot 7.2, Albumin 4.1, Free T3: 2.2*. Current BMI: 17.5 Nutritional Assessment by Dietitian: Eating 0 - 25-50% diet, ground diet ordered by neph, Appetite is poor, Difficulty chewing/swallowing, pain w/swallowing, Underweight. Ht 5 ft 4 in, Weight: 47.2 kg (87% ideal weight). Inadequate energy intake. Treatment: IV fluid rates 1,000 mls @ 75, 600 mls @ 25, IV Dextrose/Water, IV Desmopressin Acetate, IV Kcl, IV PPI. Oral Supplement: Ensure clear TID. In your professional opinion, can you please clarify if these findings signify one of the following conditions? Mild Protein-Calorie Malnutrition Moderate Protein-Calorie Malnutrition Severe Protein-Calorie Malnutrition Other condition, please specify Unable to determine (Last Revision: October 2018) Severe Protein-Calorie Malnutrition MTDD
--- NOTE | 2019-10-03 22:10 | PN ---
PROGRESS NOTE DATE OF DICTATION: 10/03/2019 This patient is an 89-year-old pleasant white female admitted to the hospital with severe hyponatremia. She was transferred from the intensive care unit yesterday. She underwent an upper endoscopy because of progressive dysphagia to solids. Upper endoscopy revealed cricopharyngeal dysfunction but no evidence of esophageal stricture. Patient is on a soft diet today and tolerating reasonably well. She denies any abdominal pain. No nausea, vomiting. PHYSICAL EXAMINATION: She appears comfortable. No apparent distress. VITAL SIGNS: Stable. Blood pressure is 133/82, pulse rate 86 per minute and afebrile. HEENT examination unremarkable. Conjunctivae pink. Sclerae anicteric. Oral cavity no lesions. NECK: No JVD or lymph node enlargement. CHEST: Clear to auscultation. HEART: Regular rate and rhythm. ABDOMEN: Soft. Bowel sounds are positive. No organomegaly. EXTREMITIES: No pedal edema. NEUROLOGIC: Alert and oriented x3. No focal deficits. LABS: Labs from today not available. IMPRESSION: 1. 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 The patient had an upper endoscopy yesterday that showed some tightness of the upper esophageal sphincter. No obvious esophageal stricture identified. Presently on a soft diet and tolerating reasonably well. 2. Severe hyponatremia, gradually improving. 3. Weight loss of 30 pounds because of poor oral intake. RECOMMENDATIONS: 1. Will change her diet to a pureed diet. 2. Small frequent meals. 3. Continue symptomatic and supportive care. 4. Not interested in any placement at this time. Thank you for this consultation. MMODL / IJN: [id number] /
[2019-10-04] MEDS: SODIUM CHLORIDE 0.9% 1,000 ML IV SCH ×2 (00:16→21:07)
[2019-10-04] MEDS: LEVOTHYROXINE 50 MCG TAB PO SCH (04:54)
[2019-10-04] MEDS: HEPARIN SODIUM,PORCINE 5,000 UNIT/ML 1 ML VIAL SQ SCH ×3 (07:53→21:10)
[2019-10-04] MEDS: amLODIPine 5 MG TAB PO SCH (07:53)
[2019-10-04] MEDS: FAMOTIDINE 20 MG TAB PO SCH (07:53)
[2019-10-04] MEDS: NYSTATIN 100,000 UNIT/ML SUSP 500,000 UNIT/5 ML CUP PO SCH ×4 (07:53→21:07)
[2019-10-04] MEDS: ASPIRIN 81 MG PO SCH (07:53)
[2019-10-04] MEDS: PANTOPRAZOLE 40 MG/10 ML VIAL IV SCH ×2 (07:54→21:07)
[2019-10-04] MEDS: SODIUM CHLORIDE TAB 1 GM TAB PO SCH ×2 (07:54→21:07)
[2019-10-04 08:30] LABS: African American GFR (CKD) >90 (>60 ml/min/1.73 sqM); Anion Gap 8 mmol/L; Blood Urea Nitrogen 12 mg/dL (7-17); Calcium 9.1 mg/dL (8.4-10.2); Carbon Dioxide 24 mmol/L (22-30); Chloride 100 mmol/L (98-107); Glucose 89 mg/dL (74-99); Magnesium 1.7 mg/dL (1.6-2.3); Non-African American GFR(CKD) 82 (>60 ml/min/1.73 sqM); Potassium 3.6 mmol/L (3.5-5.1); Sodium 132 mmol/L (137-145)
[2019-10-04] MEDS ORDERED: POTASSIUM CHLORIDE ER 20 MEQ TAB.ER PO STA (09:58)
--- NOTE | 2019-10-04 09:59 | P.PN ---
Subjective Patient is seen in follow-up for hyponatremia. Sodium level did correct rapidly but was appropriately reversed with D5W and IV DDAVP. Her mentation is at baseline. Hemodynamically stable. GFR at baseline. Nonoliguric. She underwent EGD on September 30 which revealed tightness at the upper esophageal sphincter. Oral intake remains poor. Sodium level 132 this morning. Vital signs are stable. General: The patient appeared well nourished and normally developed. HEENT: Head exam is unremarkable. Neck is without jugular venous distension. LUNGS: Lungs are clear to auscultation and percussion. Breath sounds decreased. HEART: Rate and Rhythm are regular. ABDOMEN: Soft, nontender. EXTREMITITES: No clubbing, cyanosis, or edema. Objective - Vital Signs Vital signs: Vital Signs Temp 98.1 F 10/04/19 07:00 Pulse 78 10/04/19 07:00 Resp 20 10/04/19 07:45 BP 126/72 10/04/19 07:00 Pulse Ox 99 10/04/19 07:00 Intake & Output 10/03/19 10/04/19 10/04/19 18:59 06:59 18:59 Intake Total 200 Output Total 2800 2700 Balance -2600 -2700 Intake: Oral 200 Output: Urine 2800 2700 Uretheral (Best) 1800 Other: Voiding Method Indwelling Catheter Indwelling Catheter # Voids 2 - Labs CBC & Chem 7: 10/01/19 06:06 10/04/19 07:39 Labs: Abnormal Lab Results - Last 24 Hours (Table) 10/03/19 10/03/19 10/04/19 Range/Units 10:47 18:12 07:39 Sodium 128 L 127 L 132 L (137-145) mmol/L Carbon Dioxide 21 L (22-30) mmol/L Assessment and Plan Plan: Assessment: 1. Hypovolemic hyponatremia improved rapidly with normal saline and 3% and was subsequently reversed with DDAVP and D5W. Sodium level up to 132 this morning. TSH normal. Urine osmolality low at 195. Urine sodium 25. 2. Hypokalemia from poor intake. 3. Benign hypertension. Controlled. 4. Dysphagia status post EGD which revealed tightness at the esophageal sphincter. Plan: Maintain normal saline at 50 mL an hour. Maintain sodium chloride tablets. Replace potassium. 40 mEq today. Repeat electrolytes in the morning.
--- NOTE | 2019-10-04 13:41 | PN ---
PROGRESS NOTE DATE OF SERVICE: 10/04/2019 Patient is an 89-year-old pleasant white female admitted to the hospital with severe symptomatic hyponatremia. She was also complaining of dysphagia, hence, had an upper endoscopy done three days ago that showed evidence of cricopharyngeal dysfunction. Patient on pureed diet right now, tolerating well. She denies any symptoms. PHYSICAL EXAMINATION: Appears comfortable. VITAL SIGNS: Stable. Blood pressure is 133/69, pulse rate 77, temperature 97.9. HEENT examination unremarkable. Conjunctivae pink, sclerae anicteric. Oral cavity no lesions. NECK: No JVD or lymph node enlargement. CHEST: Clear to auscultation. HEART: Regular rate and rhythm. ABDOMEN: Soft. Bowel sounds are positive. No organomegaly. EXTREMITIES: No pedal edema. SKIN: No rashes. NEUROLOGIC: Alert and oriented x3. No focal deficits. LABS: From today, sodium is 132. Rest of the labs are normal. IMPRESSION: 1. Severe symptomatic hyponatremia gradually improving. 2. 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 Patient on pureed diet and tolerating well. RECOMMENDATIONS: 1. Continue with pureed diet. 2. Small frequent meals. 3. Monitor labs closely. We will follow with you closely. Thank you for this consultation. MMODL / IJN: [id number] /
--- NOTE | 2019-10-04 16:01 | P.PN ---
Subjective Progress Note Date: 10/04/19 This is an 89-year-old female one of Dr. 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 She has had seizures secondary to hyponatremia requiring intubation and mechanical ventilation n her last hospitalization. Patient states that she came in the hospital due to difficulty swallowing and sore throat. She denies having any nausea vomiting, no abdominal pain. She denies having any blood in her stools. She does state she has some memory loss. She does not think she's had any recent weight loss. Patient was discharged on sodium chloride tablets in the past but she stopped taking them. She denies knowing why she stopped taking them. She states she drinks 5-6 glasses of water per day. She denies any previous history of cancer. Patient presented to [facility] emergency center and found to have a sodium of 106. She did receive normal saline bolus in the emergency center as well as 1 dose of IV DDAVP was continued on normal saline changed over to 3% saline per Dr. Franco and current sodium is at 123. She has had good urine output at 50-60 mL per hour. No vomiting or diarrhea. CBC was found to be unremarkable. AST 51 and ALT 91. BUN 6 and creatinine 0.35. Urinalysis was clear with nitrate negative leukoesterase small. She has been afebrile, heart rate 67, blood pressure 122/71, pulse ox 97% on room air. The patient was admitted into the intensive care unit, consult in place with nephrology, theatre manager, TOM. 09/29: Patient remains in intensive care unit. His sodium dropped down to 110 has been monitored closely and corrected by nephrology. Patient has been seen by GI with plan for EGD held until tomorrow due to hyponatremia. She is currently on IV fluids normal saline at 75 mL per hour. Patient has been afebrile, heart rate 61, blood pressure 118/84, pulse ox 97% on room air. Other lab work reveals potassium of 3.8, chloride 86, CO2 20, BUN 6 and creatinine 0.53. Total bilirubin 0.8, AST 43, ALT 63, alkaline phosphatase 67. 09/30: Patient remains in the intensive care unit. This morning sodium is 126. Plan is for repeat sodium and if stable, patient will undergo EGD today. She is currently on D5W at 70 mL/h and fluid restriction of 1200 ML's. CBC is unremarkable, AST 40 and ALT 64. She has been afebrile, heart rate 71, blood pressure 128/73, pulse ox 97% on room air. 10/01: Patient has been transferred to the [facility] floor. She has been afebrile, heart rate 64, blood pressure 112/66, pulse ox 100% on room air. Sodium at 4 AM was 122, potassium 3.4, chloride 91, CO2 23, BUN 7 creatinine 3.67. Nephrology recommends normal saline at 50 MLS per hour at this time. Sodium to be rechecked at 5 PM and potassium has been replaced. EGD completed yesterday with Dr. Corley revealed tightness at the upper esophageal sphincter. Patient may require PEG tube placement if she continues to have dysphagia. Contact the patient's daughter and discussed in detail findings and recommendations. Also recommend the patient have blood work obtained twice weekly after discharge. Patient may benefit from subacute rehab but no physical therapy is recommended home with homecare.. 10/02: Last evening sodium 121. Morning lab work reveals sodium of 128, potassium 3.6, chloride 99, CO2 21, BUN 11 and creatinine 0.68. Magnesium 1.8. Dr. Franco has ordered continuing normal saline at 50 mL per hour, sodium chloride tablets. Patient has been hemodynamically stable. Patient continues to complain of sore throat and GI his change diet to ground diet. She is cont inued on fluid restriction 1200 ML's. Patient states that she does not want to undergo PEG tube placement. Pathology report reveals acute and chronic esophagitis. Repeat lab work is ordered for the morning. 10/03, patient is here for follow-up, patient is her usual self, however patient did not ambulate her , sodium today is 132, with improving appetite, patient has approximately taken in 50% of meals and liquids today, this continues to improve ever since she had the dilation done for dysphagia, from 09/30, patient is receiving IV saline, patient still on a Best catheter, we'll going to request PT OT to see the patient, and ambulation with assistance patient still has mild transaminitis which needs a follow-up evaluation, no new CBCs for review today. Patient has chronic malnutrition with low albumin, -3.1, B12 to be checked, along with TSH for her impaired balance balance and gait possible discharge Sunday expected should patient continue to improve, pre- albumin to be checked Review of symptoms Constitutional: No fever, no chills, no night sweats. No weight change. Reports weakness, reports fatigue. EENT: No headache. No blurred vision or double vision, no loss of vision. No dizziness. No nasal drainage or congestion. No epistaxis. Reports sore throat. Lungs: No shortness of breath, cough, no sputum production. No wheezing. Cardiovascular: No chest pain, no lower extremity edema. No palpitations. No paroxysmal nocturnal dyspnea. No orthopnea. No lightheadedness or dizziness. No syncopal episodes. Abdominal: No abdominal pain. No nausea, vomiting. No diarrhea. No constipation. No bloody or tarry stools. Reports loss of appetite. Reports thirst. Genitourinary: No dysuria, increased frequency, urgency. No urinary retention. Musculoskeletal: No myalgias. Reports muscle weakness, reports gait dysfunction, no frequent falls. No back pain. No neck pain. Integumentary: No wounds, no lesions. No rash or pruritus. No unusual bruising. No change in hair or nails. Neurologic: No aphasia. No facial droop. No change in mentation. No head injury. No headache. Generalized weakness. Psychiatric: No depression. No anxiety. No mood swings. Endocrine: No abnormal blood sugars. No weight change. No excessive sweating or thirst. No cold intolerance. Objective - Vital Signs Vital signs: Vital Signs Temp 98.1 F 10/04/19 15:00 Pulse 76 10/04/19 15:00 Resp 18 10/04/19 15:00 BP 100/63 10/04/19 15:00 Pulse Ox 97 10/04/19 15:00 Intake & Output 10/03/19 10/04/19 10/04/19 18:59 06:59 18:59 Intake Total 200 Output Total 2800 2700 Balance -2600 -2700 Intake: Oral 200 Output: Urine 2800 2700 Uretheral (Best) 1800 Other: Voiding Method Indwelling Catheter Indwelling Catheter # Voids 2 - Labs CBC & Chem 7: 10/01/19 06:06 10/04/19 07:39 Labs: Abnormal Lab Results - Last 24 Hours (Table) 10/03/19 10/04/19 Range/Units 18:12 07:39 Sodium 127 L 132 L (137-145) mmol/L Assessment and Plan Plan: Assessment and plan 1. Severe hypovolemic hyponatremia. Nephrology consult appreciated. Monitor urine output. Continue fluid restriction, IV fluids at 50 mL per hour. Sodium tablets, Best catheter can be discontinued in next 24 hours, with I's and O's 2. Hypokalemia status post replacement. Continue to monitor 3. Sore throat with dysphagia. Consult with GI appreciated. EGD as above. D iscussed findings and anticipating need for PEG tube with patient's daughter. Patient states she does not want a PEG tube placement. 4. Mild elevation of liver function tests. Monitor. 5. Hypertension and hypertensive cardiovascular disease. Continue amlodipine 5 mg daily. 6. Hyperlipidemia. Not on any statin. 7. Hypothyroidism. Resume Synthroid 50 g daily. 8. Chronic hyponatremia. Baseline sodium is at 128-29 9. GERD. Continue Protonix 40 mg IV push twice daily. 10. Chronic atrial fibrillation. Patient is not on any anticoagulation not clear if reason may be recurrent falls. Monitor the patient very closely. 11. DVT prophylaxis. Continue heparin 5000 units subcu venously every 12 hours. 12. GI prophylaxis. Continue PPI. 13. Debility, PT OT, ambulating with assistance check for B12, and TSH, 14. Malnutrition, secondary to dysphagia, prealbumin, and nutritional supplementation, discharges improving, expected continued improvement Patient is full code. Discharge plan: Home with home care. Patient has been discharged to [facility] on previous admission
[2019-10-05] MEDS: LEVOTHYROXINE 50 MCG TAB PO SCH (06:10)
[2019-10-05] MEDS: FAMOTIDINE 20 MG TAB PO SCH (07:54)
[2019-10-05] MEDS: SODIUM CHLORIDE TAB 1 GM TAB PO SCH ×2 (07:55→20:51)
[2019-10-05] MEDS: amLODIPine 5 MG TAB PO SCH (07:55)
[2019-10-05] MEDS: PANTOPRAZOLE 40 MG/10 ML VIAL IV SCH ×2 (07:55→20:52)
[2019-10-05] MEDS: NYSTATIN 100,000 UNIT/ML SUSP 500,000 UNIT/5 ML CUP PO SCH ×4 (07:55→20:51)
[2019-10-05] MEDS: HEPARIN SODIUM,PORCINE 5,000 UNIT/ML 1 ML VIAL SQ SCH ×2 (07:55→20:51)
[2019-10-05] MEDS: ASPIRIN 81 MG PO SCH (07:55)
[2019-10-05 09:04] LABS: ALT 59 U/L (4-34); AST 49 U/L (14-36); African American GFR (CKD) >90 (>60 ml/min/1.73 sqM); Albumin 3.3 g/dL (3.5-5.0); Alkaline Phosphatase 80 U/L (38-126); Anion Gap 7 mmol/L; Bilirubin,Unconjugated 0.5 mg/dL (0.0-1.1); Blood Urea Nitrogen 14 mg/dL (7-17); Calcium 8.9 mg/dL (8.4-10.2); Carbon Dioxide 27 mmol/L (22-30); Chloride 98 mmol/L (98-107); Glucose 79 mg/dL (74-99); Magnesium 1.7 mg/dL (1.6-2.3); Non-African American GFR(CKD) 80 (>60 ml/min/1.73 sqM); Potassium 3.7 mmol/L (3.5-5.1); Sodium 132 mmol/L (137-145); Total Bilirubin 0.4 mg/dL (0.2-1.3)
--- NOTE | 2019-10-05 09:09 | P.PN ---
Subjective Patient is seen in follow-up for hyponatremia. Sodium level did correct rapidly on admission but was appropriately reversed with D5W and IV DDAVP. Her mentation is at baseline. Hemodynamically stable. GFR at baseline. Nonoliguric. She underwent EGD on September 30 which revealed tightness at the upper esophageal sphincter. Oral intake slowly improving. Vital signs are stable. General: The patient appeared well nourished and normally developed. HEENT: Head exam is unremarkable. Neck is without jugular venous distension. LUNGS: Lungs are clear to auscultation and percussion. Breath sounds decreased. HEART: Rate and Rhythm are regular. ABDOMEN: Soft, nontender. EXTREMITITES: No clubbing, cyanosis, or edema. Objective - Vital Signs Vital signs: Vital Signs Temp 98.2 F 10/05/19 07:00 Pulse 80 10/05/19 07:00 Resp 17 10/05/19 08:00 BP 115/68 10/05/19 07:00 Pulse Ox 97 10/05/19 07:00 Intake & Output 10/04/19 10/05/19 10/05/19 18:59 06:59 18:59 Output Total 2500 Balance -2500 Output: Urine 2500 Other: Voiding Method Indwelling Catheter Indwelling Catheter Indwelling Catheter - Labs CBC & Chem 7: 10/01/19 06:06 10/04/19 07:39 Assessment and Plan Plan: Assessment: 1. Hypovolemic hyponatremia improved rapidly on admission with normal saline and 3% and was subsequently reversed with DDAVP and D5W. Sodium level up to 132 as of yesterday. TSH normal. Urine osmolality low at 195. Urine sodium 25. 2. Hypokalemia from poor intake. 3. Benign hypertension. Controlled. 4. Dysphagia status post EGD which revealed tightness at the esophageal sphincter. She is on pured diet. GI following. Plan: Maintain sodium chloride tablets. Morning labs pending. Encourage oral intake.
[2019-10-05 09:17] LABS: Bilirubin, Delta -0.1 mg/dL (0.0-0.2)
--- NOTE | 2019-10-05 09:51 | PN ---
PROGRESS NOTE DATE OF SERVICE: October 05, 2019 Patient is an 89-year-old pleasant white female admitted to hospital with severe symptomatic hyponatremia. While in the hospital, she was complaining of dysphagia, underwent an upper endoscopy 3 days ago that showed severe cricopharyngeal dysphagia, on pureed diet. She is tolerating well. As per the nursing staff, she is doing much better. PHYSICAL EXAMINATION: Appears comfortable in no apparent distress. Blood pressure 115/68, pulse rate 80, temperature 98.2. HEENT examination unremarkable. Conjunctivae pink. Sclerae anicteric. Oral cavity no lesions. NECK: No JVD or lymph node enlargement. CHEST was clear to auscultation. HEART: Regular rate and rhythm. ABDOMEN: Soft. Bowel sounds are positive. No organomegaly. EXTREMITIES no pedal edema. NEUROLOGIC: Alert and oriented x3. No focal deficits. LABS: Done today sodium is 132. IMPRESSION: 1. Progressive dysphagia to solids, status post EGD 3 days ago that showed cricopharyngeal dysfunction causing dysphagia, on pureed diet right now, tolerating well. 2. Symptomatic hyponatremia gradually improving. RECOMMENDATIONS: 1. Continue with a soft pureed diet. 2. Small frequent meals daily. 3. We will sign off at this time. Please call us if needed. Thank you for this consultation. MMODL / IJN: [id number] /
--- NOTE | 2019-10-05 15:57 | P.PN ---
Subjective Progress Note Date: 10/05/19 This is an 89-year-old female one of Dr. 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 She has had seizures secondary to hyponatremia requiring intubation and mechanical ventilation n her last hospitalization. Patient states that she came in the hospital due to difficulty swallowing and sore throat. She denies having any nausea vomiting, no abdominal pain. She denies having any blood in her stools. She does state she has some memory loss. She does not think she's had any recent weight loss. Patient was discharged on sodium chloride tablets in the past but she stopped taking them. She denies knowing why she stopped taking them. She states she drinks 5-6 glasses of water per day. She denies any previous history of cancer. Patient presented to [facility] emergency center and found to have a sodium of 106. She did receive normal saline bolus in the emergency center as well as 1 dose of IV DDAVP was continued on normal saline changed over to 3% saline per Dr. Franco and current sodium is at 123. She has had good urine output at 50-60 mL per hour. No vomiting or diarrhea. CBC was found to be unremarkable. AST 51 and ALT 91. BUN 6 and creatinine 0.35. Urinalysis was clear with nitrate negative leukoesterase small. She has been afebrile, heart rate 67, blood pressure 122/71, pulse ox 97% on room air. The patient was admitted into the intensive care unit, consult in place with nephrology, front desk officer, TOM. 09/29: Patient remains in intensive care unit. His sodium dropped down to 110 has been monitored closely and corrected by nephrology. Patient has been seen by GI with plan for EGD held until tomorrow due to hyponatremia. She is currently on IV fluids normal saline at 75 mL per hour. Patient has been afebrile, heart rate 61, blood pressure 118/84, pulse ox 97% on room air. Other lab work reveals potassium of 3.8, chloride 86, CO2 20, BUN 6 and creatinine 0.53. Total bilirubin 0.8, AST 43, ALT 63, alkaline phosphatase 67. 09/30: Patient remains in the intensive care unit. This morning sodium is 126. Plan is for repeat sodium and if stable, patient will undergo EGD today. She is currently on D5W at 70 mL/h and fluid restriction of 1200 ML's. CBC is unremarkable, AST 40 and ALT 64. She has been afebrile, heart rate 71, blood pressure 128/73, pulse ox 97% on room air. 10/01: Patient has been transferred to the [facility] floor. She has been afebrile, heart rate 64, blood pressure 112/66, pulse ox 100% on room air. Sodium at 4 AM was 122, potassium 3.4, chloride 91, CO2 23, BUN 7 creatinine 3.67. Nephrology recommends normal saline at 50 MLS per hour at this time. Sodium to be rechecked at 5 PM and potassium has been replaced. EGD completed yesterday with Dr. Corley revealed tightness at the upper esophageal sphincter. Patient may require PEG tube placement if she continues to have dysphagia. Contact the patient's daughter and discussed in detail findings and recommendations. Also recommend the patient have blood work obtained twice weekly after discharge. Patient may benefit from subacute rehab but no physical therapy is recommended home with homecare.. 10/02: Last evening sodium 121. Morning lab work reveals sodium of 128, potassium 3.6, chloride 99, CO2 21, BUN 11 and creatinine 0.68. Magnesium 1.8. Dr. Franco has ordered continuing normal saline at 50 mL per hour, sodium chloride tablets. Patient has been hemodynamically stable. Patient continues to complain of sore throat and GI his change diet to ground diet. She is cont inued on fluid restriction 1200 ML's. Patient states that she does not want to undergo PEG tube placement. Pathology report reveals acute and chronic esophagitis. Repeat lab work is ordered for the morning. 10/03, patient is here for follow-up, patient is her usual self, however patient did not ambulate her , sodium today is 132, with improving appetite, patient has approximately taken in 50% of meals and liquids today, this continues to improve ever since she had the dilation done for dysphagia, from 09/30, patient is receiving IV saline, patient still on a Best catheter, we'll going to request PT OT to see the patient, and ambulation with assistance patient still has mild transaminitis which needs a follow-up evaluation, no new CBCs for review today. Patient has chronic malnutrition with low albumin, -3.1, B12 to be checked, along with TSH for her impaired balance balance and gait possible discharge Sunday expected should patient continue to improve, pre- albumin to be checked 10/04: Patient continues to improve, she has pured diet without any new difficulties, hydration is improving with sodium at 132,, sodium is also tolerated, patient was ambulating with standby assist, discharge planning was involved for possible home therapies, Best catheter to be taken out today, patient does not any chest pain no dysphagia, no plans for PEG tube feedings, anticipate discharge in the morning, with home therapies if needed. Discussed with the daughter, concerns were addressed with the daughter. Daughter is POA Review of symptoms Constitutional: No fever, no chills, no night sweats. No weight change. Reports weakness, reports fatigue. EENT: No headache. No blurred vision or double vision, no loss of vision. No dizziness. No nasal drainage or congestion. No epistaxis. Reports sore throat. Lungs: No shortness of breath, cough, no sputum production. No wheezing. Cardiovascular: No chest pain, no lower extremity edema. No palpitations. No paroxysmal nocturnal dyspnea. No orthopnea. No lightheadedness or dizziness. No syncopal episodes. Abdominal: No abdominal pain. No nausea, vomiting. No diarrhea. No constipation. No bloody or tarry stools. Reports loss of appetite. Reports thirst. Genitourinary: No dysuria, increased frequency, urgency. No urinary retention. Musculoskeletal: No myalgias. Reports muscle weakness, reports gait dysfunction, no frequent falls. No back pain. No neck pain. Integumentary: No wounds, no lesions. No rash or pruritus. No unusual bruising. No change in hair or nails. Neurologic: No aphasia. No facial droop. No change in mentation. No head injury. No headache. Generalized weakness. Psychiatric: No depression. No anxiety. No mood swings. Endocrine: No abnormal blood sugars. No weight change. No excessive sweating or thirst. No cold intolerance. Objective - Vital Signs Vital signs: Vital Signs Temp 98.2 F 10/05/19 15:00 Pulse 85 10/05/19 15:00 Resp 16 10/05/19 15:00 BP 114/65 10/05/19 15:00 Pulse Ox 97 10/05/19 15:00 Intake & Output 10/04/19 10/05/19 10/05/19 18:59 06:59 18:59 Output Total 2500 Balance -2500 Output: Urine 2500 Other: Voiding Method Indwelling Catheter Indwelling Catheter Indwelling Catheter - Constitutional General appearance: Present: cooperative, no acute distress - EENT Eyes: Present: PERRLA, dentition normal, normal appearance - Neck Neck: Present: normal ROM - Respiratory Respiratory: bilateral: CTA, negative: diminished - Cardiovascular Rhythm: regular Heart sounds: normal: S1, S2 Abnormal Heart Sounds: Absent: systolic murmur, diastolic murmur, rub, S3 Gallop, S4 Gallop, click, other - Gastrointestinal General gastrointestinal: Present: normal bowel sounds, soft - Integumentary Integumentary: Present: normal, normal turgor - Neurologic Neurologic: Present: CNII-XII intact - Musculoskeletal Musculoskeletal: Present: gait normal, generalized weakness, strength equal bilaterally - Psychiatric Psychiatric: Present: A&O x's 3, appropriate affect - Labs CBC & Chem 7: 10/01/19 06:06 10/05/19 07:02 Labs: Abnormal Lab Results - Last 24 Hours (Table) 10/05/19 Range/Units 07:02 Sodium 132 L (137-145) mmol/L Delta Bilirubin -0.1 L (0.0-0.2) mg/dL AST 49 H (14-36) U/L ALT 59 H (4-34) U/L Total Protein 6.0 L (6.3-8.2) g/dL Albumin 3.3 L (3.5-5.0) g/dL Assessment and Plan Plan: Assessment and plan 1. Severe hypovolemic hyponatremia. Nephrology consult appreciated. Monitor urine output. Continue fluid restriction, IV fluids at 50 mL per hour. Sodium tablets, Best catheter can be discontinued in next 24 hours, with I's and O's 2. Hypokalemia status post replacement. Continue to monitor 3. 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 Consult with GI appreciated. EGD as above. Patient states she does not want a PEG tube placement. 4. Mild elevation of liver function tests. Monitor. 5. Hypertension and hypertensive cardiovascular disease. Continue amlodipine 5 mg daily. 6. Hyperlipidemia. Not on any statin. 7. Hypothyroidism. Resume Synthroid 50 g daily. 8. Chronic hyponatremia. Baseline sodium is at 128-29 9. GERD. Continue Protonix 40 mg IV push twice daily. 10. Chronic atrial fibrillation. Patient is not on any anticoagulation not clear if reason may be recurrent falls. Monitor the patient very closely. 11. DVT prophylaxis. Continue heparin 5000 units subcu venously every 12 hours. 12. GI prophylaxis. Continue PPI. 13. Debility, PT OT, ambulating with assistance check for B12, and TSH, walker with assistance, standby assist per nursing staff, formal therapies pending 14. Malnutrition, secondary to dysphagia, prealbumin, and nutritional supplementation, discharges improving, expected continued improvement Patient is full code. Discharge plan: Home with home care Thursday 10/05 with home therapies. Patient has been discharged to [facility] on previous admission
[2019-10-05] MEDS: SODIUM CHLORIDE 0.9% 1,000 ML IV SCH (16:37)
[2019-10-05 20:04] VITALS: PULSE 92; RESP 18
[2019-10-06] MEDS: SODIUM CHLORIDE 0.9% 1,000 ML IV SCH (00:02)
[2019-10-06] MEDS: LEVOTHYROXINE 50 MCG TAB PO SCH (05:37)
[2019-10-06 08:48] VITALS: BP 148/81; TEMP 98.1
[2019-10-06 08:56] LABS: African American GFR (CKD) >90 (>60 ml/min/1.73 sqM); Anion Gap 9 mmol/L; Blood Urea Nitrogen 11 mg/dL (7-17); Calcium 9.1 mg/dL (8.4-10.2); Carbon Dioxide 28 mmol/L (22-30); Chloride 97 mmol/L (98-107); Glucose 87 mg/dL (74-99); Non-African American GFR(CKD) 83 (>60 ml/min/1.73 sqM); Potassium 3.8 mmol/L (3.5-5.1); Sodium 134 mmol/L (137-145)
[2019-10-06 09:11] LABS: Magnesium 1.5 mg/dL (1.6-2.3)
[2019-10-06] MEDS: PANTOPRAZOLE 40 MG/10 ML VIAL IV SCH (10:03)
[2019-10-06] MEDS: NYSTATIN 100,000 UNIT/ML SUSP 500,000 UNIT/5 ML CUP PO SCH (10:04)
[2019-10-06] MEDS: amLODIPine 5 MG TAB PO SCH (10:04)
[2019-10-06] MEDS: HEPARIN SODIUM,PORCINE 5,000 UNIT/ML 1 ML VIAL SQ SCH (10:04)
[2019-10-06] MEDS: SODIUM CHLORIDE TAB 1 GM TAB PO SCH (10:04)
[2019-10-06] MEDS: FAMOTIDINE 20 MG TAB PO SCH (10:04)
[2019-10-06] MEDS: ASPIRIN 81 MG PO SCH (10:04)
--- NOTE | 2019-10-06 11:38 | P.DS ---
Providers Date of admission: 09/28/19 20:14 Attending physician: Payam Pace Consults: 09/28/19 20:13 Consult Physician Stat Consulting Provider: Aaron Adame Consult Reason/Comments: critical care Do you want consulting provider notified?: Yes Consult Physician Urgent Consulting Provider: Francine Schmidt Consult Reason/Comments: hyponatremia Do you want consulting provider notified?: Yes 09/29/19 09:39 Consult Physician Routine Consulting Provider: Kiki Corley Consult Reason/Comments: dysphagia, weight loss, EGD Do you want consulting provider notified?: Yes Primary care physician: [facility] Course: This is an 89-year-old female one of Dr. 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 She has had seizures secondary to hyponatremia requiring intubation and mechanical ventilation n her last hospitalization. Patient states that she came in the hospital due to difficulty swallowing and sore throat. She denies having any nausea vomiting, no abdominal pain. She denies having any blood in her stools. She does state she has some memory loss. She does not think she's had any recent weight loss. Patient was discharged on sodium chloride tablets in the past but she stopped taking them. She denies knowing why she stopped taking them. She states she drinks 5-6 glasses of water per day. She denies any previous history of cancer. Patient presented to [facility] emergency center and found to have a sodium of 106. She did receive normal saline bolus in the emergency center as well as 1 dose of IV DDAVP was continued on normal saline changed over to 3% saline per Dr. Franco and current sodium is at 123. She has had good urine output at 50-60 mL per hour. No vomiting or diarrhea. CBC was found to be unremarkable. AST 51 and ALT 91. BUN 6 and creatinine 0.35. Urinalysis was clear with nitrate negative leukoesterase small. She has been afebrile, heart rate 67, blood pressure 122/71, pulse ox 97% on room air. The patient was admitted into the intensive care unit, consult in place with nephrology, ocean biologist, GI. 09/29: Patient remains in intensive care unit. His sodium dropped down to 110 has been monitored closely and corrected by nephrology. Patient has been seen by GI with plan for EGD held until tomorrow due to hyponatremia. She is currently on IV fluids normal saline at 75 mL per hour. Patient has been afebrile, heart rate 61, blood pressure 118/84, pulse ox 97% on room air. Other lab work reveals potassium of 3.8, chloride 86, CO2 20, BUN 6 and creatinine 0.53. Total bilirubin 0.8, AST 43, ALT 63, alkaline phosphatase 67. 09/30: Patient remains in the intensive care unit. This morning sodium is 126. Plan is for repeat sodium and if stable, patient will undergo EGD today. She is currently on D5W at 70 mL/h and fluid restriction of 1200 ML's. CBC is unremarkable, AST 40 and ALT 64. She has been afebrile, heart rate 71, blood pressure 128/73, pulse ox 97% on room air. 10/01: Patient has been transferred to the [facility] floor. She has been afebrile, heart rate 64, blood pressure 112/66, pulse ox 100% on room air. Sodium at 4 AM was 122, potassium 3.4, chloride 91, CO2 23, BUN 7 creatinine 3.67. Nephrology recommends normal saline at 50 MLS per hour at this time. Sodium to be rechecked at 5 PM and potassium has been replaced. EGD completed yesterday with Dr. Corley revealed tightness at the upper esophageal sphincter. Patient may require PEG tube placement if she continues to have dysphagia. Contact the patient's daughter and discussed in detail findings and recommendations. Also recommend the patient have blood work obtained twice weekly after discharge. Patient may benefit from subacute rehab but no physical therapy is recommended home with homecare.. 10/02: Last evening sodium 121. Morning lab work reveals sodium of 128, potassium 3.6, chloride 99, CO2 21, BUN 11 and creatinine 0.68. Magnesium 1.8. Dr. Franco has ordered continuing normal saline at 50 mL per hour, sodium chloride tablets. Patient has been hemodynamically stable. Patient continues to complain of sore throat and GI his change diet to ground diet. She is continued on fluid restriction 1200 ML's. Patient states that she does not want to undergo PEG tube placement. Pathology report reveals acute and chronic esophagitis. Repeat lab work is ordered for the morning. 10/03, patient is here for follow-up, patient is her usual self, however patient did not ambulate her , sodium today is 132, with improving appetite, patient has approximately taken in 50% of meals and liquids today, this continues to improve ever since she had the dilation done for dysphagia, from 09/30, patient is receiving IV saline, patient still on a Best catheter, we'll going to request PT OT to see the patient, and ambulation with assistance p atient still has mild transaminitis which needs a follow-up evaluation, no new CBCs for review today. Patient has chronic malnutrition with low albumin, -3.1, B12 to be checked, along with TSH for her impaired balance balance and gait possible discharge Sunday expected should patient continue to improve, pre- albumin to be checked 10/04: Patient continues to improve, she has pured diet without any new difficulties, hydration is improving with sodium at 132,, sodium is also tolerated, patient was ambulating with standby assist, discharge planning was involved for possible home therapies, Best catheter to be taken out today, patient does not any chest pain no dysphagia, no plans for PEG tube feedings, anticipate discharge in the morning, with home therapies if needed. Discussed with the daughter, concerns were addressed with the daughter. Daughter is POA. 10/05: Patient evaluated this morning sitting up in bed. States she is feeling well. Sodium continue to improve and today is 134, BUN 11, creatinine 0.58, mag 1.5, potassium 3.8. She continues on 1200 ml fluid restrictions along with Sodium Chloride 1gm BID. She continues on a pured diet, tolerating without difficulty. Will plan for discharge if cleared by nephrology to home if daughter is agreeable or possibly to rehab. discharge diagnoses 1. Severe hypovolemic hyponatremia. 2. Hypokalemia status post replacement. 3. 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 4. Mild elevation of liver function tests. 5. Hypertension and hypertensive cardiovascular disease. 6. Hyperlipidemia. 7. Hypothyroidism. 8. Chronic hyponatremia. 9. GERD. 10. Chronic atrial fibrillation. 11. Debility 12. Malnutrition, secondary to dysphagia Patient is full code. Discharge plan: Home with home care with home therapies. Patient has been discharged to [facility] on previous admission Patient Condition at Discharge: Stable Plan - Discharge Summary New Discharge Prescriptions: No Action amLODIPine [Norvasc] 5 mg PO DAILY Sodium Chloride Tab 2 gm PO BID Levothyroxine Sodium [Synthroid] 50 mcg PO DAILY Furosemide [Lasix] 20 mg PO DAILY Aspirin EC [Ecotrin Low Dose] 81 mg PO DAILY Discharge Medication List Aspirin EC [Ecotrin Low Dose] 81 mg PO DAILY 09/28/19 [History] Furosemide [Lasix] 20 mg PO DAILY 09/28/19 [History] Levothyroxine Sodium [Synthroid] 50 mcg PO DAILY 09/28/19 [History] Sodium Chloride Tab 2 gm PO BID 09/28/19 [History] amLODIPine [Norvasc] 5 mg PO DAILY 09/28/19 [History] Follow up Appointment(s)/Referral(s): [facility], [NON-STAFF] - As Needed Kamaljit Dalton MD [Primary Care Provider] - 10/06/19 2:45 pm
--- NOTE | 2019-10-06 16:05 | PN ---
PROGRESS NOTE Patient is seen for followup for hyponatremia. Her serum sodium is staying around 132 to 134 mEq/L. Patient is comfortable, awake. She will be going home. PHYSICAL EXAMINATION: On examination today, blood pressure is 148/81, heart rate 84 per minute. She is afebrile. EXAMINATION OF THE HEART: S1 and S2. EXAMINATION OF LUNGS: Bilateral breath sounds are heard. ABDOMEN: Soft, non-tender. Examination of lower extremities shows no evidence of edema. MACHINIST SET UP exam shows patient moving all 4 extremities. LABS: Labs show sodium 134, potassium 3.8, chloride 97. ASSESSMENT: 1. Hyponatremia with rapid correction initially, currently stable and improved. 2. Hypokalemia from poor oral intake. 3. History of hyponatremia previously, maintained on sodium chloride tabs as outpatient. 4. Dysphagia, status post EGD which showed tightness at the esophageal stricture. Being followed by GI. PLAN: Continue with the sodium chloride tabs. Maintain fluid restriction. Patient can be discharged. She will need to follow up as outpatient in one week's time and she should have labs done in 3-4 weeks as outpatient. MMODL / IJN: [id number] /
== END 2019-10-06 14:09 | disposition home health service (06) | DRG 640 ==
LOC: EC 18:21 → 2SICU 20:14 → 4SSUR 10-02 08:24
PROVIDERS: ADMIT Internal Medicine Geriatric Medicine; ATTEND Internal Medicine Geriatric Medicine
PROC: 0DB58ZX Excision of Esophagus, Via Natural or Artificial Opening Endoscopic, Diagnostic (ICD-10-PCS; principal; 2019-10-01 07:30)
DX: E87.1 Hypo-osmolality and hyponatremia (principal); E43 Unspecified severe protein-calorie malnutrition; Z68.1 Body mass index [BMI] 19.9 or less, adult; I48.20 Chronic atrial fibrillation, unspecified; R18.8 Other ascites; E03.9 Hypothyroidism, unspecified; K21.0 Gastro-esophageal reflux disease with esophagitis; E11.65 Type 2 diabetes mellitus with hyperglycemia; E78.5 Hyperlipidemia, unspecified; E86.1 Hypovolemia; E87.6 Hypokalemia; F32.9 Major depressive disorder, single episode, unspecified; F41.9 Anxiety disorder, unspecified; T50.2X5A Adverse effect of carbonic-anhydrase inhibitors, benzothiadiazides and other diuretics, initial encounter; I11.9 Hypertensive heart disease without heart failure; K22.0 Achalasia of cardia; K29.70 Gastritis, unspecified, without bleeding; R13.14 Dysphagia, pharyngoesophageal phase; Z11.59 Encounter for screening for other viral diseases; Z79.82 Long term (current) use of aspirin; Z79.890 Hormone replacement therapy; Z79.899 Other long term (current) drug therapy; Z82.3 Family history of stroke; Z82.49 Family history of ischemic heart disease and other diseases of the circulatory system; Z86.711 Personal history of pulmonary embolism; Z90.710 Acquired absence of both cervix and uterus; R94.5 Abnormal results of liver function studies; Z88.0 Allergy status to penicillin; R29.6 Repeated falls; R63.4 Abnormal weight loss; Z86.14 Personal history of Methicillin resistant Staphylococcus aureus infection
CPT/HCPCS: 36415; 43239; 70360; 71046; 80048; 80053; 80076; 81001; 82607; 83735; 83935; 84132; 84134; 84295; 84300; 84439; 84443; 84481; 84484; 85025; 85027; 85610; 85730; 88305; 88312; 93005; 96360; 96361; 99285

== ENCOUNTER 2019-10-08 22:52 | Emergency (ER) | payer MEDICARE ==
[2019-10-08 23:01] VITALS: RESP 16
--- NOTE | 2019-10-08 23:14 | ED ---
Weakness HPI - General Chief complaint: Weakness Stated complaint: weakness Time Seen by Provider: 10/08/19 23:05 Source: patient, family Mode of arrival: EMS - History of Present Illness Initial comments: This patient is an 89-year-old woman who presents by ambulance to have pili luation for "not feeling well." The patient is not able to characterize her symptoms well. She states she was having hard time walking. She was feeling weak. She denies any pain or dyspnea. She had not noted fevers or chills. No cough, dyspnea, chest pain. No abdominal pain or vomiting. No change in bowel movements. No urinary changes noted. The patient does note feeling this way previously with hyponatremia. MD Complaint: generalized weakness, difficulty walking -: unknown Location: generalized Severity scale (1-10): 0 Consistency: constant Improves with: none Worsens with: none Associated Symptoms: denies other symptoms - Related Data Home Medications Medication Instructions Recorded Confirmed Aspirin EC [Ecotrin Low Dose] 81 mg PO DAILY 09/28/19 09/28/19 Furosemide [Lasix] 20 mg PO DAILY 09/28/19 09/28/19 Levothyroxine Sodium [Synthroid] 50 mcg PO DAILY 09/28/19 09/28/19 Sodium Chloride Tab 2 gm PO BID 09/28/19 09/28/19 amLODIPine [Norvasc] 5 mg PO DAILY 09/28/19 09/28/19 Previous Rx's Medication Instructions Recorded Nystatin 100,000 Unit/ml Susp 500,000 unit PO QID #150 ml 10/06/19 [Mycostatin Oral Susp] Pantoprazole [Protonix] 40 mg PO AC-BID #60 tablet. 10/06/19 Allergies Allergy/AdvReac Type Severity Reaction Status Date / Time Penicillins Allergy Rash/Hives Verified 09/28/19 20:33 Review of Systems ROS Statement: Those systems with pertinent positive or pertinent negative responses have been documented in the HPI. ROS Other: All systems not noted in ROS Statement are negative. Constitutional: Reports: weakness. Denies: fever, chills Respiratory: Denies: cough, dyspnea Cardiovascular: Denies: chest pain, palpitations, orthopnea, edema, syncope Gastrointestinal: Denies: abdominal pain, vomiting, diarrhea, melena, hematochezia Genitourinary: Denies: dysuria, hematuria Musculoskeletal: Denies: back pain Neurological: Denies: headache Past Medical History Past Medical History: Atrial Fibrillation, Diabetes Mellitus, Hyperlipidemia, Hypertension, Pulmonary Embolus (PE), Thyroid Disorder Additional Past Medical History / Comment(s): had a siezure in 2004, pt states her NA+ was to low, dysphagia History of Any Multi-Drug Resistant Organisms: MRSA Date of last positivie culture/infection: 02/21/2014 MDRO Source:: Face Past Surgical History: Bladder Surgery, Hysterectomy Past Anesthesia/Blood Transfusion Reactions: No Reported Reaction Past Psychological History: Anxiety, Depression Smoking Status: Never smoker Past Alcohol Use History: None Reported Past Drug Use History: None Reported - Past Family History Father Family Medical History: CVA/TIA, Hypertension Additional Family Medical History / Comment(s): brain anyruisum Mother Family Medical History: Hypertension General Exam General appearance: alert, in no apparent distress, cachectic Head exam: Present: atraumatic, normocephalic Eye exam: Present: normal appearance. Absent: scleral icterus, conjunctival injection Neck exam: Present: full ROM Respiratory exam: Present: normal lung sounds bilaterally. Absent: respiratory distress, wheezes, rales, rhonchi, stridor Cardiovascular Exam: Present: irregular rhythm, normal heart sounds. Absent: systolic murmur, diastolic murmur, rubs, gallop GI/Abdominal exam: Present: soft. Absent: distended, tenderness, guarding, rebound, rigid, mass Extremities exam: Present: normal inspection, normal capillary refill. Absent: pedal edema, calf tenderness Back exam: Absent: CVA tenderness (R), CVA tenderness (L) Neurological exam: Present: alert. Absent: motor sensory deficit Skin exam: Present: warm, dry, intact, normal color. Absent: rash Course Vital Signs 10/08/19 10/09/19 22:54 00:01 Temperature 98.1 F Pulse Rate 105 H 84 Respiratory 16 16 Rate Blood Pressure 133/83 127/86 O2 Sat by Pulse 99 96 Oximetry EKG Findings - EKG Comments: EKG Findings:: The underlying rhythm appears to be atrial fibrillation with one PVC, the rate approximately 104 bpm. Possible old anteroseptal infarct. - EKG Results: EKG: normal axis Medical Decision Making - Lab Data Result diagrams: 10/08/19 23:08 10/08/19 23:08 Lab Results 10/08/19 10/08/19 10/08/19 Range/Units 23:08 23:08 23:08 WBC 5.6 (3.8-10.6) k/uL RBC 4.12 (3.80-5.40) m/uL Hgb 12.3 (11.4-16.0) gm/dL Hct 36.4 (34.0-46.0) % MCV 88.2 (80.0-100.0) fL MCH 29.8 (25.0-35.0) pg MCHC 33.7 (31.0-37.0) g/dL RDW 13.4 (11.5-15.5) % Plt Count 247 (150-450) k/uL Neutrophils % 69 % Lymphocytes % 20 % Monocytes % 6 % Eosinophils % 3 % Basophils % 0 % Neutrophils # 3.9 (1.3-7.7) k/uL Lymphocytes # 1.1 (1.0-4.8) k/uL Monocytes # 0.3 (0-1.0) k/uL Eosinophils # 0.2 (0-0.7) k/uL Basophils # 0.0 (0-0.2) k/uL PT 9.4 (9.0-12.0) sec INR 0.9 (<1.2) APTT 23.8 (22.0-30.0) sec Sodium 126 L (137-145) mmol/L Potassium 3.7 (3.5-5.1) mmol/L Chloride 92 L (98-107) mmol/L Carbon Dioxide 26 (22-30) mmol/L Anion Gap 8 mmol/L BUN 17 (7-17) mg/dL Creatinine 0.61 (0.52-1.04) mg/dL Est GFR (CKD-EPI)AfAm >90 (>60 ml/min/1.73 sqM) Est GFR (CKD-EPI)NonAf 82 (>60 ml/min/1.73 sqM) Glucose 94 (74-99) mg/dL Plasma Lactic Acid [place] (0.7-2.0) mmol/L Calcium 9.1 (8.4-10.2) mg/dL Phosphorus 4.0 (2.5-4.5) mg/dL Magnesium 1.6 (1.6-2.3) mg/dL Total Bilirubin 0.5 (0.2-1.3) mg/dL AST 95 H (14-36) U/L ALT 96 H (4-34) U/L Alkaline Phosphatase 120 (38-126) U/L Troponin I (0.000-0.034) ng/mL Total Protein 7.0 (6.3-8.2) g/dL Albumin 4.0 (3.5-5.0) g/dL TSH 4.610 (0.465-4.680) mIU/L Urine Color Urine Appearance (Clear) Urine pH (5.0-8.0) Ur Specific [place] (1.001-1.035) Urine Protein (Negative) Urine Glucose (UA) (Negative) Urine Ketones (Negative) Urine Blood (Negative) Urine Nitrite (Negative) Urine Bilirubin (Negative) Urine Urobilinogen (<2.0) mg/dL Ur Leukocyte Esterase (Negative) Urine RBC (0-5) /hpf Urine WBC (0-5) /hpf Ur Squamous Epith Cells (0-4) /hpf Urine Bacteria (None) /hpf 10/08/19 10/08/19 10/09/19 Range/Units 23:08 23:08 00:10 WBC (3.8-10.6) k/uL RBC (3.80-5.40) m/uL Hgb (11.4-16.0) gm/dL Hct (34.0-46.0) % MCV (80.0-100.0) fL MCH (25.0-35.0) pg MCHC (31.0-37.0) g/dL RDW (11.5-15.5) % Plt Count (150-450) k/uL Neutrophils % % Lymphocytes % % Monocytes % % Eosinophils % % Basophils % % Neutrophils # (1.3-7.7) k/uL Lymphocytes # (1.0-4.8) k/uL Monocytes # (0-1.0) k/uL Eosinophils # (0-0.7) k/uL Basophils # (0-0.2) k/uL PT (9.0-12.0) sec INR (<1.2) APTT (22.0-30.0) sec Sodium (137-145) mmol/L Potassium (3.5-5.1) mmol/L Chloride (98-107) mmol/L Carbon Dioxide (22-30) mmol/L Anion Gap mmol/L BUN (7-17) mg/dL Creatinine (0.52-1.04) mg/dL Est GFR (CKD-EPI)AfAm (>60 ml/min/1.73 sqM) Est GFR (CKD-EPI)NonAf (>60 ml/min/1.73 sqM) Glucose (74-99) mg/dL Plasma Lactic Acid [place] 0.8 (0.7-2.0) mmol/L Calcium (8.4-10.2) mg/dL Phosphorus (2.5-4.5) mg/dL Magnesium (1.6-2.3) mg/dL Total Bilirubin (0.2-1.3) mg/dL AST (14-36) U/L ALT (4-34) U/L Alkaline Phosphatase (38-126) U/L Troponin I <0.012 (0.000-0.034) ng/mL Total Protein (6.3-8.2) g/dL Albumin (3.5-5.0) g/dL TSH (0.465-4.680) mIU/L Urine Color Colorless Urine Appearance Clear (Clear) Urine pH 7.0 (5.0-8.0) Ur Specific [place] 1.003 (1.001-1.035) Urine Protein Negative (Negative) Urine Glucose (UA) Negative (Negative) Urine Ketones Negative (Negative) Urine Blood Negative (Negative) Urine Nitrite Negative (Negative) Urine Bilirubin Negative (Negative) Urine Urobilinogen <2.0 (<2.0) mg/dL Ur Leukocyte Esterase Large H (Negative) Urine RBC 1 (0-5) /hpf Urine WBC 20 H (0-5) /hpf Ur Squamous Epith Cells 1 (0-4) /hpf Urine Bacteria Rare H (None) /hpf Disposition Clinical Impression: Hyponatremia Disposition: HOME SELF-CARE Condition: Good Instructions (If sedation given, give patient instructions): Hyponatremia (ED), Fluid Restriction (ED) Is patient prescribed a controlled substance at d/c from ED?: No Referrals: Kamaljit Dalton MD [Primary Care Provider] - 1-2 days
[2019-10-08 23:33] LABS: Basophils % (A) 0 %; Eosinophils # (A) 0.2 k/uL (0-0.7); Eosinophils % (A) 3 %; HCT 36.4 % (34.0-46.0); HGB 12.3 gm/dL (11.4-16.0); Lymphocytes # (A) 1.1 k/uL (1.0-4.8); Lymphocytes % (A) 20 %; MCH 29.8 pg (25.0-35.0); MCHC 33.7 g/dL (31.0-37.0); MCV 88.2 fL (80.0-100.0); Mean Platelet Volume 6.9; Monocytes # (A) 0.3 k/uL (0-1.0); Monocytes % (A) 6 %; Neutrophils # (A) 3.9 k/uL (1.3-7.7); Neutrophils % (A) 69 %; Platelet Count 247 k/uL (150-450); RBC 4.12 m/uL (3.80-5.40); RDW 13.4 % (11.5-15.5); WBC 5.6 k/uL (3.8-10.6)
--- NOTE | 2019-10-08 23:36 | XR ---
EXAMINATION TYPE: XR chest 2V DATE OF EXAM: 10/08/2019 COMPARISON: 09/28/2019 HISTORY: Weakness TECHNIQUE: FINDINGS: Heart is enlarged. There is no heart failure. There are no hilar masses. Thoracic aorta is atheromatous. Costophrenic angles are clear. There are chest leads. Bony thorax appears intact. IMPRESSION: Cardiomegaly. No heart failure. There is improvement in the pulmonary vascularity compare d to old exam.
[2019-10-08 23:41] LABS: INR 0.9 (<1.2); Partial Thromboplastin Time 23.8 sec (22.0-30.0); Prothrombin Time 9.4 sec (9.0-12.0)
[2019-10-08 23:46] LABS: ALT 96 U/L (4-34); AST 95 U/L (14-36); African American GFR (CKD) >90 (>60 ml/min/1.73 sqM); Alkaline Phosphatase 120 U/L (38-126); Anion Gap 8 mmol/L; Blood Urea Nitrogen 17 mg/dL (7-17); Calcium 9.1 mg/dL (8.4-10.2); Carbon Dioxide 26 mmol/L (22-30); Chloride 92 mmol/L (98-107); Glucose 94 mg/dL (74-99); Magnesium 1.6 mg/dL (1.6-2.3); Non-African American GFR(CKD) 82 (>60 ml/min/1.73 sqM); Potassium 3.7 mmol/L (3.5-5.1); Sodium 126 mmol/L (137-145); Total Bilirubin 0.5 mg/dL (0.2-1.3)
[2019-10-09 00:37] LABS: Appearance,Urine Clear (Clear); Bacteria,Urine Rare /hpf; Bilirubin,Urine Negative (Negative); Blood,Urine Negative (Negative); Color,Urine Colorless; Glucose,Urine (UA) Negative (Negative); Ketones,Urine Negative (Negative); Leukocyte Esterase,Urine Large (Negative); Nitrite,Urine Negative (Negative); Protein,Urine Negative (Negative); RBC,Urine 1 /hpf (0-5); Specific Gravity,Urine 1.003 (1.001-1.035); Squamous Epithelial Cell,Urine 1 /hpf (0-4); Urobilinogen,Urine <2.0 mg/dL (<2.0); WBC,Urine 20 /hpf (0-5)
[2019-10-09] MEDS ORDERED: SODIUM CHLORIDE 0.9% 500 ML 500 ML IV STA (02:05)
[2019-10-09 03:22] VITALS: BP 134/74; PULSE 82; TEMP 98.4
== END 2019-10-09 03:18 | disposition home or self-care (01) ==
LOC: EC 22:52
DX: E87.1 Hypo-osmolality and hyponatremia (principal); R53.1 Weakness; R26.2 Difficulty in walking, not elsewhere classified; I10 Essential (primary) hypertension; E07.9 Disorder of thyroid, unspecified; Z86.14 Personal history of Methicillin resistant Staphylococcus aureus infection; Z79.82 Long term (current) use of aspirin; Z79.890 Hormone replacement therapy; Z79.899 Other long term (current) drug therapy; Z88.0 Allergy status to penicillin
CPT/HCPCS: 36415; 71046; 80053; 81001; 83605; 83735; 84100; 84443; 84484; 85025; 85610; 85730; 87040; 87086; 93005; 96360; 99285

== ENCOUNTER 2019-11-29 19:21 | Emergency (ER) | payer MEDICARE ==
[2019-11-29 19:30] VITALS: BP 138/99; PULSE 116; RESP 16; TEMP 97.4
[2019-11-29] MEDS ORDERED: MAG HYDROX/AL HYDROX/SIMETH 30 ML CUP PO STA (19:31)
--- NOTE | 2019-11-29 19:35 | ED ---
General Adult HPI - General Chief complaint: ENT Stated complaint: trouble swallowing Time Seen by Provider: 11/29/19 19:26 Source: patient, EMS, RN notes reviewed Mode of arrival: EMS Limitations: no limitations - History of Present Illness Initial comments: Patient is a pleasant 89-year-old female presenting to the emergency department with dysphagia. Onset of symptoms was yesterday after eating ice cream's with pecans. Patient states there is discomfort with swallowing. Patient is unable to tolerate only liquids. No dyspnea. Patient does have history of similar symptoms previously. - Related Data Home Medications Medication Instructions Recorded Confirmed Aspirin EC [Ecotrin Low Dose] 81 mg PO DAILY 09/28/19 09/28/19 Furosemide [Lasix] 20 mg PO DAILY 09/28/19 09/28/19 Levothyroxine Sodium [Synthroid] 50 mcg PO DAILY 09/28/19 09/28/19 Sodium Chloride Tab 2 gm PO BID 09/28/19 09/28/19 amLODIPine [Norvasc] 5 mg PO DAILY 09/28/19 09/28/19 Previous Rx's Medication Instructions Recorded Nystatin 100,000 Unit/ml Susp 500,000 unit PO QID #150 ml 10/06/19 [Mycostatin Oral Susp] Pantoprazole [Protonix] 40 mg PO AC-BID #60 tablet. 10/06/19 Sucralfate [Carafate] 1 gm PO ACHS #200 ml 11/29/19 Allergies Allergy/AdvReac Type Severity Reaction Status Date / Time Penicillins Allergy Rash/Hives Verified 09/28/19 20:33 Review of Systems ROS Statement: Those systems with pertinent positive or pertinent negative responses have been documented in the HPI. ROS Other: All systems not noted in ROS Statement are negative. Constitutional: Denies: fever Eyes: Denies: eye pain ENT: Denies: ear pain Respiratory: Denies: cough, dyspnea Cardiovascular: Denies: chest pain Endocrine: Denies: fatigue Gastrointestinal: Denies: abdominal pain Genitourinary: Denies: dysuria Musculoskeletal: Denies: back pain Skin: Denies: rash Neurological: Denies: weakness Past Medical History Past Medical History: Atrial Fibrillation, Diabetes Mellitus, Hyperlipidemia, Hypertension, Pulmonary Embolus (PE), Thyroid Disorder Additional Past Medical History / Comment(s): had a siezure in 2004, pt states her NA+ was to low, dysphagia History of Any Multi-Drug Resistant Organisms: MRSA Date of last positivie culture/infection: 02/21/2014 MDRO Source:: Face Past Surgical History: Bladder Surgery, Hysterectomy Past Anesthesia/Blood Transfusion Reactions: No Reported Reaction Past Psychological History: Anxiety, Depression Past Alcohol Use History: None Reported Past Drug Use History: None Reported - Past Family History Father Family Medical History: CVA/TIA, Hypertension Additional Family Medical History / Comment(s): brain anyruisum Mother Family Medical History: Hypertension General Exam Limitations: no limitations General appearance: alert, in no apparent distress Head exam: Present: normocephalic Eye exam: Present: normal appearance ENT exam: Present: normal oropharynx Neck exam: Present: normal inspection. Absent: tenderness Respiratory exam: Present: normal lung sounds bilaterally. Absent: respiratory distress, wheezes, rales, rhonchi, stridor, accessory muscle use, decreased breath sounds Cardiovascular Exam: Present: regular rate, normal rhythm GI/Abdominal exam: Present: soft. Absent: tenderness Extremities exam: Present: normal inspection Neurological exam: Present: alert Psychiatric exam: Present: normal affect, normal mood Skin exam: Present: normal color Course Vital Signs 11/29/19 19:23 Temperature 97.4 F L Pulse Rate 116 H Respiratory 16 Rate Blood Pressure 138/99 O2 Sat by Pulse 100 Oximetry Medical Decision Making - Medical Decision Making Patient reevaluated and resting comfortably in bed. Patient states she has had similar episodes multiple times previously. Patient states she still is able to drink her boost.Please use medication as discussed. Please follow-up with family doctor in the next 2 days of symptoms have not improved. Please return to emergency room if the symptoms increase or worsen or for any other concerns. Feels better after medication and is comfortable with discharge. - Radiology Data Radiology results: image reviewed (Soft tissueX-ray shows no acute abnormality. Mild spondylosis lower cervical spine.) Disposition Clinical Impression: Esophageal dysphagia Disposition: HOME SELF-CARE Condition: Stable Instructions (If sedation given, give patient instructions): Dysphagia (ED) Additional Instructions: Continue fluids and boost drink. Return for unable to tolerate liquids, pain, difficulty breathing, worsening or change in symptoms or any other concerns. Prescription sent to your pharmacy at [facility]. Prescriptions: Sucralfate [Carafate] 1 gm PO ACHS #200 ml Is patient prescribed a controlled substance at d/c from ED?: No Referrals: Kamaljit Dalton MD [Primary Care Provider] - 1-2 days Kiki Corley MD [STAFF PHYSICIAN] - 1-2 days Time of Disposition: 20:22
--- NOTE | 2019-11-29 20:07 | XR ---
EXAMINATION TYPE: XR soft tissue neck DATE OF EXAM: 11/29/2019 COMPARISON: NONE HISTORY: Sore throat TECHNIQUE: 2 views FINDINGS: Cervical vertebra have normal alignment. There is narrowing of C5-6 and C6-7 disc spaces wi th mild spurring. Epiglottis is normal. Prevertebral soft tissues appear normal. Tonsils and adenoids appear normal. Subglottic trachea appears normal. IMPRESSION: Negative cervical soft tissue exam. Mild spondylosis in the lower cervical spine.
== END 2019-11-29 20:34 | disposition home or self-care (01) ==
LOC: EC 19:21
DX: R13.14 Dysphagia, pharyngoesophageal phase (principal); I10 Essential (primary) hypertension; E07.9 Disorder of thyroid, unspecified; Z79.82 Long term (current) use of aspirin; Z79.890 Hormone replacement therapy; Z79.899 Other long term (current) drug therapy; Z88.0 Allergy status to penicillin
CPT/HCPCS: 70360; 99284

== ENCOUNTER 2021-02-28 02:19 | Inpatient (IN) | payer MEDICARE ==
--- NOTE | 2021-02-28 02:56 | ED ---
Fall HPI - General Chief Complaint: Fall Stated Complaint: Fall Time Seen by Provider: 02/28/21 02:32 Source: EMS Mode of arrival: EMS - History of Present Illness Initial Comments: Patient is an 89-year-old woman brought from assisted living to be evaluated for what appeared to the fall. History is from EMS. Was reported that her had found her lying on the ground and that there've been some bleeding from scalp laceration. Patient is not able to provide any additional history. She is only able to answerquestions. When asked if she is having any pain she answers no. When asked if her breathing is okay she states yes. Complaint: fall -: unknown Fall From: out of bed Fall Witnessed: no Place Fall Occurred: residential/SNF Loss of Consciousness: unsure Prolonged Down Time?: no Location: head - Related Data Home Medications Medication Instructions Recorded Confirmed Aspirin EC [Ecotrin Low Dose] 81 mg PO HS 09/28/19 02/28/21 Levothyroxine Sodium [Synthroid] 50 mcg PO DAILY 09/28/19 02/28/21 Previous Rx's Medication Instructions Recorded Sodium Chloride Tab 1 gm PO BID #60 tab 03/04/21 amLODIPine [Norvasc] 10 mg PO DAILY #30 tab 03/04/21 Allergies Allergy/AdvReac Type Severity Reaction Status Date / Time Penicillins Allergy Rash/Hives Verified 02/28/21 09:00 Review of Systems ROS Statement: Those systems with pertinent positive or pertinent negative responses have been documented in the HPI. ROS Other: All systems not noted in ROS Statement are negative. Limitations: ROS unobtainable due to patients medical condition Past Medical History Past Medical History: Atrial Fibrillation, Diabetes Mellitus, Hyperlipidemia, Hypertension, Pulmonary Embolus (PE), Thyroid Disorder Additional Past Medical History / Comment(s): had a siezure in 2004, pt states her NA+ was to low, dysphagia History of Any Multi-Drug Resistant Organisms: MRSA Date of last positivie culture/infection: 02/21/2014 MDRO Source:: Face Past Surgical History: Bladder Surgery, Hysterectomy Past Anesthesia/Blood Transfusion Reactions: No Reported Reaction Past Psychological History: Anxiety, Depression Smoking Status: Never smoker Past Alcohol Use History: None Reported Past Drug Use History: None Reported - Past Family History Father Family Medical History: CVA/TIA, Hypertension Additional Family Medical History / Comment(s): brain anyruisum Mother Family Medical History: Hypertension General Exam General appearance: alert, in no apparent distress Head exam: Present: normocephalic Eye exam: Present: normal appearance, PERRL. Absent: scleral icterus, conjunctival injection Neck exam: Present: normal inspection. Absent: tenderness, meningismus Respiratory exam: Present: normal lung sounds bilaterally. Absent: respiratory distress, wheezes, rales, rhonchi, stridor, chest wall tenderness Cardiovascular Exam: Present: regular rate, normal rhythm, normal heart sounds. Absent: systolic murmur, diastolic murmur, rubs, gallop GI/Abdominal exam: Present: soft. Absent: tenderness, guarding, rebound Extremities exam: Present: normal inspection, normal capillary refill. Absent: pedal edema, calf tenderness Back exam: Present: normal inspection. Absent: CVA tenderness (R), CVA tenderness (L) Neurological exam: Present: CN II-XII intact. Absent: alert Skin exam: Present: warm, dry, intact, normal color. Absent: rash Course Vital Signs 02/28/21 02/28/21 02/28/21 02:20 03:21 03:40 Temperature 98.9 F Pulse Rate 120 H 103 H 115 H Pulse Rate [ Left] Respiratory 20 20 18 Rate Blood Pressure 127/95 125/69 120/84 Blood Pressure [Left Arm] O2 Sat by Pulse 95 98 97 Oximetry 02/28/21 02/28/21 02/28/21 03:50 04:00 04:15 Temperature Pulse Rate 113 H 110 H 106 H Pulse Rate [ Left] Respiratory 18 18 18 Rate Blood Pressure 126/92 128/79 102/56 Blood Pressure [Left Arm] O2 Sat by Pulse 98 97 98 Oximetry 02/28/21 02/28/21 02/28/21 04:30 04:45 05:00 Temperature Pulse Rate 105 H 104 H 102 H Pulse Rate [ Left] Respiratory 18 18 18 Rate Blood Pressure 101/56 101/59 106/68 Blood Pressure [Left Arm] O2 Sat by Pulse 97 99 97 Oximetry 02/28/21 02/28/21 02/28/21 05:30 06:00 14:19 Temperature Pulse Rate 99 101 H Pulse Rate [ 107 H Left] Respiratory 18 18 Rate Blood Pressure 103/68 103/70 Blood Pressure 124/75 [Left Arm] O2 Sat by Pulse 98 96 98 Oximetry Procedures - Laceration Laceration #1 Consent Obtained: verbal consent Indication: laceration Site: face Description: linear Pre-repair: irrigated extensively Type of Sutures: other (Skin adhesive) Technique: other (Skin glue) Patient Tolerated Procedure: well, no complications Medical Decision Making - Medical Decision Making Patient is an 89-year-old woman brought by ambulance to be valid for fall. She does have small subarachnoid hemorrhage in the right sylvian fissure. Discussed results with patient's daughter who is at the bedside. She states that patient is no code and that would not have wanted surgery. In light of this will not transfer for neurosurgical care but admitted for observation. Also sodium replacement. - Lab Data Result diagrams: 02/28/21 02:59 03/04/21 06:05 Lab Results 02/28/21 02/28/21 02/28/21 Range/Units 02:59 02:59 02:59 WBC 11.4 H (3.8-10.6) k/uL RBC 3.99 (3.80-5.40) m/uL Hgb 11.4 (11.4-16.0) gm/dL Hct 33.5 L (34.0-46.0) % MCV 84.0 (80.0-100.0) fL MCH 28.5 (25.0-35.0) pg MCHC 33.9 (31.0-37.0) g/dL RDW 13.3 (11.5-15.5) % Plt Count 270 (150-450) k/uL MPV 7.4 Neutrophils % 90 % Lymphocytes % 4 % Monocytes % 4 % Eosinophils % 1 % Basophils % 0 % Neutrophils # 10.3 H (1.3-7.7) k/uL Lymphocytes # 0.5 L (1.0-4.8) k/uL Monocytes # 0.5 (0-1.0) k/uL Eosinophils # 0.1 (0-0.7) k/uL Basophils # 0.0 (0-0.2) k/uL Sodium 117 L* (137-145) mmol/L Potassium 4.4 (3.5-5.1) mmol/L Chloride 88 L (98-107) mmol/L Carbon Dioxide 20 L (22-30) mmol/L Anion Gap 9 mmol/L BUN 15 (7-17) mg/dL Creatinine 0.36 L (0.52-1.04) mg/dL Est GFR (CKD-EPI)AfAm >90 (>60 ml/min/1.73 sqM) Est GFR (CKD-EPI)NonAf >90 (>60 ml/min/1.73 sqM) Glucose 140 H (74-99) mg/dL Osmolality 252 L (280-301) mosm/kg Calcium 8.7 (8.4-10.2) mg/dL TSH (0.465-4.680) mIU/L 02/28/21 Range/Units 02:59 WBC (3.8-10.6) k/uL RBC (3.80-5.40) m/uL Hgb (11.4-16.0) gm/dL Hct (34.0-46.0) % MCV (80.0-100.0) fL MCH (25.0-35.0) pg MCHC (31.0-37.0) g/dL RDW (11.5-15.5) % Plt Count (150-450) k/uL MPV Neutrophils % % Lymphocytes % % Monocytes % % Eosinophils % % Basophils % % Neutrophils # (1.3-7.7) k/uL Lymphocytes # (1.0-4.8) k/uL Monocytes # (0-1.0) k/uL Eosinophils # (0-0.7) k/uL Basophils # (0-0.2) k/uL Sodium (137-145) mmol/L Potassium (3.5-5.1) mmol/L Chloride (98-107) mmol/L Carbon Dioxide (22-30) mmol/L Anion Gap mmol/L BUN (7-17) mg/dL Creatinine (0.52-1.04) mg/dL Est GFR (CKD-EPI)AfAm (>60 ml/min/1.73 sqM) Est GFR (CKD-EPI)NonAf (>60 ml/min/1.73 sqM) Glucose (74-99) mg/dL Osmolality (280-301) mosm/kg Calcium (8.4-10.2) mg/dL TSH 4.490 (0.465-4.680) mIU/L - EKG Data -: EKG Interpreted by Me EKG shows normal: axis (Left axis deviation), intervals (Normal), QRS complexes (Old septal infarct), ST-T waves (Normal) Rate: tachycardia (Atrial fibrillation rate 106 bpm) Interpretation: other Disposition Clinical Impression: Fall, Face lacerations, Hyponatremia Disposition: OTHER INSTITUTION NOT DEFINED Condition: Good Is patient prescribed a controlled substance at d/c from ED?: No - Out of Hospital Transfer - Req. Specs Out of Hospital Transfer - Requested Specifics: Other Emergency Center
--- NOTE | 2021-02-28 03:23 | CT ---
EXAMINATION TYPE: CT brain tavonine wo con DATE OF EXAM: 02/28/2021 COMPARISON: CT brain 01/30/2019 CT scan 01/29/2019 HISTORY: fall CT DLP: 1256.9 mGycm Automated exposure control for dose reduction was used. There are small linear areas of high attenuation in the right sylvian fissure consistent with acute s ubarachnoid hemorrhage. These measure up to 5 mm in thickness on the surface of the brain. There is n o midline shift. There is no mass effect. The calvarium is intact. There is right lateral periorbital soft tissue swelling noted. There is no evidence of a skull fracture. Cervical vertebra show mild straightening. There is degenerative disc space narrowing at C5-6 and C6- 7 with spurring of the endplates. Facet joints are intact. Prevertebral soft tissues are intact. IMPRESSION: Spondylotic changes in the lower cervical spine. No fracture. Acute subarachnoid hemorrhage in the right sylvian fissure. No mass effect. No evidence of parenchyma l hemorrhage. Small right lateral periorbital hematoma. Cervical spine not changed compared to old exam. Exam was discussed with emergency attending staff at 3:20 AM.
[2021-02-28 03:31] LABS: Basophils % (A) 0 %; Eosinophils # (A) 0.1 k/uL (0-0.7); Eosinophils % (A) 1 %; HCT 33.5 % (34.0-46.0); HGB 11.4 gm/dL (11.4-16.0); Lymphocytes # (A) 0.5 k/uL (1.0-4.8); Lymphocytes % (A) 4 %; MCH 28.5 pg (25.0-35.0); MCHC 33.9 g/dL (31.0-37.0); Mean Platelet Volume 7.4; Monocytes # (A) 0.5 k/uL (0-1.0); Monocytes % (A) 4 %; Neutrophils # (A) 10.3 k/uL (1.3-7.7); Neutrophils % (A) 90 %; Platelet Count 270 k/uL (150-450); RBC 3.99 m/uL (3.80-5.40); RDW 13.3 % (11.5-15.5); WBC 11.4 k/uL (3.8-10.6)
[2021-02-28 03:55] LABS: African American GFR (CKD) >90 (>60 ml/min/1.73 sqM); Anion Gap 9 mmol/L; Blood Urea Nitrogen 15 mg/dL (7-17); Calcium 8.7 mg/dL (8.4-10.2); Carbon Dioxide 20 mmol/L (22-30); Chloride 88 mmol/L (98-107); Glucose 140 mg/dL (74-99); Non-African American GFR(CKD) >90 (>60 ml/min/1.73 sqM); Potassium 4.4 mmol/L (3.5-5.1)
[2021-02-28 04:19] LABS: Sodium 117 mmol/L (137-145)
[2021-02-28] MEDS ORDERED: NALOXONE 0.4 MG/ML 1 ML VIAL IV PRN (05:17)
[2021-02-28] MEDS ORDERED: LIDOCAINE 1% INJ 10MG/ML (20 ML MDV) SQ ONE (05:27)
[2021-02-28] MEDS ORDERED: SODIUM CHLORIDE 0.9% 1,000 ML IV SCH ×2 (05:30→17:15)
[2021-02-28] MEDS ORDERED: TOPICAL SKIN ADHESIVE 1 EACH AMP TOPICAL ONE (05:36)
[2021-02-28] MEDS ORDERED: SODIUM CHLORIDE 0.9% 1,000 ML IV STA (06:17)
[2021-02-28] MEDS ORDERED: SODIUM CHLORIDE 0.9% 500 ML 500 ML IV STA (06:17)
[2021-02-28] MEDS: LEVOTHYROXINE 50 MCG TAB PO SCH (06:50)
[2021-02-28] MEDS ORDERED: FUROSEMIDE 20 MG TAB PO SCH (09:00)
[2021-02-28] MEDS ORDERED: SODIUM CHLORIDE TAB 1 GM TAB PO SCH (09:00)
--- NOTE | 2021-02-28 09:09 | CT ---
EXAMINATION TYPE: CT brain wo con DATE OF EXAM: 02/28/2021 HISTORY: Assessment of subarachnoid; follow-up for known intracranial bleed CT DLP: 1143.4 mGycm. Automated Exposure Control for Dose Reduction was Utilized. TECHNIQUE: CT scan of the head is performed without contrast. COMPARISON: CT brain from earlier today and older studies. FINDINGS: There is persistent hyperdense material consistent with small amount of subarachnoid hemo rrhage filling the sulci at level of the frontal temporal junction. A smaller area of involvement in the higher right frontal lobe axial image 40 is better seen on current study. No midline shift. There is backwall mild diffuse ventricular and sulcal prominence consistent with diffuse age-related cereb ral atrophy. There is background mild low-attenuation in the periventricular white matter consistent with chronic small vessel ischemic change. Moderate size acute soft tissue hematoma adjacent to righ t zygoma is redemonstrated axial image 24. Globes are intact and visualized paranasal sinuses are patrick ar. IMPRESSION: Stable small right-sided acute subarachnoid hemorrhage. Stable moderate-sized acute righ t soft tissue hematoma at the level of the zygoma. There is no significant change from CT study earli er today.
--- NOTE | 2021-02-28 09:51 | P.NPCON ---
History of Present Illness - Reason for Consult hyponatremia - History of Present Illness Reason for consultation: Hyponatremia History of present illness: Patient is an 89-year-old female seen in renal consultation for hyponatremia. Patient presented to the hospital after she was found down on the floor. Daughter is present at bedside. Patient is not a reliable historian. Sodium level was 117 on admission. She is currently receiving normal saline at 100 mL an hour. According to daughter she has been taking sodium chloride tabs at home. Her oral intake has been fair. She has been drinking quite a bit of fluids including protein shakes. No vomiting or diarrhea. Blood pressure stable. Not on any thiazide diuretics. CT of the head showed acute subarachnoid hemorrhage as well as small right lateral periorbital hematoma. Another brain CT was done which showed stable small right sided acute subarachnoid hemorrhage. Vital signs are stable. HEENT: Forehead lesion noted. LUNGS: Breath sounds decreased. HEART: Rate and Rhythm are regular. ABDOMEN: Soft, no distention. EXTREMITITES: No edema. Past Medical History Past Medical History: Atrial Fibrillation, Diabetes Mellitus, Hyperlipidemia, Hypertension, Pulmonary Embolus (PE), Thyroid Disorder Additional Past Medical History / Comment(s): had a siezure in 2004, pt states her NA+ was to low, dysphagia History of Any Multi-Drug Resistant Organisms: MRSA Date of last positivie culture/infection: 02/21/2014 MDRO Source:: Face Past Surgical History: Bladder Surgery, Hysterectomy Past Anesthesia/Blood Transfusion Reactions: No Reported Reaction Past Psychological History: Anxiety, Depression Smoking Status: Never smoker Past Alcohol Use History: None Reported Past Drug Use History: None Reported - Past Family History Father Family Medical History: CVA/TIA, Hypertension Additional Family Medical History / Comment(s): brain anyruisum Mother Family Medical History: Hypertension Medications and Allergies Home Medications Medication Instructions Recorded Confirmed Type Aspirin EC [Ecotrin Low Dose] 81 mg PO HS 09/28/19 02/28/21 History Levothyroxine Sodium [Synthroid] 50 mcg PO DAILY 09/28/19 02/28/21 History Allergies Allergy/AdvReac Type Severity Reaction Status Date / Time Penicillins Allergy Rash/Hives Verified 02/28/21 09:00 Physical Exam Vitals: Vital Signs Temp Pulse Resp BP Pulse Ox 02/28/21 06:00 101 H 18 103/70 96 02/28/21 05:30 99 18 103/68 98 02/28/21 05:00 102 H 18 106/68 97 02/28/21 04:45 104 H 18 101/59 99 02/28/21 04:30 105 H 18 101/56 97 02/28/21 04:15 106 H 18 102/56 98 02/28/21 04:00 110 H 18 128/79 97 02/28/21 03:50 113 H 18 126/92 98 02/28/21 03:40 115 H 18 120/84 97 02/28/21 03:21 103 H 20 125/69 98 02/28/21 02:20 98.9 F 120 H 20 127/95 95 Intake and Output 02/27/21 02/28/21 02/28/21 22:59 06:59 14:59 Other: Weight 54.431 kg Results - Lab Results Most recent lab results Calcium 8.7 mg/dL (8.4-10.2) 02/28/21 02:59 02/28/21 02:59 02/28/21 02:59 Assessment and Plan Plan: Assessment: 1. Hyponatremia, hypovolemic. Sodium level 117 on admission. TSH normal. 2. Status post fall. 3. Acute subarachnoid hemorrhage. 4. Benign hypertension. Blood pressure on the lower side. Plan: Maintain IV fluids. Maintain sodium chloride tabs - I will decrease the dose. Check serum and urine osmolality and urine sodium level.- Repeat labs now. Hold amlodipine for systolic blood pressure less than 125. Continue to monitor closely. Thank you for the consultation. I will continue to follow the patient with you during her hospital stay.
[2021-02-28] MEDS: PANTOPRAZOLE 40 MG TABLET PO SCH ×2 (10:08→17:06)
[2021-02-28] MEDS: SUCRALFATE 1 GM TAB PO SCH ×4 (10:09→21:08)
[2021-02-28] MEDS: amLODIPine 5 MG TAB PO SCH (10:09)
--- NOTE | 2021-02-28 10:31 | P.CNNES ---
History of Present Illness Consult date: 02/28/21 Requesting physician: Nik Valente Reason for Consult: subarachnoid hemorrhage and dementia History of Present Illness: This is an 89-year-old woman with medical history of provoked seizure (due to hyponatremia of 107) in 01/2019 hypertension, hyperlipidemia, borderline diabetes mellitus, pulmonary embolism (>20 years ago), presented emergency department via EMS on 02/28/2021 after a fall. History was obtained from patient's daughter who is at bedside. According to the patient's daughter, he received a call on 02/28/2021 around 2-2:30 alfred a.m. that patient had a fall episode. Per the patient daughter the patient lives in [facility] with her . The patient was going from bathroom to the bed and she's bending the always using the bathroom very often. The patient uses a walker. She notices the patient the has history of fall falls in the past and was all contributed due to her low sodium. She said that the patient the uses the bathroom very often and drinks water the heavily in the past but recently has been drinking more protein shakes. She does not know exactly what transpired the at her facility. She said that the her blood pressure medication (amlodipine) was discontinued 2 weeks ago. Mentation is alert oriented 0-1 (self) and does not have normal conversation. The daughter feels patient has memory loss for past 1-2 years. Per the daughter she's not aware if the patient has atrial fibrillation but per EMR is seen today patient has he fibrillation and she is only on aspirin and non-and the anticoagulation. He had history of pulmonary embolism with a 20 years ago after getting hysterectomy according to daughter. Patient CT of head in the ED was done and it shows a small subarachnoid hemorrhage in the right sylvian fissure. .According to the ED team's note, ED team spoke with the patient's daughter was at bedside when she presented to the hospital and the patient was made no code and that the patient daughter did not want any surgery to be performed on the patient therefore I the patient was not transferred for further neurosurgical care. Note upon reviewing the patient's medical record the patient was about by neuro- hospitalist (Dr. Mcnair) in our facility on the 01/30/2019 and in their notes the stated the patient has altered mental status, likely due to toxic metabolic encephalopathy at. Patient has severe hyponatremia. And a seizure likely due to a severe hyponatremia. Patient had a routine EEG on 08/17/2018 and it was reported as normal. David's reviewed his notes for further details. Other workup in the hospital consisted of: Initial vital signs his blood pressure of 127/95, heart rate of 120, respiratory of 20, temperature of 98.9 Fahrenheit oral and pulse ox of 95% room air. White blood cells 11.4, hematocrit 33.5. Platelet count is 270,000. Sodium is 117, creatinine is 0.36, glucose is 140, calcium is 8.7. Upon reviewing the patient's sodium last sodium in our facility was in October 2019 and it was 126 patient has chronic hyponatremia. But this seems to be acute on chronic hyponatremia. Coronavirus is was not detected. CT of the head is reported as acute subarachnoid hemorrhage in the right sylvian seizure. No mass effect. No evidence of parenchymal hemorrhage. Small right lateral periorbital hematoma. Personally reviewed the CT of the head and there is no interictal parenchymal hemorrhage and there is no acute or subacute and ischemic changes that is appreciable. There is a small focus of hemorrhage over the right side. CT cervical spine is reported as spondylitic changes in the lower cervical spine. No fracture. Cervical spine not change compared to old exam. Review of Systems Review of system is limited with apparent positive and negative as per HPI. Past Medical History Past Medical History: Atrial Fibrillation, Diabetes Mellitus, Hyperlipidemia, Hypertension, Pulmonary Embolus (PE), Thyroid Disorder Additional Past Medical History / Comment(s): had a siezure in 2004, pt states her NA+ was to low, dysphagia History of Any Multi-Drug Resistant Organisms: MRSA Date of last positivie culture/infection: 02/21/2014 MDRO Source:: Face Past Surgical History: Bladder Surgery, Hysterectomy Past Anesthesia/Blood Transfusion Reactions: No Reported Reaction Past Psychological History: Anxiety, Depression Smoking Status: Never smoker Past Alcohol Use History: None Reported Past Drug Use History: None Reported - Past Family History Father Family Medical History: CVA/TIA, Hypertension Additional Family Medical History / Comment(s): brain anyruisum Mother Family Medical History: Hypertension Medications and Allergies Home Medications Medication Instructions Recorded Confirmed Type Aspirin EC [Ecotrin Low Dose] 81 mg PO HS 09/28/19 02/28/21 History Levothyroxine Sodium [Synthroid] 50 mcg PO DAILY 09/28/19 02/28/21 History Allergies Allergy/AdvReac Type Severity Reaction Status Date / Time Penicillins Allergy Rash/Hives Verified 02/28/21 09:00 Physical Examination - Vital Signs Vital Signs: Vital Signs Temp Pulse Resp BP Pulse Ox 02/28/21 06:00 101 H 18 103/70 96 02/28/21 05:30 99 18 103/68 98 02/28/21 05:00 102 H 18 106/68 97 02/28/21 04:45 104 H 18 101/59 99 02/28/21 04:30 105 H 18 101/56 97 02/28/21 04:15 106 H 18 102/56 98 02/28/21 04:00 110 H 18 128/79 97 02/28/21 03:50 113 H 18 126/92 98 02/28/21 03:40 115 H 18 120/84 97 02/28/21 03:21 103 H 20 125/69 98 02/28/21 02:20 98.9 F 120 H 20 127/95 95 Intake and Output 02/27/21 02/28/21 02/28/21 22:59 06:59 14:59 Other: Weight 54.431 kg GENERAL: The patient is lying in bed and is not in acute distress. HENT: Echymoses and hematoma over the right lateral periorbital. CHEST: The heart rate is regular rate rhythm. No murmurs to auscultation. LUNG: Clear to auscultation bilaterally no wheezing noted throughout. Not labored breathing. ABDOMEN/GI: Bowel sounds present in all 4 quadrants. No tenderness to palpation throughout. NEUROLOGICAL: Limited because of her cooperation. Higher mental function: The patient is awake and is oriented to self only. She would not respond to place or time. She would not name objects (such as pen or watch). She followed only one simple command (showing thumbs up of both hands). Otherwise not following command. Hard to assess language or neglect. Cranial nerves: The pupils are round, equal and reactive to light. Visual abrams are hard to assess. Extraocular movement is hard to assess but patient is looking to right and left and no appreciable nystagmus. Appears right lower facial droop (but difficulty to assess in full because of her cooperation). No dysarthria from limited language. Motor: Gait is deferred. The strength is hard to assess but has good hand patient support partner. Otherwise could not assess strength or tone because of her cooperation. Normal bulk. Cerebellum: Could not assess. Sensation: Could not assess. Reflexes (right/left): Could not assess. Plantars are mute bilaterally. Results - Laboratory Findings CBC and BMP: 02/28/21 02:59 02/28/21 02:59 Abnormal Lab Findings: Abnormal Labs 02/28/21 02/28/21 02:59 02:59 WBC 11.4 H Hct 33.5 L Neutrophils # 10.3 H Lymphocytes # 0.5 L Sodium 117 L* Chloride 88 L Carbon Dioxide 20 L Creatinine 0.36 L Glucose 140 H Assessment and Plan Assessment: Traumatic small right subarachnoid hemorrhage (due to fall) Acute on chronic hyponatremia Cognitive impairement/dementia (for past 1-2 years according to daughter) History of falls (per daughter was attributed to her hyponatremia) History of provoked seizure due to hyponatremia (107) in 01/2019 History of B[place] Diabetes mellitus Atrial fibrillation not an anti-coagulation but is on aspirin History of pulmonary embolism History of hypertension and currently blood pressure seems controlled Plan: * I ordered a repeat CT of the head to see if there is any evolution of the bleed. It is reported as stable small right sided acute the subarachnoid hemorrhage. Stable moderate size acute right soft tissue hematoma over the level of the zygoma. There is no significant change from a CT of the head earlier today. * Every 4 hours neuro checks * Patient daughter does not want any surgical intervention and patient is no code so therefore the patient was not transferred for any neurosugical pili luation on presentation. * I Spoke with the patient's daughter (Heather, who is at bedside) regarding getting a CT angiography of the head and neck to rule out any aneurysm which the suspicion is very low and her subarachnoid hemorrhage is due to trauma. And getting further blood work-up (such as PT, INR, PPT). The patient daughter stated that she does not want any further workup or any intervention. * Nephrology team is consulted. * Defer the rest of the medical management to the primary team. Plan is discussed with the patient's daughter was at bedside as well as the primary team. There is no further neurological workup needed per daughter's request. Thank you for the consultation. Leland Adame MD Neuro-Hospitalist Time with Patient: Greater than 30
[2021-02-28 11:41] LABS: ALT 20 U/L (4-34); AST 35 U/L (14-36); African American GFR (CKD) >90 (>60 ml/min/1.73 sqM); Albumin 3.3 g/dL (3.5-5.0); Albumin/Globulin Ratio 0.9; Alkaline Phosphatase 88 U/L (38-126); Anion Gap 8 mmol/L; Blood Urea Nitrogen 13 mg/dL (7-17); Calcium 8.5 mg/dL (8.4-10.2); Carbon Dioxide 19 mmol/L (22-30); Chloride 91 mmol/L (98-107); Globulin 3.7 g/dL; Glucose 111 mg/dL (74-99); Magnesium 1.8 mg/dL (1.6-2.3); Non-African American GFR(CKD) >90 (>60 ml/min/1.73 sqM); Potassium 4.6 mmol/L (3.5-5.1); Total Bilirubin 0.7 mg/dL (0.2-1.3)
[2021-02-28 11:44] LABS: Sodium 118 mmol/L (137-145)
--- NOTE | 2021-02-28 12:58 | XR ---
EXAMINATION TYPE: XR chest 1V portable DATE OF EXAM: 02/28/2021 Comparison: 10/08/2019 Clinical History: 89-year-old female shortness of breath, fall, possible aspiration Findings: Heart is enlarged. Diffuse interstitial opacity. Suggestion of a small left pleural effusion with lef t mid and lower lung airspace opacity. Impression: 1. Cardiomegaly with interstitial changes. Correlate for CHF with pulmonary vascular congestion. 2. Small left pleural effusion with prominent airspace disease left mid and lower lung. This could re present confluent pulmonary edema versus infectious or aspiration pneumonitis.
--- NOTE | 2021-02-28 13:17 | P.HPIM ---
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 Patient's daughter is at bedside and gives history that the patient lives at home with her at [facility]. She normally uses a walker for ambulation and able to feed herself and able to get herself to the bathroom although she wears a depends. She is able to walk from their apartment down to the cafeteria 2 times per day but after that she usually goes back to bed. Patient probably was found on the floor in the bedroom and appeared be that she came back from the bathroom. Daughter got a call at 2 AM it was undetermined how long patient was on the floor. She was brought into [facility] emergency center for evaluation. She was found to be afebrile, heart rate 120, blood pressure 127/95, pulse ox 90% on room air. Laboratory studies revealed WBC 11.4, hemoglobin 0.4, platelet count 270. Sodium 117, potassium 4.4, chloride 88, CO2 20, BUN 15 creatinine 0.36. Blood sugar 140. Osmolality serum 252. TSH 4.490. Covid19 PCR not detected. CAT scan of the brain and cervical spine revealed spondylotic changes in the lower cervical spine. No fracture. Acute subarachnoid hemorrhage in the right sylvian fissure. No mass effect. No evidence of. She will hemorrhage. Small right lateral periorbital hematoma. Cervical spine no change from old exam. Repeat CAT scan of the brain revealed stable small right sided acute subarachnoid hemorrhage. Stable moderate-sized acute right soft tissue hematoma at the level of the zygoma. No significant change from CT study earlier today. The patient is a no CODE STATUS and she would not wish to undergo any surgical intervention per the patient's daughter. Decided that patient would stay at [facility] versus being transferred to a tertiary care center. Patient has been seen by and followed by neurology. Patient has also been seen by nephrology for hypovolemic hyponatremia with recommendations to maintain IV fluids, sodium chloride tablets which were decreased and hold amlodipine for systolic blood pressure less than 125. Chest x-ray has been ordered to rule out pneumonia. If no significant improvement in patient's status, daughter may consider hospice or comfort care in the next 24-48 hours. Review of symptoms Unable to obtain from the patient due to mental status Physical examination Gen: This is an 89-year-old female. She is resting on ER stretcher and appears to be comfortable and in no acute distress HEENT: Significant ecchymosis right periorbital area with large hematoma at the right lateral periorbital region, normocephalic. Pupils equal, round. Sclerae is anicteric. NECK: Supple. No thyromegaly. LUNGS: Crackles in the bilateral bases. No intercostal retractions. HEART: Irregularly irregular rate and rhythm. 2/6 systolic ejection murmur. ABDOMEN: Soft. Bowel sounds are present. No masses. No tenderness. EXTREMITIES: No pedal edema. No calf tenderness. NEUROLOGICAL: Patient is resting quietly with eyes closed. Assessment and plan 1. Traumatic small right subarachnoid hemorrhage. Patient is followed by neurology. Continue neuro checks. No aggressive treatment. 2. Severe hypovolemic hyponatremia. Patient is continued on 0.9 normal saline at 100 mL per hour, sodium chloride 1 g twice daily, nephrology consult appreciated. Monitor urine output. 3. Metabolic encephalopathy secondary to hyponatremia and subarachnoid hemorrhage. 4. Hypertension and hypertensive cardiovascular disease. Continue amlodipine 5 mg daily with parameters. 5. Hyperlipidemia. Not on any statin. 6. Hypothyroidism. Resume Synthroid 50 g daily. 7. Chronic hyponatremia. Baseline sodium is at 128-29 8. GERD and GI prophylaxis. Continue Protonix 40 mg IV push every 24 hours, Carafate 1 g for meals and at bedtime. 9. Chronic atrial fibrillation. Patient is not on any anticoagulation not clear if reason may be recurrent falls. Monitor the patient very closely. 10. DVT prophylaxis. SCDs and SUNIL hose. Admit to inpatient. Estimate a length of stay 2 midnights. CODE STATUS: No code. Discharge plan: To be determined. Impression and plan of care have been directed as dictated by the signing physician. Samantha Griffith nurse practitioner acting as scribe for signing physician. Past Medical History Past Medical History: Atrial Fibrillation, Diabetes Mellitus, Hyperlipidemia, Hypertension, Pulmonary Embolus (PE), Thyroid Disorder Additional Past Medical History / Comment(s): had a siezure in 2004, pt states her NA+ was to low, dysphagia History of Any Multi-Drug Resistant Organisms: MRSA Date of last positivie culture/infection: 02/21/2014 MDRO Source:: Face Past Surgical History: Bladder Surgery, Hysterectomy Past Anesthesia/Blood Transfusion Reactions: No Reported Reaction Past Psychological History: Anxiety, Depression Smoking Status: Never smoker Past Alcohol Use History: None Reported Past Drug Use History: None Reported - Past Family History Father Family Medical History: CVA/TIA, Hypertension Additional Family Medical History / Comment(s): brain anyruisum Mother Family Medical History: Hypertension Medications and Allergies Home Medications Medication Instructions Recorded Confirmed Type Aspirin EC [Ecotrin Low Dose] 81 mg PO HS 09/28/19 02/28/21 History Levothyroxine Sodium [Synthroid] 50 mcg PO DAILY 09/28/19 02/28/21 History Allergies Allergy/AdvReac Type Severity Reaction Status Date / Time Penicillins Allergy Rash/Hives Verified 02/28/21 09:00 Physical Exam Vitals: Vital Signs Temp Pulse Resp BP Pulse Ox 02/28/21 06:00 101 H 18 103/70 96 02/28/21 05:30 99 18 103/68 98 02/28/21 05:00 102 H 18 106/68 97 02/28/21 04:45 104 H 18 101/59 99 02/28/21 04:30 105 H 18 101/56 97 02/28/21 04:15 106 H 18 102/56 98 02/28/21 04:00 110 H 18 128/79 97 02/28/21 03:50 113 H 18 126/92 98 02/28/21 03:40 115 H 18 120/84 97 02/28/21 03:21 103 H 20 125/69 98 02/28/21 02:20 98.9 F 120 H 20 127/95 95 Intake and Output 02/27/21 02/28/21 02/28/21 22:59 06:59 14:59 Other: Weight 54.431 kg Results CBC & Chem 7: 02/28/21 02:59 02/28/21 10:30 Labs: Abnormal Lab Results - Last 24 Hours (Table) 02/28/21 02/28/21 02/28/21 Range/Units 02:59 02:59 02:59 WBC 11.4 H (3.8-10.6) k/uL Hct 33.5 L (34.0-46.0) % Neutrophils # 10.3 H (1.3-7.7) k/uL Lymphocytes # 0.5 L (1.0-4.8) k/uL Sodium 117 L* (137-145) mmol/L Chloride 88 L (98-107) mmol/L Carbon Dioxide 20 L (22-30) mmol/L Creatinine 0.36 L (0.52-1.04) mg/dL Glucose 140 H (74-99) mg/dL Osmolality 252 L (280-301) mosm/kg
--- NOTE | 2021-02-28 16:07 | US ---
EXAMINATION TYPE: US venous doppler duplex LE LT DATE OF EXAM: 02/28/2021 2:23 PM COMPARISON: NONE CLINICAL HISTORY: 89-year-old female LLE edema. Left leg swelling post fall SIDE PERFORMED: Left TECHNIQUE: The lower extremity deep venous system is examined utilizing real time linear array sonog sakina with graded compression, doppler sonography and color-flow sonography. FINDINGS: VESSELS IMAGED: Common Femoral Vein Deep Femoral Vein Greater Saphenous Vein * Femoral Vein Popliteal Vein Small Saphenous Vein * Proximal Calf Veins (* superficial vessels) Left Leg: Negative for DVT IMPRESSION: No evidence for DVT within the left lower extremity imaged from the groin to the upper calf.
[2021-02-28] MEDS: ACETAMINOPHEN TAB 325 MG TAB PO PRN (21:08)
[2021-02-28] MEDS: SODIUM CHLORIDE TAB 1 GM TAB PO SCH (21:36)
[2021-03-01] MEDS: LEVOTHYROXINE 50 MCG TAB PO SCH (05:39)
[2021-03-01] MEDS: amLODIPine 5 MG TAB PO SCH (09:12)
[2021-03-01] MEDS: SODIUM CHLORIDE TAB 1 GM TAB PO SCH (09:12)
[2021-03-01] MEDS: PANTOPRAZOLE 40 MG TABLET PO SCH ×2 (09:12→17:25)
[2021-03-01] MEDS: SUCRALFATE 1 GM TAB PO SCH ×4 (09:12→20:55)
[2021-03-01 09:15] LABS: African American GFR (CKD) 104.1 (60.0-200.0); BUN/Creat Ratio 22.92 Ratio (12.00-20.00); Blood Urea Nitrogen 10.2 mg/dL (9.0-27.0); Calcium 8.1 mg/dL (8.7-10.3); Carbon Dioxide 19.1 mmol/L (21.6-31.8); Non-African American GFR(CKD) 89.8 (60.0-200.0); Potassium 3.7 mmol/L (3.5-5.5)
--- NOTE | 2021-03-01 11:06 | P.PN ---
Subjective Patient is seen in follow-up for hyponatremia. Sodium level correcting gradually. More awake today. Denies chest pain or shortness of breath. No vomiting or diarrhea. Vital signs are stable. HEENT: Head exam is unremarkable. LUNGS: Breath sounds decreased. HEART: Rate and Rhythm are regular. ABDOMEN: Soft, no distention. EXTREMITITES: No edema. Objective - Vital Signs Vital signs: Vital Signs Temp 98.0 F 03/01/21 07:30 Pulse 94 03/01/21 09:33 Resp 16 03/01/21 07:30 BP 142/79 03/01/21 09:33 Pulse Ox 96 03/01/21 07:30 Intake & Output 02/28/21 03/01/21 03/01/21 18:59 06:59 18:59 Intake Total 250 400 Balance 250 400 Weight 54.431 kg Intake: Intake, IV Titration 250 400 Amount Sodium Chloride 0.9% 1, 250 000 ml @ 100 mls/hr IV . Q10H [facility] Rx#:[id number] Sodium Chloride 0.9% 1, 400 000 ml @ 50 mls/hr IV . Q20H [facility] Rx#:[id number] Other: Voiding Method External Catheter External Catheter Toilet Diaper # Voids 1 1 - Labs CBC & Chem 7: 02/28/21 02:59 03/01/21 05:34 Labs: Abnormal Lab Results - Last 24 Hours (Table) 02/28/21 02/28/21 02/28/21 Range/Units 10:30 16:20 21:12 Sodium 118 L* 123 L 123 L (137-145) mmol/L Chloride 91 L (98-107) mmol/L Carbon Dioxide 19 L (22-30) mmol/L Creatinine 0.34 L (0.52-1.04) mg/dL BUN/Creatinine Ratio (12.00-20.00) Ratio Glucose 111 H (74-99) mg/dL Calcium (8.7-10.3) mg/dL Albumin 3.3 L (3.5-5.0) g/dL 03/01/21 Range/Units 05:34 Sodium 126 L (137-145) mmol/L Chloride (98-107) mmol/L Carbon Dioxide 19.1 L (22-30) mmol/L Creatinine 0.4 L (0.52-1.04) mg/dL BUN/Creatinine Ratio 22.92 H (12.00-20.00) Ratio Glucose (74-99) mg/dL Calcium 8.1 L (8.7-10.3) mg/dL Albumin (3.5-5.0) g/dL Assessment and Plan Plan: Assessment: 1. Hyponatremia, hypovolemic. Sodium level 117 on admission - 126 this morning. TSH normal. Urine sodium 52 and urine osmolality 336. 2. Status post fall. 3. Acute subarachnoid hemorrhage. 4. Benign hypertension. Blood sugars stable. Plan: Hep-Lock IV fluids. Maintain sodium chloride tabs - decrease to once daily due to HTN. Continue to monitor. Encouraged oral intake. Maintain fluid restriction. Add hydralazine 25 mg 3 times daily. To be held for systolic blood pressure less than 125.
--- NOTE | 2021-03-01 14:38 | P.PN ---
Subjective Progress Note Date: 03/01/21 Patient is seen at bedside and per her nurse is doing drastically better compared to yesterday. She was having a conversation with the nurse. Upon seeing the patient she denies of headache and feels is doing better. Objective - Vital Signs Vital signs: Vital Signs Temp 98.2 F 03/01/21 11:13 Pulse 90 03/01/21 11:13 Resp 18 03/01/21 11:13 BP 129/80 03/01/21 11:13 Pulse Ox 98 03/01/21 11:13 Intake & Output 02/28/21 03/01/21 03/01/21 18:59 06:59 18:59 Intake Total 250 400 Balance 250 400 Weight 54.431 kg Intake: Intake, IV Titration 250 400 Amount Sodium Chloride 0.9% 1, 250 000 ml @ 100 mls/hr IV . Q10H STA Rx#:[id number] Sodium Chloride 0.9% 1, 400 000 ml @ 50 mls/hr IV . Q20H DYLAN Rx#:[id number] Other: Voiding Method External Catheter External Catheter Toilet Diaper # Voids 1 1 1 - Exam GENERAL: The patient is lying in bed and is not in acute distress. HENT: Echymoses with slight hematoma over the right lateral periorbital. NEUROLOGICAL: Higher mental function: The patient is awake, alert, oriented to self. She stated she was at [facility]. She stated the month is January but does not know year. Patient was able to name few objects (watch and cup). Patient is following simple commands. No aphasia and no neglect from limited language. Cranial nerves: The pupils are round, equal and reactive to light. Visual abrams are full to confrontation throughout. Extraocular movement is intact no nystagmus is noted. No facial weakness noted. No dysarthria is noted. Motor: The strength is moving all extremities above gravity and no focality appreciated. Normal tone and bulk. WORK-UP: TSH: 4.490 CT of the head is reported as acute subarachnoid hemorrhage in the right sylvian seizure. No mass effect. No evidence of parenchymal hemorrhage. Small right lateral periorbital hematoma. Personally reviewed the CT of the head and there is no interictal parenchymal hemorrhage and there is no acute or subacute and ischemic changes that is appreciable. There is a small focus of hemorrhage over the right side. CT cervical spine is reported as spondylitic changes in the lower cervical spine. No fracture. Cervical spine not change compared to old exam. repeat CT of the head to see if there is any evolution of the bleed. It is re ported as stable small right sided acute the subarachnoid hemorrhage. Stable moderate size acute right soft tissue hematoma over the level of the zygoma. There is no significant change from a CT of the head earlier today. - Labs CBC & Chem 7: 02/28/21 02:59 03/01/21 05:34 Labs: Abnormal Lab Results - Last 24 Hours (Table) 02/28/21 02/28/21 03/01/21 Range/Units 16:20 21:12 05:34 Sodium 123 L 123 L 126 L (137-145) mmol/L Carbon Dioxide 19.1 L (21.6-31.8) mmol/L Creatinine 0.4 L (0.6-1.5) mg/dL BUN/Creatinine Ratio 22.92 H (12.00-20.00) Ratio Calcium 8.1 L (8.7-10.3) mg/dL Assessment and Plan Assessment: Traumatic small right subarachnoid hemorrhage (due to fall) and per daughter has history of falls when has worsening of hyponatremia. Her encephalopathy likely due to her metabolic encephalopathy due to hyponatremia ---mentation is improving Acute on chronic hyponatremia---slight improvement (on presentation was 117-->126) Cognitive impairement/dementia (for past 1-2 years according to daughter) History of falls (per daughter was attributed to her hyponatremia) History of provoked seizure due to hyponatremia (107) in 01/2019 History of Boderline Diabetes mellitus Atrial fibrillation not an anti-coagulation but is on aspirin History of pulmonary embolism History of hypertension and currently blood pressure seems controlled Plan: * Every 4 hours neuro checks * Patient daughter does not want any surgical intervention and patient is no code so therefore the patient was not transferred for any neurosugical evaluation on presentation. * I Spoke with the patient's daughter (Heather, ) regarding getting a CT angiography of the head and neck to rule out any aneurysm which the suspicion is very low and her subarachnoid hemorrhage is due to trauma. And getting further blood work-up (such as PT, INR, PPT). The patient daughter stated that she does not want any further workup from neurological stand point. * Nephrology team is consulted. * Defer the rest of the medical management to the primary team. * Recommend patient to follow-up with neurologist and consider following-up with neurosurgeon as outpatient within 1-2 weeks. The plan is discussed with the patient's nurse. Please notify neurology if any further concerns. Leland Adame MD Neuro-Hospitalist Time with Patient: Less than 30
--- NOTE | 2021-03-01 15:16 | P.PN ---
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 Patient's daughter is at bedside and gives history that the patient lives at home with her at [facility]. She normally uses a walker for ambulation and able to feed herself and able to get herself to the bathroom although she wears a depends. She is able to walk from their apartment down to the cafeteria 2 times per day but after that she usually goes back to bed. Patient probably was found on the floor in the bedroom and appeared be that she came back from the bathroom. Daughter got a call at 2 AM it was undetermined how long patient was on the floor. She was brought into [facility] emergency center for evaluation. She was found to be afebrile, heart rate 120, blood pressure 127/95, pulse ox 90% on room air. Laboratory studies revealed WBC 11.4, hemoglobin 0.4, platelet count 270. Sodium 117, potassium 4.4, chloride 88, CO2 20, BUN 15 creatinine 0.36. Blood sugar 140. Osmolality serum 252. TSH 4.490. Covid19 PCR not detected. CAT scan of the brain and cervical spine revealed spondylotic changes in the lower cervical spine. No fracture. Acute subarachnoid hemorrhage in the right sylvian fissure. No mass effect. No evidence of. She will hemorrhage. Small right lateral periorbital hematoma. Cervical spine no change from old exam. Repeat CAT scan of the brain revealed stable small right sided acute subarachnoid hemorrhage. Stable moderate-sized acute right soft tissue hematoma at the level of the zygoma. No significant change from CT study earlier today. The patient is a no CODE STATUS and she would not wish to undergo any surgical intervention per the patient's daughter. Decided that patient would stay at [facility] versus being transferred to a tertiary care center. Patient has been seen by and followed by neurology. Patient has also been seen by nephrology for hypovolemic hyponatremia with recommendations to maintain IV fluids, sodium chloride tablets which were decreased and hold amlodipine for systolic blood pressure less than 125. Chest x-ray has been ordered to rule out pneumonia. If no significant improvement in patient's status, daughter may consider hospice or comfort care in the next 24-48 hours. 03/01: Patient is seen today in follow-up in mental status is much improved from yesterday. She is able to converse and answer questions. She is on the MedSur floor. Neurology has recommended follow-up with neurosurgeon as an outpatient in 1-2 weeks and has signed off her case. We have ordered orthostatic vital signs which were negative for orthostatic changes. She's been afebrile, heart rate in the 80s, blood pressure 142/79, pulse ox 90% on room air. Repeat sodium 126. Nephrology is following with recommendations for Hep-Lock IV fluids, maintain sodium chloride tabs decreased to once daily, encourage oral intake and maintain fluid restriction. Hydralazine 25 mg 3 times daily added with parameters. Ultrasound of bilateral lower extremity is negative for DVT. Patient has been seen by therapies with recommendations for return to assisted living with 24- hour supervision. Review of symptoms Constitutional: No fever, no chills, no night sweats. No weight change. Noted weakness, fatigue or lethargy. No daytime sleepiness. EENT: No headache. No blurred vision or double vision, no loss of vision. No loss of Hearing, no ringing in the ears, no dizziness. No nasal drainage or congestion. No epistaxis. No sore throat. Lungs: No shortness of breath, cough, no sputum production. No wheezing. Cardiovascular: No chest pain, no lower extremity edema. No palpitations. No paroxysmal nocturnal dyspnea. No orthopnea. No lightheadedness or dizziness. No syncopal episodes. Abdominal: No abdominal pain. No nausea, vomiting. No diarrhea. No constipation. No bloody or tarry stools.Reports loss of appetite. Genitourinary: No dysuria, increased frequency, urgency. No urinary retention. Musculoskeletal: No myalgias. No muscle weakness, no gait dysfunction, no frequent falls. No back pain. No neck pain. Integumentary: No wounds, no lesions. No rash or pruritus. No unusual bruising. No change in hair or nails. Neurologic: No aphasia. No facial droop. No change in mentation. No head injury. No headache. No paralysis. No paresthesia. Psychiatric: No depression. No anxiety. No mood swings. Endocrine: No abnormal blood sugars. No weight change. Physical examination Gen: This is an 89-year-old female. She is resting in bed and appears to be comfortable and in no acute distress HEENT: Significant ecchymosis right periorbital area with large hematoma at the right lateral periorbital region, normocephalic. Pupils equal, round. Sclerae is anicteric. NECK: Supple. No thyromegaly. LUNGS: Crackles in the bilateral bases. No intercostal retractions. HEART: Irregularly irregular rate and rhythm. 2/6 systolic ejection murmur. ABDOMEN: Soft. Bowel sounds are present. No masses. No tenderness. EXTREMITIES: No pedal edema. No calf tenderness. NEUROLOGICAL: Patient is awake and alert, patient is able to follow some instructions, noted to be very hard of hearing, able to converse and appears to be close to her baseline mentation. Assessment and plan 1. Traumatic small right subarachnoid hemorrhage. Patient is followed by neurology and subsequently signed off with recommendations for outpatient follow-up in one to 2 weeks with neurosurgeon. Continue neuro checks. No aggressive treatment. 2. Severe hypovolemic hyponatremia. IV fluids discontinue, continue sodium chloride 1 g twice daily, nephrology consult appreciated. Monitor urine output. 3. Metabolic encephalopathy secondary to hyponatremia and subarachnoid hemorrhage. 4. Hypertension and hypertensive cardiovascular disease. Continue amlodipine 5 mg daily with parameters, hydralazine 25 mg 3 times daily added with parameters. 5. Hyperlipidemia. Not on any statin. 6. Hypothyroidism. Continue Synthroid 50 g daily. 7. Chronic hyponatremia. Baseline sodium is at 128-29 8. GERD and GI prophylaxis. Continue Protonix 40 mg oral twice daily, Carafate 1 g for meals and at bedtime. 9. Chronic atrial fibrillation. Patient is not on any anticoagulation not clear if reason may be recurrent falls. Monitor the patient very closely. 10. DVT prophylaxis. SCDs and SUNIL hose. CODE STATUS: No code. Discharge plan: Return to [facility] with [facility] on Sunday. Impression and plan of care have been directed as dictated by the signing physician. Samantha Griffith nurse practitioner acting as scribe for signing physician. Objective - Vital Signs Vital signs: Vital Signs Temp 98.0 F 03/01/21 07:30 Pulse 89 03/01/21 07:30 Resp 16 03/01/21 07:30 BP 127/77 03/01/21 07:30 Pulse Ox 96 03/01/21 07:30 Intake & Output 02/28/21 03/01/21 03/01/21 18:59 06:59 18:59 Intake Total 250 400 Balance 250 400 Weight 54.431 kg Intake: Intake, IV Titration 250 400 Amount Sodium Chloride 0.9% 1, 250 000 ml @ 100 mls/hr IV . Q10H STA Rx#:[id number] Sodium Chloride 0.9% 1, 400 000 ml @ 50 mls/hr IV . Q20H DYLAN Rx#:[id number] Other: Voiding Method External Catheter External Catheter # Voids 1 1 - Labs CBC & Chem 7: 02/28/21 02:59 03/01/21 05:34 Labs: Abnormal Lab Results - Last 24 Hours (Table) 02/28/21 02/28/21 02/28/21 Range/Units 10:30 16:20 21:12 Sodium 118 L* 123 L 123 L (137-145) mmol/L Chloride 91 L (98-107) mmol/L Carbon Dioxide 19 L (22-30) mmol/L Creatinine 0.34 L (0.52-1.04) mg/dL Glucose 111 H (74-99) mg/dL Albumin 3.3 L (3.5-5.0) g/dL
[2021-03-01] MEDS: hydrALAZINE HCL 25 MG TAB PO SCH ×2 (16:27→20:55)
[2021-03-01] MEDS: ACETAMINOPHEN TAB 325 MG TAB PO PRN (20:55)
[2021-03-02] MEDS: LEVOTHYROXINE 50 MCG TAB PO SCH (05:54)
[2021-03-02 06:37] LABS: African American GFR (CKD) >90 (>60 ml/min/1.73 sqM); Anion Gap 5 mmol/L; Blood Urea Nitrogen 8 mg/dL (7-17); Calcium 8.4 mg/dL (8.4-10.2); Carbon Dioxide 22 mmol/L (22-30); Chloride 98 mmol/L (98-107); Glucose 83 mg/dL (74-99); Magnesium 1.9 mg/dL (1.6-2.3); Non-African American GFR(CKD) >90 (>60 ml/min/1.73 sqM); Potassium 3.6 mmol/L (3.5-5.1); Sodium 125 mmol/L (137-145)
[2021-03-02] MEDS ORDERED: SODIUM CHLORIDE TAB 1 GM TAB PO SCH (09:00)
[2021-03-02] MEDS: amLODIPine 5 MG TAB PO SCH (09:26)
[2021-03-02] MEDS: SUCRALFATE 1 GM TAB PO SCH ×4 (09:26→20:20)
[2021-03-02] MEDS: hydrALAZINE HCL 25 MG TAB PO SCH ×2 (09:26→17:39)
[2021-03-02] MEDS: PANTOPRAZOLE 40 MG TABLET PO SCH ×2 (09:26→17:46)
--- NOTE | 2021-03-02 10:33 | P.PN ---
Subjective Patient is seen in follow-up for hyponatremia. Sodium level stable at 125 today. Denies chest pain or shortness of breath. No vomiting or diarrhea. Hemodynamically stable. Vital signs are stable. HEENT: Head exam is unremarkable. LUNGS: Breath sounds decreased. HEART: Rate and Rhythm are regular. ABDOMEN: Soft, no distention. EXTREMITITES: No edema. Objective - Vital Signs Vital signs: Vital Signs Temp 98.4 F 03/02/21 08:00 Pulse 83 03/02/21 04:39 Resp 16 03/02/21 04:39 BP 123/64 03/02/21 08:00 Pulse Ox 98 03/02/21 04:39 Intake & Output 03/01/21 03/02/21 03/02/21 18:59 06:59 18:59 Intake Total 480 200 Balance 480 200 Intake: Oral 480 200 Other: Voiding Method Toilet Toilet Diaper Diaper # Voids 1 - Labs CBC & Chem 7: 02/28/21 02:59 03/02/21 05:35 Labs: Abnormal Lab Results - Last 24 Hours (Table) 03/02/21 Range/Units 05:35 Sodium 125 L (137-145) mmol/L Creatinine 0.40 L (0.52-1.04) mg/dL Assessment and Plan Plan: Assessment: 1. Hyponatremia, hypovolemic. Sodium level 117 on admission - 125 this morning. TSH normal. Urine sodium 52 and urine osmolality 336. 2. Status post fall. 3. Acute subarachnoid hemorrhage. 4. Benign hypertension. Stable. Plan: Remains off IV fluids. Maintain sodium chloride tabs - increase to twice a day. Continue to monitor. Encouraged oral intake. Maintain fluid restriction.
--- NOTE | 2021-03-02 16:39 | P.PN ---
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 Patient's daughter is at bedside and gives history that the patient lives at home with her at [facility]. She normally uses a walker for ambulation and able to feed herself and able to get herself to the bathroom although she wears a depends. She is able to walk from their apartment down to the cafeteria 2 times per day but after that she usually goes back to bed. Patient probably was found on the floor in the bedroom and appeared be that she came back from the bathroom. Daughter got a call at 2 AM it was undetermined how long patient was on the floor. She was brought into [facility] emergency center for evaluation. She was found to be afebrile, heart rate 120, blood pressure 127/95, pulse ox 90% on room air. Laboratory studies revealed WBC 11.4, hemoglobin 0.4, platelet count 270. Sodium 117, potassium 4.4, chloride 88, CO2 20, BUN 15 creatinine 0.36. Blood sugar 140. Osmolality serum 252. TSH 4.490. Covid19 PCR not detected. CAT scan of the brain and cervical spine revealed spondylotic changes in the lower cervical spine. No fracture. Acute subarachnoid hemorrhage in the right sylvian fissure. No mass effect. No evidence of. She will hemorrhage. Small right lateral periorbital hematoma. Cervical spine no change from old exam. Repeat CAT scan of the brain revealed stable small right sided acute subarachnoid hemorrhage. Stable moderate-sized acute right soft tissue hematoma at the level of the zygoma. No significant change from CT study earlier today. The patient is a no CODE STATUS and she would not wish to undergo any surgical intervention per the patient's daughter. Decided that patient would stay at [facility] versus being transferred to a tertiary care center. Patient has been seen by and followed by neurology. Patient has also been seen by nephrology for hypovolemic hyponatremia with recommendations to maintain IV fluids, sodium chloride tablets which were decreased and hold amlodipine for systolic blood pressure less than 125. Chest x-ray has been ordered to rule out pneumonia. If no significant improvement in patient's status, daughter may consider hospice or comfort care in the next 24-48 hours. 03/01: Patient is seen today in follow-up in mental status is much improved from yesterday. She is able to converse and answer questions. She is on the MedSurg floor. Neurology has recommended follow-up with neurosurgeon as an outpatient in 1-2 weeks and has signed off her case. We have ordered orthostatic vital signs which were negative for orthostatic changes. She's been afebrile, heart rate in the 80s, blood pressure 142/79, pulse ox 90% on room air. Repeat sodium 126. Nephrology is following with recommendations for Hep-Lock IV fluids, maintain sodium chloride tabs decreased to once daily, encourage oral intake and maintain fluid restriction. Hydralazine 25 mg 3 times daily added with parameters. Ultrasound of bilateral lower extremity is negative for DVT. Patient has been seen by therapies with recommendations for return to assisted living with 24- hour supervision. 03/02 patient examined bedside appears to be sleeping comfortably in bed. Denies any headache or dizziness. Patient is noted to be unstable on her feet and requires 2 person assist for ambulation. PT and OT assessment was requested however family would like patient go back to [facility] in her familiar surroundings as patient has previously expressed her desire not to be placed in a fpc. Sodium evaluated this morning shows 125. Sodium tablet and increase to 1 tab twice daily. Will monitor patient for improvement in sodium continue to hold IV fluids. PT recommends home with homecare and assist from assessment. Patient was noted to have some dizziness on standing. Orthostatics obtained yesterday were negative Review of symptoms Constitutional: No fever, no chills, no night sweats. No weight change. Noted weakness, fatigue or lethargy. No daytime sleepiness. EENT: No headache. No blurred vision or double vision, no loss of vision. No loss of Hearing, no ringing in the ears, no dizziness. No nasal drainage or congestion. No epistaxis. No sore throat. Lungs: No shortness of breath, cough, no sputum production. No wheezing. Cardiovascular: No chest pain, no lower extremity edema. No palpitations. No paroxysmal nocturnal dyspnea. No orthopnea. No lightheadedness or dizziness. No syncopal episodes. Abdominal: No abdominal pain. No nausea, vomiting. No diarrhea. No constipation. No bloody or tarry stools.Reports loss of appetite. Genitourinary: No dysuria, increased frequency, urgency. No urinary retention. Musculoskeletal: No myalgias. No muscle weakness, no gait dysfunction, no frequent falls. No back pain. No neck pain. Integumentary: No wounds, no lesions. No rash or pruritus. No unusual bruising. No change in hair or nails. Neurologic: No aphasia. No facial droop. No change in mentation. No head injury. No headache. No paralysis. No paresthesia. dizziness. Psychiatric: No depression. No anxiety. No mood swings. Endocrine: No abnormal blood sugars. No weight change. Physical examination Gen: This is an 89-year-old female. She is resting in bed and appears to be comfortable and in no acute distress HEENT: Significant ecchymosis right periorbital area with large hematoma at the right lateral periorbital region, normocephalic. Pupils equal, round. Sclerae is anicteric. NECK: Supple. No thyromegaly. LUNGS: Crackles in the bilateral bases. No intercostal retractions. HEART: Irregularly irregular rate and rhythm. 2/6 systolic ejection murmur. ABDOMEN: Soft. Bowel sounds are present. No masses. No tenderness. EXTREMITIES: No pedal edema. No calf tenderness. NEUROLOGICAL: Patient is awake and alert, patient is able to follow some instructions, noted to be very hard of hearing, able to converse and appears to be close to her baseline mentation. Assessment and plan 1. Traumatic small right subarachnoid hemorrhage. Patient is followed by neurology and subsequently signed off with recommendations for outpatient follow-up in one to 2 weeks with neurosurgeon. Continue neuro checks. No aggressive treatment. 2. Severe hypovolemic hyponatremia. IV fluids discontinue, continue sodium chloride 1 g twice daily, nephrology consult appreciated. Monitor urine output. 3. Metabolic encephalopathy secondary to hyponatremia and subarachnoid hemorrhage. 4. Hypertension and hypertensive cardiovascular disease. Continue amlodipine 5 mg daily with parameters, hydralazine 25 mg 3 times daily discontinued as patient continues to endorse dizziness while standing 5. Hyperlipidemia. Not on any statin. 6. Hypothyroidism. Continue Synthroid 50 g daily. 7. Chronic hyponatremia. Baseline sodium is at 128-29 8. GERD and GI prophylaxis. Continue Protonix 40 mg oral twice daily, Carafate 1 g for meals and at bedtime. 9. Chronic atrial fibrillation. Patient is not on any anticoagulation not clear if reason may be recurrent falls. Monitor the patient very closely. 10. DVT prophylaxis. SCDs and SUNIL hose. CODE STATUS: No code. Discharge plan: Return to [facility] with [facility] on sunday. Objective - Vital Signs Vital signs: Vital Signs Temp 98.0 F 03/02/21 11:25 Pulse 83 03/02/21 11:25 Resp 16 03/02/21 11:25 BP 138/72 03/02/21 11:25 Pulse Ox 97 03/02/21 11:25 Intake & Output 03/01/21 03/02/21 03/02/21 18:59 06:59 18:59 Intake Total 480 200 Balance 480 200 Intake: Oral 480 200 Other: Voiding Method Toilet Toilet Toilet Diaper Diaper Diaper # Voids 1 1 # Bowel Movements 1 - Labs CBC & Chem 7: 02/28/21 02:59 03/02/21 05:35 Labs: Abnormal Lab Results - Last 24 Hours (Table) 03/02/21 Range/Units 05:35 Sodium 125 L (137-145) mmol/L Creatinine 0.40 L (0.52-1.04) mg/dL
[2021-03-02] MEDS: SODIUM CHLORIDE TAB 1 GM TAB PO SCH (20:20)
[2021-03-03] MEDS: LEVOTHYROXINE 50 MCG TAB PO SCH (05:29)
[2021-03-03 08:55] LABS: ALT 17 U/L (4-34); AST 26 U/L (14-36); African American GFR (CKD) >90 (>60 ml/min/1.73 sqM); Albumin 3.2 g/dL (3.5-5.0); Albumin/Globulin Ratio 0.9; Alkaline Phosphatase 80 U/L (38-126); Anion Gap 7 mmol/L; Blood Urea Nitrogen 7 mg/dL (7-17); Calcium 8.6 mg/dL (8.4-10.2); Carbon Dioxide 21 mmol/L (22-30); Chloride 97 mmol/L (98-107); Globulin 3.6 g/dL; Glucose 101 mg/dL (74-99); Non-African American GFR(CKD) >90 (>60 ml/min/1.73 sqM); Potassium 3.6 mmol/L (3.5-5.1); Sodium 125 mmol/L (137-145); Total Bilirubin 0.6 mg/dL (0.2-1.3); Total Protein 6.8 g/dL (6.3-8.2)
[2021-03-03] MEDS: PANTOPRAZOLE 40 MG TABLET PO SCH ×2 (10:10→16:55)
[2021-03-03] MEDS: amLODIPine 10 MG TAB PO SCH (10:10)
[2021-03-03] MEDS: SODIUM CHLORIDE TAB 1 GM TAB PO SCH ×2 (10:10→20:59)
[2021-03-03] MEDS: SUCRALFATE 1 GM TAB PO SCH ×4 (10:10→20:59)
--- NOTE | 2021-03-03 10:53 | P.PN ---
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 Patient's daughter is at bedside and gives history that the patient lives at home with her at [facility]. She normally uses a walker for ambulation and able to feed herself and able to get herself to the bathroom although she wears a depends. She is able to walk from their apartment down to the cafeteria 2 times per day but after that she usually goes back to bed. Patient probably was found on the floor in the bedroom and appeared be that she came back from the bathroom. Daughter got a call at 2 AM it was undetermined how long patient was on the floor. She was brought into [facility] emergency center for evaluation. She was found to be afebrile, heart rate 120, blood pressure 127/95, pulse ox 90% on room air. Laboratory studies revealed WBC 11.4, hemoglobin 0.4, platelet count 270. Sodium 117, potassium 4.4, chloride 88, CO2 20, BUN 15 creatinine 0.36. Blood sugar 140. Osmolality serum 252. TSH 4.490. Covid19 PCR not detected. CAT scan of the brain and cervical spine revealed spondylotic changes in the lower cervical spine. No fracture. Acute subarachnoid hemorrhage in the right sylvian fissure. No mass effect. No evidence of. She will hemorrhage. Small right lateral periorbital hematoma. Cervical spine no change from old exam. Repeat CAT scan of the brain revealed stable small right sided acute subarachnoid hemorrhage. Stable moderate-sized acute right soft tissue hematoma at the level of the zygoma. No significant change from CT study earlier today. The patient is a no CODE STATUS and she would not wish to undergo any surgical intervention per the patient's daughter. Decided that patient would stay at [facility] versus being transferred to a tertiary care center. Patient has been seen by and followed by neurology. Patient has also been seen by nephrology for hypovolemic hyponatremia with recommendations to maintain IV fluids, sodium chloride tablets which were decreased and hold amlodipine for systolic blood pressure less than 125. Chest x-ray has been ordered to rule out pneumonia. If no significant improvement in patient's status, daughter may consider hospice or comfort care in the next 24-48 hours. 03/01: Patient is seen today in follow-up in mental status is much improved from yesterday. She is able to converse and answer questions. She is on the MedSurg floor. Neurology has recommended follow-up with neurosurgeon as an outpatient in 1-2 weeks and has signed off her case. We have ordered orthostatic vital signs which were negative for orthostatic changes. She's been afebrile, heart rate in the 80s, blood pressure 142/79, pulse ox 90% on room air. Repeat sodium 126. Nephrology is following with recommendations for Hep-Lock IV fluids, maintain sodium chloride tabs decreased to once daily, encourage oral intake and maintain fluid restriction. Hydralazine 25 mg 3 times daily added with parameters. Ultrasound of bilateral lower extremity is negative for DVT. Patient has been seen by therapies with recommendations for return to assisted living with 24- hour supervision. 03/02 patient examined bedside appears to be sleeping comfortably in bed. Denies any headache or dizziness. Patient is noted to be unstable on her feet and requires 2 person assist for ambulation. PT and OT assessment was requested however family would like patient go back to [facility] in her familiar surroundings as patient has previously expressed her desire not to be placed in a residential. Sodium evaluated this morning shows 125. Sodium tablet and increase to 1 tab twice daily. Will monitor patient for improvement in sodium continue to hold IV fluids. PT recommends home with homecare and assist from assessment. Patient was noted to have some dizziness on standing. Orthostatics obtained yesterday were negative 03/03 patient examined bedside sleeping comfortably in bed. Patient's sodium continues to remain on 125 creatinine 0.29 glucose 101. Vitals were reviewed, patient has a temp of 98.3 pulse 74 respiratory rate 20 blood pressure 137/79. Orthostatics were obtained again and were negative. Will increase patient's Norvasc to 10 mg as patient needs to have lower as tolerated blood pressure less than 140. Repeat CAT scan of the head tomorrow for evaluation of patient's subarachnoid hemorrhage Review of symptoms Constitutional: No fever, no chills, no night sweats. No weight change. Noted weakness, fatigue or lethargy. No daytime sleepiness. EENT: No headache. No blurred vision or double vision, no loss of vision. No loss of Hearing, no ringing in the ears, no dizziness. No nasal drainage or congestion. No epistaxis. No sore throat. Lungs: No shortness of breath, cough, no sputum production. No wheezing. Cardiovascular: No chest pain, no lower extremity edema. No palpitations. No paroxysmal nocturnal dyspnea. No orthopnea. No lightheadedness or dizziness. No syncopal episodes. Abdominal: No abdominal pain. No nausea, vomiting. No diarrhea. No con stipation. No bloody or tarry stools.Reports loss of appetite. Genitourinary: No dysuria, increased frequency, urgency. No urinary retention. Musculoskeletal: No myalgias. No muscle weakness, no gait dysfunction, no frequent falls. No back pain. No neck pain. Integumentary: No wounds, no lesions. No rash or pruritus. No unusual bruising. No change in hair or nails. Neurologic: No aphasia. No facial droop. No change in mentation. No head injury. No headache. No paralysis. No paresthesia. dizziness. Psychiatric: No depression. No anxiety. No mood swings. Endocrine: No abnormal blood sugars. No weight change. Physical examination Gen: This is an 89-year-old female. She is resting in bed and appears to be comfortable and in no acute distress HEENT: Significant ecchymosis right periorbital area with large hematoma at the right lateral periorbital region, normocephalic. Pupils equal, round. Sclerae is anicteric. NECK: Supple. No thyromegaly. LUNGS: Crackles in the bilateral bases. No intercostal retractions. HEART: Irregularly irregular rate and rhythm. 2/6 systolic ejection murmur. ABDOMEN: Soft. Bowel sounds are present. No masses. No tenderness. EXTREMITIES: No pedal edema. No calf tenderness. NEUROLOGICAL: Patient is awake and alert, patient is able to follow some instructions, noted to be very hard of hearing, able to converse and appears to be close to her baseline mentation. Assessment and plan 1. Traumatic small right subarachnoid hemorrhage. Patient is followed by neurology and subsequently signed off with recommendations for outpatient follow-up in one to 2 weeks with neurosurgeon. Continue neuro checks. No aggressive treatment. Repeat CAT scan tomorrow 2. Severe hypovolemic hyponatremia. IV fluids discontinue, continue sodium chloride 1 g twice daily, nephrology consult appreciated. Monitor urine output. 3. Metabolic encephalopathy secondary to hyponatremia and subarachnoid hemorrhage. 4. Hypertension and hypertensive cardiovascular disease. Continue amlodipine 5 mg daily with parameters, hydralazine 25 mg 3 times daily discontinued as patient continues to endorse dizziness while standing 5. Hyperlipidemia. Not on any statin. 6. Hypothyroidism. Continue Synthroid 50 g daily. 7. Chronic hyponatremia. Baseline sodium is at 128-29 8. GERD and GI prophylaxis. Continue Protonix 40 mg oral twice daily, Carafate 1 g for meals and at bedtime. 9. Chronic atrial fibrillation. Patient is not on any anticoagulation not clear if reason may be recurrent falls. Monitor the patient very closely. 10. DVT prophylaxis. SCDs and SUNIL hose. CODE STATUS: No code. Discharge plan: Return to [facility] with [facility] on sunday. Objective - Vital Signs Vital signs: Vital Signs Temp 98.3 F 03/03/21 04:34 Pulse 74 03/03/21 04:34 Resp 20 03/03/21 04:34 BP 137/79 03/03/21 04:34 Pulse Ox 96 03/03/21 04:34 Intake & Output 03/02/21 03/03/21 03/03/21 18:59 06:59 18:59 Intake Total 713 350 Balance 713 350 Intake: Oral 713 350 Other: Voiding Method Toilet Toilet Diaper Diaper # Voids 1 3 # Bowel Movements 1 - Labs CBC & Chem 7: 02/28/21 02:59 03/03/21 08:11
[2021-03-03 13:00] VITALS: RESP 16
--- NOTE | 2021-03-03 14:43 | CT ---
EXAMINATION TYPE: CT brain wo con DATE OF EXAM: 03/03/2021 HISTORY: Follow up on Subarachnoid hemorrhage CT DLP: 1001.6 mGycm. Automated Exposure Control for Dose Reduction was Utilized. TECHNIQUE: CT scan of the head is performed without contrast. COMPARISON: CT brain 3 days ago FINDINGS: There is no new acute intracranial hemorrhage or midline shift identified. Prior visualiz ed acute subarachnoid hemorrhage right frontal and superior temporal regions less well seen on curren t study. There is background mild to moderate diffuse ventricular and sulcal prominence consistent wi th diffuse age-related cerebral atrophy. There is background mild low-attenuation in the periventric ular white matter consistent with chronic small vessel ischemic change. Moderate calcified plaque di stal internal carotid arteries bilaterally is present The globes are intact and the visualized sinuse s are clear. There is acute/subacute right zygoma soft tissue hematoma only slightly smaller in size from prior CT centered axial image 10. IMPRESSION: Interval resolution of small amount of acute right subarachnoid hemorrhage. No new acute intracranial hemorrhage or midline shift
--- NOTE | 2021-03-03 16:19 | P.PN ---
Subjective Progress Note Date: 03/03/21 Follow-up for hyponatremia. Objective - Vital Signs Vital signs: Vital Signs Temp 98.1 F 03/03/21 12:59 Pulse 77 03/03/21 12:59 Resp 16 03/03/21 12:59 BP 118/74 03/03/21 12:59 Pulse Ox 98 03/03/21 12:59 Intake & Output 03/02/21 03/03/21 03/03/21 18:59 06:59 18:59 Intake Total 713 350 Balance 713 350 Intake: Oral 713 350 Other: Voiding Method Toilet Toilet Toilet Diaper Diaper Diaper # Voids 1 3 # Bowel Movements 1 - Exam No acute distress S1-S2 heard Lungs clear No edema - Labs CBC & Chem 7: 02/28/21 02:59 03/03/21 08:11 Labs: Abnormal Lab Results - Last 24 Hours (Table) 03/03/21 Range/Units 08:11 Sodium 125 L (137-145) mmol/L Chloride 97 L (98-107) mmol/L Carbon Dioxide 21 L (22-30) mmol/L Creatinine 0.39 L (0.52-1.04) mg/dL Glucose 101 H (74-99) mg/dL Albumin 3.2 L (3.5-5.0) g/dL Assessment and Plan Assessment: #1 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 #2 status post fall #3 acute subarachnoid hemorrhage #4 benign essential hypertension Plan: #1 sodium stable around 125. #2 continue with salt tablets, add tolvaptan 15 mg once #3 repeat BMP in the morning
[2021-03-03] MEDS ORDERED: TOLVAPTAN 15 MG 1/2 TABLET PO ONE (17:00)
[2021-03-04 05:04] VITALS: TEMP 97.9
[2021-03-04] MEDS: LEVOTHYROXINE 50 MCG TAB PO SCH (05:36)
[2021-03-04 09:19] LABS: African American GFR (CKD) 100.2 (60.0-200.0); Anion Gap 12.5 mmol/L (10.00-18.00); BUN/Creat Ratio 13.8 Ratio (12.00-20.00); Blood Urea Nitrogen 6.9 mg/dL (9.0-27.0); Carbon Dioxide 21.5 mmol/L (20.0-27.5); Non-African American GFR(CKD) 86.4 (60.0-200.0); Potassium 3.8 mmol/L (3.5-5.5)
[2021-03-04] MEDS: amLODIPine 10 MG TAB PO SCH (09:32)
[2021-03-04] MEDS: SODIUM CHLORIDE TAB 1 GM TAB PO SCH (09:33)
[2021-03-04] MEDS: PANTOPRAZOLE 40 MG TABLET PO SCH (09:33)
[2021-03-04] MEDS: SUCRALFATE 1 GM TAB PO SCH (09:33)
[2021-03-04 09:36] VITALS: BP 129/75; PULSE 108
--- NOTE | 2021-03-04 12:06 | P.DS ---
Providers Date of admission: 02/28/21 05:17 Attending physician: Cherrie Godwin Consults: 02/28/21 05:19 Consult Physician Routine Consulting Provider: Nighat Mcnair Consult Reason/Comments: Subarachnoid hemorrhage. 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 Patient's daughter is at bedside and gives history that the patient lives at home with her at [facility]. She normally uses a walker for ambulation and able to feed herself and able to get herself to the bathroom although she wears a depends. She is able to walk from their apartment down to the cafeteria 2 times per day but after that she usually goes back to bed. Patient probably was found on the floor in the bedroom and appeared be that she came back from the bathroom. Daughter got a call at 2 AM it was undetermined how long patient was on the floor. She was brought into [facility] emergency center for evaluation. She was found to be afebrile, heart rate 120, blood pressure 127/95, pulse ox 90% on room air. Laboratory studies revealed WBC 11.4, hemoglobin 0.4, platelet count 270. Sodium 117, potassium 4.4, chloride 88, CO2 20, BUN 15 creatinine 0.36. Blood sugar 140. Osmolality serum 252. TSH 4.490. Covid19 PCR not detected. CAT scan of the brain and cervical spine revealed spondylotic changes in the lower cervical spine. No fracture. Acute subarachnoid hemorrhage in the right sylvian fissure. No mass effect. No evidence of. She will hemorrhage. Small right lateral periorbital hematoma. Cervical spine no change from old exam. Repeat CAT scan of the brain revealed stable small right sided acute subarachnoid hemorrhage. Stable moderate-sized acute right soft tissue hematoma at the level of the zygoma. No significant change from CT study earlier today. The patient is a no CODE STATUS and she would not wish to undergo any surgical intervention per the patient's daughter. Decided that patient would stay at [facility] versus being transferred to a tertiary care center. Patient has been seen by and followed by neurology. Patient has also been seen by nephrology for hypovolemic hyponatremia with recommendations to maintain IV fluids, sodium chloride tablets which were decreased and hold amlodipine for systolic blood pressure less than 125. Chest x-ray has been ordered to rule out pneumonia. If no significant improvement in patient's status, daughter may consider hospice or comfort care in the next 24-48 hours. 03/01: Patient is seen today in follow-up in mental status is much improved from yesterday. She is able to converse and answer questions. She is on the MedSurg floor. Neurology has recommended follow-up with neurosurgeon as an outpatient in 1-2 weeks and has signed off her case. We have ordered orthostatic vital signs which were negative for orthostatic changes. She's been afebrile, heart rate in the 80s, blood pressure 142/79, pulse ox 90% on room air. Repeat sodium 126. Nephrology is following with recommendations for Hep-Lock IV fluids, maintain sodium chloride tabs decreased to once daily, encourage oral intake and maintain fluid restriction. Hydralazine 25 mg 3 times daily added with parameters. Ultrasound of bilateral lower extremity is negative for DVT. Patient has been seen by therapies with recommendations for return to assisted living with 24- hour supervision. 03/02 patient examined bedside appears to be sleeping comfortably in bed. Denies any headache or dizziness. Patient is noted to be unstable on her feet and requires 2 person assist for ambulation. PT and OT assessment was requested however family would like patient go back to [facility] in her familiar surroundings as patient has previously expressed her desire not to be placed in a [place] facility. Sodium evaluated this morning shows 125. Sodium tablet and increase to 1 tab twice daily. Will monitor patient for improvement in sodium continue to hold IV fluids. PT recommends home with homecare and assist from assessment. Patient was noted to have some dizziness on standing. Orthostatics obtained yesterday were negative 03/03 patient examined bedside sleeping comfortably in bed. Patient's sodium continues to remain on 125 creatinine 0.29 glucose 101. Vitals were reviewed, patient has a temp of 98.3 pulse 74 respiratory rate 20 blood pressure 137/79. Orthostatics were obtained again and were negative. Will increase patient's Norvasc to 10 mg as patient needs to have lower as tolerated blood pressure less than 140. Repeat CAT scan of the head tomorrow for evaluation of patient's subarachnoid hemorrhage patient examined bedside. Appears tired and sleepy. Repeat PT OT assessment was done today patient is found to be confused and had difficulty placing her walker but otherwise is amenable with this. Details of physical therapy assessment was given to the family who insists on taking the patient to [facility] even though recommendation is for subacute rehab at this point to prevent further falls. Repeat CAT scan of the head was done that suggest clearing of the subarachnoid hemorrhage with no new intracranial bleed. Orthostatics were obtained which were negative. Physical examination Gen: This is an 89-year-old female. She is resting in bed and appears to be comfortable and in no acute distress HEENT: Significant ecchymosis right periorbital area with large hematoma at the right lateral periorbital region, normocephalic. Pupils equal, round. Sclerae is anicteric. NECK: Supple. No thyromegaly. LUNGS: Crackles in the bilateral bases. No intercostal retractions. HEART: Irregularly irregular rate and rhythm. 2/6 systolic ejection murmur. ABDOMEN: Soft. Bowel sounds are present. No masses. No tenderness. EXTREMITIES: No pedal edema. No calf tenderness. NEUROLOGICAL: Patient is awake and alert, patient is able to follow some instructions, noted to be very hard of hearing, able to converse and appears to be close to her baseline mentation. Discharge diagnosis 1. Traumatic small right subarachnoid hemorrhage. 2. Severe hypovolemic hyponatremia. 3. Metabolic encephalopathy secondary to hyponatremia and subarachnoid hemorrhage. 4. Hypertension and hypertensive cardiovascular disease. 5. Hyperlipidemia. 6. Hypothyroidism. 7. Chronic hyponatremia. 8. Chronic atrial fibrillation. Patient is not on any anticoagulation not clear if reason may be recurrent falls. Monitor the patient very closely. Discharge disposition [facility] More than 30 minutes were spent making assessment and plan for the patient and counseling the patient Plan - Discharge Summary Discharge Rx Participant: No New Discharge Prescriptions: New amLODIPine [Norvasc] 5 mg PO DAILY #30 tab Sodium Chloride Tab 1 gm PO DAILY #30 tab Continue Levothyroxine Sodium [Synthroid] 50 mcg PO DAILY Aspirin EC [Ecotrin Low Dose] 81 mg PO HS Discharge Medication List Aspirin EC [Ecotrin Low Dose] 81 mg PO HS 09/28/19 [History] Levothyroxine Sodium [Synthroid] 50 mcg PO DAILY 09/28/19 [History] Sodium Chloride Tab 1 gm PO DAILY #30 tab 03/02/21 [Rx] amLODIPine [Norvasc] 5 mg PO DAILY #30 tab 03/02/21 [Rx] Follow up Appointment(s)/Referral(s): [facility], [NON-STAFF] - Kamaljit Dalton MD [Primary Care Provider] - 1-2 Days () Patient Instructions/Handouts: Amlodipine (By mouth), Sodium Chloride (By mouth) Activity/Diet/Wound Care/Special Instructions: Diet as tolerated Activity limited until seen by Dr. Rodriguez Disposition: HOME WITH HOME HEALTH SERVICES
== END 2021-03-04 14:30 | disposition home health service (06) | DRG 82 ==
LOC: EC 02:19 → 5NMEDONC 05:17
PROVIDERS: ADMIT Family Medicine; ATTEND Family Medicine
DX: S06.6X9A Traumatic subarachnoid hemorrhage with loss of consciousness of unspecified duration, initial encounter (principal); G93.41 Metabolic encephalopathy; E22.2 Syndrome of inappropriate secretion of antidiuretic hormone; I48.20 Chronic atrial fibrillation, unspecified; R40.2342 Coma scale, best motor response, flexion withdrawal, at arrival to emergency department; R40.2142 Coma scale, eyes open, spontaneous, at arrival to emergency department; R40.2232 Coma scale, best verbal response, inappropriate words, at arrival to emergency department; W18.30XA Fall on same level, unspecified, initial encounter; Y92.89 Other specified places as the place of occurrence of the external cause; E03.9 Hypothyroidism, unspecified; E11.9 Type 2 diabetes mellitus without complications; E78.5 Hyperlipidemia, unspecified; E86.1 Hypovolemia; F03.90 Unspecified dementia, unspecified severity, without behavioral disturbance, psychotic disturbance, mood disturbance, and anxiety; F32.A Depression, unspecified; F41.9 Anxiety disorder, unspecified; I11.9 Hypertensive heart disease without heart failure; Z66 Do not resuscitate; R56.9 Unspecified convulsions; S00.10XA Contusion of unspecified eyelid and periocular area, initial encounter; S01.01XA Laceration without foreign body of scalp, initial encounter; R13.10 Dysphagia, unspecified; S01.81XA Laceration without foreign body of other part of head, initial encounter; Z20.822 Contact with and (suspected) exposure to COVID-19; Z79.890 Hormone replacement therapy; Z79.82 Long term (current) use of aspirin; Z79.899 Other long term (current) drug therapy; Z82.49 Family history of ischemic heart disease and other diseases of the circulatory system; Z86.711 Personal history of pulmonary embolism; Z90.710 Acquired absence of both cervix and uterus; Z91.81 History of falling; Z88.0 Allergy status to penicillin; Z98.890 Other specified postprocedural states; Z86.14 Personal history of Methicillin resistant Staphylococcus aureus infection; Z82.3 Family history of stroke
CPT/HCPCS: 12001; 36415; 70450; 71045; 72125; 80048; 80053; 83735; 83930; 83935; 84295; 84300; 84443; 85025; 87635; 93005; 99285

== ENCOUNTER 2021-04-28 12:05 | Emergency (ER) | payer MEDICARE ==
[2021-04-28 12:48] VITALS: RESP 16
--- NOTE | 2021-04-28 13:22 | ED ---
General Adult HPI - General Chief complaint: Upper Respiratory Infection Stated complaint: Covid+ Time Seen by Provider: 04/28/21 12:15 Source: patient, EMS, RN notes reviewed Mode of arrival: EMS Limitations: altered mental status - History of Present Illness Initial comments: Patient is a pleasant 82-year-old female presenting to the emergency department with concern for positive COVID-19 test. Patient has been complaining of sore throat for the past 5 days. Unclear patient has been vaccinated. Patient has history of dementia and is a very poor historian. Patient needs to be asked questions multiple times occasionally. Patient admits to being fatigued. - Related Data Home Medications Medication Instructions Recorded Confirmed Aspirin EC [Ecotrin Low Dose] 81 mg PO DAILY 09/28/19 04/28/21 Levothyroxine Sodium [Synthroid] 50 mcg PO DAILY 09/28/19 04/28/21 Previous Rx's Medication Instructions Recorded Sodium Chloride Tab 1 gm PO BID #60 tab 03/04/21 amLODIPine [Norvasc] 10 mg PO DAILY #30 tab 03/04/21 Nystatin 100,000 Unit/ml Susp 4 ml PO QID #160 ml 04/28/21 [Mycostatin Oral Susp] Allergies Allergy/AdvReac Type Severity Reaction Status Date / Time Penicillins Allergy Rash/Hives Verified 04/28/21 12:53 Review of Systems ROS Statement: Those systems with pertinent positive or pertinent negative responses have been documented in the HPI. ROS Other: All systems not noted in ROS Statement are negative. Constitutional: Denies: fever Eyes: Denies: eye pain ENT: Reports: throat pain Respiratory: Denies: dyspnea Cardiovascular: Denies: chest pain Endocrine: Reports: fatigue Gastrointestinal: Denies: abdominal pain Genitourinary: Denies: dysuria Musculoskeletal: Denies: back pain Skin: Denies: rash Neurological: Denies: weakness Past Medical History Past Medical History: Atrial Fibrillation, Diabetes Mellitus, Hyperlipidemia, Hypertension, Pulmonary Embolus (PE), Thyroid Disorder Additional Past Medical History / Comment(s): had a siezure in 2004, pt states her NA+ was to low, dysphagia History of Any Multi-Drug Resistant Organisms: MRSA Date of last positivie culture/infection: 02/21/2014 MDRO Source:: Face Past Surgical History: Bladder Surgery, Hysterectomy Past Anesthesia/Blood Transfusion Reactions: No Reported Reaction Past Psychological History: Anxiety, Depression Smoking Status: Never smoker Past Alcohol Use History: None Reported Past Drug Use History: None Reported - Past Family History Father Family Medical History: CVA/TIA, Hypertension Additional Family Medical History / Comment(s): brain anyruisum Mother Family Medical History: Hypertension General Exam Limitations: no limitations General appearance: alert, in no apparent distress Head exam: Present: normocephalic Eye exam: Present: normal appearance ENT exam: Present: other (Patient does have some white mucosal changes mostly on the tongue) Neck exam: Present: normal inspection Respiratory exam: Present: normal lung sounds bilaterally Cardiovascular Exam: Present: regular rate, normal rhythm GI/Abdominal exam: Present: soft. Absent: tenderness Extremities exam: Present: normal inspection Neurological exam: Present: alert Expanded Patient oriented to: Present: person Psychiatric exam: Present: normal affect, normal mood Skin exam: Present: normal color Course Vital Signs 04/28/21 12:36 Temperature 98.3 F Pulse Rate 78 Respiratory 16 Rate Blood Pressure 101/61 O2 Sat by Pulse 96 Oximetry Medical Decision Making - Medical Decision Making Patient to receive monoclonal antibodies prior to discharge - Lab Data Lab Results 04/28/21 Range/Units 13:12 Coronavirus (PCR) Detected A (Not Detectd) Disposition Clinical Impression: COVID-19, Thrush Disposition: HOME SELF-CARE Condition: Stable Instructions (If sedation given, give patient instructions): Oral Candidiasis (ED), Coronavirus Disease 2019 (COVID-19) Additional Instructions: Please do follow-up with primary care physician within the next couple days for recheck. [id number] vitamin C, vitamin D, and zinc to help. Continue to quarantine per CDC guidelines. Prescription has been sent to pharmacy for medication for probable thrush infection of the mouth. Return for difficulty breathing, not tolerating oral intake, worsening symptoms or other concerns. Prescriptions: Nystatin 100,000 Unit/ml Susp [Mycostatin Oral Susp] 4 ml PO QID #160 ml Is patient prescribed a controlled substance at d/c from ED?: No Referrals: Kylie Guerra MD [Primary Care Provider] - 1-2 days Time of Disposition: 13:33
[2021-04-28] MEDS ORDERED: SODIUM CHLORIDE 0.9% 500 ML 500 ML IV STA (13:35)
[2021-04-28] MEDS ORDERED: SODIUM CHLORIDE 0.9% 50 ML IVPB ONE (14:30)
[2021-04-28] MEDS ORDERED: SOTROVIMAB (EUA) 500 MG in SODIUM CHLORIDE 0.9% 100 ML IVPB ONE (14:30)
[2021-04-28 19:27] VITALS: BP 105/63; PULSE 80; TEMP 98.4
== END 2021-04-28 16:50 | disposition home or self-care (01) ==
LOC: SUPCPDRO 12:05 → EC 12:05
DX: U07.1 COVID-19 (principal); B37.9 Candidiasis, unspecified; E11.9 Type 2 diabetes mellitus without complications; I10 Essential (primary) hypertension; I48.91 Unspecified atrial fibrillation; E78.5 Hyperlipidemia, unspecified; F32.A Depression, unspecified; F41.9 Anxiety disorder, unspecified; Z79.82 Long term (current) use of aspirin; Z79.890 Hormone replacement therapy; Z79.899 Other long term (current) drug therapy
CPT/HCPCS: 87635; 99284; Q0247

== ENCOUNTER 2021-05-04 00:04 | Emergency (ER) | payer MEDICARE ==
--- NOTE | 2021-05-04 01:04 | ED ---
Weakness HPI - General Chief complaint: Weakness Stated complaint: Weakness Time Seen by Provider: 05/04/21 00:27 Source: EMS Mode of arrival: EMS Limitations: altered mental status, physical limitation - History of Present Illness Initial comments: This patient is an 89-year-old woman who is brought by ambulance to be evaluated for generalized weakness and altered mental status. The patient's reportedly not been able to get up or ambulate at her home. She did not give EMS any history. When I interview the patient, she denies pain. She denies dyspnea. Her speech is clear but she does seem not to want to answer most questions. MD Complaint: generalized weakness, difficulty walking -: hour(s) Location: generalized Improves with: none Worsens with: none - Related Data Home Medications Medication Instructions Recorded Confirmed Aspirin EC [Ecotrin Low Dose] 81 mg PO DAILY 09/28/19 04/28/21 Levothyroxine Sodium [Synthroid] 50 mcg PO DAILY 09/28/19 04/28/21 Previous Rx's Medication Instructions Recorded Sodium Chloride Tab 1 gm PO BID #60 tab 03/04/21 amLODIPine [Norvasc] 10 mg PO DAILY #30 tab 03/04/21 Nystatin 100,000 Unit/ml Susp 4 ml PO QID #160 ml 04/28/21 [Mycostatin Oral Susp] Allergies Allergy/AdvReac Type Severity Reaction Status Date / Time Penicillins Allergy Rash/Hives Verified 04/28/21 12:53 Review of Systems ROS Statement: Those systems with pertinent positive or pertinent negative responses have been documented in the HPI. ROS Other: All systems not noted in ROS Statement are negative. Limitations: ROS unobtainable due to patients medical condition Respiratory: Denies: dyspnea Cardiovascular: Denies: chest pain Gastrointestinal: Denies: abdominal pain Neurological: Denies: headache Past Medical History Past Medical History: Atrial Fibrillation, Diabetes Mellitus, Hyperlipidemia, Hypertension, Pulmonary Embolus (PE), Thyroid Disorder Additional Past Medical History / Comment(s): had a siezure in 2004, pt states her NA+ was to low, dysphagia History of Any Multi-Drug Resistant Organisms: MRSA Date of last positivie culture/infection: 02/21/2014 MDRO Source:: Face Past Surgical History: Bladder Surgery, Hysterectomy Past Anesthesia/Blood Transfusion Reactions: No Reported Reaction Past Psychological History: Anxiety, Depression Smoking Status: Never smoker Past Alcohol Use History: None Reported Past Drug Use History: None Reported - Past Family History Father Family Medical History: CVA/TIA, Hypertension Additional Family Medical History / Comment(s): brain anyruisum Mother Family Medical History: Hypertension General Exam Limitations: altered mental status, physical limitation General appearance: alert, in no apparent distress Head exam: Present: atraumatic, normocephalic Eye exam: Present: normal appearance. Absent: scleral icterus, conjunctival injection ENT exam: Present: mucous membranes dry Neck exam: Present: full ROM. Absent: tenderness Respiratory exam: Present: normal lung sounds bilaterally. Absent: respiratory distress, wheezes, rales, rhonchi, stridor Cardiovascular Exam: Present: regular rate, normal rhythm, normal heart sounds. Absent: systolic murmur, diastolic murmur, rubs, gallop GI/Abdominal exam: Present: soft. Absent: distended, tenderness, guarding, rebound, rigid, mass Extremities exam: Present: normal inspection, normal capillary refill. Absent: pedal edema, calf tenderness Back exam: Present: normal inspection. Absent: CVA tenderness (R), CVA tenderness (L) Neurological exam: Present: alert, CN II-XII intact. Absent: motor sensory deficit Skin exam: Present: warm, dry, intact, normal color. Absent: rash Course Vital Signs 05/04/21 05/04/21 05/04/21 00:10 00:22 01:50 Temperature 97.9 F Pulse Rate 105 H 108 H Pulse Rate [ 115 H Sales Process Manager ] Respiratory 16 16 Rate Blood Pressure 127/72 117/90 O2 Sat by Pulse 96 95 Oximetry 05/04/21 05/04/21 05/04/21 03:00 04:00 05:00 Temperature 98.9 F Pulse Rate 80 80 Pulse Rate [ Sales Process Manager ] Respiratory 18 16 Rate Blood Pressure 141/75 138/85 134/84 O2 Sat by Pulse 98 99 Oximetry 05/04/21 06:00 Temperature Pulse Rate 81 Pulse Rate [ Sales Process Manager ] Respiratory 18 Rate Blood Pressure 130/77 O2 Sat by Pulse 100 Oximetry EKG Findings - EKG Results: EKG: interpreted by ERMD EKG shows: atrial fibrillation (With rapid ventricular rate.) - Blocks, [place], Hypertrophy, ST Abn: AV and intraventricular conduction: left anterior fascicular block Chamber hypertrophy or enlargement: only voltage criteria for left ventricular hypertrophy Medical Decision Making - Medical Decision Making Patient is an 89-year-old woman brought to have evaluation for generalized weakness and altered mental status. Following fluids, the patient's mental status has improved. She would like to go home. When questioned she feels back at her baseline. Nursing staff was able to get her up she was standing at the bedside transferring to bedside commode. Case was discussed with family member, the legal guardian is supportive of letting her go back home. Further chart review reveals that she does have long-standing atrial fibrillation and it appears she is not anticoagulated due to concerns about falling. Will discharge patient to home with close follow-up. - Lab Data Result diagrams: 05/04/21 00:45 05/04/21 00:45 Lab Results 05/04/21 05/04/21 05/04/21 Range/Units 00:45 00:45 00:45 WBC 8.2 (3.8-10.6) k/uL RBC 4.57 (3.80-5.40) m/uL Hgb 12.3 (11.4-16.0) gm/dL Hct 38.5 (34.0-46.0) % MCV 84.2 (80.0-100.0) fL MCH 26.9 (25.0-35.0) pg MCHC 31.9 (31.0-37.0) g/dL RDW 14.1 (11.5-15.5) % Plt Count 192 (150-450) k/uL MPV 7.8 Neutrophils % 85 % Lymphocytes % 8 % Monocytes % 5 % Eosinophils % 1 % Basophils % 0 % Neutrophils # 6.9 (1.3-7.7) k/uL Lymphocytes # 0.6 L (1.0-4.8) k/uL Monocytes # 0.4 (0-1.0) k/uL Eosinophils # 0.1 (0-0.7) k/uL Basophils # 0.0 (0-0.2) k/uL PT 10.5 (9.0-12.0) sec INR 1.0 (<1.2) APTT 22.4 (22.0-30.0) sec Sodium 139 (137-145) mmol/L Potassium 4.2 (3.5-5.1) mmol/L Chloride 107 (98-107) mmol/L Carbon Dioxide 22 (22-30) mmol/L Anion Gap 10 mmol/L BUN 33 H (7-17) mg/dL Creatinine 0.37 L (0.52-1.04) mg/dL Est GFR (CKD-EPI)AfAm >90 (>60 ml/min/1.73 sqM) Est GFR (CKD-EPI)NonAf >90 (>60 ml/min/1.73 sqM) Glucose 131 H (74-99) mg/dL Plasma Lactic Acid [place] (0.7-2.0) mmol/L Calcium 9.0 (8.4-10.2) mg/dL Magnesium 2.0 (1.6-2.3) mg/dL Total Bilirubin 1.1 (0.2-1.3) mg/dL AST 32 (14-36) U/L ALT 16 (4-34) U/L Alkaline Phosphatase 72 (38-126) U/L Troponin I (0.000-0.034) ng/mL Total Protein 8.1 (6.3-8.2) g/dL Albumin 3.5 (3.5-5.0) g/dL TSH 1.330 (0.465-4.680) mIU/L Urine Color Urine Appearance (Clear) Urine pH (5.0-8.0) Ur Specific [place] (1.001-1.035) Urine Protein (Negative) Urine Glucose (UA) (Negative) Urine Ketones (Negative) Urine Blood (Negative) Urine Nitrite (Negative) Urine Bilirubin (Negative) Urine Urobilinogen (<2.0) mg/dL Ur Leukocyte Esterase (Negative) Urine RBC (0-5) /hpf Urine WBC (0-5) /hpf Urine Mucus (None) /hpf 05/04/21 05/04/21 05/04/21 Range/Units 00:45 00:45 01:55 WBC (3.8-10.6) k/uL RBC (3.80-5.40) m/uL Hgb (11.4-16.0) gm/dL Hct (34.0-46.0) % MCV (80.0-100.0) fL MCH (25.0-35.0) pg MCHC (31.0-37.0) g/dL RDW (11.5-15.5) % Plt Count (150-450) k/uL MPV Neutrophils % % Lymphocytes % % Monocytes % % Eosinophils % % Basophils % % Neutrophils # (1.3-7.7) k/uL Lymphocytes # (1.0-4.8) k/uL Monocytes # (0-1.0) k/uL Eosinophils # (0-0.7) k/uL Basophils # (0-0.2) k/uL PT (9.0-12.0) sec INR (<1.2) APTT (22.0-30.0) sec Sodium (137-145) mmol/L Potassium (3.5-5.1) mmol/L Chloride (98-107) mmol/L Carbon Dioxide (22-30) mmol/L Anion Gap mmol/L BUN (7-17) mg/dL Creatinine (0.52-1.04) mg/dL Est GFR (CKD-EPI)AfAm (>60 ml/min/1.73 sqM) Est GFR (CKD-EPI)NonAf (>60 ml/min/1.73 sqM) Glucose (74-99) mg/dL Plasma Lactic Acid [place] 1.2 (0.7-2.0) mmol/L Calcium (8.4-10.2) mg/dL Magnesium (1.6-2.3) mg/dL Total Bilirubin (0.2-1.3) mg/dL AST (14-36) U/L ALT (4-34) U/L Alkaline Phosphatase (38-126) U/L Troponin I 0.016 (0.000-0.034) ng/mL Total Protein (6.3-8.2) g/dL Albumin (3.5-5.0) g/dL TSH (0.465-4.680) mIU/L Urine Color Yellow Urine Appearance Clear (Clear) Urine pH 6.5 (5.0-8.0) Ur Specific [place] 1.029 (1.001-1.035) Urine Protein 1+ H (Negative) Urine Glucose (UA) Negative (Negative) Urine Ketones 2+ H (Negative) Urine Blood Negative (Negative) Urine Nitrite Negative (Negative) Urine Bilirubin Negative (Negative) Urine Urobilinogen <2.0 (<2.0) mg/dL Ur Leukocyte Esterase Negative (Negative) Urine RBC 1 (0-5) /hpf Urine WBC 2 (0-5) /hpf Urine Mucus Rare H (None) /hpf Disposition Clinical Impression: Dehydration, Mental status alteration, Atrial fibrillation Disposition: HOME SELF-CARE Condition: Good Instructions (If sedation given, give patient instructions): Dehydration (ED) Is patient prescribed a controlled substance at d/c from ED?: No Referrals: Kylie Guerra MD [Primary Care Provider] - 1-2 days
[2021-05-04 01:10] LABS: Basophils % (A) 0 %; Eosinophils # (A) 0.1 k/uL (0-0.7); Eosinophils % (A) 1 %; HCT 38.5 % (34.0-46.0); HGB 12.3 gm/dL (11.4-16.0); Lymphocytes # (A) 0.6 k/uL (1.0-4.8); Lymphocytes % (A) 8 %; MCH 26.9 pg (25.0-35.0); MCHC 31.9 g/dL (31.0-37.0); MCV 84.2 fL (80.0-100.0); Mean Platelet Volume 7.8; Monocytes # (A) 0.4 k/uL (0-1.0); Monocytes % (A) 5 %; Neutrophils # (A) 6.9 k/uL (1.3-7.7); Neutrophils % (A) 85 %; Platelet Count 192 k/uL (150-450); RBC 4.57 m/uL (3.80-5.40); RDW 14.1 % (11.5-15.5); WBC 8.2 k/uL (3.8-10.6)
--- NOTE | 2021-05-04 01:17 | XR ---
EXAMINATION TYPE: XR chest 1V portable DATE OF EXAM: 05/04/2021 COMPARISON: NONE HISTORY: Fall. Injury TECHNIQUE: Single view FINDINGS: There is no heart failure nor confluent pneumonic infiltrate. Costophrenic angles are clear . There are no hilar masses. There are chest leads. Thoracic aorta is atheromatous. IMPRESSION: No active cardiopulmonary disease.
--- NOTE | 2021-05-04 01:29 | CT ---
EXAM: CT Head Without Intravenous Contrast CLINICAL HISTORY: ITS.REASON CT Reason: fall injury TECHNIQUE: Axial computed tomography images of the head/brain without intravenous contrast. CTDI is 45.2 mGy and DLP is 985.3 mGy-cm. This CT exam was performed using one or more of the following dose reduction techniques: automated exposure control, adjustment of the mA and/or kV according to patient size, and/or use of iterative reconstruction technique. COMPARISON: No relevant prior studies available. FINDINGS: Brain: No acute infarct or hemorrhage. Chronic small vessel ischemic disease. Ventricles: Unremarkable. No ventriculomegaly. Bones/joints: Unremarkable. No acute calvarial fracture. Soft tissues: Posterior right scalp hematoma. Sinuses: Unremarkable as visualized. Mastoid air cells: Unremarkable as visualized. IMPRESSION: 1. No acute infarct or hemorrhage. 2. Posterior right scalp hematoma. EXAM: CT Cervical Spine Without Intravenous Contrast CLINICAL HISTORY: ITS.REASON CT Reason: fall injury TECHNIQUE: Axial computed tomography images of the cervical spine without intravenous contrast. CTDI is 8.1 mGy and DLP is 230.4 mGy-cm. This CT exam was performed using one or more of the following dose reduction techniques: automated exposure control, adjustment of the mA and/or kV according to patient size, and/or use of iterative reconstruction technique. COMPARISON: No relevant prior studies available. FINDINGS: Vertebrae: No acute fracture or traumatic malalignment. Discs/spinal canal/neural foramina: Multilevel degenerative changes.. Question glass opacities in the left lower lobe which may be infectious. Soft tissues: Unremarkable. IMPRESSION: 1. No acute fracture or traumatic malalignment. 2. Multilevel degenerative changes.. Question glass opacities in the left lower lobe which may be infectious.
[2021-05-04 01:33] LABS: Partial Thromboplastin Time 22.4 sec (22.0-30.0); Prothrombin Time 10.5 sec (9.0-12.0)
[2021-05-04 01:51] LABS: ALT 16 U/L (4-34); AST 32 U/L (14-36); African American GFR (CKD) >90 (>60 ml/min/1.73 sqM); Albumin 3.5 g/dL (3.5-5.0); Alkaline Phosphatase 72 U/L (38-126); Anion Gap 10 mmol/L; Blood Urea Nitrogen 33 mg/dL (7-17); Carbon Dioxide 22 mmol/L (22-30); Chloride 107 mmol/L (98-107); Glucose 131 mg/dL (74-99); Non-African American GFR(CKD) >90 (>60 ml/min/1.73 sqM); Potassium 4.2 mmol/L (3.5-5.1); Sodium 139 mmol/L (137-145); Total Bilirubin 1.1 mg/dL (0.2-1.3); Total Protein 8.1 g/dL (6.3-8.2)
[2021-05-04 02:08] LABS: Appearance,Urine Clear (Clear); Bilirubin,Urine Negative (Negative); Blood,Urine Negative (Negative); Color,Urine Yellow; Glucose,Urine (UA) Negative (Negative); Ketones,Urine 2+ (Negative); Leukocyte Esterase,Urine Negative (Negative); Mucus,Urine Rare /hpf; Nitrite,Urine Negative (Negative); PH, Urine 6.5 (5.0-8.0); Protein,Urine 1+ (Negative); RBC,Urine 1 /hpf (0-5); Specific Gravity,Urine 1.029 (1.001-1.035); Urobilinogen,Urine <2.0 mg/dL (<2.0); WBC,Urine 2 /hpf (0-5)
[2021-05-04] MEDS ORDERED: SODIUM CHLORIDE 0.9% 1,000 ML IV ONE (02:47)
[2021-05-04] MEDS ORDERED: ENOXAPARIN 60 MG/0.6 ML SYRINGE SQ STA (05:54)
[2021-05-04] MEDS ORDERED: METOPROLOL TARTRATE 5 MG/5 ML VIAL IVP PRN (06:00)
[2021-05-04 06:20] VITALS: TEMP 98.9
[2021-05-04 07:47] VITALS: BP 130/88; PULSE 82; RESP 20
== END 2021-05-04 07:50 | disposition home or self-care (01) ==
LOC: EC 00:04
DX: E86.0 Dehydration (principal); I48.91 Unspecified atrial fibrillation; R41.82 Altered mental status, unspecified; E11.9 Type 2 diabetes mellitus without complications; I10 Essential (primary) hypertension; E78.5 Hyperlipidemia, unspecified; F32.A Depression, unspecified; F41.9 Anxiety disorder, unspecified; Z79.82 Long term (current) use of aspirin; Z79.890 Hormone replacement therapy
CPT/HCPCS: 36415; 70450; 71045; 72125; 80053; 81001; 83605; 83735; 84443; 84484; 85025; 85610; 85730; 93005; 96360; 96361; 99285

== ENCOUNTER 2021-05-06 12:55 | Emergency (ER) | payer MEDICARE ==
[2021-05-06 13:11] VITALS: RESP 18
--- NOTE | 2021-05-06 14:35 | ED ---
General Adult HPI - General Source: EMS, old records reviewed Mode of arrival: EMS Limitations: language barrier, altered mental status, physical limitation <Gloria Crowder - Last Filed: 05/06/21 15:17> <Aaron Franco - Last Filed: 05/06/21 15:39> - General Chief complaint: Fall Stated complaint: Fall - History of Present Illness Initial comments: Patient is an 89-year-old female past medical history of dementia who presents emergency department from [facility]. Staff states that they went into the patient's room after they heard a loud thump and found her on the floor. Staff stated that she was unresponsive however when EMS arrived she was alert and acting at her baseline. Patient is mostly nonverbal and only nods to answer some questions at baseline. Patient had an abrasion to her bottom lip. Patient denies any complaints. She was seen 2 days ago at our facility for weakness. She was Covid positive as of the . Remainder of HPI is limited due to the patients medical condition. (Gloria Crowder) - Related Data Home Medications Medication Instructions Recorded Confirmed Aspirin EC [Ecotrin Low Dose] 81 mg PO DAILY 09/28/19 05/06/21 Levothyroxine Sodium [Synthroid] 50 mcg PO DAILY 09/28/19 05/06/21 amLODIPine [Norvasc] 2.5 mg PO DAILY 05/06/21 05/06/21 Previous Rx's Medication Instructions Recorded Sodium Chloride Tab 1 gm PO BID #60 tab 03/04/21 Allergies Allergy/AdvReac Type Severity Reaction Status Date / Time Penicillins Allergy Rash/Hives Verified 05/06/21 14:32 Review of Systems ROS Other: All systems not noted in ROS Statement are negative. <Gloria Crowder - Last Filed: 05/06/21 15:17> ROS Other: All systems not noted in ROS Statement are negative. <Aaron Franco - Last Filed: 05/06/21 15:39> ROS Statement: Those systems with pertinent positive or pertinent negative responses have been documented in the HPI. Past Medical History Past Medical History: Atrial Fibrillation, Diabetes Mellitus, Hyperlipidemia, Hypertension, Pulmonary Embolus (PE), Thyroid Disorder Additional Past Medical History / Comment(s): had a siezure in 2004, pt states her NA+ was to low, dysphagia History of Any Multi-Drug Resistant Organisms: MRSA Date of last positivie culture/infection: 02/21/2014 MDRO Source:: Face Past Surgical History: Bladder Surgery, Hysterectomy Past Anesthesia/Blood Transfusion Reactions: No Reported Reaction Past Psychological History: Anxiety, Depression Smoking Status: Never smoker Past Alcohol Use History: None Reported Past Drug Use History: None Reported - Past Family History Father Family Medical History: CVA/TIA, Hypertension Additional Family Medical History / Comment(s): brain anyruisum Mother Family Medical History: Hypertension <Gloria Crowder - Last Filed: 05/06/21 15:17> General Exam Limitations: language barrier, altered mental status, physical limitation General appearance: alert, in no apparent distress Head exam: Present: normocephalic, other (dried blood occiput - reported as old per EMS. ) Eye exam: Present: normal appearance, PERRL, EOMI. Absent: scleral icterus, conjunctival injection, periorbital swelling ENT exam: Present: mucous membranes moist, other (dried blood right nare. trace blood from abrasion bottom lip. Does not disrupt mucosa) Neck exam: Present: normal inspection. Absent: tenderness, meningismus, lymphadenopathy Respiratory exam: Present: normal lung sounds bilaterally. Absent: respiratory distress, wheezes, rales, rhonchi, stridor Cardiovascular Exam: Present: regular rate, irregular rhythm, normal heart sounds. Absent: systolic murmur, diastolic murmur, rubs, gallop, clicks GI/Abdominal exam: Present: soft, normal bowel sounds. Absent: distended, tenderness, guarding, rebound, rigid Extremities exam: Present: normal inspection, full ROM, normal capillary refill. Absent: tenderness, pedal edema, joint swelling, calf tenderness Back exam: Present: normal inspection Neurological exam: Present: alert, CN II-XII intact Psychiatric exam: Present: flat affect Skin exam: Present: warm, dry, intact, normal color. Absent: rash <Gloria Crowder - Last Filed: 05/06/21 15:17> Course Vital Signs 05/06/21 05/06/21 05/06/21 13:06 13:27 14:55 Temperature 98.8 F Pulse Rate 96 107 H 93 Respiratory 18 18 18 Rate Blood Pressure 137/96 116/73 143/82 O2 Sat by Pulse 97 96 96 Oximetry EKG Findings - EKG Comments: EKG Findings:: EKG demonstrates A. fib with a rate of 106. QRS 92. QTC of 459. No acute ST segment elevations or depressions <VelGlorai Hirsch - Last Filed: 05/06/21 15:17> Medical Decision Making - Lab Data Result diagrams: 05/06/21 14:34 05/06/21 14:34 <Gloria Crowder - Last Filed: 05/06/21 15:17> - Lab Data Result diagrams: 05/06/21 14:34 05/06/21 14:34 <Aaron Franco - Last Filed: 05/06/21 15:39> - Medical Decision Making Upon arrival patient is placed into room 17. A thorough history and physical exam is performed. IV access established laboratory studies were conducted. Patient does go for CT of her brain, cervical spine and facial bones. Chest x- ray is also performed. Patient will be signed out to Dr. Franco (Gloria Crowder) 89-year-old female who presented initially with fall, unknown the exact mechanis m. Patient was found in her room with some mild facial abrasions and bloody nose. Patient was brought to the emergency partner for evaluation. She is at her baseline mental status. Unable to contribute significantly to the history. Patient's care was signed out at shift change awaiting laboratory testing and imaging. Imaging reveals nasal bone fracture and some facial soft tissue injury without intracranial abnormality, no cervical spine fracture subluxation. Chest x-ray is clear. Laboratory testing is essentially unremarkable. Patient is [facility]. (Aaron Franco) - Lab Data Lab Results 05/06/21 05/06/21 05/06/21 Range/Units 14:34 14:34 14:34 WBC 5.0 (3.8-10.6) k/uL RBC 4.01 (3.80-5.40) m/uL Hgb 11.2 L (11.4-16.0) gm/dL Hct 33.7 L (34.0-46.0) % MCV 84.1 (80.0-100.0) fL MCH 27.9 (25.0-35.0) pg MCHC 33.1 (31.0-37.0) g/dL RDW 14.2 (11.5-15.5) % Plt Count 128 L (150-450) k/uL MPV 9.3 Neutrophils % 87 % Lymphocytes % 7 % Monocytes % 5 % Eosinophils % 1 % Basophils % 0 % Neutrophils # 4.4 (1.3-7.7) k/uL Lymphocytes # 0.4 L (1.0-4.8) k/uL Monocytes # 0.2 (0-1.0) k/uL Eosinophils # 0.0 (0-0.7) k/uL Basophils # 0.0 (0-0.2) k/uL Sodium 140 (137-145) mmol/L Potassium 4.0 (3.5-5.1) mmol/L Chloride 110 H (98-107) mmol/L Carbon Dioxide 19 L (22-30) mmol/L Anion Gap 11 mmol/L BUN 63 H (7-17) mg/dL Creatinine 0.45 L (0.52-1.04) mg/dL Est GFR (CKD-EPI)AfAm >90 (>60 ml/min/1.73 sqM) Est GFR (CKD-EPI)NonAf 90 (>60 ml/min/1.73 sqM) Glucose 168 H (74-99) mg/dL Calcium 9.3 (8.4-10.2) mg/dL Magnesium 1.9 (1.6-2.3) mg/dL Total Bilirubin 0.8 (0.2-1.3) mg/dL AST 38 H (14-36) U/L ALT 22 (4-34) U/L Alkaline Phosphatase 68 (38-126) U/L Troponin I (0.000-0.034) ng/mL Total Protein 8.3 H (6.3-8.2) g/dL Albumin 3.6 (3.5-5.0) g/dL Urine Color Yellow Urine Appearance Clear (Clear) Urine pH 6.0 (5.0-8.0) Ur Specific [place] 1.026 (1.001-1.035) Urine Protein 1+ H (Negative) Urine Glucose (UA) Negative (Negative) Urine Ketones Trace H (Negative) Urine Blood Negative (Negative) Urine Nitrite Negative (Negative) Urine Bilirubin Negative (Negative) Urine Urobilinogen <2.0 (<2.0) mg/dL Ur Leukocyte Esterase Negative (Negative) Urine RBC 1 (0-5) /hpf Urine WBC 1 (0-5) /hpf Ur Squamous Epith Cells <1 (0-4) /hpf Urine Mucus Rare H (None) /hpf 05/06/21 Range/Units 14:34 WBC (3.8-10.6) k/uL RBC (3.80-5.40) m/uL Hgb (11.4-16.0) gm/dL Hct (34.0-46.0) % MCV (80.0-100.0) fL MCH (25.0-35.0) pg MCHC (31.0-37.0) g/dL RDW (11.5-15.5) % Plt Count (150-450) k/uL MPV Neutrophils % % Lymphocytes % % Monocytes % % Eosinophils % % Basophils % % Neutrophils # (1.3-7.7) k/uL Lymphocytes # (1.0-4.8) k/uL Monocytes # (0-1.0) k/uL Eosinophils # (0-0.7) k/uL Basophils # (0-0.2) k/uL Sodium (137-145) mmol/L Potassium (3.5-5.1) mmol/L Chloride (98-107) mmol/L Carbon Dioxide (22-30) mmol/L Anion Gap mmol/L BUN (7-17) mg/dL Creatinine (0.52-1.04) mg/dL Est GFR (CKD-EPI)AfAm (>60 ml/min/1.73 sqM) Est GFR (CKD-EPI)NonAf (>60 ml/min/1.73 sqM) Glucose (74-99) mg/dL Calcium (8.4-10.2) mg/dL Magnesium (1.6-2.3) mg/dL Total Bilirubin (0.2-1.3) mg/dL AST (14-36) U/L ALT (4-34) U/L Alkaline Phosphatase (38-126) U/L Troponin I <0.012 (0.000-0.034) ng/mL Total Protein (6.3-8.2) g/dL Albumin (3.5-5.0) g/dL Urine Color Urine Appearance (Clear) Urine pH (5.0-8.0) Ur Specific [place] (1.001-1.035) Urine Protein (Negative) Urine Glucose (UA) (Negative) Urine Ketones (Negative) Urine Blood (Negative) Urine Nitrite (Negative) Urine Bilirubin (Negative) Urine Urobilinogen (<2.0) mg/dL Ur Leukocyte Esterase (Negative) Urine RBC (0-5) /hpf Urine WBC (0-5) /hpf Ur Squamous Epith Cells (0-4) /hpf Urine Mucus (None) /hpf Disposition <Gloria Crowder - Last Filed: 05/06/21 15:17> Is patient prescribed a controlled substance at d/c from ED?: No Time of Disposition: 15:39 <Aaron Franco - Last Filed: 05/06/21 15:39> Clinical Impression: Fall, Concussion, Nasal bone fracture, Concussion and edema of cervical spinal cord Disposition: HOME SELF-CARE Condition: Fair Instructions (If sedation given, give patient instructions): Fall Prevention for Older Adults (ED), Nasal Fracture (ED), Concussion (ED) Referrals: Kylie Guerra MD [Primary Care Provider] - 1-2 days
[2021-05-06 14:46] LABS: Basophils % (A) 0 %; Eosinophils % (A) 1 %; HCT 33.7 % (34.0-46.0); HGB 11.2 gm/dL (11.4-16.0); Lymphocytes # (A) 0.4 k/uL (1.0-4.8); Lymphocytes % (A) 7 %; MCH 27.9 pg (25.0-35.0); MCHC 33.1 g/dL (31.0-37.0); MCV 84.1 fL (80.0-100.0); Mean Platelet Volume 9.3; Monocytes # (A) 0.2 k/uL (0-1.0); Monocytes % (A) 5 %; Neutrophils # (A) 4.4 k/uL (1.3-7.7); Neutrophils % (A) 87 %; Platelet Count 128 k/uL (150-450); RBC 4.01 m/uL (3.80-5.40); RDW 14.2 % (11.5-15.5)
[2021-05-06 14:48] LABS: Appearance,Urine Clear (Clear); Bilirubin,Urine Negative (Negative); Blood,Urine Negative (Negative); Color,Urine Yellow; Glucose,Urine (UA) Negative (Negative); Ketones,Urine Trace (Negative); Leukocyte Esterase,Urine Negative (Negative); Mucus,Urine Rare /hpf; Nitrite,Urine Negative (Negative); Protein,Urine 1+ (Negative); RBC,Urine 1 /hpf (0-5); Specific Gravity,Urine 1.026 (1.001-1.035); Squamous Epithelial Cell,Urine <1 /hpf (0-4); Urobilinogen,Urine <2.0 mg/dL (<2.0); WBC,Urine 1 /hpf (0-5)
[2021-05-06 14:58] LABS: ALT 22 U/L (4-34); AST 38 U/L (14-36); African American GFR (CKD) >90 (>60 ml/min/1.73 sqM); Albumin 3.6 g/dL (3.5-5.0); Alkaline Phosphatase 68 U/L (38-126); Anion Gap 11 mmol/L; Blood Urea Nitrogen 63 mg/dL (7-17); Calcium 9.3 mg/dL (8.4-10.2); Carbon Dioxide 19 mmol/L (22-30); Chloride 110 mmol/L (98-107); Glucose 168 mg/dL (74-99); Magnesium 1.9 mg/dL (1.6-2.3); Non-African American GFR(CKD) 90 (>60 ml/min/1.73 sqM); Sodium 140 mmol/L (137-145); Total Bilirubin 0.8 mg/dL (0.2-1.3); Total Protein 8.3 g/dL (6.3-8.2)
--- NOTE | 2021-05-06 15:06 | CT ---
EXAMINATION TYPE: CT facial bones wo con, CT brain cspine wo con DATE OF EXAM: 05/06/2021 COMPARISON: 05/04/2021 HISTORY: 89-year-old female pain after fall CT DLP: 813.6 (accession [id number]), 999 (accession [id number]) mGycm Automated exposure control for dose reduction was used. Technique: Examination of the head was done in axial plane without intravenous contrast. Coronal and sagittal reconstructions performed. CT of the cervical spine was obtained in axial plane without intravenous injection of contrast mater ial. Coronal and sagittal reformatted images were obtained from the axial views for evaluation of f ractures, spinal alignment and canal. CT of the facial bones with coronal reconstructions. FINDINGS: Head: There is no evidence of acute intracranial hemorrhage, acute ischemic changes, mass, mass-effect, or extra-axial fluid collection. There is no effacement of cerebral sulci or basal subarachnoid cister ns. There is no hydrocephalus. There is no midline shift. Nunes-white matter distinction is preserv ed. Mild to moderate right posterior parietal scalp contusion, slightly smaller compared to 05/04/2021. No underlying calvarial fracture. There appears to be a new small contusion medial left supraorbital region. Mild right frontal cerebral cortical volume loss. Episodic calcifications within the carotid siphons. Mastoid air cells are well pneumatized. Cervical spine: No craniocervical junction abnormality, predental space widening, or prevertebral soft tissue swellin g. Degenerative changes of the C1 dens articulation. Moderate disc/endplate degenerative change C5-C7 levels with disc space narrowing and endplate spondy losis. Multilevel hypertrophic facet and uncovertebral joint arthropathy. Degenerative grade 1 anterolisthesis C4-C5 and T1-T2. Degenerative grade 1 retrolisthesis C5-C6 and C 6-C7. No acute fracture of the cervical spine. Variable mild spinal canal narrowing such as at C5-C6 due to disc ossific complex. Moderate right neuroforaminal stenosis at C5-C6, moderate to severe on the left at C6/C7. Sagittal and coronal reformatted images confirm above findings. Facial bones: Scattered periodontal disease. The mandible and TMJs are intact. There is moderate degenerative perdue e of the right TMJ. Pterygoid plates and zygomatic arches are intact. A small segmental, angulated left-sided nasal bone fracture is noted. The nose is slightly shifted to wards the left. Associated soft tissue swelling. Moderate mucosal thickening anterior ethmoid air cells and left frontal sinus. Mild mucosal thickenin g left maxillary sinus and right sphenoid sinus. No additional facial bone fracture seen.. Asymmetric soft tissue fullness in the left lateral oropharynx, refer to axial image 29. COMBINED IMPRESSION: 1. Right posterior parietal scalp contusion slightly smaller compared to 05/04/2021. There appears to be a new small soft tissue contusion along the medial left supraorbital region. No underlying calvari al fracture or acute intracranial abnormality seen. 2. No acute fracture of the cervical spine. Moderate multilevel spondylotic change with degenerative grade 1 spondylolisthesis from C4 through C7 levels and also at T1-T2. 3. Segmental, minimally angulated fracture of the left nasal bone with associated soft tissue swellin g. No additional acute facial bone fracture seen. Mild to moderate chronic ethmoid and left frontal s inus disease. 4. Asymmetric soft tissue fullness within the lateral left oropharynx may be positional. Recommend di rect visualization to exclude any mass here.
--- NOTE | 2021-05-06 15:12 | XR ---
EXAMINATION TYPE: XR chest 2V DATE OF EXAM: 05/06/2021 COMPARISON: 05/04/2021 INDICATION: Syncope TECHNIQUE: Frontal and lateral views of the chest are obtained. FINDINGS: The heart size is mildly prominent. The pulmonary vasculature is normal. The lungs are clear. IMPRESSION: 1. Mild cardiomegaly, stable from comparison.
[2021-05-06 16:04] LABS: Partial Thromboplastin Time 22.6 sec (22.0-30.0); Prothrombin Time 11.2 sec (9.0-12.0)
[2021-05-06 16:21] VITALS: BP 157/99; PULSE 90; TEMP 98.2
== END 2021-05-06 16:29 | disposition home or self-care (01) ==
LOC: EC 12:55
DX: S06.0X0A Concussion without loss of consciousness, initial encounter (principal); S02.2XXA Fracture of nasal bones, initial encounter for closed fracture; R60.0 Localized edema; I48.91 Unspecified atrial fibrillation; E11.9 Type 2 diabetes mellitus without complications; E78.5 Hyperlipidemia, unspecified; I10 Essential (primary) hypertension; E07.9 Disorder of thyroid, unspecified; F41.9 Anxiety disorder, unspecified; F32.A Depression, unspecified; Z79.82 Long term (current) use of aspirin; Z88.0 Allergy status to penicillin; Z86.711 Personal history of pulmonary embolism; Z90.710 Acquired absence of both cervix and uterus; W01.0XXA Fall on same level from slipping, tripping and stumbling without subsequent striking against object, initial encounter
CPT/HCPCS: 36415; 70450; 70486; 71046; 72125; 80053; 81001; 83735; 84484; 85025; 85610; 85730; 93005; 99285

== ENCOUNTER 2021-05-06 19:24 | Observation (INO) | payer MEDICARE ==
[2021-05-06] MEDS ORDERED: SODIUM CHLORIDE 0.9% 1,000 ML IV STA (19:29)
--- NOTE | 2021-05-06 20:06 | ED ---
Head Injury HPI - General Stated complaint: Weakness Time Seen by Provider: 05/06/21 19:28 Source: RN notes reviewed - History of Present Illness Initial comments: Patient is an 89-year-old female past medical history of dementia who presents emergency department from [facility]. Patient was seen here a few hours ago for a head injury, nasal bone fracture, and concussion. Patient was sent back in because they do not have staff that can monitor the patient overnight. There is been no subsequent injury. Patient is at neurological baseline with dementia. Alert and oriented 1. Review of systems is limited by patient dementia. - Related Data Home Medications Medication Instructions Recorded Confirmed Aspirin EC [Ecotrin Low Dose] 81 mg PO DAILY 09/28/19 05/06/21 Levothyroxine Sodium [Synthroid] 50 mcg PO DAILY 09/28/19 05/06/21 amLODIPine [Norvasc] 2.5 mg PO DAILY 05/06/21 05/06/21 Previous Rx's Medication Instructions Recorded Sodium Chloride Tab 1 gm PO BID #60 tab 03/04/21 Allergies/Adverse reactions: Allergies Allergy/AdvReac Type Severity Reaction Status Date / Time Penicillins Allergy Rash/Hives Verified 05/06/21 20:25 Review of Systems ROS Statement: Those systems with pertinent positive or pertinent negative responses have been documented in the HPI. ROS Other: All systems not noted in ROS Statement are negative. Past Medical History Past Medical History: Atrial Fibrillation, Diabetes Mellitus, Hyperlipidemia, Hypertension, Pulmonary Embolus (PE), Thyroid Disorder Additional Past Medical History / Comment(s): had a siezure in 2004, pt states her NA+ was to low, dysphagia History of Any Multi-Drug Resistant Organisms: MRSA Date of last positivie culture/infection: 02/21/2014 MDRO Source:: Face Past Surgical History: Bladder Surgery, Hysterectomy Past Anesthesia/Blood Transfusion Reactions: No Reported Reaction Past Psychological History: Anxiety, Depression Smoking Status: Never smoker Past Alcohol Use History: None Reported Past Drug Use History: None Reported - Past Family History Father Family Medical History: CVA/TIA, Hypertension Additional Family Medical History / Comment(s): brain anyruisum Mother Family Medical History: Hypertension General Exam - General Exam Comments Initial Comments: This is a frail-appearing 89-year-old female who is essentially alert to verbal. But is disoriented to place, time, and situation. Patient does not appear to have any focal neurologic deficits. Cranial nerves II through XII are intact. General appearance: alert, in no apparent distress Head exam: Present: normocephalic, normal inspection, other (Minimal dried blood noted at the occipital region.) Eye exam: Present: normal appearance, PERRL, EOMI, other (Abrasions noted to the nasal area.). Absent: scleral icterus, conjunctival injection, periorbital swelling ENT exam: Present: normal exam, mucous membranes moist Neck exam: Present: normal inspection. Absent: tenderness, meningismus, lymphadenopathy Respiratory exam: Present: normal lung sounds bilaterally. Absent: respiratory distress, wheezes, rales, rhonchi, stridor Cardiovascular Exam: Present: regular rate, normal rhythm, normal heart sounds. Absent: systolic murmur, diastolic murmur, rubs, gallop, clicks GI/Abdominal exam: Present: soft, normal bowel sounds. Absent: distended, tenderness, guarding, rebound, rigid Extremities exam: Present: normal inspection, full ROM, normal capillary refill. Absent: tenderness, pedal edema, joint swelling, calf tenderness Back exam: Present: normal inspection Neurological exam: Present: altered, CN II-XII intact, other (No focal deficit) Expanded Cranial nerves: EOM's Intact: Normal Eye Response: (4) open spontaneously Motor Response: (5) localizes to pain Verbal Response: (3) inappropriate words (12) Psychiatric exam: Present: normal affect, normal mood Skin exam: Present: warm, dry, intact, normal color. Absent: rash Course Vital Signs 05/06/21 19:57 Temperature 97.3 F L Pulse Rate 78 Respiratory 16 Rate Blood Pressure 143/94 O2 Sat by Pulse 98 Oximetry Medical Decision Making - Medical Decision Making Patient was sent back by [facility] for observation. They do not have staff to monitor the patient after she was diagnosed with concussion a few hours ago. Patient has not change neurologically. No distress. Patient will be admitted to Dr. Roberts ED attending physician is Dr. Franco Disposition Clinical Impression: Concussion and edema of cervical spinal cord, subsequent encounter, Nasal fracture Disposition: ADMITTED IP TO THIS [facility] Condition: Stable Time of Disposition: 20:36
[2021-05-06] MEDS ORDERED: ONDANSETRON 4 MG/2 ML VIAL IVP PRN (20:15)
[2021-05-06] MEDS ORDERED: ACETAMINOPHEN TAB 325 MG TAB PO PRN (20:15)
[2021-05-06] MEDS ORDERED: NALOXONE 0.4 MG/ML 1 ML VIAL IV PRN (20:15)
--- NOTE | 2021-05-07 12:51 | P.HPIM ---
History of Present Illness H&P Date: 05/07/21 She Maloney, is an 89-year-old female who presented to [facility] emergency room after sustaining a fall with head trauma she was evaluated in the emergency room, the head and cervical spine computed tomography scan was done and revealed no evidence of intracranial bleeding or cervical spine fracture, patient had evidence of contusion to the right posterior parietal scalp area, there was also evidence of contusion in the medial left supraorbital area, there was also evidence of left sided nasal bone fracture, patient was initially sent back to [facility] with recommendation to do neuro checks and close monitoring of patient. However at [facility] they do not have the staff to provide these services, patient was sent back to emergency room and then admitted to medical floor. Past Medical History Past Medical History: Atrial Fibrillation, Diabetes Mellitus, Hyperlipidemia, Hypertension, Pulmonary Embolus (PE), Thyroid Disorder Additional Past Medical History / Comment(s): had a siezure in 2004, pt states her NA+ was to low, dysphagia History of Any Multi-Drug Resistant Organisms: MRSA Date of last positivie culture/infection: 02/21/2014 MDRO Source:: Face Past Surgical History: Bladder Surgery, Hysterectomy Past Anesthesia/Blood Transfusion Reactions: No Reported Reaction Past Psychological History: Anxiety, Depression Smoking Status: Never smoker Past Alcohol Use History: None Reported Past Drug Use History: None Reported - Past Family History Father Family Medical History: CVA/TIA, Hypertension Additional Family Medical History / Comment(s): brain anyruisum Mother Family Medical History: Hypertension Medications and Allergies Home Medications Medication Instructions Recorded Confirmed Type Aspirin EC [Ecotrin Low Dose] 81 mg PO DAILY 09/28/19 05/06/21 History Levothyroxine Sodium [Synthroid] 50 mcg PO DAILY 09/28/19 05/06/21 History Sodium Chloride Tab 1 gm PO BID #60 tab 03/04/21 05/06/21 Rx amLODIPine [Norvasc] 2.5 mg PO DAILY 05/06/21 05/06/21 History Allergies Allergy/AdvReac Type Severity Reaction Status Date / Time Penicillins Allergy Rash/Hives Verified 05/06/21 20:25 Physical Exam Vitals: Vital Signs Temp Pulse Pulse Resp BP BP Pulse Ox 05/07/21 07:00 98 F 72 16 124/71 98 05/07/21 01:43 97.8 F 76 16 123/72 98 05/06/21 22:06 98.4 F 81 16 145/78 97 05/06/21 21:37 97.3 F L 83 15 138/64 99 05/06/21 19:57 97.3 F L 78 16 143/94 98 Intake and Output 05/06/21 05/07/21 05/07/21 22:59 06:59 14:59 Other: Voiding Method Diaper Incontinent # Voids 1 1 Weight 49.895 kg In general patient is alert, responsive in no distress HEENT head normocephalic and atraumatic Neck is supple no JVD no goiter no lymphadenopathy no carotid bruit Chest examination is clear to auscultation no crackles no wheezing Cardiac exam reveals regular heart sounds S1 and S2 no gallops no murmurs Abdomen is soft nontender no organomegaly with normal bowel sounds Extremity exam reveals no edema no cyanosis or clubbing Neurological examination reveals no gross focal deficits Results Labs: Abnormal Lab Results - Last 24 Hours (Table) 05/06/21 Range/Units 20:35 Coronavirus (PCR) Detected A (Not Detectd) Assessment and Plan Plan: Fall with head trauma Positive COVID-19 testing, without evidence of pneumonia patient is having normal O2 sat duration on room air Angulated left sided nasal bone fracture Asymmetric soft tissue fullness within the left lateral oropharynx on computed tomography scan direct visualization was recommended to exclude mass Underlying history of hypovolemic hyponatremia maintained on sodium chloride tablets Underlying history of hypertension Underlying history of hypothyroidism Underlying history of chronic atrial fibrillation not on anticoagulation due to recurrent falls Underlying history of hypothyroidism. At this time patient is admitted to telemetry floor for monitoring Home medications reviewed and reordered Will consult ENT in regard to nasal bone fracture and possible left oropharynx mass Will consult physical therapy and occupational therapy Will follow in a.m.
--- NOTE | 2021-05-07 13:28 | XR ---
EXAMINATION TYPE: XR chest 1V portable DATE OF EXAM: 05/07/2021 COMPARISON: 05/06/2021 HISTORY: Possible Covid pneumonia TECHNIQUE: Single frontal view of the chest is obtained. FINDINGS: There is no focal air space opacity, pleural effusion, or pneumothorax seen. The heart is mildly to moderately enlarged but there is no pulmonary vascular congestion or interstitial edema. The osseous structures are intact. IMPRESSION: Mild to moderate cardiomegaly without overt CHF. No acute cardiopulmonary disease. No in terval change.
[2021-05-07] MEDS: ENOXAPARIN 40 MG/0.4 ML SYRINGE SQ SCH (13:32)
[2021-05-07] MEDS: amLODIPine 2.5 MG TAB PO SCH (13:32)
[2021-05-07] MEDS: SODIUM CHLORIDE TAB 1 GM TAB PO SCH ×2 (13:32→20:29)
[2021-05-07] MEDS: ASPIRIN 81 MG PO SCH (13:32)
[2021-05-07] MEDS: LEVOTHYROXINE 50 MCG TAB PO SCH (13:33)
[2021-05-07 14:38] LABS: ALT 21 U/L (4-34); AST 35 U/L (14-36); African American GFR (CKD) >90 (>60 ml/min/1.73 sqM); Albumin 2.8 g/dL (3.5-5.0); Albumin/Globulin Ratio 0.7; Alkaline Phosphatase 69 U/L (38-126); Anion Gap 6 mmol/L; Basophils % (A) 0 %; Blood Urea Nitrogen 27 mg/dL (7-17); Calcium 8.4 mg/dL (8.4-10.2); Carbon Dioxide 21 mmol/L (22-30); Chloride 109 mmol/L (98-107); Eosinophils % (A) 0 %; Globulin 4.1 g/dL; Glucose 142 mg/dL (74-99); HCT 39.7 % (34.0-46.0); HGB 12.2 gm/dL (11.4-16.0); Hypochromasia Slight; Lymphocytes # (A) 0.7 k/uL (1.0-4.8); Lymphocytes % (A) 8 %; MCH 26.7 pg (25.0-35.0); MCHC 30.8 g/dL (31.0-37.0); MCV 86.6 fL (80.0-100.0); Mean Platelet Volume 7.5; Monocytes # (A) 0.3 k/uL (0-1.0); Monocytes % (A) 3 %; Neutrophils # (A) 8.2 k/uL (1.3-7.7); Neutrophils % (A) 88 %; Non-African American GFR(CKD) >90 (>60 ml/min/1.73 sqM); Platelet Count 238 k/uL (150-450); Potassium 2.8 mmol/L (3.5-5.1); RBC 4.58 m/uL (3.80-5.40); RDW 14.6 % (11.5-15.5); Sodium 136 mmol/L (137-145); Total Bilirubin 0.8 mg/dL (0.2-1.3); Total Protein 6.9 g/dL (6.3-8.2); WBC 9.3 k/uL (3.8-10.6)
[2021-05-07] MEDS ORDERED: Potassium Replacement Protocol 1 EACH MISC MISCELLANE PRN (15:35)
[2021-05-07] MEDS: POTASSIUM CHLORIDE ER 20 MEQ TAB.ER PO SCH ×2 (15:52→15:56)
[2021-05-07] MEDS: POTASSIUM CHLORIDE 10 MEQ in WATER FOR INJECTION 1 100ML.BAG IVPB SCH ×5 (16:31→23:21)
[2021-05-08] MEDS: POTASSIUM CHLORIDE 10 MEQ in WATER FOR INJECTION 1 100ML.BAG IVPB SCH (00:16)
[2021-05-08] MEDS: LEVOTHYROXINE 50 MCG TAB PO SCH (05:27)
[2021-05-08] MEDS: amLODIPine 2.5 MG TAB PO SCH (08:49)
[2021-05-08] MEDS: SODIUM CHLORIDE TAB 1 GM TAB PO SCH ×2 (08:49→21:13)
[2021-05-08] MEDS: ASPIRIN 81 MG PO SCH (08:49)
[2021-05-08] MEDS: ENOXAPARIN 40 MG/0.4 ML SYRINGE SQ SCH (08:49)
[2021-05-08 10:29] LABS: African American GFR (CKD) 107.8 (60.0-200.0); Albumin 2.8 g/dL (3.8-4.9); Albumin/Globulin Ratio 0.78 (1.60-3.17); Anion Gap 12.4 mmol/L (10.00-18.00); BUN/Creat Ratio 48.25 Ratio (12.00-20.00); Blood Urea Nitrogen 19.3 mg/dL (9.0-27.0); Calcium 8.1 mg/dL (8.7-10.3); Carbon Dioxide 16.6 mmol/L (20.0-27.5); Globulin 3.6 g/dL (1.6-3.3); Potassium 4.5 mmol/L (3.5-5.5); Total Bilirubin 0.5 mg/dL (0.30-1.20); Total Protein 6.4 g/dL (6.2-8.2)
[2021-05-08 11:53] LABS: Basophils # (A) 0.01 X 10*3/uL (0.00-0.10); Basophils % (A) 0.1 %; Eosinophils # (A) 0.04 X 10*3/uL (0.04-0.35); Eosinophils % (A) 0.5 %; HCT 37.4 % (37.2-46.3); Immature Grans, Automated 0.2 %; Lymphocytes # (A) 0.79 X 10*3/uL (0.90-5.00); Lymphocytes % (A) 9.8 %; MCH 26.8 pg (27.0-32.0); MCHC 32.1 g/dL (32.0-37.0); MCV 83.5 fL (80.0-97.0); Monocytes # (A) 0.46 X 10*3/uL (0.20-1.00); Monocytes % (A) 5.7 %; NRBC Per 100 WBC 0 /100 WBCS (0.0-0.0); Neutrophils # (A) 6.71 X 10*3/uL (1.80-7.70); Neutrophils % (A) 83.7 %; Platelet Count 243 X 10*3/uL (140-440); RBC 4.48 X 10*6/uL (4.10-5.20); RDW 14.8 % (11.5-14.5); WBC 8.03 X 10*3/uL (4.50-10.00)
--- NOTE | 2021-05-08 16:45 | P.PN ---
Subjective Progress Note Date: 05/08/21 She Maloney, is an 89-year-old female who presented to [facility] emergency room after sustaining a fall with head trauma she was evaluated in the emergency room, the head and cervical spine computed tomography scan was done and revealed no evidence of intracranial bleeding or cervical spine fracture, patient had evidence of contusion to the right posterior parietal scalp area, there was also evidence of contusion in the medial left supraorbital area, there was also evidence of left sided nasal bone fracture, patient was initially sent back to [facility] with recommendation to do neuro checks and close monitoring of patient. However at [facility] they do not have the staff to provide these services, patient was sent back to emergency room and then admitted to medical floor. On 05/08/2021 patient was seen and examined on the medical floor she is alert and confused in no apparent distress there is no fever or chills patient is denying any dizziness or any pain, per her nurse she has been refusing most of her pills, at this time will continue to monitor will assess physical therapy and occupational therapy input, will consult social media job titles to assess if retur paulo to [facility] is possible at the time of discharge. Objective - Vital Signs Vital signs: Vital Signs Temp 97.6 F 05/08/21 13:30 Pulse 77 05/08/21 13:30 Resp 16 05/08/21 13:30 BP 114/74 05/08/21 13:30 Pulse Ox 97 05/08/21 13:30 Intake & Output 05/07/21 05/08/21 05/08/21 18:59 06:59 18:59 Intake Total 50 180 Balance 50 180 Intake: Oral 50 180 Other: Voiding Method Diaper Diaper Diaper Incontinent Incontinent Incontinent # Voids 1 3 1 # Bowel Movements 1 - Exam In general patient is alert, responsive in no distress HEENT head normocephalic and atraumatic Neck is supple no JVD no goiter no lymphadenopathy no carotid bruit Chest examination is clear to auscultation no crackles no wheezing Cardiac exam reveals regular heart sounds S1 and S2 no gallops no murmurs Abdomen is soft nontender no organomegaly with normal bowel sounds Extremity exam reveals no edema no cyanosis or clubbing Neurological examination reveals no gross focal deficits - Labs CBC & Chem 7: 05/08/21 07:30 05/08/21 03:54 Labs: Abnormal Lab Results - Last 24 Hours (Table) 05/08/21 05/08/21 Range/Units 03:54 07:30 MCH 26.8 L (27.0-32.0) pg RDW 14.8 H (11.5-14.5) % Lymphocytes # 0.79 L (0.90-5.00) X 10*3/uL Carbon Dioxide 16.6 L (20.0-27.5) mmol/L Creatinine 0.4 L (0.6-1.5) mg/dL BUN/Creatinine Ratio 48.25 H (12.00-20.00) Ratio Calcium 8.1 L (8.7-10.3) mg/dL Albumin 2.8 L (3.8-4.9) g/dL Globulin 3.6 H (1.6-3.3) g/dL Albumin/Globulin Ratio 0.78 L (1.60-3.17) g/dL Assessment and Plan Plan: Fall with head trauma Positive COVID-19 testing, without evidence of pneumonia patient is having normal O2 sat duration on room air Angulated left sided nasal bone fracture Asymmetric soft tissue fullness within the left lateral oropharynx on computed tomography scan direct visualization was recommended to exclude mass Underlying history of hypovolemic hyponatremia maintained on sodium chloride tablets Underlying history of hypertension Underlying history of hypothyroidism Underlying history of chronic atrial fibrillation not on anticoagulation due to recurrent falls Underlying history of hypothyroidism. At this time patient is admitted to telemetry floor for monitoring Home medications reviewed and reordered Will consult ENT in regard to nasal bone fracture and possible left oropharynx mass Will consult physical therapy and occupational therapy Will follow in a.m.
[2021-05-09 04:05] VITALS: RESP 16
[2021-05-09] MEDS: LEVOTHYROXINE 50 MCG TAB PO SCH (05:42)
[2021-05-09 08:13] LABS: Basophils # (A) 0.1 k/uL (0-0.2); Basophils % (A) 1 %; Eosinophils # (A) 0.2 k/uL (0-0.7); Eosinophils % (A) 2 %; HCT 44.6 % (34.0-46.0); HGB 13.9 gm/dL (11.4-16.0); Hypochromasia Slight; Lymphocytes % (A) 12 %; MCHC 31.1 g/dL (31.0-37.0); MCV 86.9 fL (80.0-100.0); Mean Platelet Volume 7.8; Monocytes # (A) 0.4 k/uL (0-1.0); Monocytes % (A) 5 %; Neutrophils # (A) 6.5 k/uL (1.3-7.7); Neutrophils % (A) 79 %; Platelet Count 295 k/uL (150-450); RBC 5.13 m/uL (3.80-5.40); RDW 14.3 % (11.5-15.5); WBC 8.2 k/uL (3.8-10.6)
[2021-05-09] MEDS: SODIUM CHLORIDE TAB 1 GM TAB PO SCH ×2 (08:34→23:02)
[2021-05-09] MEDS: amLODIPine 2.5 MG TAB PO SCH (08:34)
[2021-05-09] MEDS: ASPIRIN 81 MG PO SCH (08:34)
[2021-05-09] MEDS: ENOXAPARIN 40 MG/0.4 ML SYRINGE SQ SCH (08:34)
[2021-05-09 10:35] LABS: African American GFR (CKD) 107.8 (60.0-200.0); Albumin 2.9 g/dL (3.8-4.9); Albumin/Globulin Ratio 0.85 (1.60-3.17); Anion Gap 10.1 mmol/L (10.00-18.00); BUN/Creat Ratio 28.25 Ratio (12.00-20.00); Blood Urea Nitrogen 11.3 mg/dL (9.0-27.0); Calcium 8.2 mg/dL (8.7-10.3); Carbon Dioxide 19.9 mmol/L (20.0-27.5); Globulin 3.4 g/dL (1.6-3.3); Potassium 3.4 mmol/L (3.5-5.5); Total Bilirubin 0.6 mg/dL (0.30-1.20); Total Protein 6.3 g/dL (6.2-8.2)
[2021-05-09] MEDS ORDERED: Potassium Replacement Protocol 1 EACH MISC MISCELLANE PRN (14:12)
[2021-05-09] MEDS: POTASSIUM CHLORIDE ER 20 MEQ TAB.ER PO SCH ×2 (15:14→16:08)
--- NOTE | 2021-05-09 17:48 | P.PN ---
Subjective Progress Note Date: 05/09/21 She Maloney, is an 89-year-old female who presented to [facility] emergency room after sustaining a fall with head trauma she was evaluated in the emergency room, the head and cervical spine computed tomography scan was done and revealed no evidence of intracranial bleeding or cervical spine fracture, patient had evidence of contusion to the right posterior parietal scalp area, there was also evidence of contusion in the medial left supraorbital area, there was also evidence of left sided nasal bone fracture, patient was initially sent back to [facility] with recommendation to do neuro checks and close monitoring of patient. However at [facility] they do not have the staff to provide these services, patient was sent back to emergency room and then admitted to medical floor. On 05/08/2021 patient was seen and examined on the medical floor she is alert and confused in no apparent distress there is no fever or chills patient is denying any dizziness or any pain, per her nurse she has been refusing most of her pills, at this time will continue to monitor will assess physical therapy and occupational therapy input, will consult home health care social worker to assess if retur paulo to [facility] is possible at the time of discharge. On 05/09/2021 patient was seen and examined on the medical floor she is alert confused in no apparent distress there is no fever or chills no headache or dizziness no chest pain no shortness of breath no cough no nausea or vomiting no abdominal pain no diarrhea and no urinary symptoms. Today I had a prolonged phone call with patient's daughter Batool, at this time we are awaiting physical therapy occupational therapy report social work involvement for discharge. Patient will need to go to a [facility] for rehabilitation and is not able to return to [facility] in her current condition. Objective - Vital Signs Vital signs: Vital Signs Temp 98 F 05/09/21 13:00 Pulse 71 05/09/21 13:00 Resp 16 05/09/21 13:00 BP 122/70 05/09/21 13:00 Pulse Ox 97 05/09/21 13:00 Intake & Output 05/08/21 05/09/21 05/09/21 18:59 06:59 18:59 Intake Total 180 600 Balance 180 600 Intake: Intake, IV Titration 600 Amount Sodium Chloride 0.9% 1, 600 000 ml @ 75 mls/hr IV . [id number] STA Rx#:[id number] Oral 180 0 Other: Voiding Method Diaper Diaper Diaper Incontinent Incontinent Incontinent # Voids 2 2 1 # Bowel Movements 1 1 - Exam In general patient is alert, responsive in no distress HEENT head normocephalic and atraumatic Neck is supple no JVD no goiter no lymphadenopathy no carotid bruit Chest examination is clear to auscultation no crackles no wheezing Cardiac exam reveals regular heart sounds S1 and S2 no gallops no murmurs Abdomen is soft nontender no organomegaly with normal bowel sounds Extremity exam reveals no edema no cyanosis or clubbing Neurological examination reveals no gross focal deficits - Labs CBC & Chem 7: 05/09/21 07:26 05/09/21 07:26 Labs: Abnormal Lab Results - Last 24 Hours (Table) 05/09/21 Range/Units 07:26 Potassium 3.4 L (3.5-5.5) mmol/L Carbon Dioxide 19.9 L (20.0-27.5) mmol/L Creatinine 0.4 L (0.6-1.5) mg/dL BUN/Creatinine Ratio 28.25 H (12.00-20.00) Ratio Calcium 8.2 L (8.7-10.3) mg/dL Albumin 2.9 L (3.8-4.9) g/dL Globulin 3.4 H (1.6-3.3) g/dL Albumin/Globulin Ratio 0.85 L (1.60-3.17) g/dL Assessment and Plan Plan: Fall with head trauma Positive COVID-19 testing, without evidence of pneumonia patient is having normal O2 sat duration on room air Angulated left sided nasal bone fracture Asymmetric soft tissue fullness within the left lateral oropharynx on computed tomography scan direct visualization was recommended to exclude mass Underlying history of hypovolemic hyponatremia maintained on sodium chloride tablets Underlying history of hypertension Underlying history of hypothyroidism Underlying history of chronic atrial fibrillation not on anticoagulation due to recurrent falls Underlying history of hypothyroidism. At this time patient is admitted to telemetry floor for monitoring Home medications reviewed and reordered Will consult ENT in regard to nasal bone fracture and possible left oropharynx mass Will consult physical therapy and occupational therapy Will follow in a.m.
[2021-05-10] MEDS: LEVOTHYROXINE 50 MCG TAB PO SCH (05:41)
[2021-05-10] MEDS: amLODIPine 2.5 MG TAB PO SCH (09:15)
[2021-05-10] MEDS: SODIUM CHLORIDE TAB 1 GM TAB PO SCH (09:15)
[2021-05-10] MEDS: ENOXAPARIN 40 MG/0.4 ML SYRINGE SQ SCH (09:15)
[2021-05-10] MEDS: ASPIRIN 81 MG PO SCH (09:15)
[2021-05-10 11:37] LABS: Basophils # (A) 0.03 X 10*3/uL (0.00-0.10); Basophils % (A) 0.5 %; Eosinophils # (A) 0.16 X 10*3/uL (0.04-0.35); Eosinophils % (A) 2.8 %; HCT 39.1 % (37.2-46.3); HGB 12.4 g/dL (12.0-15.0); Immature Grans, Automated 0.3 %; Lymphocytes # (A) 0.81 X 10*3/uL (0.90-5.00); MCH 26.4 pg (27.0-32.0); MCHC 31.7 g/dL (32.0-37.0); MCV 83.4 fL (80.0-97.0); Mean Platelet Volume 9.9 fL (9.5-12.2); Monocytes # (A) 0.38 X 10*3/uL (0.20-1.00); Monocytes % (A) 6.6 %; NRBC Per 100 WBC 0 /100 WBCS (0.0-0.0); Neutrophils % (A) 75.8 %; Platelet Count 299 X 10*3/uL (140-440); RBC 4.69 X 10*6/uL (4.10-5.20)
[2021-05-10 11:50] LABS: African American GFR (CKD) 107.8 (60.0-200.0); Albumin 2.7 g/dL (3.8-4.9); Albumin/Globulin Ratio 0.84 (1.60-3.17); Anion Gap 13.2 mmol/L (10.00-18.00); Blood Urea Nitrogen 10.4 mg/dL (9.0-27.0); Calcium 8.1 mg/dL (8.7-10.3); Carbon Dioxide 18.8 mmol/L (20.0-27.5); Globulin 3.2 g/dL (1.6-3.3); Potassium 3.3 mmol/L (3.5-5.5); Total Bilirubin 0.5 mg/dL (0.30-1.20); Total Protein 5.9 g/dL (6.2-8.2)
[2021-05-10] MEDS: POTASSIUM CHLORIDE ER 20 MEQ TAB.ER PO SCH ×2 (13:03→14:27)
--- NOTE | 2021-05-10 14:20 | P.DS ---
Providers Date of admission: 05/06/21 19:55 Expected date of discharge: 05/10/21 Attending physician: Mert Roberts Consults: 05/07/21 12:37 Consult Physician Routine Consulting Provider: Sachin Brunson Consult Reason/Comments: nasal fracture, oropharyngeal mass Do you want consulting provider notified?: Yes Primary care physician: Kylie Guerra Hospital Course: Diagnosis on discharge: Fall with head trauma Positive COVID-19 testing, without evidence of pneumonia patient is having normal O2 sat duration on room air Angulated left sided nasal bone fracture Asymmetric soft tissue fullness within the left lateral oropharynx on computed tomography scan direct visualization was recommended to exclude mass Underlying history of hypovolemic hyponatremia maintained on sodium chloride tablets Underlying history of hypertension Underlying history of hypothyroidism Underlying history of chronic atrial fibrillation not on anticoagulation due to recurrent falls Underlying history of hypothyroidism. Hospital course: She Maloney, is an 89-year-old female who presented to [facility] emergency room after sustaining a fall with head trauma she was evaluated in the emergency room, the head and cervical spine computed tomography scan was done and revealed no evidence of intracranial bleeding or cervical spine fracture, patient had evidence of contusion to the right posterior parietal scalp area, there was also evidence of contusion in the medial left supraorbital area, there was also evidence of left sided nasal bone fracture, patient was initially sent back to [facility] with recommendation to do neuro checks and close monitoring of patient. However at [facility] they do not have the staff to provide these services, patient was sent back to emergency room and then admitted to medical floor. On 05/08/2021 patient was seen and examined on the medical floor she is alert and confused in no apparent distress there is no fever or chills patient is denying any dizziness or any pain, per her nurse she has been refusing most of her pills, at this time will continue to monitor will assess physical therapy and occupational therapy input, will consult social services specialist to assess if returning to [facility] is possible at the time of discharge. On 05/09/2021 patient was seen and examined on the medical floor she is alert confused in no apparent distress there is no fever or chills no headache or dizziness no chest pain no shortness of breath no cough no nausea or vomiting no abdominal pain no diarrhea and no urinary symptoms. Today I had a prolonged phone call with patient's daughter Batool, at this time we are awaiting physical therapy occupational therapy report social work involvement for discharge. Patient will need to go to a correction for rehabilitation and is not able to return to [facility] in her current condition. Patient Condition at Discharge: Stable Plan - Discharge Summary New Discharge Prescriptions: New Potassium Chloride ER [K-Dur 10] 10 meq PO DAILY 30 Days #30 tab Continue Levothyroxine Sodium [Synthroid] 50 mcg PO DAILY Aspirin EC [Ecotrin Low Dose] 81 mg PO DAILY Sodium Chloride Tab 1 gm PO BID #60 tab amLODIPine [Norvasc] 2.5 mg PO DAILY Discharge Medication List Aspirin EC [Ecotrin Low Dose] 81 mg PO DAILY 09/28/19 [History] Levothyroxine Sodium [Synthroid] 50 mcg PO DAILY 09/28/19 [History] Sodium Chloride Tab 1 gm PO BID #60 tab 03/04/21 [Rx] amLODIPine [Norvasc] 2.5 mg PO DAILY 05/06/21 [History] Potassium Chloride ER [K-Dur 10] 10 meq PO DAILY 30 Days #30 tab 05/10/21 [Rx] Follow up Appointment(s)/Referral(s): Rob Thomas MD [STAFF PHYSICIAN] - 1 Week
[2021-05-10 14:27] VITALS: BMI 21.4
[2021-05-10 16:15] VITALS: BP 129/79; PULSE 91; TEMP 98
== END 2021-05-10 16:28 ==
LOC: EC 19:24 → 6NMEDSUR 19:55
PROVIDERS: ADMIT Internal Medicine; ATTEND Internal Medicine
DX: S06.0X9A Concussion with loss of consciousness of unspecified duration, initial encounter (principal); S02.2XXA Fracture of nasal bones, initial encounter for closed fracture; U07.1 COVID-19; S00.03XA Contusion of scalp, initial encounter; S00.83XA Contusion of other part of head, initial encounter; F03.90 Unspecified dementia, unspecified severity, without behavioral disturbance, psychotic disturbance, mood disturbance, and anxiety; E11.9 Type 2 diabetes mellitus without complications; E78.5 Hyperlipidemia, unspecified; I10 Essential (primary) hypertension; F41.9 Anxiety disorder, unspecified; F32.A Depression, unspecified; E86.1 Hypovolemia; E87.1 Hypo-osmolality and hyponatremia; E03.9 Hypothyroidism, unspecified; I48.20 Chronic atrial fibrillation, unspecified; I51.7 Cardiomegaly; R53.1 Weakness; R13.10 Dysphagia, unspecified; R32 Unspecified urinary incontinence; Z53.29 Procedure and treatment not carried out because of patient's decision for other reasons; R29.6 Repeated falls; Z86.711 Personal history of pulmonary embolism; Z86.14 Personal history of Methicillin resistant Staphylococcus aureus infection; Z79.82 Long term (current) use of aspirin; Z79.890 Hormone replacement therapy; Z79.899 Other long term (current) drug therapy; Z88.0 Allergy status to penicillin; Z16.24 Resistance to multiple antibiotics; Z90.710 Acquired absence of both cervix and uterus; W19.XXXA Unspecified fall, initial encounter; Z82.49 Family history of ischemic heart disease and other diseases of the circulatory system; Z82.3 Family history of stroke
CPT/HCPCS: 96365; 96366 ×2; 96372 ×4; 99285; 97162 ×2; 97535; 97166; 80053 ×4; 85025 ×4; 87635; 71045; G0378 ×5; J1650 ×4; J3480 ×2